=== PATIENT | male | born 1935 | race Caucasian/White ===

== ENCOUNTER 2016-12-06 01:49 | Emergency (ER) | payer MEDICARE, OTHER ==
[~2016-12-06] VITALS: Ht 182.9 cm; Wt 85.0 kg
[~2016-12-06 01:49] MED LIST: ASPI81 PO; LEVE500 PO; NAME10TA PO; NU-I150C PO; OMEP20TA PO; RISP1 PO; TRAZ50TA4 PO; VERA120T3 PO; WARF4 PO
[2016-12-06 01:55] VITALS: BP 129/97; PULSE 88; RESP 18; TEMP 99.2; O2SAT 95
[2016-12-06] MEDS ORDERED: VERA120T3 PO (02:09)
[2016-12-06] MEDS ORDERED: LEVE500 PO (02:09)
[2016-12-06] MEDS ORDERED: CLAR10CA3 PO (02:09)
[2016-12-06] MEDS ORDERED: COUM7.5T PO (02:09)
[2016-12-06] MEDS ORDERED: DIVA125C PO ×2 (02:09)
[2016-12-06] MEDS ORDERED: NAME10TA PO (02:09)
[2016-12-06] MEDS ORDERED: LORA-392 PO ×2 (02:09)
[2016-12-06] MEDS ORDERED: VITA1000 PO (02:09)
[2016-12-06] MEDS ORDERED: MILKSUS PO (02:09)
[2016-12-06] MEDS ORDERED: NU-IRON PO (02:09)
[2016-12-06] MEDS ORDERED: TYLE325T PO (02:09)
[2016-12-06] MEDS ORDERED: NORC5TAB PO (02:09)
[2016-12-06] MEDS ORDERED: OMEP20TA PO (02:09)
[2016-12-06] MEDS ORDERED: LEXA10TA PO (02:09)
[2016-12-06] MEDS ORDERED: TRAZ50TA12 PO (02:09)
--- NOTE | 2016-12-06 02:12 | PD ---
HPI Chief Complaint: Fall Time Seen by Provider: 01:53 Travel History International Travel<30 days: No Contact w/Intl Traveler<30days: No Traveled to known affect area: No History of Present Illness HPI This is an 81-year-old male who has a history of dementia who is on Coumadin and who was found on the ground by his custodial having fallen. Patient is unable to provide much history and doesn't remember the fall. He does report that he has a little bit of pain in his low back. PFSH Past Medical History Hx Anticoagulant Therapy: Yes (COUMADIN) Anemia: Yes Atrial Fibrillation: Yes Cardiovascular Problems: Yes (AFIB) Cerebrovascular Accident: Yes Dementia: Yes GERD: Yes Hypertension: Yes Musculoskeletal: Yes (CHRONIC PAIN) Psychiatric: Yes (PSYCHOSIS NOS) Social History Alcohol Use: No Tobacco Use: No Substance Use: No Allergies-Medications (Allergen,Severity, Reaction): Coded Allergies: No Known Allergies (Unverified , 12/06/16) Reported Meds & Prescriptions Reported Meds & Active Scripts Active Reported Verapamil (Verapamil HCl) 120 Mg Tab 120 Mg PO DAILY Tylenol (Acetaminophen) 325 Mg Tab 650 Mg PO Q4H PRN Trazodone (Trazodone HCl) 50 Mg Tab 50 Mg PO HS PRN Poly-Iron 150 (Polysaccharide Iron Complex) 150 Mg Iron Cap 150 Mg PO Q12HR Omeprazole 20 Mg Tab 20 Mg PO DAILY PRN [place] (Hydrocodone-Acetaminophen) 5-325 mg Tab 1 Tab PO Q6H PRN Namenda (Memantine) 10 Mg Tab 10 Mg PO BID Milk of Magnesia Liq (Magnesium Hydroxide) 400 Mg/5 Ml Susp 30 Ml PO DAILY PRN Claritin (Loratadine) 10 Mg Cap 10 Mg PO DAILY Lexapro (Escitalopram Oxalate) 10 Mg Tab 10 Mg PO HS Keppra (Levetiracetam) 500 Mg Tab 500 Mg PO BID Depakote Sprinkles (Divalproex Sodium) 125 mg Cap 250 Mg PO BID Depakote Sprinkles (Divalproex Sodium) 125 mg Cap 125 Mg PO DAILY Coumadin (Warfarin) 7.5 Mg Tab 7 Mg PO HS Vitamin D-1000 (Cholecalciferol) 1,000 Unit Tab 2,000 Units PO DAILY Ativan (Lorazepam) 0.5 Mg Tab 0.5 Mg PO DAILY Ativan (Lorazepam) 0.5 Mg Tab 0.5 Mg PO Q6H PRN Review of Systems ROS Limitations: Poor Historian Physical Exam Narrative GENERAL:Well appearing, no acute distress SKIN: Focused skin assessment warm and dry. HEAD: Atraumatic. Normocephalic. EYES: Pupils equal and round. No injection or drainage. ENT: Moist mucous membranes NECK: Trachea midline. CARDIOVASCULAR: Regular rate and rhythm. No murmur appreciated. RESPIRATORY: Clear to auscultation. Breath sounds equal bilaterally. GASTROINTESTINAL: Abdomen soft, non-tender, nondistended. MUSCULOSKELETAL: Tender to palpation over the lower lumbar spine. NEUROLOGICAL: Awake and alert. No obvious cranial nerve deficits. Moving all extremities. Data Data Last Documented VS Vital Signs Date Time Temp Pulse Resp B/P (MAP) Pulse Ox O2 Delivery O2 Flow Rate FiO2 12/06/16 01:55 99.2 88 18 129/97 (108) [address] Brain W/O Iv Contrast(Rout) (12/06/16 ) ^ Insert Iv (12/06/16 02:04) Spine, Lumbar - Ltd (Ap & Lat) (12/06/16 ) MDM Medical Decision Making Medical Screen Exam Complete: Yes Emergency Medical Condition: Yes Interpretation(s) CT head: No intracranial hemorrhage X-ray lumbar spine: No acute process Differential Diagnosis Intracranial hemorrhage, lumbar compression fracture, contusion, sprain Narrative Course This is an 81-year-old male who presents to the emergency department having had an unwitnessed fall at his custodial. He is on Coumadin. CT of the head is unremarkable. He is reporting some lower back pain. Lumbar spine x-rays reassuring. I think patient can safely be discharged back to his custodial. Diagnosis Primary Impression: Fall Qualified Codes: W19.XXXA - Unspecified fall, initial encounter Patient Instructions: General Instructions Med/Other Pt SpecificInfo: No Change to Meds Disposition: 01 DISCHARGE HOME Condition: Stable Thuy Santiago MD Dec 06, 2016 02:12
--- NOTE | 2016-12-06 02:32 | RADRPT ---
EXAM DATE/TIME: 12/06/2016 02:18 [facility] COMPARISON: No previous studies available for comparison. INDICATIONS : Pt lost balance and fell. Low back pain. MEDICAL HISTORY : Hypertension. Gastroesophageal reflux disease. A-Fib, Alzheimers SURGICAL HISTORY : Unobtainable ENCOUNTER: Initial ACUITY: 1 day PAIN SCORE: 7/10 LOCATION: Bilateral Lumbar FINDINGS: Two view examination was performed. There are five non-rib bearing vertebral bodies. Multilevel dege nerative disease with bridging anterior and lateral osteophytes predominantly from L1 to through L3-4 . Vertebral body heights are maintained without fracture or listhesis. There is some facet arthrosis at the lumbosacral junction CONCLUSION: 1. Multilevel degenerative disc disease with anterior and lateral bridging osteophytes from L1-2 thro ugh L3-4. 2. No acute fracture or listhesis. Simone Quach MD on December 06, 2016 at 2:29 Board Certified Radiologist. This report was verified electronically.
--- NOTE | 2016-12-06 03:04 | RADRPT ---
EXAM DATE/TIME: 12/06/2016 02:33 [facility] COMPARISON: CT BRAIN W/O CONTRAST, May 22, 2012, 19:37. INDICATIONS : Trauma, fall. RADIATION DOSE: 32.68 CTDIvol (mGy) MEDICAL HISTORY : Dementia. Cardiovascular disease Gastroesophageal reflux disease.Hypertension. CVA. SURGICAL HISTORY : None. ENCOUNTER: Initial ACUITY: 1 day PAIN SCALE: 0/10 LOCATION: cranial TECHNIQUE: Multiple contiguous axial images were obtained of the head. Using automated exposure control and adj ustment of the mA and/or kV according to patient size, radiation dose was kept as low as reasonably a chievable to obtain optimal diagnostic quality images. DICOM format image data is available electro nically for review and comparison. FINDINGS: CEREBRUM: The ventricles are normal for age. No evidence of midline shift, mass lesion, hemorrhage or acute in farction. Severe encephalomalacia changes in the right temporal lobe with moderately severe encephal omalacia changes in the anterior aspect of the left temporal. Periventricular areas of diminished att enuation are characteristic of severe small vessel ischemic demyelination. No extra-axial fluid colle ctions are seen. POSTERIOR FOSSA: The cerebellum and brainstem are intact. The 4th ventricle is midline. The cerebellopontine angle i s unremarkable. EXTRACRANIAL: The visualized portion of the orbits is intact. SKULL: The calvaria is intact. No evidence of skull fracture. CONCLUSION: 1. Chronic changes with extensive encephalomalacia changes in the temporal lobes, right greater than left as well as severe periventricular small vessel ischemic demyelination. 2. No acute intracranial process, trauma or fracture. Simone Quach MD on December 06, 2016 at 3:00 Board Certified Radiologist. This report was verified electronically.
[2016-12-06 06:26] VITALS: BP 126/92; PULSE 79; RESP 18; O2SAT 96
[2016-12-06 08:41] VITALS: BP 187/120; PULSE 83; RESP 18; O2SAT 95
[2016-12-06 08:56] VITALS: BP 151/83; PULSE 50; RESP 16; O2SAT 97
== END 2016-12-06 09:57 | disposition home or self-care (01) ==
LOC: NEPC 01:49
DX: M54.5 Low back pain (principal); I48.91 Unspecified atrial fibrillation; I10 Essential (primary) hypertension; W01.0XXA Fall on same level from slipping, tripping and stumbling without subsequent striking against object, initial encounter; Y93.01 Activity, walking, marching and hiking; Y92.129 Unspecified place in nursing home as the place of occurrence of the external cause; Z79.01 Long term (current) use of anticoagulants
CPT/HCPCS: 70450; 72100; 99284

== ENCOUNTER 2017-03-02 13:28 | Inpatient (IN) | payer MEDICARE, OTHER ==
[~2017-03-02] VITALS: Ht 177.8 cm; Wt 132.4 kg
[~2017-03-02 13:28] MED LIST changes: -ASPI81 PO; +CLAR10CA3 PO; +COUM7.5T PO; +DIVA125C PO; +LACTATED RINGER'S 1000 ML INJ 5,000 ML IV ONE; +LEXA10TA PO; +LIDOCAINE HCL 1% PF 5 ML SYRINGE OTHER ONE; +LORA-392 PO; +MIDAZOLAM HCL 2 MG/2 ML VIAL IV ONE; +MILKSUS PO; +NORC5TAB PO; -NU-I150C PO; +NU-IRON PO; -OMEP20TA PO; +OMEP20TA93 PO; +PHENYLEPH/NS 1000 MCG/10 ML SYR IV ONE; +PHENYLEPHRINE HCL 10 MG/ML VIAL IV ONE; +PROPOFOL 200 MG/20 ML AMP IV ONE; -RISP1 PO; +ROCURONIUM INJ 50 MG/5 ML SYRINGE IV PUSH ONE; +SODIUM CHLORID 0.9% 500 ML INJ 500 ML IV ONE; +SODIUM CHLORIDE 0.9% 20 ML VIAL IV ONE; +SUCCINYLCHOLINE CHLORIDE 100 MG/5 ML SYRINGE IV PUSH ONE; +TRAZ50TA12 PO; -TRAZ50TA4 PO; +TYLE325T PO; +VITA1000 PO; -WARF4 PO; +ceFAZolin INJ 1,000 MG VIAL IV ONE
--- NOTE | 2017-03-02 13:44 | PD ---
HPI Chief Complaint: Altered Mental Status Time Seen by Provider: 13:43 Travel History International Travel<30 days: No Contact w/Intl Traveler<30days: No Traveled to known affect area: No History of Present Illness HPI 81-year-old male came to the emergency room from the [facility] brought by med 1. Patient was brought in for left leg pain and swelling. Patient has history of dementia and altered mental status. I do not know his baseline mental status but he is significantly confused and constantly moaning as if he is in pain and not answering any questions. Patient is not a reliable historian by any means. As per the paperwork that came with the patient from the [facility] he had a fall that led to an ultrasound done for his left leg since it was swollen which showed a large hematoma in his left leg. This was done on 02/24/2017. The radiologist said requested a CT scan but one was not done yet. Patient was sent to the ER since his condition was worsening. He has been mildly tachycardic since the arrival in low 100s. He keeps complaining that his leg hurts and he is cold. Rectal temperature was 96. PFSH Past Medical History Narrative Medical List of his past medical, surgical, social and family history is reviewed from the nursing note. Hx Anticoagulant Therapy: Yes (COUMADIN) Alzheimer's Disease: Yes Anemia: Yes Atrial Fibrillation: Yes Anxiety: Yes Cardiovascular Problems: Yes (AFIB) Cerebrovascular Accident: Yes Dementia: Yes Gastrointestinal Disorders: Yes (KIDNEY DISEASE) GERD: Yes Hypertension: Yes Musculoskeletal: Yes (CHRONIC PAIN, OSTEOPOROSIS) Psychiatric: Yes (PSYCHOSIS NOS) Integumentary: Yes (PRURITIS) Seizures: Yes Past Surgical History Coronary Artery Bypass Graft: Yes Valve Replacement: Yes Social History Alcohol Use: No Tobacco Use: No Substance Use: No Allergies-Medications (Allergen,Severity, Reaction): Coded Allergies: No Known Allergies (Unverified Allergy, Unknown, 03/02/17) Comments No known drug allergies. Reported Meds & Prescriptions Reported Meds & Active Scripts Active Reported Tylenol (Acetaminophen) 325 Mg Tab 650 Mg PO Q4H PRN Eliquis (Apixaban) 5 Mg Tab 5 Mg PO BID Verapamil (Verapamil HCl) 120 Mg Tab 120 Mg PO DAILY Tylenol (Acetaminophen) 325 Mg Tab 650 Mg PO Q4H PRN Poly-Iron 150 (Polysaccharide Iron Complex) 150 Mg Iron Cap 150 Mg PO Q12HR Omeprazole 20 Mg Tab 20 Mg PO DAILY PRN [place] (Hydrocodone-Acetaminophen) 5-325 mg Tab 1 Tab PO Q6H PRN Namenda (Memantine) 10 Mg Tab 10 Mg PO BID Milk of [place] Liq (Magnesium Hydroxide) 400 Mg/5 Ml Susp 30 Ml PO DAILY PRN Claritin (Loratadine) 10 Mg Cap 10 Mg PO DAILY Lexapro (Escitalopram Oxalate) 10 Mg Tab 10 Mg PO HS Keppra (Levetiracetam) 500 Mg Tab 500 Mg PO BID Depakote Sprinkles (Divalproex Sodium) 125 mg Cap 250 Mg PO BID Depakote Sprinkles (Divalproex Sodium) 125 mg Cap 125 Mg PO DAILY Vitamin D-1000 (Cholecalciferol) 1,000 Unit Tab 2,000 Units PO DAILY Narrative Medication List of his home medications reviewed from the nursing note. Review of Systems ROS Limitations: Altered Mental Status Except as stated in HPI: all other systems reviewed are Neg Musculoskeletal: Positive: Pain Physical Exam Narrative GENERAL: Confused, altered mental status, obese, dementia, significant distress , pain out of proportion SKIN: Focused skin assessment warm/dry. Left leg thigh is significantly swollen and tense. The skin color is mottled. HEAD: Atraumatic. Normocephalic. EYES: Pupils equal and round. No scleral icterus. No injection or drainage. ENT: No nasal bleeding or discharge. Mucous membranes pink and moist. NECK: Trachea midline. No JVD. CARDIOVASCULAR: Regular rate and rhythm. No murmur appreciated. RESPIRATORY: No accessory muscle use. Clear to auscultation. Breath sounds equal bilaterally. GASTROINTESTINAL: Abdomen soft, non-tender, nondistended. Hepatic and splenic margins not palpable. MUSCULOSKELETAL: Under skin. The left thigh is significantly swollen and very tense. Patient is in significant pain upon palpation of the leg. No clubbing. No cyanosis. No edema. No distal pulses either palpable or dopplerable. The right mid thigh girth is 50 cm and left mid thigh girth is 57 cm. NEUROLOGICAL: GCS of 12, constantly moaning and moving all 4 extremities PSYCHIATRIC: Anxious but with altered mental status and dementia hard to assess Data Data Last Documented VS Orders Orders Complete Blood Count With Diff (03/02/17 13:53) Comprehensive Metabolic Panel (03/02/17 13:53) Creatine Kinase (Cpk) (03/02/17 13:53) Prothrombin Time / Inr (Pt) (03/02/17 13:53) Troponin I (03/02/17 13:53) Lactic Acid Sepsis Protocol (03/02/17 13:53) Blood Culture (03/02/17 13:53) Blood Glucose (03/02/17 13:53) Ecg Monitoring (03/02/17 13:53) Iv Access Insert/Monitor (03/02/17 13:53) Oximetry (03/02/17 13:53) Sodium Chloride 0.9% Flush (Ns Flush) (03/02/17 14:00) Sodium Chlor 0.9% 1000 Ml Inj (Ns 1000 M (03/02/17 13:53) Ct Femur W/O Iv Contrast (03/02/17 ) Ct Pelvis W/O Iv Contrast (03/02/17 ) Morphine Inj (Morphine Inj) (03/02/17 14:00) Lorazepam Inj (Ativan Inj) (03/02/17 14:00) Piperacil-Tazo 4.5 Gm Premix (Zosyn 4.5 (03/02/17 14:30) Vancomycin Inj (Vancomycin Inj) (03/02/17 14:30) Etomidate Inj (Amidate Inj) (03/02/17 14:30) CKMB (03/02/17 14:09) CKMB% (03/02/17 14:09) Admit To Inpatient (03/02/17 ) Code Status (03/02/17 15:14) Vital Signs (Adult) SILVA.Q1H (03/02/17 15:14) Activity Bed Rest (03/02/17 15:14) Sodium Chlor 0.9% 1000 Ml Inj (Ns 1000 M (03/02/17 15:14) Morphine Inj (Morphine Inj) (03/02/17 15:15) Famotidine Inj (Pepcid Inj) (03/02/17 21:00) Albuterol-Ipratropium Neb (Duoneb Neb) (03/02/17 15:15) Lactic Acid (03/03/17 04:00) Field Care Coordinator / Telemetry SILVA.Q8H (03/02/17 15:14) ^ Initiate Protocol (03/02/17 15:14) Instruction (03/02/17 15:14) [facility] [place] (03/02/17 15:15) Chlorhexidine 2% Cloth (Chlorhexidine 2% (03/03/17 04:00) Chlorhexidine 2% Cloth (Chlorhexidine 2% (03/02/17 15:15) Mrsa Pcr Surveillance (03/02/17 15:14) Docusate Sodium-Senna (Mallory-Colace) (03/02/17 21:00) Magnesium Hydroxide Liq (Milk Of Magnesi (03/02/17 15:15) Sennosides (Senokot) (03/02/17 15:15) Bisacodyl Supp (Dulcolax Supp) (03/02/17 15:15) Lactulose Liq (Lactulose Liq) (03/02/17 15:15) Inpatient Certification (03/02/17 ) Divalproex Sprinkles (Depakote Sprinkles (03/03/17 09:00) Divalproex Sprinkles (Depakote Sprinkles (03/02/17 21:00) Levetiracetam (Keppra) (03/02/17 21:00) Piperacil-Tazo 3.375 Gm Premix (Zosyn 3. (03/02/17 23:00) Admit Order (Ed Use Only) (03/02/17 15:32) Labs Laboratory Tests Test 03/02/17 14:09 White Blood Count 24.6 TH/MM3 Red Blood Count 2.87 MIL/MM3 Hemoglobin 8.5 GM/DL Hematocrit 26.2 % Mean Corpuscular Volume 91.2 FL Mean Corpuscular Hemoglobin 29.6 PG Mean Corpuscular Hemoglobin Concent 32.5 % Red Cell Distribution Width 14.8 % Platelet Count 302 TH/MM3 Mean Platelet Volume 9.9 FL Neutrophils (%) (Auto) 87.3 % Lymphocytes (%) (Auto) 4.3 % Monocytes (%) (Auto) 8.1 % Eosinophils (%) (Auto) 0.1 % Basophils (%) (Auto) 0.2 % Neutrophils # (Auto) 21.5 TH/MM3 Lymphocytes # (Auto) 1.1 TH/MM3 Monocytes # (Auto) 2.0 TH/MM3 Eosinophils # (Auto) 0.0 TH/MM3 Basophils # (Auto) 0.1 TH/MM3 CBC Comment AUTO DIFF Differential Total Cells Counted 100 Neutrophils % (Manual) 84 % Band Neutrophils % 4 % Lymphocytes % 3 % Monocytes % 7 % Neutrophils # (Manual) 22.1 TH/MM3 Promyelocytes 2 % Differential Comment FINAL DIFF MANUAL Platelet Estimate NORMAL Platelet Morphology Comment NORMAL Prothrombin Time 11.5 SEC Prothromb Time International Ratio 1.1 RATIO Blood Urea Nitrogen 52 MG/DL Creatinine 1.81 MG/DL Random Glucose 141 MG/DL Total Protein 6.6 GM/DL Albumin 2.1 GM/DL Calcium Level 8.0 MG/DL Alkaline Phosphatase 99 U/L Aspartate Amino Transf (AST/SGOT) 27 U/L Alanine Aminotransferase (ALT/SGPT) 16 U/L Total Bilirubin 0.7 MG/DL Sodium Level 141 MEQ/L Potassium Level 4.3 MEQ/L Chloride Level 104 MEQ/L Carbon Dioxide Level 25.9 MEQ/L Anion Gap 11 MEQ/L Estimat Glomerular Filtration Rate 36 ML/MIN Lactic Acid Level 2.6 mmol/L Total Creatine Kinase 590 U/L Creatine Kinase MB 1.6 NG/ML Creatine Kinase MB % 0.3 % Troponin I LESS THAN 0.02 NG/ML MDM Medical Decision Making Medical Screen Exam Complete: Yes Emergency Medical Condition: Yes Medical Record Reviewed: Yes Differential Diagnosis Compartment syndrome, infected hematoma, large hematoma Narrative Course 3:19 PM CBC is back which shows significantly elevated white blood cell count with a left shift. Chemistry is pending. I checked his compartment pressures on the left thigh under conscious sedation. Please refer to my procedure note. The conscious sedation was done by Dr. Jerome. Please refer to his procedure note regarding the conscious sedation. I discussed the case with Dr. Gonzalez based on the elevated posterior thigh compartment pressure. He wants the patient to be admitted medically and he will take the patient to the OR as soon as possible. Meanwhile a CAT scan of the leg without IV contrast was done I am waiting for the radiologist's report. Chemistry is pending. My suspicion is high for elevated CPK and renal function is well. Patient has been started on Zosyn and vancomycin for possible sepsis. I discussed the case with Dr. Sepulveda from ICU who has accepted the patient. 3:49 PM based on the CAT scan report I spoke with vascular surgeon Dr. Harris who will come down to see the patient. Critical Care Narrative Aggregate critical care time was 75 minutes. Time to perform other separately billable procedures was not included in the critical care time. My time did not include minutes spent treating any other patients simultaneously or on activities that did not directly contribute to the patient's treatment. The services I provided to this patient were to treat and/or prevent clinically significant deterioration that could result in: Compartment syndrome, sepsis, altered mental status I provided critical care services requiring my management, as noted below: Chart data review, documentation time, medication orders and management, vital sign assessments/reviewing monitor data, ordering and reviewing lab tests, ordering and interpreting/reviewing x-rays and diagnostic studies, care of the patient and discussion of the patient with the admitting physicians. Procedures Procedure Narrative Compartment pressure measurements: The left thigh compartment pressures were measured. This was done under conscious sedation. Patient tolerated the procedure well. Following were the compartment pressure measurements: 1. Anterior compartment 11 mmHg 2. Lateral compartment 19 mmHg 3. Posterior compartment 93 mmHg EKG Prior to Arrival: No Sepsis Criteria SIRS Criteria (2 or more): Heart rate over 90, WBC > 64605, < 4000 or > 10% bands Sepsis Criteria (SIRS+source): Infect source susp/known Severe Sepsis (+one): Lactate >2 Physician Communication Physician Communication Dr. Gonzalez, Dr. Sepulveda, Dr. Harris Diagnosis Primary Impression: Compartment syndrome Qualified Codes: T79.A22A - Traumatic compartment syndrome of left lower extremity, initial encounter Additional Impressions: Hematoma of left thigh Qualified Codes: S70.12XA - Contusion of left thigh, initial encounter Altered mental status Qualified Codes: R41.0 - Disorientation, unspecified Sepsis Qualified Codes: A41.9 - Sepsis, unspecified organism Admitting Information Admitting Physician Requests: Michelle Walton MD Mar 02, 2017 13:44
[2017-03-02 13:45] VITALS: BP 124/71; PULSE 81; RESP 16; O2SAT 96
[2017-03-02] MEDS ORDERED: SODIUM CHLOR 0.9% 1000 ML INJ 1,000 ML IV SCH (13:53)
[2017-03-02] MEDS ORDERED: LORazepam 2 MG/ML VIAL IV PUSH ONE (14:00)
[2017-03-02] MEDS ORDERED: SODIUM CHLORIDE 0.9% FLUSH 10 ML FLUSH IV FLUSH PRN (14:00)
[2017-03-02] MEDS ORDERED: MORPHINE SULFATE 4 MG/ML INJ IV PUSH ONE (14:00)
[2017-03-02] MEDS ORDERED: PIPERACIL-TAZO 4.5 GM PREMIX 100 ML IV ONE (14:30)
[2017-03-02] MEDS ORDERED: ETOMIDATE 20 MG/10 ML VIAL IV PUSH ONE (14:30)
[2017-03-02] MEDS ORDERED: VANCOMYCIN INJ 1,000 MG in SODIUM CHLOR 0.9% 250 ML INJ 250 ML IV ONE (14:30)
[2017-03-02 14:48] LABS: AUTOMATED NEUTROPHIL # 21.5 TH/MM3 (1.8-7.7); BASOPHIL # 0.1 TH/MM3 (0-0.2); BASOPHIL % 0.2 % (0.0-2.0); EOSINOPHIL % 0.1 % (0.0-4.0); HEMATOCRIT 26.2 % (39.0-51.0); LYMPH % 4.3 % (9.0-44.0); LYMPHOCYTE # 1.1 TH/MM3 (1.0-4.8); MEAN CELL VOLUME 91.2 FL (80.0-100.0); MEAN CORPUSCULAR HEMOGLOBIN 29.6 PG (27.0-34.0); MEAN CORPUSCULAR HGB CONC 32.5 % (32.0-36.0); MONO % 8.1 % (0.0-8.0); NEUT % 87.3 % (16.0-70.0); PLATELET COUNT 302 TH/MM3 (150-450); RED BLOOD COUNT 2.87 MIL/MM3 (4.50-5.90); RED CELL DISTRIBUTION WIDTH 14.8 % (11.6-17.2); WHITE BLOOD COUNT 24.6 TH/MM3 (4.0-11.0)
[2017-03-02 14:50] VITALS: O2SAT 96; O2SAT 98; O2SAT 99
[2017-03-02 14:52] LABS: HEMO FLAGS AUTO DIFF
[2017-03-02 14:57] LABS: INTERNATIONAL NORMALIZED RATIO 1.1 RATIO; PROTHROMBIN TIME - PATIENT 11.5 SEC (9.8-11.6)
--- NOTE | 2017-03-02 14:58 | PD ---
Physical Exam Date Seen by Provider: Mar 02, 2017 Time Seen by Provider: 14:57 Narrative I was asked by the attending physician, Dr. Stanton, to perform conscious sedation on the patient so the patient could undergo Baylee needle for suspected compartment syndrome of the left lower extremity. Data Data Orders Orders Electrocardiogram (03/02/17 13:53) Complete Blood Count With Diff (03/02/17 13:53) Comprehensive Metabolic Panel (03/02/17 13:53) Creatine Kinase (Cpk) (03/02/17 13:53) Prothrombin Time / Inr (Pt) (03/02/17 13:53) Troponin I (03/02/17 13:53) Urinalysis - C+S If Indicated (03/02/17 13:53) Lactic Acid Sepsis Protocol (03/02/17 13:53) Blood Culture (03/02/17 13:53) Blood Glucose (03/02/17 13:53) Ecg Monitoring (03/02/17 13:53) Iv Access Insert/Monitor (03/02/17 13:53) Oximetry (03/02/17 13:53) Sodium Chloride 0.9% Flush (Ns Flush) (03/02/17 14:00) Sodium Chlor 0.9% 1000 Ml Inj (Ns 1000 M (03/02/17 13:53) Ct Femur W/O Iv Contrast (03/02/17 ) Ct Pelvis W/O Iv Contrast (03/02/17 ) Morphine Inj (Morphine Inj) (03/02/17 14:00) Lorazepam Inj (Ativan Inj) (03/02/17 14:00) Piperacil-Tazo 4.5 Gm Premix (Zosyn 4.5 (03/02/17 14:30) Vancomycin Inj (Vancomycin Inj) (03/02/17 14:30) Etomidate Inj (Amidate Inj) (03/02/17 14:30) Labs Laboratory Tests Test 03/02/17 14:09 White Blood Count 24.6 TH/MM3 Red Blood Count 2.87 MIL/MM3 Hemoglobin 8.5 GM/DL Hematocrit 26.2 % Mean Corpuscular Volume 91.2 FL Mean Corpuscular Hemoglobin 29.6 PG Mean Corpuscular Hemoglobin Concent 32.5 % Red Cell Distribution Width 14.8 % Platelet Count 302 TH/MM3 Mean Platelet Volume 9.9 FL Neutrophils (%) (Auto) 87.3 % Lymphocytes (%) (Auto) 4.3 % Monocytes (%) (Auto) 8.1 % Eosinophils (%) (Auto) 0.1 % Basophils (%) (Auto) 0.2 % Neutrophils # (Auto) 21.5 TH/MM3 Lymphocytes # (Auto) 1.1 TH/MM3 Monocytes # (Auto) 2.0 TH/MM3 Eosinophils # (Auto) 0.0 TH/MM3 Basophils # (Auto) 0.1 TH/MM3 CBC Comment AUTO DIFF MDM Medical Record Reviewed: Yes Supervised Visit with KRYSTAL: No Differential Diagnosis Differential diagnosis includes compartment syndrome, DVT, hematoma, necrotizing fasciitis, abscess. Narrative Course I was asked by the attending physician, Dr. Stanton, to perform conscious sedation. The patient was placed on O2 via nasal cannula, continuous pulse oximetry monitoring, and continuous cardiac telemetry monitoring. The patient had IV fluids running and was then administered etomidate 10 mg intravenously. Patient tolerated the procedure without difficulty and there is no obvious complications. Procedures Procedure Narrative After the risks and benefits were discussed the following procedure was performed: MODERATE SEDATION: The patient was placed on a cardiac cath tech and pulse oximetry. An ambu bag and suction was immediately available at bedside. The patient was monitored by the nurse. Oxygen saturation, heart rate and blood pressure were monitored. Procedural sedation was acheived using etomidate 10 mg intravenously. The patient was observed until awake and alert. Procedural Sedation time in attendance was 30 minutes. Condition: Stable Jerome Jerome MD Mar 02, 2017 14:58
[2017-03-02 15:09] LABS: ALT (GPT) 16 U/L (12-78); ANION GAP 11 MEQ/L (5-15); AST (GOT) 27 U/L (15-37); BICARBONATE 25.9 MEQ/L (21.0-32.0); BLOOD UREA NITROGEN 52 MG/DL (7-18); CHLORIDE 104 MEQ/L (98-107); GLOMERULAR FILTRATION RATE 36 ML/MIN (>89); POTASSIUM 4.3 MEQ/L (3.5-5.1); SODIUM (NA) 141 MEQ/L (136-145)
[2017-03-02 15:13] LABS: ALKALINE PHOSPHATASE 99 U/L (45-117); CREATINE KINASE 590 U/L (39-308); TOTAL BILIRUBIN ADULT 0.7 MG/DL (0.2-1.0)
[2017-03-02] MEDS ORDERED: RESP: ALBUTEROL 2.5 MG/IPRATROPIUM 0.5 MG NEB (PRN) INH (15:15)
[2017-03-02] MEDS ORDERED: MAGNESIUM HYDROXIDE SUSP 30 ML CUP PO PRN (15:15)
[2017-03-02] MEDS ORDERED: SENNOSIDES 8.6 MG TAB PO PRN (15:15)
[2017-03-02] MEDS ORDERED: LACTULOSE SYRUP 20 GM/30 ML CUP PO PRN (15:15)
[2017-03-02] MEDS ORDERED: CHLORHEXIDINE GLUCONATE 2 % 1 PACK (2 CLOTHS) TOP PRN (15:15)
[2017-03-02] MEDS ORDERED: MORPHINE SULFATE 4 MG/ML INJ IV PUSH PRN (15:15)
[2017-03-02] MEDS ORDERED: BISACODYL 10 MG SUPP RECTAL PRN (15:15)
[2017-03-02] MEDS ORDERED: MISCELLANEOUS NURSING INFORMATION XX SCH (15:15)
[2017-03-02 15:28] LABS: CKMB 1.6 NG/ML (0.5-3.6)
--- NOTE | 2017-03-02 15:38 | RADRPT ---
EXAM DATE/TIME: 03/02/2017 14:17 [facility] COMPARISON: No previous studies available for comparison. INDICATIONS : Left leg swelling. RADIATION DOSE: 20.46 CTDIvol (mGy) MEDICAL HISTORY : Dementia. Seizures. Cardiovascular disease SURGICAL HISTORY : None. ENCOUNTER: Initial ACUITY: 1 day PAIN SCALE: 1/10 LOCATION: Left leg TECHNIQUE: Volumetric scanning of the femur was performed. Using automated exposure control and adjustment of t he mA and/or kV according to patient size, radiation dose was kept as low as reasonably achievable to obtain optimal diagnostic quality images. DICOM format image data is available electronically for review and comparison. FINDINGS: BONES: No evidence of fracture. Alignment is within normal limits. JOINTS: No evidence of joint narrowing or effusion. SOFT TISSUES: Significant soft tissue swelling is identified in the adductor and posterior hamstring compartments o f the thigh. Hyperdense fluid collections are identified in the mid and distal thigh. The collections appear connected. 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 The collections which have the appearance of hematomas or pseudoaneurysms measure 20 cm in length by 9.1 cm in width. Aneurysmal enlargement of the proximal bronchial artery measures 2.9 x 4.5 cm in size. CONCLUSION: 1. Large complex fluid collections from the mid to lower thigh characteristic of either a large hemat omas or pseudoaneurysms. These are associated with a popliteal artery aneurysm. Ruptured aneurysm nee ds be considered. 2. No evidence of acute bony abnormality. Juancarlos Maradiaga MD on March 02, 2017 at 15:16 Board Certified Radiologist. This report was verified electronically.
--- NOTE | 2017-03-02 15:40 | RADRPT ---
EXAM DATE/TIME: 03/02/2017 14:20 [place] COMPARISON: No previous studies available for comparison. INDICATIONS : Fall one week ago, left leg swelling. ORAL CONTRAST: No oral contrast ingested. RADIATION DOSE: 41.83 CTDIvol (mGy) MEDICAL HISTORY : Dementia. Seizures. SURGICAL HISTORY : None. ENCOUNTER: Initial ACUITY: 1 day PAIN SCALE: 5/10 LOCATION: Left leg TECHNIQUE: Volumetric scanning of the pelvis was performed. Using automated exposure control and adjustment of the mA and/or kV according to patient size, radiation dose was kept as low as reasonably achievable t o obtain optimal diagnostic quality images. DICOM format image data is available electronically for review and comparison. FINDINGS: BOWEL/MESENTERY: The visualized small and large bowel demonstrate no acute abnormality. There is no free fluid. BLADDER: There is no wall thickening or mass. RETROPERITONEUM: There is no aneurysm or lymphadenopathy. REPRODUCTIVE: Within normal limits. INGUINAL: There is no lymphadenopathy or hernia. MUSCULOSKELETAL: Significant swelling is identified of the left adductor muscles. CONCLUSION: 1. Left adductor muscle swelling 2. Unremarkable pelvic structures 3. No evidence of acute bony abnormality. Juancarlos Maradiaga MD on March 02, 2017 at 15:37 Board Certified Radiologist. This report was verified electronically.
[2017-03-02] MEDS ORDERED: PROTHROMBIN COMPLEX CONC INJ 5,000 UNITS in SYRINGE/BAG 1 EA IV STA (15:44)
[2017-03-02 15:49] VITALS: BP 104/63
--- NOTE | 2017-03-02 15:51 | HHI.HP ---
[facility] Service Critical Care Medicine Primary Care Physician Pavan Walker MD Admission Diagnosis compartment syndrome, left thigh hematoma, sepsis Diagnosis: (1) Compartment syndrome of left lower extremity Diagnosis: Principal (2) Hematoma of left thigh Diagnosis: Principal (3) Acute encephalopathy Diagnosis: Principal (4) Severe sepsis Diagnosis: Principal (5) Chronic Eliquis use Diagnosis: Secondary (6) Dementia Diagnosis: Secondary Chief Complaint: Large left thigh hematoma with compartment syndrome Severe sepsis Travel History International Travel<30 Days: No Contact w/Intl Traveler <30 Da: No Traveled to Known Affected Are: No Sepsis Criteria SIRS Criteria (2 or more): Temp > 100.9 or < 96.8, WBC > 65671, < 4000 or > 10 % bands Severe Sepsis (+one): Organ Dysfunction, Lactate >2, Acute Oliguria/Renal Failure Criteria Outcome: Meets severe sepsis criteria History of Present Illness Patient is a 80-year-old [place] with history of dementia, chronic atrial fibrillation, coronary artery disease with history of bypass, hypertension who was brought to the emergency department for leg pain and swelling. Patient has dementia and now metabolic encephalopathy which limits history. Apparently a week ago patient [place] a [place] 02[place]24/17 showed large hematoma in his left leg. A CT of the lower extremity was recommended which apparently was not done. In the ED patient had a temperature of 96, HR 100s and borderline hypotension. WBC count was elevated at 24.6 with left shift. Lactic acid was 2.6 BUN was 55 and creatinine 1.8. Patient's left lower extremity was significantly swollen and tense, Dr. Stanton did check compartment pressure which was highly elevated. According to Dr. Stanton compartment pressure in posterior compartment of thigh was [address] Gonzalez was consulted emergently who is planning to take patient to OR for probable fasciotomy. No pulse was felt in LE. CT of the left lower extremity showed large thigh hematoma and associated popliteal aneurysms raising concern for aneurysm rupture. Dr. Harris from vascular surgery also was consulted. Patient received vancomycin and Zosyn for sepsis. I evaluated the patient in the emergency department. Patient appears critically ill, because of underlying dementia history is not obtainable. I have ordered 2 L normal saline bolus. Patient is chronically on Eliquis. I will reverse this with 5,500 units of K Centra. Case discussed extensively with Dr. Stanton and Dr. Harris Review of Systems ROS Limitations: Altered Mental Status Past Family Social History Allergies: Coded Allergies: No Known Allergies (Unverified Allergy, Unknown, 03/02/17) Past Medical History Chronic atrial fibrillation on Eliquis Recent left thigh hematoma, with compartment syndrome Hypertension Dementia Coronary artery disease and history of CABG Past Surgical History History of CABG and ? valve replacement ? PAD with ? Revascularization left leg Reported Medications Verapamil (Verapamil HCl) 120 Mg Tab 120 Mg PO DAILY Tylenol (Acetaminophen) 325 Mg Tab 650 Mg PO Q4H PRN Trazodone (Trazodone HCl) 50 Mg Tab 50 Mg PO HS PRN Poly-Iron 150 (Polysaccharide Iron Complex) 150 Mg Iron Cap 150 Mg PO Q12HR Omeprazole 20 Mg Tab 20 Mg PO DAILY PRN [place] (Hydrocodone-Acetaminophen) 5-325 mg Tab 1 Tab PO Q6H PRN Namenda (Memantine) 10 Mg Tab 10 Mg PO BID Milk of Magnesia Liq (Magnesium Hydroxide) 400 Mg/5 Ml Susp 30 Ml PO DAILY PRN Claritin (Loratadine) 10 Mg Cap 10 Mg PO DAILY Lexapro (Escitalopram Oxalate) 10 Mg Tab 10 Mg PO HS Keppra (Levetiracetam) 500 Mg Tab 500 Mg PO BID Depakote Sprinkles (Divalproex Sodium) 125 mg Cap 250 Mg PO BID Depakote Sprinkles (Divalproex Sodium) 125 mg Cap 125 Mg PO DAILY Coumadin (Warfarin) 7.5 Mg Tab 7 Mg PO HS (Apparently was stopped recently and changed to Vitamin D-1000 (Cholecalciferol) 1,000 Unit Tab 2,000 Units PO DAILY Ativan (Lorazepam) 0.5 Mg Tab 0.5 Mg PO DAILY Ativan (Lorazepam) 0.5 Mg Tab 0.5 Mg PO Q6H PRN Active Ordered Medications Reviewed Family History Unable to obtain due to altered mentation Social History [facility] resident, unable to obtain personal history due to altered mentation Physical Exam Physical Exam GENERAL: Elderly obese male who appears to be critically ill and in severe distress moaning SKIN: Left leg thigh is significantly swollen and tense,color is mottled. HEAD: Atraumatic. Normocephalic. EYES: Pupils equal and round. No injection or drainage. ENT: Oral mucosa is dry NECK: Trachea midline. No JVD. CARDIOVASCULAR: Normal murmurs or rubs. S1 S2 normal RESPIRATORY: No accessory muscle use. Clear to auscultation. Breath sounds equal bilaterally. GASTROINTESTINAL: Abdomen obese soft, distended. Hepatic and splenic margins not palpable. MUSCULOSKELETAL: Entire left thigh is significantly swollen and very tense, and painful on exam. No distal pulses by palpation or Doppler. Posterior compartment pressure per Dr. Stanton is 93 mmg of Hg. NEUROLOGICAL: Patient is obtunded but wakes up to stimulation. Moves extremities. Incomprehensible speech, continues to moan Laboratory Laboratory Tests Test 03/02/17 14:09 White Blood Count 24.6 Red Blood Count 2.87 Hemoglobin 8.5 Hematocrit 26.2 Mean Corpuscular Volume 91.2 Mean Corpuscular Hemoglobin 29.6 Mean Corpuscular Hemoglobin Concent 32.5 Red Cell Distribution Width 14.8 Platelet Count 302 Mean Platelet Volume 9.9 Neutrophils (%) (Auto) 87.3 Lymphocytes (%) (Auto) 4.3 Monocytes (%) (Auto) 8.1 Eosinophils (%) (Auto) 0.1 Basophils (%) (Auto) 0.2 Neutrophils # (Auto) 21.5 Lymphocytes # (Auto) 1.1 Monocytes # (Auto) 2.0 Eosinophils # (Auto) 0.0 Basophils # (Auto) 0.1 CBC Comment AUTO DIFF Prothrombin Time 11.5 Prothromb Time International Ratio 1.1 Blood Urea Nitrogen 52 Creatinine 1.81 Random Glucose 141 Total Protein 6.6 Albumin 2.1 Calcium Level 8.0 Alkaline Phosphatase 99 Aspartate Amino Transf (AST/SGOT) 27 Alanine Aminotransferase (ALT/SGPT) 16 Total Bilirubin 0.7 Sodium Level 141 Potassium Level 4.3 Chloride Level 104 Carbon Dioxide Level 25.9 Anion Gap 11 Estimat Glomerular Filtration Rate 36 Lactic Acid Level 2.6 Total Creatine Kinase 590 Creatine Kinase MB 1.6 Creatine Kinase MB % 0.3 Troponin I LESS THAN 0.02 Date/Time Source Procedure Growth Status 03/02/17 14:10 Blood Peripheral Aerobic Blood Culture Pending Received 03/02/17 14:10 Blood Peripheral Anaerobic Blood Culture Pending Received Result Diagram: 03/02/17 1409 03/02/17 1409 Imaging Large left thigh hematoma, popliteal aneurysm cannot rule out aneurysmal rupture /hemorrhage Septic Shock Reassessment Septic shock perfusion: reassessment completed Caprini VTE Risk Assessment Caprini VTE Risk Assessment: Mod/High Risk (score >= 2) VTE Pharm Contraindication: Hemorrhage Caprini Risk Assessment Model Point Value = 1 Point Value = 2 Point Value = 3 Point Value = 5 Age 41-60 Minor surgery BMI > 25 kg/m2 Swollen legs Varicose veins or History of unexplained or recurrent spontaneous Oral contraceptives or hormone replacement Sepsis (< 1 month) Serious lung disease, including pneumonia (< 1 month) Abnormal pulmonary function Acute myocardial infarction Congestive heart failure (< 1 month) History of inflammatory bowel disease Medical patient at bed rest Age 61-74 Arthroscopic surgery Major open surgery (> 45 min) Laparoscopic surgery (> 45 min) Malignancy Confined to bed (> 72 hours) Immobilizing plaster cast Central venous access Age >= 75 History of VTE Family history of VTE Factor V Leiden Prothrombin [id number] Lupus anticoagulant Anticardiolipin antibodies Elevated serum homocysteine Heparin-induced thrombocytopenia Other congenital or acquired thrombophilia Stroke (< 1 month) Elective arthroplasty Hip, pelvis, or leg fracture Acute spinal cord injury (< 1 month) Prophylaxis Regimen Total Risk Factor Score Risk Level Prophylaxis Regimen 0-1 Low Early ambulation 2 Moderate Order ONE of the following: *Sequential Compression Device (SCD) *Heparin 5000 units SQ BID 3-4 Higher Order ONE of the following medications: *Heparin 5000 units SQ TID *Enoxaparin/Lovenox 40 mg SQ daily (WT < 150 kg, CrCl > 30 mL/min) *Enoxaparin/Lovenox 30 mg SQ daily (WT < 150 kg, CrCl > 10-29 mL/min) *Enoxaparin/Lovenox 30 mg SQ BID (WT < 150 kg, CrCl > 30 mL/min) AND/OR *Sequential Compression Device (SCD) 5 or more Highest Order ONE of the following medications: *Heparin 5000 units SQ TID (Preferred with Epidurals) *Enoxaparin/Lovenox 40 mg SQ daily (WT < 150 kg, CrCl > 30 mL/min) *Enoxaparin/Lovenox 30 mg SQ daily (WT < 150 kg, CrCl > 10-29 mL/min) *Enoxaparin/Lovenox 30 mg SQ BID (WT < 150 kg, CrCl > 30 mL/min) AND *Sequential Compression Device (SCD) Assessment and Plan Assessment and Plan NEURO: Acute metabolic encephalopathy Underlying dementia - Monitor neuro status closely - Use Haldol when necessary for agitation - Morphine when necessary for pain control CV: Left thigh compartment syndrome Left thigh hematoma Left popliteal aneurysm, 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 Gonzalez and vascular surgery Dr. Harris - Going to OR emergently with Abram Gonzalez and Dr. Harris - Empiric ABX - CT showed left thigh hematoma and with popliteal artery aneurysm GI: - Nothing by mouth, IV Pepcid : Acute on chronic kidney disease - Monitor renal function closely. Place Chapman catheter. - Aggressive fluid resuscitation as above ID: Severe sepsis Probably infected hematoma - IV vancomycin and Zosyn given in ED. Blood cultures have been sent - Continue Zosyn renally dosed HEME: - Monitor CBC, CMP, coags - K- Centra 5500 units given ENDO: - Electrolyte replacement per protocol once creatinine improves PROPH: - IV Pepcid. SCDs to right lower extremity. Chemical DVT prophylaxis contraindicated due to large left thigh hematoma with compartment syndrome LINES: - Utilize peripheral IVs, central line if needed CC time 55 min Code Status Full Discussed Condition With Kimberly Rios Problem Qualifiers (1) Compartment syndrome of left lower extremity: Qualified Codes: T79.A22A - Traumatic compartment syndrome of left lower extremity, initial encounter (2) Hematoma of left thigh: Qualified Codes: S70.12XA - Contusion of left thigh, initial encounter (3) Dementia: Kelsy Sepulveda MD Mar 02, 2017 15:51
[2017-03-02 15:58] LABS: BANDS 4 % (0-6); NEUTROPHIL # MANUAL DIFF 22.1 TH/MM3 (1.8-7.7); POLYS (SEG NEUTROPHILS) 84 % (16-70); PROMYELOCYTES 2 % (0-0); WBC DIFF SAMPLE 100
[2017-03-02 16:00] LABS: PLATELET ESTIMATE SMEAR NORMAL (NORMAL); PLATELET MORPHOLOGY NORMAL (NORMAL); SCAN/DIFF FINAL DIFF MANUAL
[2017-03-02] MEDS ORDERED: SODIUM CHLOR 0.9% 1000 ML INJ 1,000 ML IV ONE ×2 (16:00)
[2017-03-02 16:11] VITALS: BP 110/76; PULSE 89; RESP 18; TEMP 96; O2SAT 98
--- NOTE | 2017-03-02 16:18 | PD.CONS ---
cc: Asif Gonzalez MD [facility] Service Orthopedic Surgeons Consult Requested By Reason for Consult Evaluation of left thigh compartment syndrome Primary Care Physician Pavan Walker MD Admission Diagnosis compartment syndrome, left thigh hematoma, sepsis Diagnoses: (1) Compartment syndrome of left lower extremity Diagnosis: Principal (2) Hematoma of left thigh (3) Acute encephalopathy Diagnosis: Principal (4) Severe sepsis Diagnosis: Principal (5) Chronic Eliquis use Diagnosis: Secondary (6) Dementia Diagnosis: Secondary Chief Complaint: Left thigh swelling and pain History of Present Illness HPI 81-year-old male came [facility] the emergency [facility] shelter brought by med [facility]. Patient was brought in for left leg pain and swelling. Patient has history of dementia and altered mental status. I do not know his baseline mental status but he is significantly confused and constantly moaning as if he is in pain and not answering any questions. Patient is not a reliable historian by any means. As per the paperwork that came with the patient from the shelter he had a fall that led to an ultrasound done for his left leg since it was swollen which showed a large hematoma in his left leg. This was done on 02/24/2017. The radiologist said requested a CT scan. Patient was signed to the ER since his condition was worsening. He has been mildly tachycardic since the arrival in low 100s. He keeps complaining that his leg hurts and he is cold. Rectal temperature was 96. Was evaluated by the emergency room staff with elevated compartment pressures in the posterior compartment of the thigh and poor Doppler pulses distally. Orthopedic consultation was therefore requested. Vascular consultation is pending. Review of Systems Unobtainable Past Family Social History Past Medical History List of his past medical, surgical, social and family history is reviewed from the nursing note. Hx Anticoagulant Therapy: Yes (COUMADIN) Alzheimer's Disease: Yes Anemia: Yes Atrial Fibrillation: Yes Anxiety: Yes Cardiovascular Problems: Yes (AFIB) Cerebrovascular Accident: Yes Dementia: Yes Gastrointestinal Disorders: Yes (KIDNEY DISEASE) GERD: Yes Hypertension: Yes Musculoskeletal: Yes (CHRONIC PAIN, OSTEOPOROSIS) Psychiatric: Yes (PSYCHOSIS NOS) Integumentary: Yes (PRURITIS) Seizures: Yes Past Surgical History Coronary Artery Bypass Graft: Yes Valve Replacement: Yes Social History Alcohol Use: No Tobacco Use: No Substance Use: No Allergies: Coded Allergies: No Known Allergies (Unverified Allergy, Unknown, 03/02/17) Active Ordered Medications Current Medications Medications (Trade) Dose Ordered Sig/Santiago Route Start Time Stop Time Status Last Admin (NS Flush) 2 ml UNSCH PRN IV FLUSH 03/02/17 14:00 Sodium Chloride 1,000 ml @ 150 mls/hr Q6H40M IV 03/02/17 15:14 (Morphine Inj) 2 mg Q2H PRN IV PUSH 03/02/17 15:15 (Pepcid Inj) 20 mg DAILY IV PUSH 03/02/17 21:00 (Duoneb Neb) 1 ampule Q4HR NEB PRN INH 03/02/17 15:15 Miscellaneous Information 1 Q361D XX 03/02/17 15:15 (Chlorhexidine 2% Cloth) 3 pack Taper DAILY@04 TOP 03/03/17 04:00 02/27/18 03:59 (Chlorhexidine 2% Cloth) 3 pack UNSCH PRN TOP 03/02/17 15:15 (Mallory-Colace) 1 tab BID PO 03/02/17 21:00 (Milk Of Magnesia Liq) 30 ml Q12H PRN PO 03/02/17 15:15 (Senokot) 17.2 mg Q12H PRN PO 03/02/17 15:15 (Dulcolax Supp) 10 mg DAILY PRN RECTAL 03/02/17 15:15 (Lactulose Liq) 30 ml DAILY PRN PO 03/02/17 15:15 (Depakote Sprinkles) 125 mg DAILY PO 03/03/17 09:00 (Depakote Sprinkles) 250 mg BID PO 03/02/17 21:00 (Keppra) 500 mg BID PO 03/02/17 21:00 Piperacillin Sod/ Tazobactam Sod 50 ml @ 100 mls/hr Q8H IV 03/02/17 23:00 Sodium Chloride 1,000 ml @ 999 mls/hr BOLUS ONCE IV 03/02/17 16:00 03/02/17 17:00 Sodium Chloride 1,000 ml @ 999 mls/hr BOLUS ONCE IV 03/02/17 16:00 03/02/17 17:00 Reported Meds & Active Scripts Active Reported Verapamil (Verapamil HCl) 120 Mg Tab 120 Mg PO DAILY Tylenol (Acetaminophen) 325 Mg Tab 650 Mg PO Q4H PRN Trazodone (Trazodone HCl) 50 Mg Tab 50 Mg PO HS PRN Poly-Iron 150 (Polysaccharide Iron Complex) 150 Mg Iron Cap 150 Mg PO Q12HR Omeprazole 20 Mg Tab 20 Mg PO DAILY PRN [place] (Hydrocodone-Acetaminophen) 5-325 mg Tab 1 Tab PO Q6H PRN Namenda (Memantine) 10 Mg Tab 10 Mg PO BID Milk of Magnkrish Liq (Magnesium Hydroxide) 400 Mg/5 Ml Susp 30 Ml PO DAILY PRN Claritin (Loratadine) 10 Mg Cap 10 Mg PO DAILY Lexapro (Escitalopram Oxalate) 10 Mg Tab 10 Mg PO HS Keppra (Levetiracetam) 500 Mg Tab 500 Mg PO BID Depakote Sprinkles (Divalproex Sodium) 125 mg Cap 250 Mg PO BID Depakote Sprinkles (Divalproex Sodium) 125 mg Cap 125 Mg PO DAILY Coumadin (Warfarin) 7.5 Mg Tab 7 Mg PO HS Vitamin D-1000 (Cholecalciferol) 1,000 Unit Tab 2,000 Units PO DAILY Ativan (Lorazepam) 0.5 Mg Tab 0.5 Mg PO DAILY Ativan (Lorazepam) 0.5 Mg Tab 0.5 Mg PO Q6H PRN Physical Exam Vital Signs Vital Signs Date Time Temp Pulse Resp B/P (MAP) Pulse Ox O2 Delivery O2 Flow Rate FiO2 03/02/17 15:49 104/63 (77) Physical Exam The patient does not respond to commands. He is moaning in pain. Any attempted manual examination of left lower extremity increases same. The left thigh is moderately swollen. There is a well-healed incision over the medial aspect. The extremity is warm to the touch. Pulses are not palpable. He does not follow commands for neurological testing. Laboratory Laboratory Tests Test 03/02/17 14:09 White Blood Count 24.6 Red Blood Count 2.87 Hemoglobin 8.5 Hematocrit 26.2 Mean Corpuscular Volume 91.2 Mean Corpuscular Hemoglobin 29.6 Mean Corpuscular Hemoglobin Concent 32.5 Red Cell Distribution Width 14.8 Platelet Count 302 Mean Platelet Volume 9.9 Neutrophils (%) (Auto) 87.3 Lymphocytes (%) (Auto) 4.3 Monocytes (%) (Auto) 8.1 Eosinophils (%) (Auto) 0.1 Basophils (%) (Auto) 0.2 Neutrophils # (Auto) 21.5 Lymphocytes # (Auto) 1.1 Monocytes # (Auto) 2.0 Eosinophils # (Auto) 0.0 Basophils # (Auto) 0.1 CBC Comment AUTO DIFF Differential Total Cells Counted 100 Neutrophils % (Manual) 84 Band Neutrophils % 4 Lymphocytes % 3 Monocytes % 7 Neutrophils # (Manual) 22.1 Promyelocytes 2 Differential Comment FINAL DIFF MANUAL Platelet Estimate NORMAL Platelet Morphology Comment NORMAL Prothrombin Time 11.5 Prothromb Time International Ratio 1.1 Blood Urea Nitrogen 52 Creatinine 1.81 Random Glucose 141 Total Protein 6.6 Albumin 2.1 Calcium Level 8.0 Alkaline Phosphatase 99 Aspartate Amino Transf (AST/SGOT) 27 Alanine Aminotransferase (ALT/SGPT) 16 Total Bilirubin 0.7 Sodium Level 141 Potassium Level 4.3 Chloride Level 104 Carbon Dioxide Level 25.9 Anion Gap 11 Estimat Glomerular Filtration Rate 36 Lactic Acid Level 2.6 Total Creatine Kinase 590 Creatine Kinase MB 1.6 Creatine Kinase MB % 0.3 Troponin I LESS THAN 0.02 Date/Time Source Procedure Growth Status 03/02/17 14:10 Blood Peripheral Aerobic Blood Culture Pending Received 03/02/17 14:10 Blood Peripheral Anaerobic Blood Culture Pending Received Result Diagram: 03/02/17 1409 03/02/17 1409 Imaging Last [address] 03/02/17 0000 Signed Impressions: Service Date/Time: Thursday, March 02, 2017 14:20 - CONCLUSION: 1. Left adductor muscle swelling 2. Unremarkable pelvic structures 3. No evidence of acute bony abnormality. Juancarlos Maradiaga MD Lower Extremity CT 03/02/17 0000 Signed Impressions: Service Date/Time: Thursday, March 02, 2017 14:17 - CONCLUSION: 1. Large complex fluid collections from the mid to lower thigh characteristic of either a large hematomas or pseudoaneurysms. These are associated with a popliteal artery aneurysm. Ruptured aneurysm needs be considered. 2. No evidence of acute bony abnormality. Juancarlos Maradiaga MD Assessment & Plan Problem List: (1) Compartment syndrome of left lower extremity ICD Codes: T79.A22A - Traumatic compartment syndrome of left lower extremity, initial encounter Qualifiers: Qualified Codes: T79.A22A - Traumatic compartment syndrome of left lower extremity, initial encounter (2) Sepsis ICD Codes: A41.9 - Sepsis, unspecified organism Status: Acute Qualifiers: Qualified Codes: A41.9 - Sepsis, unspecified organism (3) Altered mental status ICD Codes: R41.82 - Altered mental status, unspecified Status: Acute Qualifiers: Qualified Codes: R41.0 - Disorientation, unspecified (4) Dementia ICD Codes: F03.90 - Unspecified dementia without behavioral disturbance Qualifiers: (5) Acute encephalopathy ICD Codes: G93.40 - Encephalopathy, unspecified (6) Chronic Eliquis use (7) Hematoma of left thigh ICD Codes: S70.12XA - Contusion of left thigh, initial encounter Status: Acute Qualifiers: Qualified Codes: S70.12XA - Contusion of left thigh, initial encounter Assessment and Plan The findings were discussed with the ED staff. The patient has measured increased compartment pressures of the posterior compartment of the thigh. Clinically he appears to have a compartment syndrome. Given his mental status and inability to communicate as well as the results of above, recommendations are for fasciotomy emergently. It is unclear as to the chronicity of this problem. The currently has no family here or reachable for consent. Vascular surgical evaluation is pending based on the CT findings of the pseudoaneurysm. Asif Gonzalez MD Mar 02, 2017 16:18
[2017-03-02] MEDS ORDERED: APIX5TAB PO (16:38)
[2017-03-02] MEDS ORDERED: TYLE325T PO (16:38)
[2017-03-02 16:42] LABS: LACTIC ACID GHOST NOT REPORTABLE
[2017-03-02] MEDS ORDERED: NEOMYCIN/POLYMYXIN 1 ML G.U. IRRIGANT ONE (16:43)
--- NOTE | 2017-03-02 16:55 | PD.VS.CON ---
History of Present Illness Chief Complaint: L thigh hematoma Consult Requested by: ED, Dr. Stanton History of Present Illness 81 yo male with L thigh hematoma. Unknown history because of dementia but according to ED, pt is on Eliquis and has sustained some trauma. Presents with tense L thigh and obvious pain despite debilitated state. NC CT shows hematoma and potentially associated popliteal artery aneurysm. Past/Family/Social History Past Medical History unknown except for dementia scars on leg c/w history of CAD and PAD Past Surgical History unknown Social History unknown, lives in [place] Family History unknown Home Medications Reported Medications Acetaminophen (Tylenol) 325 Mg Tab, 650 MG PO Q4H Y for PAIN LESS THAN 5 ON SCALE, TAB 0 Refills 03/02/17 Apixaban (Eliquis) 5 Mg Tab, 5 MG PO BID for Blood Clot Prevention, #60 TAB 0 Refills 03/02/17 Verapamil (Verapamil) 120 Mg Tab, 120 MG PO DAILY, #60 TAB 0 Refills 12/06/16 Acetaminophen (Tylenol) 325 Mg Tab, 650 MG PO Q4H Y for PAIN SCALE 1 TO 10, TAB 0 Refills 12/06/16 Polysaccharide Iron Complex (Poly-Iron 150) 150 Mg Iron Cap, 150 MG PO Q12HR for Nutritional Supplement, #60 CAP 0 Refills 12/06/16 Omeprazole (Omeprazole) 20 Mg Tab, 20 MG PO DAILY Y for REFLUX, #30 TAB 0 Refills 12/06/16 Hydrocodone-Acetaminophen (Damascus) 5-325 mg Tab, 1 TAB PO Q6H Y for PAIN, TAB 0 Refills 12/06/16 Memantine (Namenda) 10 Mg Tab, 10 MG PO BID for Alzheimer Disease, #30 TAB 0 Refills 12/06/16 Magnesium Hydroxide Liq (Milk of Magnesia Liq) 400 Mg/5 Ml Susp, 30 ML PO DAILY Y for INDIGESTION OR UPSET STOMACH, #1 BOTTLE 0 Refills 12/06/16 Loratadine (Claritin) 10 Mg Cap, 10 MG PO DAILY for Allergy Management, CAP 0 Refills 12/06/16 Escitalopram (Lexapro) 10 Mg Tab, 10 MG PO HS, #30 TAB 0 Refills 12/06/16 Levetiracetam (Keppra) 500 Mg Tab, 500 MG PO BID for Control Seizures, #60 TAB 0 Refills 12/06/16 Divalproex Sprinkles (Depakote Sprinkles) 125 mg Cap, 250 MG PO BID for Control Seizures, #60 CAP 0 Refills 12/06/16 Divalproex Sprinkles (Depakote Sprinkles) 125 mg Cap, 125 MG PO DAILY for Control Seizures, #60 CAP 0 Refills 12/06/16 Cholecalciferol (Vitamin D-1000) 1,000 Unit Tab, 2000 UNITS PO DAILY for Nutritional Supplement, #1 BOTTLE 0 Refills 12/06/16 Coded Allergies: No Known Allergies (Unverified Allergy, Unknown, 03/02/17) Review of Systems ROS Limitations: Altered Mental Status Physical Exam Vitals/I&O Date Time Temp Pulse Resp B/P (MAP) Pulse Ox O2 Delivery O2 Flow Rate FiO2 03/02/17 16:30 03/02/17 16:11 96.0 89 18 110/76 (87) 98 Room Air 03/02/17 15:49 104/63 (77) 03/02/17 13:45 81 16 124/71 (88) 96 Room Air Neuro: altered mental status but appears to be in significant pain Neck: trachea midline Lungs: no rest distress Abdomen: modestly obese Vascular: + L PT Doppler signal Extremities: L thigh tense and ecchymotic Laboratory Tests Test 03/02/17 14:09 White Blood Count 24.6 Red Blood Count 2.87 Hemoglobin 8.5 Hematocrit 26.2 Mean Corpuscular Volume 91.2 Mean Corpuscular Hemoglobin 29.6 Mean Corpuscular Hemoglobin Concent 32.5 Red Cell Distribution Width 14.8 Platelet Count 302 Mean Platelet Volume 9.9 Neutrophils (%) (Auto) 87.3 Lymphocytes (%) (Auto) 4.3 Monocytes (%) (Auto) 8.1 Eosinophils (%) (Auto) 0.1 Basophils (%) (Auto) 0.2 Neutrophils # (Auto) 21.5 Lymphocytes # (Auto) 1.1 Monocytes # (Auto) 2.0 Eosinophils # (Auto) 0.0 Basophils # (Auto) 0.1 CBC Comment AUTO DIFF Differential Total Cells Counted 100 Neutrophils % (Manual) 84 Band Neutrophils % 4 Lymphocytes % 3 Monocytes % 7 Neutrophils # (Manual) 22.1 Promyelocytes 2 Differential Comment FINAL DIFF MANUAL Platelet Estimate NORMAL Platelet Morphology Comment NORMAL Prothrombin Time 11.5 Prothromb Time International Ratio 1.1 Blood Urea Nitrogen 52 Creatinine 1.81 Random Glucose 141 Total Protein 6.6 Albumin 2.1 Calcium Level 8.0 Alkaline Phosphatase 99 Aspartate Amino Transf (AST/SGOT) 27 Alanine Aminotransferase (ALT/SGPT) 16 Total Bilirubin 0.7 Sodium Level 141 Potassium Level 4.3 Chloride Level 104 Carbon Dioxide Level 25.9 Anion Gap 11 Estimat Glomerular Filtration Rate 36 Lactic Acid Level 2.6 Total Creatine Kinase 590 Creatine Kinase MB 1.6 Creatine Kinase MB % 0.3 Troponin I LESS THAN 0.02 Date/Time Source Procedure Growth Status 03/02/17 14:10 Blood Peripheral Aerobic Blood Culture Pending Received 03/02/17 14:10 Blood Peripheral Anaerobic Blood Culture Pending Received Last [address] 03/02/17 0000 Signed Impressions: Service Date/Time: Thursday, March 02, 2017 14:20 - CONCLUSION: 1. Left adductor muscle swelling 2. Unremarkable pelvic structures 3. No evidence of acute bony abnormality. Juancarlos Maradiaga MD Lower Extremity CT 03/02/17 0000 Signed Impressions: Service Date/Time: Thursday, March 02, 2017 14:17 - CONCLUSION: 1. Large complex fluid collections from the mid to lower thigh characteristic of either a large hematomas or pseudoaneurysms. These are associated with a popliteal artery aneurysm. Ruptured aneurysm needs be considered. 2. No evidence of acute bony abnormality. Juancarlos Maradiaga MD Assessment and Plan Plan To OR with Ortho. Will be immediately available (myself or Dr. George who is covering this evening) for any vascular issues. Rusty Harris MD FACS RPVI c.o.d. audit clerk [facility] - Heart and Vascular Surgery at [facility] [phone] Rusty Harris MD Mar 02, 2017 16:55
[2017-03-02] MEDS ORDERED: VASOPRESSIN 20 UNITS/ML VIAL (IVTITR) ONE (17:41)
[2017-03-02] MEDS ORDERED: HEPARIN SODIUM - IV 10,000 UNITS/10 ML VIAL ONE (17:44)
[2017-03-02 18:31] LABS: REVIEW FLAG FINAL
[2017-03-02 18:34] LABS: HEMATOCRIT 11.1 % (39.0-51.0)
[2017-03-02] MEDS ORDERED: PHENYLEPHRINE HCL 10 MG/ML VIAL ONE ×2 (18:52→19:43)
--- NOTE | 2017-03-02 19:12 | PD.OP ---
cc: Asif Gonzalez MD Operative Report Date of Surgery: Mar 02, 2017 Preoperative Diagnosis: (1) Hematoma of left thigh (2) Compartment syndrome of left lower extremity Postoperative Diagnosis: (1) Arterial rupture (2) Hematoma of left thigh (3) Compartment syndrome of left lower extremity Procedure: Fasciotomy left thigh Anesthesia: Gen. Surgeon: Asif Gonzalez Circuit Walker(s): OR staff Operation and Findings: Indications: This 81-year-old male who is a [facility] resident with dementia and on anticoagulation has had progressive swelling of his left thigh. There is apparently a history of a fall. He presented with increasing swelling and an obvious pain. Compartment pressure measurements by the emergency room staff revealed increased pressures in the posterior compartment. A CT scan did reveal a pseudoaneurysm of the vasculature with a large hematoma. It was felt the patient had a compartment syndrome and a possible vascular injury and he is taken to surgery for fasciotomy. Procedure and findings patient was taken to the operative suite and after undergoing an adequate level of general anesthesia was kept supine on the room table. Left lower extremity was prepped and draped in usual sterile fashion with Betadine. Toe was first focused on the lateral aspect of the thigh where longitudinal incision was made. This was carried down through skin and subcutaneous tense tissue with a knife. There was soft tissue edema and mild hemorrhage noted. The iliotibial band was identified and split longitudinally. The vastus lateralis fascia was identified and split. The muscle appeared viable and minimal swelling in the lateral compartment. Dissection was carried out relate to the septum. This was incised revealing the posterior compartment which also had healthy-appearing muscle tissue. The wound was then packed open. Attention was then focused on the medial aspect with a previous vascular surgery incision was utilized. This was carried down through skin and subcutaneous tense tissue with a knife. There was soft tissue hemorrhage present. Scar tissue was released. The muscular fascia overlying the musculature was incised and there was noted to be a large hematoma in the medial and posterior aspects. When bluntly evacuating the hematoma significant arterial bleeding was encountered. A sterile tourniquet was then applied and the wound packed. Vascular surgery was then emergently consulted and presented to continue with vascular stabilization of the extremity. At the time of this dictation the plan was to do a graft of the artery. The orthopedic portion of the procedure was therefore completed. Asif Gonzalez MD Mar 02, 2017 19:12
[2017-03-02] MEDS ORDERED: ceFAZolin INJ 1,000 MG VIAL IV ONE (19:43)
[2017-03-02 19:46] LABS: BLOOD GAS BASE EXCESS -3.4 mmol/L (-2-2); BLOOD GAS CARBOXYHEMOGLOBIN 1.4 % (0-4); BLOOD GAS HCO3 22 mmol/L (22-26); BLOOD GAS METHEMOGLOBIN 1.2 % (0-2); BLOOD GAS O2 HGB SATURATION 97 % (90-100); BLOOD GAS OXYGEN CONTENT 11.1 Vol % (12.0-20.0); BLOOD GAS PCO2 44 mmHg (38-42); BLOOD GAS PO2 400 mmHg (61-120); BLOOD GAS TOTAL HGB 7.4 G/DL (12.0-16.0); CRITICAL VALUE NO; TEMP CORR TO 98.6
[2017-03-02 19:47] LABS: STAT YES
[2017-03-02 19:57] LABS: HEMATOCRIT 21.7 % (39.0-51.0); REVIEW FLAG FINAL
[2017-03-02 20:08] LABS: APTT (PATIENT) 39.2 SEC (24.3-30.1); INTERNATIONAL NORMALIZED RATIO 1.3 RATIO; PROTHROMBIN TIME - PATIENT 12.8 SEC (9.8-11.6)
[2017-03-02 20:15] LABS: AUTOMATED NEUTROPHIL # 15.8 TH/MM3 (1.8-7.7); BASOPHIL # 0.1 TH/MM3 (0-0.2); BASOPHIL % 0.4 % (0.0-2.0); EOSINOPHIL # 0.1 TH/MM3 (0-0.4); EOSINOPHIL % 0.3 % (0.0-4.0); HEMATOCRIT 21.5 % (39.0-51.0); LYMPH % 4.2 % (9.0-44.0); LYMPHOCYTE # 0.8 TH/MM3 (1.0-4.8); MEAN CELL VOLUME 87.9 FL (80.0-100.0); MEAN CORPUSCULAR HEMOGLOBIN 29.2 PG (27.0-34.0); MEAN CORPUSCULAR HGB CONC 33.2 % (32.0-36.0); NEUT % 88.1 % (16.0-70.0); PLATELET COUNT 83 TH/MM3 (150-450); RED BLOOD COUNT 2.45 MIL/MM3 (4.50-5.90); RED CELL DISTRIBUTION WIDTH 13.8 % (11.6-17.2); WHITE BLOOD COUNT 17.9 TH/MM3 (4.0-11.0)
[2017-03-02 20:17] LABS: HEMO FLAGS AUTO DIFF
[2017-03-02 20:26] LABS: BLOOD GAS BASE EXCESS -1.6 mmol/L (-2-2); BLOOD GAS CARBOXYHEMOGLOBIN 2.1 % (0-4); BLOOD GAS HCO3 24 mmol/L (22-26); BLOOD GAS METHEMOGLOBIN 1.2 % (0-2); BLOOD GAS O2 HGB SATURATION 96 % (90-100); BLOOD GAS PCO2 48 mmHg (38-42); BLOOD GAS PO2 354 mmHg (61-120); BLOOD GAS TOTAL HGB 8.1 G/DL (12.0-16.0); CRITICAL VALUE NO; FIO2 100 %; OXYGEN DEVICE O.R. ABG; STAT YES; TEMP CORR TO 98.6
[2017-03-02 20:28] LABS: APTT (PATIENT) 37.3 SEC (24.3-30.1); INTERNATIONAL NORMALIZED RATIO 1.3 RATIO
[2017-03-02 20:42] LABS: BICARBONATE 23.9 MEQ/L (21.0-32.0)
[2017-03-02] MEDS ORDERED: levETIRAcetam 500 MG TAB PO SCH (21:00)
[2017-03-02] MEDS ORDERED: CALCIUM CHLORIDE 10% SOLN 1 GRAM/10 ML SYR ONE (21:00)
[2017-03-02 21:01] LABS: CALCIUM-PROTEIN CORRECTED 7.5 MG/DL (8.5-10.1)
[2017-03-02 21:05] LABS: BANDS 8 % (0-6); NEUTROPHIL # MANUAL DIFF 17.2 TH/MM3 (1.8-7.7); POLYS (SEG NEUTROPHILS) 86 % (16-70); PROMYELOCYTES 2 % (0-0); WBC DIFF SAMPLE 100
[2017-03-02 21:06] LABS: PLATELET ESTIMATE SMEAR LOW (NORMAL); PLATELET MORPHOLOGY NORMAL (NORMAL); SPHEROCYTES OCC (NORMAL)
[2017-03-02 21:07] LABS: SCAN/DIFF FINAL DIFF MANUAL
[2017-03-02] MEDS ORDERED: PROPOFOL 1000 MG/100 ML INJ 100 ML IV PRN (21:45)
[2017-03-02] MEDS ORDERED: fentaNYL DRIP 250 ML IV PRN (21:45)
[2017-03-02 22:04] VITALS: O2SAT 100
[2017-03-02 22:15] VITALS: BP 86/50; PULSE 78; RESP 16; TEMP 96.9; O2SAT 100
[2017-03-02] MEDS ORDERED: TERBUTALINE INJ 1 MG/ML AMP SQ PRN (22:15)
[2017-03-02] MEDS: PIPERACIL-TAZO 3.375 GM PREMIX 50 ML IV SCH (22:36)
[2017-03-02] MEDS: SODIUM CHLOR 0.9% 1000 ML INJ 1,000 ML IV SCH (22:39)
--- NOTE | 2017-03-02 22:45 | MP ---
cc: AISHA GRIDER DATE OF SURGERY: 03/02/2017 PREOPERATIVE DIAGNOSIS: POSTOPERATIVE DIAGNOSIS: OPERATION: SURGEON Dr. Doris Gonzalez ANESTHESIA: General. ESTIMATED BLOOD LOSS: 3 liters. INDICATIONS FOR PROCEDURE: This 81-year-old gentleman fell somewhere in the [facility]. To me, unknown circumstances, and developed hematoma of the thigh which turned into compartment syndrome. Orthopedic was consulted to evaluate the patient. The patient was noted to have large hematoma. 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 The patient was then taken to the OR for fasciotomy and evacuation of hematoma. However, in the process the aneurysm ruptured or probably more likely the fact that this was a ruptured aneurysm, became evident and the patient started bleeding. Vascular surgery got involved including Dr. Harris, and then I took over from him, about 30 minutes into the case. DESCRIPTION OF PROCEDURE: The patient was prepped and draped in the usual fashion. Apparently by Dr. Gonzalez, a lateral incision was made on the thigh which decompressed the compartment and then a medial incision, and when blood started coming out, this patient had a ruptured aneurysm. I scrubbed in about half hour into the case at which point Dr. Harris was exposing the popliteal vessel successfully. I then placed the large Weitlaner and some Olivier's, and examined the area. The tourniquet would not hold, so I removed the tourniquet, extended the incision proximally and held a pressure on the opening of the vessel. The vessel is now explored. There is a ruptured aneurysm in the back wall of the vessel is noted. This measured about 3 cm or so in length. Distally the vessel does not look that bad. I passed the Pooja catheter down and it goes into one of the vessels, probably posterior tibial artery. There is no clot in it. The patient was initially given PCC because of the Factor X inhibitor aboard and then apparently heparin later on. The proximal vessel is now examined. This is completely a torn and ratty vessel with barely any wall. Apparently somebody was here before because there is old Mersilene and Ethibond stitches in here, probably 15 to 20 years old, something was done here before. At this point, I followed the vessel proximally until I found about 1 cm in diameter vessel, fairly large, which appears to be reasonable in quality. This is half way up the thigh essentially outside the popliteal fossa. Once this is done the vessel, adductor canal is freed up and visualized. A vessel loop is placed around this very carefully, although there is a large amount of dissection here. Finally a Profunda clamp is placed on it, and at this point I removed the rest of this vessel which is dilated because the aneurysm seems to be reaching higher up, and the patient seems to have somewhat of an arteriomegaly judging by the size of his vessels. Once we have proximal and distal end freed up and bleeding is under control, a Ashdown-Robbin graft is chosen. There is no 10 millimeter Ashdown-Robbin graft. We used 8 millimeter which is fine in this situation. It is sewn first distally with running 5-0 Prolene and the under an angled graft is cut and sewn in proximally with running 5-0 Prolene. Blood flow is reestablished by first allowing graft to flush proximally and washout and then final stitches placed. There is one area of bleeding which is controlled with [id number] with a pledget and this completes this part of the procedure. The patient now has a bounding distal pulse. The area is irrigated with about 3 liters of saline and last liter with antibiotics, and then muscles are approximated with 0 Vicryl. Skin is closed with interrupted 2-0 nylon. The lateral incision that was a fasciotomy, of course, is left open with dressing. A large bore Oscar drain is placed into the popliteal space. The patient tolerated the procedure well and taken to the Recovery Room after surgery. Aisha SALINAS /9:45 PM /10:12 PM
[2017-03-02 23:02] LABS: BLOOD GAS BASE EXCESS 0.1 mmol/L (-2-2); BLOOD GAS CARBOXYHEMOGLOBIN 2.7 % (0-4); BLOOD GAS HCO3 24 mmol/L (22-26); BLOOD GAS O2 HGB SATURATION 96 % (90-100); BLOOD GAS OXYGEN CONTENT 14.2 Vol % (12.0-20.0); BLOOD GAS PCO2 35 mmHg (38-42); BLOOD GAS PO2 168 mmHg (61-120); BLOOD GAS TOTAL HGB 10.3 G/DL (12.0-16.0); CRITICAL VALUE NO; OXYGEN DEVICE VENTILATOR; TEMP CORR TO 98.6
[2017-03-02 23:03] LABS: DRAW SITE ART LINE; FIO2 60 %; STAT NO; VENT SETTINGS AC/RR16/VT600/PEEP5
[2017-03-02] MEDS: PHENYLEPHRINE INJ 40 MG in DEXTROSE 5% IN WATE 500 ML INJ 496 ML IV PRN ×2 (23:40)
[2017-03-03] VITALS (18 sets, daily range): BP systolic 104–134; BP diastolic 56–70; PULSE 66–111; RESP 16–21; TEMP 96.9–99.5; O2SAT 96–100
--- NOTE | 2017-03-03 00:36 | RADRPT ---
EXAM DATE/TIME: 03/02/2017 23:59 [facility] COMPARISON: No previous studies available for comparison. INDICATIONS : Post ET tube and central line placement. MEDICAL HISTORY : Dementia. Seizures SURGICAL HISTORY : None. ENCOUNTER: Initial ACUITY: 1 day PAIN SCORE: Non-responsive. LOCATION: Bilateral chest FINDINGS: ET tube tip 2.8 cm above the priya. Gastric tube tip projects within the stomach, but the side-port is approximately 3.5 cm above the level of the diaphragm. Right internal jugular catheter tip at th e cavoatrial junction. No evidence pneumothorax. Left lower lobe consolidation with air bronchogram s. There is also muscle delineation lateral left hemidiaphragm suggesting associated pleural effusio n. Horizontal linear opacity in the lateral right midlung approximately the location of the minor fi ssure may represent fluid in the fissure. CONCLUSION: 1. ET tube in good position. 2. Gastric tube side-port projects in the distal esophagus and the tube needs to be advanced at least 4 cm. 3. Left lower lobe consolidation and possible bilateral pleural effusions. Osmar Pereira MD on March 03, 2017 at 0:32 Board Certified Radiologist. This report was verified electronically.
[2017-03-03] MEDS: FAMOTIDINE 20 MG/2 ML VIAL IV PUSH SCH ×2 (00:45→09:00)
[2017-03-03] MEDS: DOCUSATE SODIUM 50 MG/SENNA 8.6 MG TAB PO SCH ×3 (00:46→20:49)
[2017-03-03] MEDS: DIVALPROEX SODIUM SPRINKLES 125 MG CAP PO SCH ×3 (00:46→20:50)
[2017-03-03] MEDS ORDERED: levETIRAcetam 500 MG/NS 100 ML IV SCH ×2 (02:00)
[2017-03-03] MEDS: CHLORHEXIDINE GLUCONATE 2 % 1 PACK (2 CLOTHS) TOP SCH (04:00)
[2017-03-03 04:25] LABS: BLOOD GAS BASE EXCESS 2.1 mmol/L (-2-2); BLOOD GAS CARBOXYHEMOGLOBIN 2.5 % (0-4); BLOOD GAS HCO3 26 mmol/L (22-26); BLOOD GAS METHEMOGLOBIN 1.1 % (0-2); BLOOD GAS O2 HGB SATURATION 96 % (90-100); BLOOD GAS OXYGEN CONTENT 13.8 Vol % (12.0-20.0); BLOOD GAS PCO2 36 mmHg (38-42); BLOOD GAS PO2 150 mmHg (61-120); CRITICAL VALUE NO; OXYGEN DEVICE VENTILATOR; TEMP CORR TO 98.6
[2017-03-03 04:26] LABS: DRAW SITE ART LINE; FIO2 45 %; STAT NO; VENT SETTINGS AC/16/600/PEEP5
[2017-03-03 04:37] LABS: AUTOMATED NEUTROPHIL # 22.1 TH/MM3 (1.8-7.7); BASOPHIL % 0.2 % (0.0-2.0); EOSINOPHIL # 0.1 TH/MM3 (0-0.4); EOSINOPHIL % 0.3 % (0.0-4.0); HEMATOCRIT 27.9 % (39.0-51.0); LYMPH % 4.9 % (9.0-44.0); LYMPHOCYTE # 1.2 TH/MM3 (1.0-4.8); MEAN CELL VOLUME 84.7 FL (80.0-100.0); MEAN CORPUSCULAR HEMOGLOBIN 29.8 PG (27.0-34.0); MEAN CORPUSCULAR HGB CONC 35.2 % (32.0-36.0); MONO % 7.5 % (0.0-8.0); NEUT % 87.1 % (16.0-70.0); PLATELET COUNT 123 TH/MM3 (150-450); WHITE BLOOD COUNT 25.3 TH/MM3 (4.0-11.0)
[2017-03-03 04:46] LABS: HEMO FLAGS AUTO DIFF
[2017-03-03] MEDS: PHENYLEPHRINE INJ 40 MG in DEXTROSE 5% IN WATE 500 ML INJ 496 ML IV PRN ×2 (04:50)
[2017-03-03 05:09] LABS: BICARBONATE 25.7 MEQ/L (21.0-32.0); CALCIUM-PROTEIN CORRECTED 8.7 MG/DL (8.5-10.1); MAGNESIUM 2.3 MG/DL (1.5-2.5); POTASSIUM 3.9 MEQ/L (3.5-5.1); TOTAL BILIRUBIN ADULT 1.5 MG/DL (0.2-1.0)
--- NOTE | 2017-03-03 05:38 | RADRPT ---
EXAM DATE/TIME: 03/03/2017 04:56 [facility] COMPARISON: CHEST SINGLE AP, March 02, 2017, 23:59. INDICATIONS : Shortness of breath. MEDICAL HISTORY : Dementia. Seizures. SURGICAL HISTORY : None. ENCOUNTER: Subsequent ACUITY: 2 days PAIN SCORE: Non-responsive. LOCATION: Bilateral chest FINDINGS: Endotracheal tube tip well above the priya. Gastric tube tip projects in the stomach, but the side- port is still above the level of the diaphragm by 4.6 cm. Right internal jugular catheter tip projec ts over the distal superior vena cava. There is persisting consolidation in the left lower lung with loss of delineation of portions of the left hemidiaphragm. Opacities in the central right lung are stable. CONCLUSION: 1. Persistent left lower lobe consolidation 2. The side-port of the gastric tube remains above the level of the hemidiaphragm and needs to be adv anced at least 5 cm. Osmar Pereira MD on March 03, 2017 at 5:35 Board Certified Radiologist. This report was verified electronically.
[2017-03-03] MEDS: PIPERACIL-TAZO 3.375 GM PREMIX 50 ML IV SCH ×3 (07:13→20:49)
[2017-03-03 07:36] LABS: BANDS 7 % (0-6); EOSINOPHILS 1 % (0-4); METAMYELOCYTES 1 % (0-1); MYELOCYTES 3 % (0-0); NEUTROPHIL # MANUAL DIFF 22.8 TH/MM3 (1.8-7.7); PLATELET ESTIMATE SMEAR LOW (NORMAL); PLATELET MORPHOLOGY ENLARGED (NORMAL); POLYS (SEG NEUTROPHILS) 79 % (16-70); SCAN/DIFF FINAL DIFF MANUAL; WBC DIFF SAMPLE 100
[2017-03-03] MEDS ORDERED: DIVALPROEX SODIUM SPRINKLES 125 MG CAP PO SCH (09:00)
[2017-03-03] MEDS: SODIUM CHLOR 0.9% 1000 ML INJ 1,000 ML IV SCH (10:24)
[2017-03-03] MEDS ORDERED: FUROSEMIDE 40 MG/4 ML VIAL IV PUSH STA (11:04)
[2017-03-03] MEDS ORDERED: FUROSEMIDE 40 MG/4 ML VIAL ONE (11:18)
--- NOTE | 2017-03-03 11:35 | HHI.CCPN ---
Subjective Remarks/Hospital Course Patient is a 80-year-old [place] with history of dementia, chronic atrial fibrillation, coronary artery disease with history of bypass, hypertension who was brought to the emergency department for leg pain and swelling. Patient has dementia and now metabolic encephalopathy which limits history. Apparently a week ago patient sustained a fall in jail. US 02/24/17 showed large hematoma in his left leg. A CT of the lower extremity was recommended which apparently was not done. In the ED patient had a temperature of 96, HR 100s and borderline hypotension. WBC count was elevated at 24.6 with left shift. Lactic acid was 2.6 BUN was 55 and creatinine 1.8. Patient's left lower extremity was significantly swollen and tense, Dr. Stanton did check compartment pressure which was highly elevated. According to Dr. Stanton compartment pressure in posterior compartment of thigh was [address] Gonzalez was consulted emergently who is planning to take patient to OR for probable fasciotomy. No pulse was felt in LE. CT of the left lower extremity showed large thigh hematoma and associated popliteal aneurysms raising concern for aneurysm rupture. Dr. Harris from vascular surgery also was consulted. Patient received vancomycin and Zosyn for sepsis. I evaluated the patient in the emergency department. Patient appears critically ill, because of underlying dementia history is not obtainable. I have ordered 2 L normal saline bolus. Patient is chronically on Eliquis. I will reverse this with 5,500 units of K Centra. Case discussed extensively with Dr. Stanton and Dr. Harris 03/03: s/p OR yesterday with vascular surgery and ortho. Lateral and medial incisions where made to L thigh and a large hematoma in the medial/posterior aspects was encountered. Whie evacuating the hematoma significant arterial bleeding was encountered. A sterile tourniquet was placed and vascular surgery was emergently contacted. Dr. Harris and Dr. Spear proceeded with popliteal aneurysm repair with graft placement. Because of acute bleeding hemoglobin dropped 3. Patient received 8U PRBC,3 U FFP in OR. Remains on Alfredo-Synephrine but weaning doses. On sedation hold wakes up follows commands by squeezing hands Objective Vital Signs Date Time Temp Pulse Resp B/P (MAP) Pulse Ox O2 Delivery O2 Flow Rate FiO2 03/03/17 10:34 100 40 03/03/17 10:00 90 03/03/17 08:00 99.5 21 121/60 (80) 03/03/17 07:00 Mechanical Ventilator 03/02/17 14:50 4.00 Intake and Output 03/03/17 03/03/17 03/04/17 08:00 16:00 00:00 Intake Total 605 ml Output Total 1520 ml Balance -915 ml Result Diagram: 03/03/17 0400 03/03/17 0400 Other Results Laboratory Tests Test 03/02/17 19:35 03/02/17 20:20 03/02/17 22:51 03/03/17 04:14 Blood Gas Puncture Site ART LINE ART LINE Blood Gas Patient Temperature 98.6 98.6 98.6 98.6 Blood Gas HCO3 22 mmol/L (22-26) 24 mmol/L (22-26) 24 mmol/L (22-26) 26 mmol/L (22-26) Blood Gas Base Excess -3.4 mmol/L (-2-2) -1.6 mmol/L (-2-2) 0.1 mmol/L (-2-2) 2.1 mmol/L (-2-2) Blood Gas Oxygen Saturation 97 % (90-100) 96 % (90-100) 96 % (90-100) 96 % ( 90-100) Arterial Blood pH 7.31 (7.380-7.420) 7.31 (7.380-7.420) 7.45 (7.380-7.420) 7.47 (7.380-7.420) Arterial Blood Partial Pressure CO2 44 mmHg (38-42) 48 mmHg (38-42) 35 mmHg (38-42) 36 mmHg (38-42) Arterial Blood Partial Pressure O2 400 mmHg (61-120) 354 mmHg (61-120) 168 mmHg (61-120) 150 mmHg (61-120) Arterial Blood Oxygen Content 11.1 Vol % (12.0-20.0) 12.0 Vol % (12.0-20.0) 14.2 Vol % (12.0-20.0) 13.8 Vol % (12.0-20.0) Arterial Blood Carboxyhemoglobin 1.4 % (0-4) 2.1 % (0-4) 2.7 % (0-4) 2.5 % (0-4) Arterial Blood Methemoglobin 1.2 % (0-2) 1.2 % (0-2) 1.0 % (0-2) 1.1 % (0-2) Blood Gas Hemoglobin 7.4 G/DL (12.0-16.0) 8.1 G/DL (12.0-16.0) 10.3 G/DL (12.0-16.0) 10.0 G/DL (12.0-16.0) Oxygen Delivery Device O.R. ABG VENTILATOR VENTILATOR Blood Gas Inspired Oxygen 100 % 60 % 45 % Blood Gas Ventilator Setting AC/RR16/VT600/PEEP5 AC/16/600/PEEP5 Imaging Large left thigh hematoma, popliteal aneurysm cannot rule out aneurysmal rupture /hemorrhage Objective Remarks GENERAL: Elderly obese male who appears to be critically ill intubated sedated SKIN: Left leg thigh exam see musculoskeletal HEAD: Atraumatic. Normocephalic. EYES: Pupils equal and round. No injection or drainage. ENT: Oral mucosa is dry NECK: Trachea midline. No JVD. CARDIOVASCULAR: Normal murmurs or rubs. S1 S2 normal RESPIRATORY: No accessory muscle use. Clear to auscultation. Breath sounds equal bilaterally. GASTROINTESTINAL: Abdomen obese soft, distended. Hepatic and splenic margins not palpable. MUSCULOSKELETAL: Left thigh in AMANDA wrap, L lateral incision remains open with drainage in place -sanguinous drainage. Weak L DP palpable NEUROLOGICAL: Patient is intubated wakes up to stimulation. Moves extremities. 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 Gonzalez, status post repair of ruptured popliteal artery aneurysm by Dr. Spear and Dr. Harris - Empiric ABX - CT on admission showed left thigh hematoma and with popliteal artery aneurysm GI: - Nothing by mouth, IV Pepcid - Swallow eval if extubated : Acute on chronic kidney disease - Monitor renal function closely. Place Chapman catheter. - Aggressive fluid resuscitation as above ID: Severe sepsis Probably infected hematoma - IV vancomycin and Zosyn given in ED. Blood cultures have been sent - Continue Zosyn renally dosed HEME: Anemia requiring transfusion Coagulopathy due to chronic Eliquis use - Monitor CBC, CMP, coags - K- Centra 5500 units given - s/p 8U PRBC,3 U FFP in OR ENDO: - Electrolyte replacement per protocol PROPH: - IV Pepcid. SCDs to right lower extremity. Chemical DVT prophylaxis contraindicated due to large left thigh hematoma s/p evacuation LINES: - Utilize peripheral IVs, central line if needed CC time 55 min Kelsy Sepulveda MD Mar 03, 2017 11:35
[2017-03-03] MEDS ORDERED: POTASSIUM PHOSPHATE MONOBASIC 500 MG TAB PO PRN (12:00)
[2017-03-03] MEDS ORDERED: POTASSIUM CHLOR 20 MEQ PREMIX 100 ML IV PRN ×2 (12:00)
[2017-03-03] MEDS ORDERED: POTASSIUM CHLOR 40 MEQ PREMIX 100 ML IV PRN ×2 (12:00)
[2017-03-03] MEDS ORDERED: POTASSIUM PHOSPHATE MONOBASIC 500 MG TAB PO/TUBE PRN (12:00)
[2017-03-03] MEDS ORDERED: MAGNESIUM OXIDE 400 MG TAB PO PRN (12:00)
[2017-03-03] MEDS ORDERED: POTASSIUM PHOSPHATE INJ 30 MMOL in SODIUM CHLOR 0.9% 250 ML INJ 250 ML IV PRN (12:00)
[2017-03-03] MEDS ORDERED: MAGNESIUM SULFATE INJ 4 GM in SODIUM CHLORIDE 0.9% INJ 92 ML IV PRN (12:00)
[2017-03-03] MEDS ORDERED: MAGNESIUM SULFATE INJ 2 GM in SODIUM CHLORIDE 0.9% INJ 96 ML IV PRN (12:00)
[2017-03-03] MEDS ORDERED: SODIUM PHOSPHATE INJ 30 MMOL in SODIUM CHLOR 0.9% 250 ML INJ 240 ML IV PRN (12:00)
[2017-03-03] MEDS ORDERED: POTASSIUM CHLORIDE 25 MEQ EFFERVESCENT TAB PO PRN (12:00)
--- NOTE | 2017-03-03 17:01 | PD.CAR.PN ---
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 Patient sustaining massive hemorrhage and underwent resection of popliteal artery aneurysm with [place]-Robbin graft placement and thigh fasciotomy This morning foot is warm with dopplerable dorsalis pedis and posterior tibial pulses Patient does not have compartment syndrome in the calf but should watch carefully for the same Large amount of blood and blood products have been administered which will likely cause some degree of ARDS so any decision to extubate the patient has to be weighed against the chance of late ARDS Large Hemovac drain was placed during surgery but patient reported out this morning so with done with that Once patient is extubated he'll need the extensive physical therapy Prior to surgery patient was on factor X a inhibitor for possibly atrial fibrillation but currently patient is in sinus rhythm. Continue care Objective: Vital Signs Date Time Temp Pulse Resp B/P (MAP) Pulse Ox O2 Delivery O2 Flow Rate FiO2 03/03/17 16:00 99 03/03/17 14:00 103 03/03/17 12:00 98.5 103 20 119/56 (77) 96 03/03/17 12:00 111 03/03/17 11:36 98 Nasal Cannula 4 03/03/17 11:36 98 Nasal Cannula 4.00 03/03/17 10:34 100 40 03/03/17 10:00 90 03/03/17 08:48 100 40 03/03/17 08:00 99.5 76 21 121/60 (80) 98 03/03/17 08:00 73 03/03/17 07:00 96 Mechanical Ventilator 40 03/03/17 06:00 79 03/03/17 04:50 78 119/61 03/03/17 04:19 100 40 03/03/17 04:00 97.8 74 16 104/56 (72) 99 03/03/17 04:00 74 03/03/17 03:42 99 45 03/03/17 02:00 71 03/03/17 00:09 98 45 03/03/17 00:00 96.9 66 16 126/70 (88) 100 03/03/17 00:00 66 03/02/17 23:40 68 106/73 03/02/17 22:15 96.9 78 16 86/50 (62) 100 03/02/17 22:04 100 60 Result Diagram: 03/03/17 0400 03/03/17 0400 Christiano George MD Mar 03, 2017 17:01
[2017-03-03] MEDS: HEPARIN SODIUM - SQ 10,000 UNITS/ML VIAL SQ SCH (18:35)
[2017-03-04] VITALS (11 sets, daily range): BP systolic 119–147; BP diastolic 63–83; PULSE 88–106; RESP 17–21; TEMP 96.1–99.1; O2SAT 91–100
[2017-03-04] MEDS: PIPERACIL-TAZO 3.375 GM PREMIX 50 ML IV SCH ×4 (01:55→22:20)
[2017-03-04] MEDS: HEPARIN SODIUM - SQ 10,000 UNITS/ML VIAL SQ SCH ×3 (01:55→18:00)
[2017-03-04] MEDS: CHLORHEXIDINE GLUCONATE 2 % 1 PACK (2 CLOTHS) TOP SCH (03:44)
[2017-03-04 03:47] LABS: AUTOMATED NEUTROPHIL # 14.7 TH/MM3 (1.8-7.7); BASOPHIL # 0.1 TH/MM3 (0-0.2); BASOPHIL % 0.5 % (0.0-2.0); EOSINOPHIL # 0.1 TH/MM3 (0-0.4); EOSINOPHIL % 0.6 % (0.0-4.0); HEMO FLAGS DIFF FINAL; LYMPHOCYTE # 1.1 TH/MM3 (1.0-4.8); MEAN CELL VOLUME 86.3 FL (80.0-100.0); MEAN CORPUSCULAR HEMOGLOBIN 29.7 PG (27.0-34.0); MEAN CORPUSCULAR HGB CONC 34.4 % (32.0-36.0); MONO % 9.8 % (0.0-8.0); NEUT % 83.1 % (16.0-70.0); PLATELET COUNT 161 TH/MM3 (150-450); WHITE BLOOD COUNT 17.7 TH/MM3 (4.0-11.0)
[2017-03-04 04:16] LABS: CALCIUM-PROTEIN CORRECTED 8.7 MG/DL (8.5-10.1); MAGNESIUM 2.1 MG/DL (1.5-2.5); POTASSIUM 3.8 MEQ/L (3.5-5.1); TOTAL BILIRUBIN ADULT 1.4 MG/DL (0.2-1.0)
--- NOTE | 2017-03-04 04:28 | RADRPT ---
EXAM DATE/TIME: 03/04/2017 03:00 [facility] COMPARISON: CHEST SINGLE AP, March 03, 2017, 4:56. INDICATIONS : Respiratory disease. MEDICAL HISTORY : Dementia. Seizures. SURGICAL HISTORY : None. ENCOUNTER: Subsequent ACUITY: 3 days PAIN SCORE: Non-responsive. LOCATION: Bilateral chest FINDINGS: Right internal jugular catheter tip projects in the right atrium. The heart is mildly enlarged, shannan lar to prior. Interval resolution of the opacities in the right midlung; the right lung is clear. M oderate tortuosity descending thoracic aorta. Improved aeration to the left lower lung with portions of the left hemidiaphragm no discernible. CONCLUSION: Slightly improved left lower lung consolidation. Interval resolution of opacities in the central rig ht lung. Osmar Pereira MD on March 04, 2017 at 4:25 Board Certified Radiologist. This report was verified electronically.
[2017-03-04] MEDS: DIVALPROEX SODIUM SPRINKLES 125 MG CAP PO SCH ×3 (08:28→22:41)
[2017-03-04] MEDS: FAMOTIDINE 20 MG/2 ML VIAL IV PUSH SCH (08:29)
[2017-03-04] MEDS: CLOPIDOGREL 75 MG TAB PO SCH (08:29)
[2017-03-04] MEDS: DOCUSATE SODIUM 50 MG/SENNA 8.6 MG TAB PO SCH ×2 (08:29→22:21)
--- NOTE | 2017-03-04 10:24 | PD.CAR.PN ---
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 Patient sustaining massive hemorrhage and underwent resection of popliteal artery aneurysm with [place] graft placement and thigh fasciotomy This morning foot is warm with dopplerable dorsalis pedis and posterior tibial pulses Patient does not have compartment syndrome in the calf but should watch carefully for the same Large amount of blood and blood products have been administered which will likely cause some degree of ARDS so any decision to extubate the patient has to be weighed against the chance of late ARDS Large Hemovac drain was placed during surgery but patient reported out this morning so with done with that Once patient is extubated he'll need the extensive physical therapy Prior to surgery patient was on factor X a inhibitor for possibly atrial fibrillation but currently patient is in sinus rhythm. Continue care 03/04/17 Patient doing really well at this time He was extubated successfully yesterday Left leg is nice and warm and patient has bounding posterior tibial and dorsalis pedis pulse at this point Medial incisions and dry clean with no signs of infection Lateral left thigh fasciotomy is draining much less and dressing changes ordered Plan Advanced to diet Aggressive PT OT Transfer to floor Patient will need long-term placement in face of dementia and resistance Objective: Vital Signs Date Time Temp Pulse Resp B/P (MAP) Pulse Ox O2 Delivery O2 Flow Rate FiO2 03/04/17 10:00 88 03/04/17 08:14 100 4.00 03/04/17 08:14 95 2.50 03/04/17 08:00 95 03/04/17 08:00 99.1 91 17 147/74 (98) 100 03/04/17 07:00 99 Nasal Cannula 4.00 03/04/17 06:00 100 03/04/17 04:00 99.1 96 18 134/64 (87) 99 03/04/17 04:00 96 03/04/17 02:00 102 03/04/17 00:00 98.7 106 17 132/63 (86) 100 03/04/17 00:00 106 03/03/17 22:00 105 03/03/17 20:00 105 03/03/17 20:00 98.2 105 18 130/60 (83) 100 03/03/17 19:00 99 Nasal Cannula 4.00 03/03/17 18:00 100 03/03/17 16:00 98.4 98 19 134/61 (85) 100 03/03/17 16:00 99 03/03/17 14:00 103 03/03/17 12:00 98.5 103 20 119/56 (77) 96 03/03/17 12:00 111 03/03/17 11:36 98 Nasal Cannula 4 03/03/17 11:36 98 Nasal Cannula 4.00 03/03/17 10:34 100 40 Labs: Laboratory Tests Test 03/04/17 03:15 White Blood Count 17.7 TH/MM3 (4.0-11.0) Red Blood Count 2.90 MIL/MM3 (4.50-5.90) Hemoglobin 8.6 GM/DL (13.0-17.0) Hematocrit 25.0 % (39.0-51.0) Mean Corpuscular Volume 86.3 FL (80.0-100.0) Mean Corpuscular Hemoglobin 29.7 PG (27.0-34.0) Mean Corpuscular Hemoglobin Concent 34.4 % (32.0-36.0) Red Cell Distribution Width 15.0 % (11.6-17.2) Platelet Count 161 TH/MM3 (150-450) Mean Platelet Volume 8.8 FL (7.0-11.0) Neutrophils (%) (Auto) 83.1 % (16.0-70.0) Lymphocytes (%) (Auto) 6.0 % (9.0-44.0) Monocytes (%) (Auto) 9.8 % (0.0-8.0) Eosinophils (%) (Auto) 0.6 % (0.0-4.0) Basophils (%) (Auto) 0.5 % (0.0-2.0) Neutrophils # (Auto) 14.7 TH/MM3 (1.8-7.7) Lymphocytes # (Auto) 1.1 TH/MM3 (1.0-4.8) Monocytes # (Auto) 1.7 TH/MM3 (0-0.9) Eosinophils # (Auto) 0.1 TH/MM3 (0-0.4) Basophils # (Auto) 0.1 TH/MM3 (0-0.2) CBC Comment DIFF FINAL Differential Comment Blood Urea Nitrogen 31 MG/DL (7-18) Creatinine 1.30 MG/DL (0.60-1.30) Random Glucose 105 MG/DL (74-106) Total Protein 4.5 GM/DL (6.4-8.2) Albumin 1.6 GM/DL (3.4-5.0) Calcium Level 7.2 MG/DL (8.5-10.1) Magnesium Level 2.1 MG/DL (1.5-2.5) Alkaline Phosphatase 63 U/L (45-117) Aspartate Amino Transf (AST/SGOT) 32 U/L (15-37) Alanine Aminotransferase (ALT/SGPT) 11 U/L (12-78) Total Bilirubin 1.4 MG/DL (0.2-1.0) Sodium Level 145 MEQ/L (136-145) Potassium Level 3.8 MEQ/L (3.5-5.1) Chloride Level 108 MEQ/L (98-107) Carbon Dioxide Level 31.0 MEQ/L (21.0-32.0) Anion Gap 6 MEQ/L (5-15) Estimat Glomerular Filtration Rate 53 ML/MIN (>89) Protein Corrected Calcium 8.7 MG/DL (8.5-10.1) Result Diagram: 03/04/175 03/04/175 Christiano George MD Mar 04, 2017 10:24
--- NOTE | 2017-03-04 13:19 | HHI.CCPN ---
Subjective Remarks/Hospital Course Patient is a 80-year-old male from [facility] with history of dementia, chronic atrial fibrillation, coronary artery disease with history of bypass, hypertension who was brought to the emergency department for leg pain and swelling. Patient has dementia and now metabolic encephalopathy which limits history. Apparently a week ago patient sustained a fall in [facility]. US 02/24/17 showed large hematoma in his left leg. A CT of the lower extremity was recommended which apparently was not done. In the ED patient had a temperature of 96, HR 100s and borderline hypotension. WBC count was elevated at 24.6 with left shift. Lactic acid was 2.6 BUN was 55 and creatinine 1.8. Patient's left lower extremity was significantly swollen and tense, Dr. Stanton did check compartment pressure which was highly elevated. According to Dr. Stanton compartment pressure in posterior compartment of thigh was [address] Gonzalez was consulted emergently who is planning to take patient to OR for probable fasciotomy. No pulse was felt in LE. CT of the left lower extremity showed large thigh hematoma and associated popliteal aneurysms raising concern for aneurysm rupture. Dr. Harris from vascular surgery also was consulted. Patient received vancomycin and Zosyn for sepsis. I evaluated the patient in the emergency department. Patient appears critically ill, because of underlying dementia history is not obtainable. I have ordered 2 L normal saline bolus. Patient is chronically on Eliquis. I will reverse this with 5,500 units of K Centra. Case discussed extensively with Dr. Stanton and Dr. Harris 03/03: s/p OR yesterday with vascular surgery and ortho. Lateral and medial incisions where made to L thigh and a large hematoma in the medial/posterior aspects was encountered. Whie evacuating the hematoma significant arterial bleeding was encountered. A sterile tourniquet was placed and vascular surgery was emergently contacted. Dr. Harris and Dr. Spear proceeded with popliteal aneurysm repair with graft placement. Because of acute bleeding hemoglobin dropped 3. Patient received 8U PRBC,3 U FFP in OR. Remains on Alfredo-Synephrine but weaning doses. On sedation hold wakes up follows commands by squeezing hands 03/04: Extubated yesterday tolerating well. Hemodynamically stable white count decreasing 17.7 today. Mental status oriented to person which is his baseline. He is s/p resection of popliteal artery aneurysm with [place]-Robbin graft placement and thigh fasciotomy. Objective Vital Signs Date Time Temp Pulse Resp B/P (MAP) Pulse Ox O2 Delivery O2 Flow Rate FiO2 03/04/17 12:00 98.1 88 21 128/75 (92) 100 03/04/17 08:14 4.00 03/04/17 07:00 Nasal Cannula 03/03/17 10:34 40 Intake and Output 03/04/17 03/04/17 03/05/17 08:00 16:00 00:00 Output Total 550 ml Balance -550 ml Result Diagram: 03/04/1731403/04/17314 Imaging Large left thigh hematoma, popliteal aneurysm cannot rule out aneurysmal rupture /hemorrhage Objective Remarks GENERAL: Elderly obese male who is lying in bed with no acute distress SKIN: Left leg thigh exam see musculoskeletal HEAD: Atraumatic. Normocephalic. EYES: Pupils equal and round. No injection or drainage. ENT: Oral mucosa is dry NECK: Trachea midline. No JVD. CARDIOVASCULAR: Normal murmurs or rubs. S1 S2 normal RESPIRATORY: No accessory muscle use. Clear to auscultation. Breath sounds equal bilaterally. GASTROINTESTINAL: Abdomen obese soft, distended. Hepatic and splenic margins not palpable. MUSCULOSKELETAL: Left thigh in AMANDA wrap, L lateral incision remains open with sanguinous drainage into the collecting bag. Palpable Left DP pulse NEUROLOGICAL: Patient alert oriented person. Moves extremities. follows commands in UE Assessment to: Remove A/P Assessment and Plan NEURO: Acute metabolic encephalopathy Underlying dementia - Monitor neuro status closely - Use Haldol when necessary for agitation - Percocet when necessary for breakthrough pain CV/MSK: Left thigh compartment syndrome s/p Left thigh hematoma evacuation s/p resection of popliteal artery aneurysm with rupture with [place] graft placement and thigh fasciotomy. Chronic atrial fibrillation on Eliquis Hemorrhagic shock-resolved - Received s/p 8U PRBC,3 U FFP in OR for severe hemorrhagic shock - Off pressors - Status post left thigh fasciotomy and evacuation of hematoma by Dr. Gonzalez, status post repair of ruptured popliteal artery aneurysm by Dr. Spear and Dr. Harris - Empiric ABX - CT on admission showed left thigh hematoma and with popliteal artery aneurysm - Started on Plavix and heparin sq GI: - Nothing by mouth, IV Pepcid - Swallow eval if extubated : Acute on chronic kidney disease - Monitor renal function closely. DC Chapman catheter. - IV to KVO ID: Severe sepsis Probably infected hematoma - IV vancomycin and Zosyn given in ED. Blood cultures have been sent - Continue Zosyn renally dosed HEME: Anemia requiring transfusion Coagulopathy due to chronic Eliquis use - Monitor CBC, CMP, coags - K- Centra 5500 units given - s/p 8U PRBC,3 U FFP in OR ENDO: - Electrolyte replacement per protocol PROPH: - IV Pepcid. SCDs to right lower extremity. Chemical DVT prophylaxis with heparin started todat LINES: - Utilize peripheral IVs, central line if needed Level 2 Transfer to Med Surg. Hospitalist to assume care in am Kelsy Sepulveda MD Mar 04, 2017 13:19
[2017-03-04] MEDS: HALOPERIDOL LACTATE 5 MG/ML AMP IV PRN ×2 (13:37→22:21)
--- NOTE | 2017-03-04 14:52 | RADRPT ---
EXAM DATE/TIME: 03/04/2017 14:08 [place] COMPARISON: No previous studies available for comparison. INDICATIONS : Right leg pain. MEDICAL HISTORY : CVA. Dementia. Alzheimer's disease. a.fib. hypertension. gerd. anticoagulant therapy. osteoporsis. an xiety. anemia. pruritis. SURGICAL HISTORY : CABG. Kidney disease. ENCOUNTER: Initial ACUITY: 1 day PAIN SCORE: Non-responsive LOCATION: Right leg. TECHNIQUE: Venous ultrasound of the leg was performed from the inguinal ligament to the proximal calf. Real-landy e, color Doppler and spectral tracing, compression and augmentation techniques were used. FINDINGS: There is normal compressibility of the deep venous system from the inguinal region to the proximal ca lf. No echogenic clot is seen in the lumen of the common femoral, femoral, popliteal, and posterior tibial veins. There is a normal response of the venous system to proximal and distal augmentation an d respiration. CONCLUSION: 1. No DVT identified. Ramon Wallace MD on March 04, 2017 at 14:50 Board Certified Radiologist. This report was verified electronically.
[2017-03-04] MEDS: oxyCODONE/ACETAMINOPHEN 5 MG/325 MG TAB PO PRN ×2 (15:52→22:54)
[2017-03-04] MEDS: MORPHINE SULFATE 2 MG/ML INJ IV PUSH PRN (16:56)
[2017-03-04] MEDS: FAMOTIDINE 20 MG TAB PO SCH (22:21)
[2017-03-05] VITALS: BP 153/89; PULSE 86; RESP 17; TEMP 96.3; O2SAT 95
[2017-03-05] MEDS: HEPARIN SODIUM - SQ 10,000 UNITS/ML VIAL SQ SCH ×3 (03:45→17:36)
[2017-03-05] MEDS: MORPHINE SULFATE 2 MG/ML INJ IV PUSH PRN ×4 (03:51→23:16)
[2017-03-05] MEDS: PIPERACIL-TAZO 3.375 GM PREMIX 50 ML IV SCH ×4 (03:57→23:41)
[2017-03-05 04:00] VITALS: BP 151/66; PULSE 111; RESP 17; TEMP 96.3; O2SAT 96
[2017-03-05] MEDS: CHLORHEXIDINE GLUCONATE 2 % 1 PACK (2 CLOTHS) TOP SCH (04:00)
[2017-03-05 08:00] VITALS: BP 170/90; PULSE 84; RESP 20; TEMP 98.8; O2SAT 94
[2017-03-05 08:24] LABS: AUTOMATED NEUTROPHIL # 10.6 TH/MM3 (1.8-7.7); BASOPHIL # 0.1 TH/MM3 (0-0.2); BASOPHIL % 0.7 % (0.0-2.0); EOSINOPHIL # 0.2 TH/MM3 (0-0.4); EOSINOPHIL % 1.8 % (0.0-4.0); HEMATOCRIT 24.9 % (39.0-51.0); HEMO FLAGS DIFF FINAL; LYMPH % 7.8 % (9.0-44.0); MEAN CORPUSCULAR HEMOGLOBIN 30.1 PG (27.0-34.0); MEAN CORPUSCULAR HGB CONC 34.2 % (32.0-36.0); MONO % 10.2 % (0.0-8.0); NEUT % 79.5 % (16.0-70.0); PLATELET COUNT 209 TH/MM3 (150-450); RED BLOOD COUNT 2.83 MIL/MM3 (4.50-5.90); RED CELL DISTRIBUTION WIDTH 14.9 % (11.6-17.2); WHITE BLOOD COUNT 13.3 TH/MM3 (4.0-11.0)
[2017-03-05 08:49] LABS: ALT (GPT) 13 U/L (12-78); ANION GAP 6 MEQ/L (5-15); AST (GOT) 35 U/L (15-37); BICARBONATE 29.8 MEQ/L (21.0-32.0); BLOOD UREA NITROGEN 26 MG/DL (7-18); CHLORIDE 108 MEQ/L (98-107); GLOMERULAR FILTRATION RATE 67 ML/MIN (>89); POTASSIUM 3.6 MEQ/L (3.5-5.1); SODIUM (NA) 144 MEQ/L (136-145)
[2017-03-05 08:51] LABS: ALKALINE PHOSPHATASE 80 U/L (45-117); TOTAL BILIRUBIN ADULT 1.5 MG/DL (0.2-1.0)
[2017-03-05] MEDS: CLOPIDOGREL 75 MG TAB PO SCH (09:50)
[2017-03-05] MEDS: FAMOTIDINE 20 MG TAB PO SCH ×2 (09:50→23:42)
[2017-03-05] MEDS: DIVALPROEX SODIUM SPRINKLES 125 MG CAP PO SCH ×3 (09:50→23:42)
[2017-03-05] MEDS: DOCUSATE SODIUM 50 MG/SENNA 8.6 MG TAB PO SCH ×2 (09:51→21:00)
--- NOTE | 2017-03-05 10:08 | HHI.PR ---
Subjective Remarks integrity specialist Notes: Patient is a 80-year-old male from [facility] with history of dementia, chronic atrial fibrillation, coronary artery disease with history of bypass, hypertension who was brought to the emergency department for leg pain and swelling. Patient has dementia and now metabolic encephalopathy which limits history. Apparently a week ago patient sustained a fall in [facility]. US 02/24/17 showed large hematoma in his left leg. A CT of the lower extremity was recommended which apparently was not done. In the ED patient had a temperature of 96, HR 100s and borderline hypotension. WBC count was elevated at 24.6 with left shift. Lactic acid was 2.6 BUN was 55 and creatinine 1.8. Patient's left lower extremity was significantly swollen and tense, Dr. Stanton did check compartment pressure which was highly elevated. According to Dr. Stanton compartment pressure in posterior compartment of thigh was [address] Gonzalez was consulted emergently who is planning to take patient to OR for probable fasciotomy. No pulse was felt in LE. CT of the left lower extremity showed large thigh hematoma and associated popliteal aneurysms raising concern for aneurysm rupture. Dr. Harris from vascular surgery also was consulted. Patient received vancomycin and Zosyn for sepsis. I evaluated the patient in the emergency department. Patient appears critically ill, because of underlying dementia history is not obtainable. I have ordered 2 L normal saline bolus. Patient is chronically on Eliquis. I will reverse this with 5,500 units of K Centra. Case discussed extensively with Dr. Stanton and Dr. Harris 03/03: s/p OR yesterday with vascular surgery and ortho. Lateral and medial incisions where made to L thigh and a large hematoma in the medial/posterior aspects was encountered. Whie evacuating the hematoma significant arterial bleeding was encountered. A sterile tourniquet was placed and vascular surgery was emergently contacted. Dr. Harris and Dr. Spear proceeded with popliteal aneurysm repair with graft placement. Because of acute bleeding hemoglobin dropped 3. Patient received 8U PRBC,3 U FFP in OR. Remains on Alfredo-Synephrine but weaning doses. On sedation hold wakes up follows commands by squeezing hands 03/04: Extubated yesterday tolerating well. Hemodynamically stable white count decreasing 17.7 today. Mental status oriented to person which is his baseline. He is s/p resection of popliteal artery aneurysm with [place]-Rob[place] graft placement and thigh fasciotomy. Hospitalist Notes: 03/05: Seen in his bedroom, no new complaint, continue management by Vascular operations staff specialist security, nurse Miss Charles in his bedroom, no nausea, vomit or diarrhea. Objective Vital Signs Date Time Temp Pulse Resp B/P (MAP) Pulse Ox O2 Delivery O2 Flow Rate FiO2 03/05/17 04:00 96.3 111 17 151/66 (94) 96 03/05/17 00:00 96.3 86 17 153/89 (110) 95 03/04/17 20:00 96.1 90 18 135/76 (95) 91 03/04/17 19:00 95 Room Air 03/04/17 16:00 104 03/04/17 16:00 98.5 103 19 119/83 (95) 94 03/04/17 14:00 98 03/04/17 12:00 98.1 88 21 128/75 (92) 100 03/04/17 12:00 96 I/O 03/04/17 03/04/17 03/04/17 03/05/17 03/05/17 03/05/17 07:00 15:00 23:00 07:00 15:00 23:00 Intake Total 180 ml 290 ml Output Total 550 ml 450 ml Balance -550 ml -270 ml 290 ml Intake Oral 180 ml 240 ml IV Total 50 ml Output Urine Total 550 ml 450 ml # Voids 2 # Bowel Movements 0 0 1 Result Diagram: 03/05/17 0734 03/05/17 0734 Imaging Last Impressions Chest X-Ray 03/04/17 0600 Signed Impressions: Service Date/Time: February 03:00 - CONCLUSION: Slightly improved left lower lung consolidation. Interval resolution of opacities in the central right lung. Osmar Pereira MD Lower Extremity Ultrasound 03/04/17 0000 Signed Impressions: Service Date/Time: February 14:08 - CONCLUSION: 1. No DVT identified. Ramon Wallace MD Pelvis CT 03/02/17 0000 Signed Impressions: Service Date/Time: Thursday, March 02, 2017 14:20 - CONCLUSION: 1. Left adductor muscle swelling 2. Unremarkable pelvic structures 3. No evidence of acute bony abnormality. Juancarlos Maradiaga MD Lower Extremity CT 03/02/17 0000 Signed Impressions: Service Date/Time: Thursday, March 02, 2017 14:17 - CONCLUSION: 1. Large complex fluid collections from the mid to lower thigh characteristic of either a large hematomas or pseudoaneurysms. These are associated with a popliteal artery aneurysm. Ruptured aneurysm needs be considered. 2. No evidence of acute bony abnormality. Juancarlos Maradiaga MD Procedures Large left thigh hematoma, popliteal aneurysm cannot rule out aneurysmal rupture /hemorrhage Other Results Laboratory Tests Test 03/02/17 14:09 03/02/17 20:03 03/02/17 23:00 03/03/17 04:00 Total Creatine Kinase 590 U/L Creatine Kinase MB 1.6 NG/ML Creatine Kinase MB % 0.3 % Troponin I LESS THAN 0.02 NG/ML Promyelocytes 2 % Spherocytes OCC Prothrombin Time 13.0 SEC Prothromb Time International Ratio 1.3 RATIO Activated Partial Thromboplast Time 37.3 SEC Fibrinogen 236 mg/dL Nasal Screen MRSA (PCR) MRSA NOT DETECTED Differential Total Cells Counted 100 Neutrophils % (Manual) 79 % Band Neutrophils % 7 % Lymphocytes % 4 % Monocytes % 5 % Eosinophils % 1 % Neutrophils # (Manual) 22.8 TH/MM3 Metamyelocytes 1 % Myelocytes 3 % Platelet Estimate LOW Platelet Morphology Comment ENLARGED Lactic Acid Level 2.0 mmol/L Test 03/03/17 04:14 03/03/17 17:59 03/04/17 03:15 03/05/17 07:34 Blood Gas Puncture Site ART LINE Blood Gas Patient Temperature 98.6 Blood Gas HCO3 26 mmol/L Blood Gas Base Excess 2.1 mmol/L Blood Gas Oxygen Saturation 96 % Arterial Blood pH 7.47 Arterial Blood Partial Pressure CO2 36 mmHg Arterial Blood Partial Pressure O2 150 mmHg Arterial Blood Oxygen Content 13.8 Vol % Arterial Blood Carboxyhemoglobin 2.5 % Arterial Blood Methemoglobin 1.1 % Blood Gas Hemoglobin 10.0 G/DL Oxygen Delivery Device VENTILATOR Blood Gas Ventilator Setting AC/16/600/PEEP5 Blood Gas Inspired Oxygen 45 % Phosphorus Level 3.4 MG/DL Protein Corrected Calcium 8.7 MG/DL Blood Urea Nitrogen 31 MG/DL 26 MG/DL Creatinine 1.30 MG/DL 1.06 MG/DL Random Glucose 105 MG/DL 84 MG/DL Total Protein 4.5 GM/DL 5.1 GM/DL Albumin 1.6 GM/DL 1.6 GM/DL Calcium Level 7.2 MG/DL 7.5 MG/DL Magnesium Level 2.1 MG/DL Alkaline Phosphatase 63 U/L 80 U/L Aspartate Amino Transf (AST/SGOT) 32 U/L 35 U/L Alanine Aminotransferase (ALT/SGPT) 11 U/L 13 U/L Total Bilirubin 1.4 MG/DL 1.5 MG/DL Sodium Level 145 MEQ/L 144 MEQ/L Potassium Level 3.8 MEQ/L 3.6 MEQ/L Chloride Level 108 MEQ/L 108 MEQ/L Carbon Dioxide Level 31.0 MEQ/L 29.8 MEQ/L White Blood Count 13.3 TH/MM3 Red Blood Count 2.83 MIL/MM3 Hemoglobin 8.5 GM/DL Hematocrit 24.9 % Mean Corpuscular Volume 88.0 FL Mean Corpuscular Hemoglobin 30.1 PG Mean Corpuscular Hemoglobin Concent 34.2 % Red Cell Distribution Width 14.9 % Platelet Count 209 TH/MM3 Mean Platelet Volume 8.2 FL Neutrophils (%) (Auto) 79.5 % Lymphocytes (%) (Auto) 7.8 % Monocytes (%) (Auto) 10.2 % Eosinophils (%) (Auto) 1.8 % Basophils (%) (Auto) 0.7 % Neutrophils # (Auto) 10.6 TH/MM3 Lymphocytes # (Auto) 1.0 TH/MM3 Monocytes # (Auto) 1.4 TH/MM3 Eosinophils # (Auto) 0.2 TH/MM3 Basophils # (Auto) 0.1 TH/MM3 CBC Comment DIFF FINAL Differential Comment Anion Gap 6 MEQ/L Estimat Glomerular Filtration Rate 67 ML/MIN Objective Remarks GENERAL: Elderly obese male who is lying in bed with no acute distress SKIN: Left leg thigh exam see musculoskeletal HEAD: Atraumatic. Normocephalic. EYES: Pupils equal and round. No injection or drainage. ENT: Oral mucosa is dry NECK: Trachea midline. No JVD. CARDIOVASCULAR: Normal murmurs or rubs. S1 S2 normal RESPIRATORY: No accessory muscle use. Clear to auscultation. Breath sounds equal bilaterally. GASTROINTESTINAL: Abdomen obese soft, distended. Hepatic and splenic margins not palpable. MUSCULOSKELETAL: Left thigh in AMANDA wrap, L lateral incision remains open with sanguinous drainage into the collecting bag. Palpable Left DP pulse NEUROLOGICAL: Patient alert oriented person. Moves extremities. follows commands in UE Medications and IVs Current Medications Medications (Trade) Dose Ordered Sig/Santiago Route Start Time Stop Time Status Last Admin (NS Flush) 2 ml UNSCH PRN IV FLUSH 03/02/17 14:00 (Duoneb Neb) 1 ampule Q4HR NEB PRN INH 03/02/17 15:15 Miscellaneous Information 1 Q361D XX 03/02/17 15:15 (Chlorhexidine 2% Cloth) 3 pack Taper DAILY@04 TOP 03/03/17 04:00 02/27/18 03:59 (Chlorhexidine 2% Cloth) 3 pack UNSCH PRN TOP 03/02/17 15:15 (Mallory-Colace) 1 tab BID PO 03/02/17 21:00 03/05/17 09:51 (Milk Of Magnesia Liq) 30 ml Q12H PRN PO 03/02/17 15:15 (Senokot) 17.2 mg Q12H PRN PO 03/02/17 15:15 (Dulcolax Supp) 10 mg DAILY PRN RECTAL 03/02/17 15:15 (Lactulose Liq) 30 ml DAILY PRN PO 03/02/17 15:15 (Depakote Sprinkles) 250 mg BID PO 03/02/17 21:00 03/05/17 09:50 (Brethine Inj) 1 mg UNSCH PRN SQ 03/02/17 22:15 Potassium Chloride 100 ml @ 50 mls/hr Q2H PRN IV 03/03/17 12:00 Potassium Chloride 100 ml @ 50 mls/hr Q2H PRN IV 03/03/17 12:00 (K-Lyte Cl Eff) 50 meq UNSCH PRN PO 03/03/17 12:00 Potassium Chloride 100 ml @ 25 mls/hr UNSCH PRN IV 03/03/17 12:00 Potassium Chloride 100 ml @ 50 mls/hr Q2H PRN IV 03/03/17 12:00 Magnesium Sulfate 4 gm/Sodium Chloride 100 ml @ 50 mls/hr UNSCH PRN IV 03/03/17 12:00 (Mag-Ox) 800 mg UNSCH PRN PO 03/03/17 12:00 Magnesium Sulfate 2 gm/Sodium Chloride 100 ml @ 50 mls/hr UNSCH PRN IV 03/03/17 12:00 (K-Phos) 2,000 mg Q4H PRN PO 03/03/17 12:00 Sodium Phosphate 30 mmol/Sodium Chloride 250 ml @ 42 mls/hr UNSCH PRN IV 03/03/17 12:00 (K-Phos) 2,000 mg UNSCH PRN PO/TUBE 03/03/17 12:00 Potassium Phosphate 30 mmol/ Sodium Chloride 260 ml @ 42 mls/hr UNSCH PRN IV 03/03/17 12:00 Piperacillin Sod/ Tazobactam Sod 50 ml @ 100 mls/hr Q6H IV 03/03/17 14:00 03/05/17 09:50 (Heparin Inj) 5,000 units Q8H SQ 03/03/17 18:00 03/05/17 09:51 (Plavix) 75 mg DAILY PO 03/04/17 09:00 03/05/17 09:50 (Depakote Sprinkles) 125 mg DAILY@1500 PO 03/04/17 15:00 03/04/17 15:51 (Pepcid) 20 mg BID PO 03/04/17 21:00 03/05/17 09:50 (Percocet 5-325 Mg) 1 tab Q4H PRN PO 03/04/17 13:00 03/04/17 22:54 (Haldol Inj) 2 mg Q6H PRN IV 03/04/17 13:30 03/04/17 22:21 (Morphine Inj) 3 mg Q4H PRN IV PUSH 03/04/17 16:00 03/05/17 09:51 A/P Assessment and Plan 1. Acute metabolic Encephalopathy/Dementia has Haldol as needed, continue Percocet for pain 2. left Thigh Compartment Syndrome, Status post resection of popliteal artery aneurysm with rupture with [place]-Robbin Graft placement and thigh fasciotomy chronic Atrial Fibrillation on Eliquis, hemorrhagic Shock resolved received 8 units of PRBCs, 3 units of FFP in OR for severe Hemorrhagic Shock Status post left thigh fasciotomy and evacuation of Hematoma by Doctor Gonzalez , status post repair of ruptured Popliteal artery aneurysm by Doctor George and Dr. Harris CT on admission showed Left thigh hematoma and with popliteal artery aneurysm , on Plavix and Heparin SQ 3. Acute on chronic renal failure sable 4. Severe sepsis probably infected hematoma on Vancomycin and Zosyn blood cultures no growth in two days, no BSI 5. Anemia status post blood loss Coagulopathy due to chronic Eliquis use, status post blood transfusion 8 units of PRBCs and 3 units of FFP. 6. Morbid Obesity weight loss warranted early activity and diet recommended, follow PT recommendations and OT 7. Hypertension just was on Pressors today uncontrolled will re start his home medicine slowly if consistent hypertension. PROPH: - IV Pepcid. SCDs to right lower extremity. Chemical DVT prophylaxis with heparin continued. Discharge Planning Once cleared by Vascular Surgery Magno Cohen MD Mar 05, 2017 10:08
[2017-03-05] MEDS ORDERED: POTASSIUM CHLOR 20 MEQ PREMIX 100 ML IV ONE (10:45)
[2017-03-05 12:00] VITALS: BP 147/85; PULSE 110; RESP 17; TEMP 99.8; O2SAT 95
[2017-03-05] MEDS: MAGNESIUM SULFATE 1 GM PREMIX 100 ML IV SCH ×2 (12:22→14:09)
[2017-03-05] MEDS ORDERED: POTASSIUM CHLORIDE 25 MEQ EFFERVESCENT TAB PO ONE (12:45)
[2017-03-05] MEDS: HALOPERIDOL LACTATE 5 MG/ML AMP IV PRN ×2 (13:28→23:41)
--- NOTE | 2017-03-05 14:17 | PD.CAR.PN ---
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 Patient sustaining massive hemorrhage and underwent resection of popliteal artery aneurysm with [place]-Robbin graft placement and thigh fasciotomy This morning foot is warm with dopplerable dorsalis pedis and posterior tibial pulses Patient does not have compartment syndrome in the calf but should watch carefully for the same Large amount of blood and blood products have been administered which will likely cause some degree of ARDS so any decision to extubate the patient has to be weighed against the chance of late ARDS Large Hemovac drain was placed during surgery but patient reported out this morning so with done with that Once patient is extubated he'll need the extensive physical therapy Prior to surgery patient was on factor X a inhibitor for possibly atrial fibrillation but currently patient is in sinus rhythm. Continue care 03/04/17 Patient doing really well at this time He was extubated successfully yesterday Left leg is nice and warm and patient has bounding posterior tibial and dorsalis pedis pulse at this point Medial incisions and dry clean with no signs of infection Lateral left thigh fasciotomy is draining much less and dressing changes ordered Plan Advanced to diet Aggressive PT OT Transfer to floor Patient will need long-term placement in face of dementia and resistance 03/05/17 Patient doing very well at this time Incision is clean and dry with minimal drainage Patient has bounding distal pulses and foot is warm. Calf is expectedly swollen as a result the reperfusion injury but patient does not have compartment syndrome. Fasciotomy site is clean Consult plastic surgery for lateral thigh fasciotomy site closure and follow-up for patient will need a skin graft on this at some point within next 2-3 weeks Objective: Vital Signs Date Time Temp Pulse Resp B/P (MAP) Pulse Ox O2 Delivery O2 Flow Rate FiO2 03/05/17 12:00 99.8 110 17 147/85 (105) 95 03/05/17 08:00 98.8 84 20 170/90 (116) 94 03/05/17 04:00 96.3 111 17 151/66 (94) 96 03/05/17 00:00 96.3 86 17 153/89 (110) 95 03/04/17 20:00 96.1 90 18 135/76 (95) 91 03/04/17 19:00 95 Room Air 03/04/17 16:00 104 03/04/17 16:00 98.5 103 19 119/83 (95) 94 Labs: Laboratory Tests Test 03/05/17 07:34 White Blood Count 13.3 TH/MM3 (4.0-11.0) Red Blood Count 2.83 MIL/MM3 (4.50-5.90) Hemoglobin 8.5 GM/DL (13.0-17.0) Hematocrit 24.9 % (39.0-51.0) Mean Corpuscular Volume 88.0 FL (80.0-100.0) Mean Corpuscular Hemoglobin 30.1 PG (27.0-34.0) Mean Corpuscular Hemoglobin Concent 34.2 % (32.0-36.0) Red Cell Distribution Width 14.9 % (11.6-17.2) Platelet Count 209 TH/MM3 (150-450) Mean Platelet Volume 8.2 FL (7.0-11.0) Neutrophils (%) (Auto) 79.5 % (16.0-70.0) Lymphocytes (%) (Auto) 7.8 % (9.0-44.0) Monocytes (%) (Auto) 10.2 % (0.0-8.0) Eosinophils (%) (Auto) 1.8 % (0.0-4.0) Basophils (%) (Auto) 0.7 % (0.0-2.0) Neutrophils # (Auto) 10.6 TH/MM3 (1.8-7.7) Lymphocytes # (Auto) 1.0 TH/MM3 (1.0-4.8) Monocytes # (Auto) 1.4 TH/MM3 (0-0.9) Eosinophils # (Auto) 0.2 TH/MM3 (0-0.4) Basophils # (Auto) 0.1 TH/MM3 (0-0.2) CBC Comment DIFF FINAL Differential Comment Blood Urea Nitrogen 26 MG/DL (7-18) Creatinine 1.06 MG/DL (0.60-1.30) Random Glucose 84 MG/DL (74-106) Total Protein 5.1 GM/DL (6.4-8.2) Albumin 1.6 GM/DL (3.4-5.0) Calcium Level 7.5 MG/DL (8.5-10.1) Alkaline Phosphatase 80 U/L (45-117) Aspartate Amino Transf (AST/SGOT) 35 U/L (15-37) Alanine Aminotransferase (ALT/SGPT) 13 U/L (12-78) Total Bilirubin 1.5 MG/DL (0.2-1.0) Sodium Level 144 MEQ/L (136-145) Potassium Level 3.6 MEQ/L (3.5-5.1) Chloride Level 108 MEQ/L (98-107) Carbon Dioxide Level 29.8 MEQ/L (21.0-32.0) Anion Gap 6 MEQ/L (5-15) Estimat Glomerular Filtration Rate 67 ML/MIN (>89) Result Diagram: 03/05/17 0734 03/05/17 0734 Christiano George MD Mar 05, 2017 14:17
[2017-03-05 16:00] VITALS: BP 143/80; PULSE 103; RESP 20; TEMP 98.3; O2SAT 95
[2017-03-05 20:00] VITALS: BP 162/80; PULSE 95; RESP 20; TEMP 100; O2SAT 96
[2017-03-06] VITALS (8 sets, daily range): BP systolic 150–183; BP diastolic 79–99; PULSE 80–98; RESP 18–22; TEMP 96.8–98.7; O2SAT 93–99
[2017-03-06] MEDS: HEPARIN SODIUM - SQ 10,000 UNITS/ML VIAL SQ SCH ×3 (03:23→17:14)
[2017-03-06] MEDS: PIPERACIL-TAZO 3.375 GM PREMIX 50 ML IV SCH ×4 (03:24→21:25)
[2017-03-06] MEDS: MORPHINE SULFATE 2 MG/ML INJ IV PUSH PRN ×4 (03:32→21:05)
[2017-03-06] MEDS: CHLORHEXIDINE GLUCONATE 2 % 1 PACK (2 CLOTHS) TOP SCH (04:00)
[2017-03-06 08:34] LABS: BICARBONATE 27.6 MEQ/L (21.0-32.0); MAGNESIUM 2.2 MG/DL (1.5-2.5); POTASSIUM 3.7 MEQ/L (3.5-5.1)
[2017-03-06] MEDS: DIVALPROEX SODIUM SPRINKLES 125 MG CAP PO SCH ×3 (09:58→21:01)
[2017-03-06] MEDS: CLOPIDOGREL 75 MG TAB PO SCH (09:58)
[2017-03-06] MEDS: FAMOTIDINE 20 MG TAB PO SCH ×2 (09:58→21:01)
[2017-03-06] MEDS: DOCUSATE SODIUM 50 MG/SENNA 8.6 MG TAB PO SCH ×2 (09:58→21:01)
--- NOTE | 2017-03-06 12:17 | HHI.PR ---
Subjective Remarks career placement specialist Notes: Patient is a 80-year-old male [place] with history of dementia, chronic atrial fibrillation, coronary artery disease with history of bypass, hypertension who was brought to the emergency department for leg pain and swelling. Patient has dementia and now metabolic encephalopathy which limits history. Apparently a week ago patient sustained a fall in [place]. [place] 02/24/17 showed large hematoma in his left leg. A CT of the lower extremity was recommended which apparently was not done. In the ED patient had a temperature of 96, HR 100s and borderline hypotension. WBC count was elevated at 24.6 with left shift. Lactic acid was 2.6 BUN was 55 and creatinine 1.8. Patient's left lower extremity was significantly swollen and tense, Dr. Stanton did check compartment pressure which was highly elevated. According to Dr. Stanton compartment pressure in posterior compartment of thigh was [address] Gonzalez was consulted emergently who is planning to take patient to OR for probable fasciotomy. No pulse was felt in LE. CT of the left lower extremity showed large thigh hematoma and associated popliteal aneurysms raising concern for aneurysm rupture. Dr. Harris from vascular surgery also was consulted. Patient received vancomycin and Zosyn for sepsis. I evaluated the patient in the emergency department. Patient appears critically ill, because of underlying dementia history is not obtainable. I have ordered 2 L normal saline bolus. Patient is chronically on Eliquis. I will reverse this with 5,500 units of K [facility]. Case discussed extensively with Dr. Stanton and Dr. Harris 03/03: s/p OR yesterday with vascular surgery and ortho. Lateral and medial incisions where made to L thigh and a large hematoma in the medial/posterior aspects was encountered. Whie evacuating the hematoma significant arterial bleeding was encountered. A sterile tourniquet was placed and vascular surgery was emergently contacted. Dr. Harris and Dr. Spear proceeded with popliteal aneurysm repair with graft placement. Because of acute bleeding hemoglobin dropped 3. Patient received 8U PRBC,3 U FFP in OR. Remains on Alfredo-Synephrine but weaning doses. On sedation hold wakes up follows commands by squeezing hands 03/04: Extubated yesterday tolerating well. Hemodynamically stable white count decreasing 17.7 today. Mental status oriented to person which is his baseline. He is s/p resection of popliteal artery aneurysm with [place]Robbin graft placement and thigh fasciotomy. Hospitalist Notes: 03/05: Seen in his bedroom, no new complaint, continue management by Vascular client resource specialist, nurse Miss Charles in his bedroom. 03/06: Stable in his bedroom, confused, discussed with nurse, followed by Vascular surgery, Calf es expectedly swollen, fasciotomy site clean consult plastic Surgery for lateral thigh fasciotomy site closure and follow-up for patient will need a skin graft on this at some point within next 2-3 weeks at this time no nausea, vomit or diarrhea. Objective Vital Signs Date Time Temp Pulse Resp B/P (MAP) Pulse Ox O2 Delivery O2 Flow Rate FiO2 03/06/17 08:00 97.5 84 19 150/93 (112) 96 03/06/17 04:00 97.5 90 22 152/90 (110) 93 03/06/17 02:55 91 03/06/17 00:00 98.0 98 21 157/90 (112) 99 03/05/17 20:00 100.0 95 20 162/80 (107) 96 03/05/17 16:00 98.3 103 20 143/80 (101) 95 I/O 03/05/17 03/05/17 03/05/17 03/06/17 03/06/17 03/06/17 07:00 15:00 23:00 07:00 15:00 23:00 Intake Total 290 ml 200 ml 1495 ml 480 ml Balance 290 ml 200 ml 1495 ml 480 ml Intake Oral 240 ml 1495 ml 480 ml IV Total 50 ml 200 ml # Voids 2 8 4 # Bowel Movements 1 5 1 Result Diagram: 03/05/17 0734 03/06/17 0737 Imaging Last Impressions Chest X-Ray 03/04/17 0600 Signed Impressions: Service Date/Time: February 03:00 - CONCLUSION: Slightly improved left lower lung consolidation. Interval resolution of opacities in the central right lung. Osmar Pereira MD Lower Extremity Ultrasound 03/04/17 0000 Signed Impressions: Service Date/Time: February 14:08 - CONCLUSION: 1. No DVT identified. Ramon Wallace MD Pelvis CT 03/02/17 0000 Signed Impressions: Service Date/Time: Thursday, March 02, 2017 14:20 - CONCLUSION: 1. Left adductor muscle swelling 2. Unremarkable pelvic structures 3. No evidence of acute bony abnormality. Juancarlos Maradiaga MD Lower Extremity CT 03/02/17 0000 Signed Impressions: Service Date/Time: Thursday, March 02, 2017 14:17 - CONCLUSION: 1. Large complex fluid collections from the mid to lower thigh characteristic of either a large hematomas or pseudoaneurysms. These are associated with a popliteal artery aneurysm. Ruptured aneurysm needs be considered. 2. No evidence of acute bony abnormality. Juancarlos Maradiaga MD Procedures Large left thigh hematoma, popliteal aneurysm cannot rule out aneurysmal rupture /hemorrhage Other Results Laboratory Tests Test 03/02/17 14:09 03/02/17 20:03 03/02/17 23:00 03/03/17 04:00 Total Creatine Kinase 590 U/L Creatine Kinase MB 1.6 NG/ML Creatine Kinase MB % 0.3 % Troponin I LESS THAN 0.02 NG/ML Promyelocytes 2 % Spherocytes OCC Prothrombin Time 13.0 SEC Prothromb Time International Ratio 1.3 RATIO Activated Partial Thromboplast Time 37.3 SEC Fibrinogen 236 mg/dL Nasal Screen MRSA (PCR) MRSA NOT DETECTED Differential Total Cells Counted 100 Neutrophils % (Manual) 79 % Band Neutrophils % 7 % Lymphocytes % 4 % Monocytes % 5 % Eosinophils % 1 % Neutrophils # (Manual) 22.8 TH/MM3 Metamyelocytes 1 % Myelocytes 3 % Platelet Estimate LOW Platelet Morphology Comment ENLARGED Lactic Acid Level 2.0 mmol/L Test 03/03/17 04:14 03/04/17 03:15 03/05/17 07:34 03/06/17 07:37 Blood Gas Puncture Site ART LINE Blood Gas Patient Temperature 98.6 Blood Gas HCO3 26 mmol/L Blood Gas Base Excess 2.1 mmol/L Blood Gas Oxygen Saturation 96 % Arterial Blood pH 7.47 Arterial Blood Partial Pressure CO2 36 mmHg Arterial Blood Partial Pressure O2 150 mmHg Arterial Blood Oxygen Content 13.8 Vol % Arterial Blood Carboxyhemoglobin 2.5 % Arterial Blood Methemoglobin 1.1 % Blood Gas Hemoglobin 10.0 G/DL Oxygen Delivery Device VENTILATOR Blood Gas Ventilator Setting AC/16/600/PEEP5 Blood Gas Inspired Oxygen 45 % Protein Corrected Calcium 8.7 MG/DL White Blood Count 13.3 TH/MM3 Red Blood Count 2.83 MIL/MM3 Hemoglobin 8.5 GM/DL Hematocrit 24.9 % Mean Corpuscular Volume 88.0 FL Mean Corpuscular Hemoglobin 30.1 PG Mean Corpuscular Hemoglobin Concent 34.2 % Red Cell Distribution Width 14.9 % Platelet Count 209 TH/MM3 Mean Platelet Volume 8.2 FL Neutrophils (%) (Auto) 79.5 % Lymphocytes (%) (Auto) 7.8 % Monocytes (%) (Auto) 10.2 % Eosinophils (%) (Auto) 1.8 % Basophils (%) (Auto) 0.7 % Neutrophils # (Auto) 10.6 TH/MM3 Lymphocytes # (Auto) 1.0 TH/MM3 Monocytes # (Auto) 1.4 TH/MM3 Eosinophils # (Auto) 0.2 TH/MM3 Basophils # (Auto) 0.1 TH/MM3 CBC Comment DIFF FINAL Differential Comment Blood Urea Nitrogen 26 MG/DL 23 MG/DL Creatinine 1.06 MG/DL 0.99 MG/DL Random Glucose 84 MG/DL 91 MG/DL Total Protein 5.1 GM/DL Albumin 1.6 GM/DL Calcium Level 7.5 MG/DL 7.5 MG/DL Alkaline Phosphatase 80 U/L Aspartate Amino Transf (AST/SGOT) 35 U/L Alanine Aminotransferase (ALT/SGPT) 13 U/L Total Bilirubin 1.5 MG/DL Sodium Level 144 MEQ/L 142 MEQ/L Potassium Level 3.6 MEQ/L 3.7 MEQ/L Chloride Level 108 MEQ/L 107 MEQ/L Carbon Dioxide Level 29.8 MEQ/L 27.6 MEQ/L Phosphorus Level 2.2 MG/DL Magnesium Level 2.2 MG/DL Anion Gap 7 MEQ/L Estimat Glomerular Filtration Rate 72 ML/MIN Objective Remarks GENERAL: Obese patient in no acute distress. SKIN: Left leg thigh exam see musculoskeletal HEAD: Atraumatic. Normocephalic. EYES: Pupils equal and round. No injection or drainage. ENT: Oral mucosa is dry NECK: Trachea midline. No JVD. CARDIOVASCULAR: Normal murmurs or rubs. S1 S2 normal RESPIRATORY: No accessory muscle use. Clear to auscultation. Breath sounds equal bilaterally. GASTROINTESTINAL: Abdomen obese soft, distended. Hepatic and splenic margins not palpable. MUSCULOSKELETAL: Left thigh with clean surgical wound. NEUROLOGICAL: Patient alert oriented person. Moves extremities. follows commands in UE Medications and IVs Current Medications Medications (Trade) Dose Ordered Sig/Santiago Route Start Time Stop Time Status Last Admin (NS Flush) 2 ml UNSCH PRN IV FLUSH 03/02/17 14:00 (Duoneb Neb) 1 ampule Q4HR NEB PRN INH 03/02/17 15:15 Miscellaneous Information 1 Q361D XX 03/02/17 15:15 (Chlorhexidine 2% Cloth) 3 pack Taper DAILY@04 TOP 03/03/17 04:00 02/27/18 03:59 (Chlorhexidine 2% Cloth) 3 pack UNSCH PRN TOP 03/02/17 15:15 (Mallory-Colace) 1 tab BID PO 03/02/17 21:00 03/06/17 09:58 (Milk Of Magnesia Liq) 30 ml Q12H PRN PO 03/02/17 15:15 (Senokot) 17.2 mg Q12H PRN PO 03/02/17 15:15 (Dulcolax Supp) 10 mg DAILY PRN RECTAL 03/02/17 15:15 (Lactulose Liq) 30 ml DAILY PRN PO 03/02/17 15:15 (Depakote Sprinkles) 250 mg BID PO 03/02/17 21:00 03/06/17 09:58 (Brethine Inj) 1 mg UNSCH PRN SQ 03/02/17 22:15 Piperacillin Sod/ Tazobactam Sod 50 ml @ 100 mls/hr Q6H IV 03/03/17 14:00 03/06/17 09:57 (Heparin Inj) 5,000 units Q8H SQ 03/03/17 18:00 03/06/17 11:01 (Plavix) 75 mg DAILY PO 03/04/17 09:00 03/06/17 09:58 (Depakote Sprinkles) 125 mg DAILY@1500 PO 03/04/17 15:00 03/05/17 14:08 (Pepcid) 20 mg BID PO 03/04/17 21:00 03/06/17 09:58 (Percocet 5-325 Mg) 1 tab Q4H PRN PO 03/04/17 13:00 03/04/17 22:54 (Haldol Inj) 2 mg Q6H PRN IV 03/04/17 13:30 03/05/17 23:41 (Morphine Inj) 3 mg Q4H PRN IV PUSH 03/04/17 16:00 03/06/17 03:32 A/P Assessment and Plan 1. Acute metabolic Encephalopathy/Dementia continue confused. has Haldol as needed, continue Percocet for pain 2. left Thigh Compartment Syndrome, Status post resection of popliteal artery aneurysm with rupture with [place] Graft placement and thigh fasciotomy chronic Atrial Fibrillation on Eliquis, hemorrhagic Shock resolved received 8 units of PRBCs, 3 units of FFP in OR for severe Hemorrhagic Shock Status post left thigh fasciotomy and evacuation of Hematoma by Doctor Gonzalez , status post repair of ruptured Popliteal artery aneurysm by Doctor George and Dr. Harris CT on admission showed Left thigh hematoma and with popliteal artery aneurysm , on Plavix and Heparin SQ, , followed by Vascular surgery, consult plastic Surgery for lateral thigh fasciotomy site closure and follow-up for patient will need a skin graft on this at some point within next 2-3 weeks 3. Acute on chronic renal failure Improved. 4. Severe sepsis probably infected hematoma on Zosyn blood cultures no growth in two days, no BSI, had low grade fever yesterday night following. continue antibiotics. 5. Anemia status post blood loss Coagulopathy due to chronic Eliquis use, status post blood transfusion 8 units of PRBCs and 3 units of FFP. hemoglobin 8.5 follow tomorrow. 6. Morbid Obesity weight loss warranted early activity and diet recommended, follow PT recommendations and OT 7. Hypertension just was on Pressors continue mild uncontrol start Amlodipine low dose and follow. PROPH: - IV Pepcid. SCDs to right lower extremity. Chemical DVT prophylaxis with heparin continued. Discharge Planning Once cleared by Vascular Surgery Magno Cohen MD Mar 06, 2017 12:17
[2017-03-06] MEDS: amLODIPine BESYLATE 5 MG TAB PO SCH (13:00)
[2017-03-06] MEDS: HALOPERIDOL LACTATE 5 MG/ML AMP IV PRN (13:25)
[2017-03-07] VITALS (11 sets, daily range): BP systolic 130–170; BP diastolic 76–98; PULSE 79–94; RESP 19–22; TEMP 95.3–99; O2SAT 93–99
[2017-03-07] MEDS: MORPHINE SULFATE 2 MG/ML INJ IV PUSH PRN ×2 (02:53→11:02)
[2017-03-07] MEDS: PIPERACIL-TAZO 3.375 GM PREMIX 50 ML IV SCH ×4 (02:53→21:16)
[2017-03-07] MEDS: HEPARIN SODIUM - SQ 10,000 UNITS/ML VIAL SQ SCH ×3 (02:53→17:12)
[2017-03-07] MEDS: CHLORHEXIDINE GLUCONATE 2 % 1 PACK (2 CLOTHS) TOP SCH (04:00)
[2017-03-07] MEDS: DOCUSATE SODIUM 50 MG/SENNA 8.6 MG TAB PO SCH ×2 (09:00→21:16)
[2017-03-07] MEDS: FAMOTIDINE 20 MG TAB PO SCH ×2 (10:43→21:16)
[2017-03-07] MEDS: CLOPIDOGREL 75 MG TAB PO SCH (10:43)
[2017-03-07] MEDS: amLODIPine BESYLATE 5 MG TAB PO SCH (10:44)
[2017-03-07] MEDS: DIVALPROEX SODIUM SPRINKLES 125 MG CAP PO SCH ×3 (10:44→21:16)
[2017-03-07] MEDS ORDERED: POTASSIUM PHOSPHATE INJ 15 MMOL in SODIUM CHLORIDE 0.9% INJ 150 ML IV ONE (11:45)
--- NOTE | 2017-03-07 11:47 | HHI.PR ---
Subjective Remarks hematology specialist Notes: Patient is a 80-year-old male from senior living with history of dementia, chronic atrial fibrillation, coronary artery disease with history of bypass, hypertension who was brought to the emergency department for leg pain and swelling. Patient has dementia and now metabolic encephalopathy which limits history. Apparently a week ago patient sustained a fall in senior living. US 02/24/17 showed large hematoma in his left leg. A CT of the lower extremity was recommended which apparently was not done. In the ED patient had a temperature of 96, HR 100s and borderline hypotension. WBC count was elevated at 24.6 with left shift. Lactic acid was 2.6 BUN was 55 and creatinine 1.8. Patient's left lower extremity was significantly swollen and tense, Dr. Stanton did check compartment pressure which was highly elevated. According to Dr. Stanton compartment pressure in posterior compartment of thigh was [address] Gonzalez was consulted emergently who is planning to take patient to OR for probable fasciotomy. No pulse was felt in LE. CT of the left lower extremity showed large thigh hematoma and associated popliteal aneurysms raising concern for aneurysm rupture. Dr. Harris from vascular surgery also was consulted. Patient received vancomycin and Zosyn for sepsis. I evaluated the patient in the emergency department. Patient appears critically ill, because of underlying dementia history is not obtainable. I have ordered 2 L normal saline bolus. Patient is chronically on Eliquis. I will reverse this with 5,500 units of K [facility]. Case discussed extensively with Dr. Stanton and Dr. Harris 03/03: s/p OR yesterday with vascular surgery and ortho. Lateral and medial incisions where made to L thigh and a large hematoma in the medial/posterior aspects was encountered. Whie evacuating the hematoma significant arterial bleeding was encountered. A sterile tourniquet was placed and vascular surgery was emergently contacted. Dr. Harris and Dr. Spear proceeded with popliteal aneurysm repair with graft placement. Because of acute bleeding hemoglobin dropped 3. Patient received 8U PRBC,3 U FFP in OR. Remains on Alfredo-Synephrine but weaning doses. On sedation hold wakes up follows commands by squeezing hands 03/04: Extubated yesterday tolerating well. Hemodynamically stable white count decreasing 17.7 today. Mental status oriented to person which is his baseline. He is s/p resection of popliteal artery aneurysm with Clemson-Robbin graft placement and thigh fasciotomy. Hospitalist Notes: 03/05: Seen in his bedroom, no new complaint, continue management by Vascular data review specialist, nurse Miss Charles in his bedroom. 03/06: Stable in his bedroom, confused, discussed with nurse, followed by Vascular surgery, Calf es expectedly swollen, fasciotomy site clean consult plastic Surgery for lateral thigh fasciotomy site closure and follow-up for patient will need a skin graft on this at some point within next 2-3 weeks. 03/07: Discussed with neurology specialist doctor Olivia Recinos, he will follow he patient, No nausea, vomit or diarrhea. no changes to anterior assessment. Objective Vital Signs Date Time Temp Pulse Resp B/P (MAP) Pulse Ox O2 Delivery O2 Flow Rate FiO2 03/07/17 08:51 99 Nasal Cannula 2.00 03/07/17 08:00 97.6 81 19 170/90 (116) 96 03/07/17 04:01 79 03/07/17 04:00 98.2 84 20 153/85 (107) 98 03/07/17 00:03 83 03/07/17 00:00 98.1 94 20 130/83 (99) 97 03/06/17 21:00 Nasal Cannula 2.00 03/06/17 20:00 96.8 91 20 167/79 (108) 97 03/06/17 19:37 88 03/06/17 18:45 3.00 03/06/17 16:00 98.2 91 18 151/89 (109) 94 03/06/17 12:00 98.7 98 18 178/86 (116) 97 I/O 03/06/17 03/06/17 03/06/17 03/07/17 03/07/17 03/07/17 07:00 15:00 23:00 07:00 15:00 23:00 Intake Total 480 ml 250 ml 290 ml Balance 480 ml 250 ml 290 ml Intake Oral 480 ml 200 ml 240 ml IV Total 50 ml 50 ml # Voids 4 6 3 # Bowel Movements 1 2 2 Result Diagram: 03/05/17 0734 03/06/17 0737 Imaging Last Impressions Chest X-Ray 03/04/17 0600 Signed Impressions: Service Date/Time: February 03:00 - CONCLUSION: Slightly improved left lower lung consolidation. Interval resolution of opacities in the central right lung. Osmar Pereira MD Lower Extremity Ultrasound 03/04/17 0000 Signed Impressions: Service Date/Time: February 14:08 - CONCLUSION: 1. No DVT identified. Ramon Wallace MD Pelvis CT 03/02/17 0000 Signed Impressions: Service Date/Time: Thursday, March 02, 2017 14:20 - CONCLUSION: 1. Left adductor muscle swelling 2. Unremarkable pelvic structures 3. No evidence of acute bony abnormality. Juancarlos Maradiaga MD Lower Extremity CT 03/02/17 0000 Signed Impressions: Service Date/Time: Thursday, March 02, 2017 14:17 - CONCLUSION: 1. Large complex fluid collections from the mid to lower thigh characteristic of either a large hematomas or pseudoaneurysms. These are associated with a popliteal artery aneurysm. Ruptured aneurysm needs be considered. 2. No evidence of acute bony abnormality. Juancarlos Maradiaga MD Procedures Large left thigh hematoma, popliteal aneurysm cannot rule out aneurysmal rupture /hemorrhage Other Results Laboratory Tests Test 03/02/17 14:09 03/02/17 20:03 03/02/17 23:00 03/03/17 04:00 Total Creatine Kinase 590 U/L Creatine Kinase MB 1.6 NG/ML Creatine Kinase MB % 0.3 % Troponin I LESS THAN 0.02 NG/ML Promyelocytes 2 % Spherocytes OCC Prothrombin Time 13.0 SEC Prothromb Time International Ratio 1.3 RATIO Activated Partial Thromboplast Time 37.3 SEC Fibrinogen 236 mg/dL Nasal Screen MRSA (PCR) MRSA NOT DETECTED Differential Total Cells Counted 100 Neutrophils % (Manual) 79 % Band Neutrophils % 7 % Lymphocytes % 4 % Monocytes % 5 % Eosinophils % 1 % Neutrophils # (Manual) 22.8 TH/MM3 Metamyelocytes 1 % Myelocytes 3 % Platelet Estimate LOW Platelet Morphology Comment ENLARGED Lactic Acid Level 2.0 mmol/L Test 03/03/17 04:14 03/04/17 03:15 03/05/17 07:34 03/06/17 07:37 Blood Gas Puncture Site ART LINE Blood Gas Patient Temperature 98.6 Blood Gas HCO3 26 mmol/L Blood Gas Base Excess 2.1 mmol/L Blood Gas Oxygen Saturation 96 % Arterial Blood pH 7.47 Arterial Blood Partial Pressure CO2 36 mmHg Arterial Blood Partial Pressure O2 150 mmHg Arterial Blood Oxygen Content 13.8 Vol % Arterial Blood Carboxyhemoglobin 2.5 % Arterial Blood Methemoglobin 1.1 % Blood Gas Hemoglobin 10.0 G/DL Oxygen Delivery Device VENTILATOR Blood Gas Ventilator Setting AC/16/600/PEEP5 Blood Gas Inspired Oxygen 45 % Protein Corrected Calcium 8.7 MG/DL White Blood Count 13.3 TH/MM3 Red Blood Count 2.83 MIL/MM3 Hemoglobin 8.5 GM/DL Hematocrit 24.9 % Mean Corpuscular Volume 88.0 FL Mean Corpuscular Hemoglobin 30.1 PG Mean Corpuscular Hemoglobin Concent 34.2 % Red Cell Distribution Width 14.9 % Platelet Count 209 TH/MM3 Mean Platelet Volume 8.2 FL Neutrophils (%) (Auto) 79.5 % Lymphocytes (%) (Auto) 7.8 % Monocytes (%) (Auto) 10.2 % Eosinophils (%) (Auto) 1.8 % Basophils (%) (Auto) 0.7 % Neutrophils # (Auto) 10.6 TH/MM3 Lymphocytes # (Auto) 1.0 TH/MM3 Monocytes # (Auto) 1.4 TH/MM3 Eosinophils # (Auto) 0.2 TH/MM3 Basophils # (Auto) 0.1 TH/MM3 CBC Comment DIFF FINAL Differential Comment Blood Urea Nitrogen 26 MG/DL 23 MG/DL Creatinine 1.06 MG/DL 0.99 MG/DL Random Glucose 84 MG/DL 91 MG/DL Total Protein 5.1 GM/DL Albumin 1.6 GM/DL Calcium Level 7.5 MG/DL 7.5 MG/DL Alkaline Phosphatase 80 U/L Aspartate Amino Transf (AST/SGOT) 35 U/L Alanine Aminotransferase (ALT/SGPT) 13 U/L Total Bilirubin 1.5 MG/DL Sodium Level 144 MEQ/L 142 MEQ/L Potassium Level 3.6 MEQ/L 3.7 MEQ/L Chloride Level 108 MEQ/L 107 MEQ/L Carbon Dioxide Level 29.8 MEQ/L 27.6 MEQ/L Phosphorus Level 2.2 MG/DL Magnesium Level 2.2 MG/DL Anion Gap 7 MEQ/L Estimat Glomerular Filtration Rate 72 ML/MIN Objective Remarks GENERAL: Obese patient in no acute distress. SKIN: Left leg thigh exam see musculoskeletal HEAD: Atraumatic. Normocephalic. EYES: Pupils equal and round. No injection or drainage. ENT: Oral mucosa is dry NECK: Trachea midline. No JVD. CARDIOVASCULAR: Normal murmurs or rubs. S1 S2 normal RESPIRATORY: No accessory muscle use. Clear to auscultation. Breath sounds equal bilaterally. GASTROINTESTINAL: Abdomen obese soft, distended. Hepatic and splenic margins not palpable. MUSCULOSKELETAL: Left thigh with clean surgical wound. NEUROLOGICAL: Patient alert oriented person. Moves extremities. follows commands in UE Medications and IVs Current Medications Medications (Trade) Dose Ordered Sig/Santiago Route Start Time Stop Time Status Last Admin (NS Flush) 2 ml UNSCH PRN IV FLUSH 03/02/17 14:00 (Duoneb Neb) 1 ampule Q4HR NEB PRN INH 03/02/17 15:15 Miscellaneous Information 1 Q361D XX 03/02/17 15:15 (Chlorhexidine 2% Cloth) 3 pack Taper DAILY@04 TOP 03/03/17 04:00 02/27/18 03:59 (Chlorhexidine 2% Cloth) 3 pack UNSCH PRN TOP 03/02/17 15:15 (Mallory-Colace) 1 tab BID PO 03/02/17 21:00 03/06/17 21:01 (Milk Of Magnesia Liq) 30 ml Q12H PRN PO 03/02/17 15:15 (Senokot) 17.2 mg Q12H PRN PO 03/02/17 15:15 (Dulcolax Supp) 10 mg DAILY PRN RECTAL 03/02/17 15:15 (Lactulose Liq) 30 ml DAILY PRN PO 03/02/17 15:15 (Depakote Sprinkles) 250 mg BID PO 03/02/17 21:00 03/07/17 10:44 (Brethine Inj) 1 mg UNSCH PRN SQ 03/02/17 22:15 Piperacillin Sod/ Tazobactam Sod 50 ml @ 100 mls/hr Q6H IV 03/03/17 14:00 03/07/17 08:00 (Heparin Inj) 5,000 units Q8H SQ 03/03/17 18:00 03/07/17 10:57 (Plavix) 75 mg DAILY PO 03/04/17 09:00 03/07/17 10:43 (Depakote Sprinkles) 125 mg DAILY@1500 PO 03/04/17 15:00 03/06/17 15:00 (Pepcid) 20 mg BID PO 03/04/17 21:00 03/07/17 10:43 (Percocet 5-325 Mg) 1 tab Q4H PRN PO 03/04/17 13:00 03/04/17 22:54 (Haldol Inj) 2 mg Q6H PRN IV 03/04/17 13:30 03/06/17 13:25 (Morphine Inj) 3 mg Q4H PRN IV PUSH 03/04/17 16:00 03/07/17 11:02 (Norvasc) 5 mg DAILY PO 03/06/17 13:00 03/07/17 10:44 A/P Assessment and Plan 1. Acute metabolic Encephalopathy/Dementia continue confused. has Haldol as needed, continue Percocet for pain 2. left Thigh Compartment Syndrome, Status post resection of popliteal artery aneurysm with rupture with Clemson-Robbin Graft placement and thigh fasciotomy chronic Atrial Fibrillation on Eliquis, hemorrhagic Shock resolved received 8 units of PRBCs, 3 units of FFP in OR for severe Hemorrhagic Shock Status post left thigh fasciotomy and evacuation of Hematoma by Doctor Gonzalez , status post repair of ruptured Popliteal artery aneurysm by Doctor George and Dr. Harris CT on admission showed Left thigh hematoma and with popliteal artery aneurysm , on Plavix and Heparin SQ, , followed by Vascular surgery, consult plastic Surgery for lateral thigh fasciotomy site closure and follow-up for patient will need a skin graft on this at some point within next 2-3 weeks 3. Acute on chronic renal failure Improved. 4. Severe sepsis probably infected hematoma on Zosyn blood cultures no growth in two days, no BSI, had low grade fever yesterday night following. continue antibiotics. 5. Anemia status post blood loss Coagulopathy due to chronic Eliquis use, status post blood transfusion 8 units of PRBCs and 3 units of FFP. hemoglobin 8.5 following not yet laboratory in EMR. 6. Morbid Obesity weight loss warranted early activity and diet recommended, follow PT recommendations and OT 7. Hypertension just was on Pressors continue mild uncontrolled continue Amlodipine 10 mg daily and follow. 8. Hypophosphatemia replaced I had the Pleasure to Talk about the case receive input and recommendations by [facility] Director Doctor Noel Baker Appreciated. PROPH: - IV Pepcid. SCDs to right lower extremity. Chemical DVT prophylaxis with heparin continued. Discharge Planning Once cleared by Specialists. Magno Cohen MD Mar 07, 2017 11:47
--- NOTE | 2017-03-07 11:51 | PD.CONS ---
History of Present Illness Service Plastics Consult Requested By Primary Reason for Consult R Thigh fasciotomy wound Primary Care Physician Pavan Walker MD Diagnoses: History of Present Illness From chart as pt very poor historian....80M admitted from long-term with history of dementia, chronic atrial fibrillation, coronary artery disease with history of bypass, hypertension who was brought to the emergency department for leg pain and swelling. Apparently a week ago patient sustained a fall in long-term. US 02/24/17 showed large hematoma in his left leg. According to Dr. Stanton compartment pressure in posterior compartment of thigh was [address] Gonzalez was consulted emergently who is planning to take patient to OR for probable fasciotomy. No pulse was felt in LE. CT of the left lower extremity showed large thigh hematoma and associated popliteal aneurysms raising concern for aneurysm rupture. Dr. Harris from vascular surgery also was consulted. Patient received vancomycin and Zosyn for sepsis. Pt now s/p aneurysm rupture repair and fasciotomy on 03/02/17 for Preoperative Diagnosis: (1) Hematoma of left thigh (2) Compartment syndrome of left lower extremity Postoperative Diagnosis: (1) Arterial rupture (2) Hematoma of left thigh (3) Compartment syndrome of left lower extremity Plastics consulted for skin graft coverage of fasciotomy wound Review of Systems see HPI, otherwise non contributory to presenting complaint Past Family Social History Allergies: Coded Allergies: No Known Allergies (Unverified Allergy, Unknown, 03/02/17) Past Medical History Coronary artery disease and history of CABG Past Surgical History History of CABG and ? valve replacement ? PAD with ? Revascularization left leg Past Surgical History Unable to obtain from patient Reported Medications Med list reviewed Family History non contributory to presenting complaint Social History Dementia Physical Exam Vital Signs Vital Signs Date Time Temp Pulse Resp B/P (MAP) Pulse Ox O2 Delivery O2 Flow Rate FiO2 03/07/17 08:51 99 Nasal Cannula 2.00 03/07/17 08:00 97.6 81 19 170/90 (116) 96 03/07/17 04:01 79 03/07/17 04:00 98.2 84 20 153/85 (107) 98 03/07/17 00:03 83 03/07/17 00:00 98.1 94 20 130/83 (99) 97 03/06/17 21:00 Nasal Cannula 2.00 03/06/17 20:00 96.8 91 20 167/79 (108) 97 03/06/17 19:37 88 03/06/17 18:45 3.00 03/06/17 16:00 98.2 91 18 151/89 (109) 94 03/06/17 12:00 98.7 98 18 178/86 (116) 97 Physical Exam GENERAL: No apparent distress. SKIN: r thigh wound appears without infection HEAD: Atraumatic. Normocephalic. No temporal or scalp tenderness. EYES: Pupils equal round and reactive. Extraocular motions intact. No scleral icterus. No injection or drainage. ENT: Airway patent. RESPIRATORY: breathing non labored GASTROINTESTINAL: No guarding. MUSCULOSKELETAL: R lateral thigh w/ fasciotomy wound extending from hip to just above knee, no erythema, wound base clean, granulating, muscle viable NEUROLOGICAL: Normal speech., alert, not oriented Laboratory Date/Time Source Procedure Growth Status 03/02/17 14:10 Blood Peripheral Aerobic Blood Culture - Final NO GROWTH IN 5 DAYS Complete 03/02/17 14:10 Blood Peripheral Anaerobic Blood Culture - Final NO GROWTH IN 5 DAYS Complete Result Diagram: 03/05/17 0734 03/06/17 0737 Assessment and Plan Problem List: (1) H/O fasciotomy ICD Codes: Z98.890 - Other specified postprocedural states (2) Hematoma of left thigh ICD Codes: S70.12XA - Contusion of left thigh, initial encounter Status: Acute (3) Compartment syndrome of left lower extremity ICD Codes: T79.A22A - Traumatic compartment syndrome of left lower extremity, initial encounter Assessment and Plan Agree that fasciotomy wound amenable to skin graft closure. Given pts mentation and his picking at the dressing, would recommend a VAC over the skin graft to assist take as well as to protect it. Will check schedule this week. Pt w/ open wound and low albumin. Please check prealbumin, add Boost/ensure in between meals per primary for now, and consult Nutrition Problem Qualifiers (1) Hematoma of left thigh: Qualified Codes: S70.12XA - Contusion of left thigh, initial encounter (2) Compartment syndrome of left lower extremity: Qualified Codes: T79.A22A - Traumatic compartment syndrome of left lower extremity, initial encounter Noel Baker MD Mar 07, 2017 11:51
[2017-03-07] MEDS ORDERED: amLODIPine BESYLATE 5 MG TAB PO ONE (12:00)
[2017-03-07 12:37] LABS: BICARBONATE 21.5 MEQ/L (21.0-32.0); POTASSIUM 4.9 MEQ/L (3.5-5.1)
[2017-03-07 20:05] LABS: AUTOMATED NEUTROPHIL # 8.8 TH/MM3 (1.8-7.7); BASOPHIL # 0.1 TH/MM3 (0-0.2); BASOPHIL % 0.9 % (0.0-2.0); EOSINOPHIL # 0.2 TH/MM3 (0-0.4); EOSINOPHIL % 1.8 % (0.0-4.0); HEMATOCRIT 29.3 % (39.0-51.0); LYMPH % 5.3 % (9.0-44.0); LYMPHOCYTE # 0.6 TH/MM3 (1.0-4.8); MEAN CORPUSCULAR HEMOGLOBIN 28.9 PG (27.0-34.0); MEAN CORPUSCULAR HGB CONC 32.1 % (32.0-36.0); MONO % 8.3 % (0.0-8.0); NEUT % 83.7 % (16.0-70.0); PLATELET COUNT 320 TH/MM3 (150-450); RED BLOOD COUNT 3.26 MIL/MM3 (4.50-5.90); RED CELL DISTRIBUTION WIDTH 15.4 % (11.6-17.2); WHITE BLOOD COUNT 10.6 TH/MM3 (4.0-11.0)
[2017-03-07 20:07] LABS: HEMO FLAGS AUTO DIFF
[2017-03-07 20:25] LABS: CALCIUM-PROTEIN CORRECTED 8.2 MG/DL (8.5-10.1)
[2017-03-07 20:51] LABS: PLATELET ESTIMATE SMEAR NORMAL (NORMAL); PLATELET MORPHOLOGY NORMAL (NORMAL); SCAN/DIFF AUTO DIFF CONFIRMED
[2017-03-08] VITALS (7 sets, daily range): BP systolic 129–171; BP diastolic 74–97; PULSE 82–91; RESP 17–24; TEMP 95.6–98.7; O2SAT 96–98
[2017-03-08] MEDS: HEPARIN SODIUM - SQ 10,000 UNITS/ML VIAL SQ SCH ×3 (00:58→16:08)
[2017-03-08] MEDS: MORPHINE SULFATE 2 MG/ML INJ IV PUSH PRN ×3 (00:59→20:21)
[2017-03-08] MEDS: HALOPERIDOL LACTATE 5 MG/ML AMP IV PRN ×3 (03:20→20:20)
[2017-03-08] MEDS: CHLORHEXIDINE GLUCONATE 2 % 1 PACK (2 CLOTHS) TOP SCH (03:38)
[2017-03-08] MEDS: PIPERACILLIN/TAZ 3.375 GM VIAL 3.375 GM in SODIUM CHLORIDE 0.9% INJ 100 ML IV SCH ×3 (09:27→20:19)
[2017-03-08] MEDS: FAMOTIDINE 20 MG TAB PO SCH ×2 (09:29→20:19)
[2017-03-08] MEDS: DOCUSATE SODIUM 50 MG/SENNA 8.6 MG TAB PO SCH ×2 (09:29→20:20)
[2017-03-08] MEDS: CLOPIDOGREL 75 MG TAB PO SCH (09:29)
[2017-03-08] MEDS: DIVALPROEX SODIUM SPRINKLES 125 MG CAP PO SCH ×3 (09:29→20:19)
--- NOTE | 2017-03-08 11:38 | HHI.PR ---
Subjective Remarks public information specialist Notes: Patient is a 80-year-old male from care home with history of dementia, chronic atrial fibrillation, coronary artery disease with history of bypass, hypertension who was brought to the emergency department for leg pain and swelling. Patient has dementia and now metabolic encephalopathy which limits history. Apparently a week ago patient sustained a fall in care home. US 02/24/17 showed large hematoma in his left leg. A CT of the lower extremity was recommended which apparently was not done. In the ED patient had a temperature of 96, HR 100s and borderline hypotension. WBC count was elevated at 24.6 with left shift. Lactic acid was 2.6 BUN was 55 and creatinine 1.8. Patient's left lower extremity was significantly swollen and tense, Dr. Stanton did check compartment pressure which was highly elevated. According to Dr. Stanton compartment pressure in posterior compartment of thigh was [address] Gonzalez was consulted emergently who is planning to take patient to OR for probable fasciotomy. No pulse was felt in LE. CT of the left lower extremity showed large thigh hematoma and associated popliteal aneurysms raising concern for aneurysm rupture. Dr. Harris from vascular surgery also was consulted. Patient received vancomycin and Zosyn for sepsis. I evaluated the patient in the emergency department. Patient appears critically ill, because of underlying dementia history is not obtainable. I have ordered 2 L normal saline bolus. Patient is chronically on Eliquis. I will reverse this with 5,500 units of K [facility]. Case discussed extensively with Dr. Stanton and Dr. Harris 03/03: s/p OR yesterday with vascular surgery and ortho. Lateral and medial incisions where made to L thigh and a large hematoma in the medial/posterior aspects was encountered. Whie evacuating the hematoma significant arterial bleeding was encountered. A sterile tourniquet was placed and vascular surgery was emergently contacted. Dr. Harris and Dr. Spear proceeded with popliteal aneurysm repair with graft placement. Because of acute bleeding hemoglobin dropped 3. Patient received 8U PRBC,3 U FFP in OR. Remains on Alfredo-Synephrine but weaning doses. On sedation hold wakes up follows commands by squeezing hands 03/04: Extubated yesterday tolerating well. Hemodynamically stable white count decreasing 17.7 today. Mental status oriented to person which is his baseline. He is s/p resection of popliteal artery aneurysm with [place] graft placement and thigh fasciotomy. Hospitalist Notes: 03/05: Seen in his bedroom, no new complaint, continue management by Vascular neuro psych sales specialist, nurse Miss Charles in his bedroom. 03/06: Stable in his bedroom, confused, discussed with nurse, followed by Vascular surgery, Calf es expectedly swollen, fasciotomy site clean consult plastic Surgery for lateral thigh fasciotomy site closure and follow-up for patient will need a skin graft on this at some point within next 2-3 weeks. 03/07: Discussed with provider relations specialist doctor Olivia Recinos, he will follow he patient, No nausea, vomit or diarrhea. no changes to anterior assessment. 03-08 TO HAVE PROCEDURE WITH PLASTICS LATER THIS WEEK NO NEW COMPLAINTS DW RN AND PT Remains confused Objective Vitals Vital Signs Date Time Temp Pulse Resp B/P (MAP) Pulse Ox O2 Delivery O2 Flow Rate FiO2 03/08/17 08:00 97.5 82 17 171/97 (121) 97 03/08/17 04:30 87 138/75 (96) 03/08/17 00:00 98.7 86 24 129/86 (100) 96 03/07/17 21:45 99.0 84 22 138/76 (96) 97 03/07/17 21:15 Nasal Cannula 2.00 03/07/17 20:04 83 03/07/17 18:41 Nasal Cannula 3.00 03/07/17 18:40 87 03/07/17 16:00 95.3 87 19 139/98 (112) 93 03/07/17 12:00 97.5 79 19 160/92 (114) 93 I/O 03/07/17 03/07/17 03/07/17 03/08/17 03/08/17 03/08/17 07:00 15:00 23:00 07:00 15:00 23:00 Intake Total 290 ml 650 ml 100 ml Output Total 600 ml Balance 290 ml 650 ml -600 ml 100 ml Intake Oral 240 ml 600 ml IV Total 50 ml 50 ml 100 ml Output Urine Total 600 ml # Voids 3 5 # Bowel Movements 2 3 1 Result Diagram: 03/07/17192103/07/171921 Other Results Laboratory Tests Test 03/06/17 07:37 03/07/17 19:22 Blood Urea Nitrogen 23 MG/DL 19 MG/DL Creatinine 0.99 MG/DL 0.95 MG/DL Random Glucose 91 MG/DL 84 MG/DL Calcium Level 7.5 MG/DL 7.4 MG/DL Phosphorus Level 2.2 MG/DL Magnesium Level 2.2 MG/DL Sodium Level 142 MEQ/L 142 MEQ/L Potassium Level 3.7 MEQ/L 4.9 MEQ/L Chloride Level 107 MEQ/L 111 MEQ/L Carbon Dioxide Level 27.6 MEQ/L 21.5 MEQ/L Anion Gap 7 MEQ/L 10 MEQ/L Estimat Glomerular Filtration Rate 72 ML/MIN 76 ML/MIN White Blood Count 10.6 TH/MM3 Red Blood Count 3.26 MIL/MM3 Hemoglobin 9.4 GM/DL Hematocrit 29.3 % Mean Corpuscular Volume 90.0 FL Mean Corpuscular Hemoglobin 28.9 PG Mean Corpuscular Hemoglobin Concent 32.1 % Red Cell Distribution Width 15.4 % Platelet Count 320 TH/MM3 Mean Platelet Volume 7.9 FL Neutrophils (%) (Auto) 83.7 % Lymphocytes (%) (Auto) 5.3 % Monocytes (%) (Auto) 8.3 % Eosinophils (%) (Auto) 1.8 % Basophils (%) (Auto) 0.9 % Neutrophils # (Auto) 8.8 TH/MM3 Lymphocytes # (Auto) 0.6 TH/MM3 Monocytes # (Auto) 0.9 TH/MM3 Eosinophils # (Auto) 0.2 TH/MM3 Basophils # (Auto) 0.1 TH/MM3 CBC Comment AUTO DIFF Differential Comment AUTO DIFF CONFIRMED Platelet Estimate NORMAL Platelet Morphology Comment NORMAL Total Protein 5.6 GM/DL Protein Corrected Calcium 8.2 MG/DL Imaging Last Impressions Chest X-Ray 03/04/17 0600 Signed Impressions: Service Date/Time: February 03:00 - CONCLUSION: Slightly improved left lower lung consolidation. Interval resolution of opacities in the central right lung. Osmar Pereira MD Lower Extremity Ultrasound 03/04/17 0000 Signed Impressions: Service Date/Time: February 14:08 - CONCLUSION: 1. No DVT identified. Ramon Wallace MD Pelvis CT 03/02/17 0000 Signed Impressions: Service Date/Time: Thursday, March 02, 2017 14:20 - CONCLUSION: 1. Left adductor muscle swelling 2. Unremarkable pelvic structures 3. No evidence of acute bony abnormality. Juancarlos Maradiaga MD Lower Extremity CT 03/02/17 0000 Signed Impressions: Service Date/Time: Thursday, March 02, 2017 14:17 - CONCLUSION: 1. Large complex fluid collections from the mid to lower thigh characteristic of either a large hematomas or pseudoaneurysms. These are associated with a popliteal artery aneurysm. Ruptured aneurysm needs be considered. 2. No evidence of acute bony abnormality. Juancalros Maradiaga MD Objective Remarks GENERAL: Patient is an obese patient seen in the room in no acute distress SKIN: Warm and dry. Left leg thigh is dressed HEAD: Atraumatic. Normocephalic. EYES: Pupils equal and round. No scleral icterus. No injection or drainage. ENT: No nasal bleeding or discharge. Mucous membranes pink and moist. Oral mucosa is moist tongue is midline NECK: Trachea midline. No JVD. Supple CARDIOVASCULAR: Regular rate and rhythm. S1 and S2 no S3 or S4 RESPIRATORY: No accessory muscle use. Clear to auscultation. Breath sounds equal bilaterally. GASTROINTESTINAL: Abdomen soft, non-tender, nondistended. Hepatic and splenic margins not palpable. Obese nondistended MUSCULOSKELETAL: Extremities without clubbing, cyanosis, or edema. No obvious deformities. Left thigh with clean surgical wound dressed NEUROLOGICAL: Awake and alert. No obvious cranial nerve deficits. Motor grossly within normal limits. 4 out of 5 muscle strength in the arms and legs. Normal speech. PSYCHIATRIC: INAppropriate mood and affect; insight and judgment ABnormal. Remains confused Procedures Large left thigh hematoma, popliteal aneurysm cannot rule out aneurysmal rupture /hemorrhage Medications and IVs Current Medications Sodium Chloride (NS Flush) 2 ml UNSCH PRN IV FLUSH FLUSH AFTER USING IV ACCESS ; Start 03/02/17 at 14:00 Sodium Chloride 1,000 ml @ 1,000 mls/hr Q1H IV Last administered on 15:02; Start 03/02/17 at 13:53; Stop 03/02/17 at 14:52; Status DC Morphine Sulfate (Morphine Inj) 4 mg ONCE ONCE IV PUSH Last administered on 15:48; Start 03/02/17 at 14:00; Stop 03/02/17 at 14:01; Status DC Lorazepam (Ativan Inj) 1 mg ONCE ONCE IV PUSH ; Start 03/02/17 at 14:00; Stop 03/02/17 at 14:01; Status DC Piperacillin Sod/ Tazobactam Sod 100 ml @ 200 mls/hr ONCE ONCE IV Last administered on 03/02/17 15:02; Start 03/02/17 at 14:30; Stop 03/02/17 at 14 :59; Status DC Vancomycin HCl 1000 mg/Sodium Chloride 250 ml @ 250 mls/hr ONCE ONCE IV Last administered on 03/02/17 15:19; Start 03/02/17 at 14:30; Stop 03/02/17 at 15 :30; Status DC Etomidate (Amidate Inj) 10 mg ONCE ONCE IV PUSH Last administered on 14:51; Start 03/02/17 at 14:30; Stop 03/02/17 at 14:31; Status DC Sodium Chloride 1,000 ml @ 80 mls/hr [id number] IV Last administered on 10:24; Start 03/02/17 at 15:14; Stop 03/03/17 at 11:49; Status DC Morphine Sulfate (Morphine Inj) 2 mg Q2H PRN IV PUSH PAIN SCALE 6 TO 10; Start 03/02/17 at 15:15; Stop 03/02/17 at 21:44; Status DC Famotidine (Pepcid Inj) 20 mg DAILY IV PUSH Last administered on 03/04/17 08: 29; Start 03/02/17 at 21:00; Stop 03/04/17 at 10:23; Status DC Albuterol/ Ipratropium (Duoneb Neb) 1 ampule Q4HR NEB PRN INH WHEEZING; Start 03/02/17 at 15:15 Miscellaneous Information 1 [id number] XX ; Start 03/02/17 at 15:15 Chlorhexidine Gluconate (Chlorhexidine 2% Cloth) Taper DAILY@04 TOP ; Start at 04:00; Stop 02/27/18 at 03:59 Chlorhexidine Gluconate (Chlorhexidine 2% Cloth) 3 pack UNSCH PRN TOP HYGIENIC CARE; Start 03/02/17 at 15:15 Senna/Docusate Sodium (Mallory-Colace) 1 tab BID PO Last administered on 09:29; Start 03/02/17 at 21:00 Magnesium Hydroxide (Milk Of Magnesia Liq) 30 ml Q12H PRN PO Mild constipation ; Start 03/02/17 at 15:15 Sennosides (Senokot) 17.2 mg Q12H PRN PO Moderate constipation; Start at 15:15 Bisacodyl (Dulcolax Supp) 10 mg DAILY PRN RECTAL SEVERE CONSITIPATION; Start 03/02/17 at 15:15 Lactulose (Lactulose Liq) 30 ml DAILY PRN PO SEVERE CONSITIPATION; Start 03/02 at 15:15 Divalproex Sodium (Depakote Sprinkles) 125 mg DAILY PO ; Start 03/03/17 at 09: 00; Stop 03/03/17 at 18:00; Status DC Divalproex Sodium (Depakote Sprinkles) 250 mg BID PO Last administered on 03/08 09:29; Start 03/02/17 at 21:00 Levetriacetam (Keppra) 500 mg BID PO ; Start 03/02/17 at 21:00; Stop 03/03/17 at 00:28; Status DC Piperacillin Sod/ Tazobactam Sod 50 ml @ 100 mls/hr Q8H IV Last administered on 03/03/17 07:13; Start 03/02/17 at 23:00; Stop 03/03/17 at 14:06; Status DC Prothrombin Complex Concent (Human) 5000 units/Syringe / Bag 0 ml @ 500 mls/hr ONCE STAT IV Last administered on 03/02/17 16:29; Start 03/02/17 at 15:44; Stop 03/02/17 at 15:49; Status DC Sodium Chloride 1,000 ml @ 999 mls/hr BOLUS ONCE IV ; Start 03/02/17 at 16:00 ; Stop 03/02/17 at 17:00; Status DC Sodium Chloride 1,000 ml @ 999 mls/hr BOLUS ONCE IV ; Start 03/02/17 at 16:00 ; Stop 03/02/17 at 17:00; Status DC Neomycin/Polymyxin (Neosporin G.u. Irr) 2 ml STK-MED ONCE .ROUTE ; Start at 16:43; Stop 03/02/17 at 16:44; Status DC Vasopressin (Pitressin Inj) 20 units STK-MED ONCE .ROUTE ; Start 03/02/17 at 17 :41; Stop 03/02/17 at 17:42; Status DC Heparin Sodium (Porcine) (Heparin Inj) 20,000 units STK-MED ONCE .ROUTE Last administered on 03/02/17 19:00; Start 03/02/17 at 17:44; Stop 03/02/17 at 17 :45; Status DC Phenylephrine HCl (Neosynephrine Inj) 20 mg STK-MED ONCE .ROUTE ; Start at 18:52; Stop 03/02/17 at 18:53; Status DC Phenylephrine HCl (Neosynephrine Inj) 40 mg STK-MED ONCE .ROUTE ; Start at 19:43; Stop 03/02/17 at 19:44; Status DC Cefazolin Sodium (Ancef Inj) 2,000 mg ONCE ONCE IV Last administered on 19:43; Start 03/02/17 at 19:43; Stop 03/02/17 at 19:59; Status DC Calcium Chloride (Calcium Chloride Inj) 2 gm STK-MED ONCE .ROUTE ; Start at 21:00; Stop 03/02/17 at 21:01; Status DC Propofol 100 ml @ 3.3 mls/hr TITRATE PRN IV SEDATION Last administered on 22:27; Start 03/02/17 at 21:45; Stop 03/03/17 at 11:49; Status DC Fentanyl Citrate 250 ml @ 5 mls/hr TITRATE PRN IV SEDATION Last administered on 03/02/17 22:30; Start 03/02/17 at 21:45; Stop 03/04/17 at 10:23; Status DC Phenylephrine HCl 40 mg/Dextrose 500 ml @ 30 mls/hr TITRATE PRN IV Blood pressure management Last administered on 03/03/17 04:50; Start 03/02/17 at 22 :15; Stop 03/03/17 at 11:49; Status DC Terbutaline Sulfate (Brethine Inj) 1 mg UNSCH PRN SQ For Extravasation; Start 03/02/17 at 22:15 Levetriacetam 500 mg/Sodium Chloride 105 ml @ 420 mls/hr Q12H IV Last administered on 03/03/17t 00:45; Start 03/03/17 at 02:00; Stop 03/03/17 at 11 :49; Status DC Furosemide (Lasix Inj) 40 mg ONCE STAT IV PUSH Last administered on t 11:21; Start 03/03/17 at 11:04; Stop 03/03/17 at 11:13; Status DC Furosemide (Lasix Inj) 40 mg STK-MED ONCE .ROUTE ; Start 03/03/17 at 11:18; Stop 03/03/17 at 11:43; Status DC Potassium Chloride 100 ml @ 50 mls/hr Q2H PRN IV For Potassium 2.8 - 3.2 mEq/L ; Start 03/03/17 at 12:00; Stop 03/05/17 at 10:07; Status DC Potassium Chloride 100 ml @ 50 mls/hr Q2H PRN IV For Potassium 2.8 - 3.2 mEq/L ; Start 03/03/17 at 12:00; Stop 03/05/17 at 10:07; Status DC Potassium Bicarb/ Potassium Chloride (K-Lyte Cl Eff) 50 meq UNSCH PRN PO For Potassium 3.3 - 3.5 mEq/L; Start 03/03/17 at 12:00; Stop 03/05/17 at 10:07; Status DC Potassium Chloride 100 ml @ 25 mls/hr UNSCH PRN IV For Potassium 3.3 - 3.5 mEq /L; Start 03/03/17 at 12:00; Stop 03/05/17 at 10:07; Status DC Potassium Chloride 100 ml @ 50 mls/hr Q2H PRN IV For Potassium 3.3 - 3.5 mEq/L ; Start 03/03/17 at 12:00; Stop 03/05/17 at 10:07; Status DC Magnesium Sulfate 4 gm/Sodium Chloride 100 ml @ 50 mls/hr UNSCH PRN IV For Magnesium 0.9 - 1.1 mg/dL; Start 03/03/17 at 12:00; Stop 03/05/17 at 10:07; Status DC Magnesium Oxide (Mag-Ox) 800 mg UNSCH PRN PO For Magnesium 1.2 - 1.6 mg/dL; Start 03/03/17 at 12:00; Stop 03/05/17 at 10:07; Status DC Magnesium Sulfate 2 gm/Sodium Chloride 100 ml @ 50 mls/hr UNSCH PRN IV For Magnesium 1.2 - 1.6 mg/dL; Start 03/03/17 at 12:00; Stop 03/05/17 at 10:07; Status DC Potassium Phosphate (K-Phos) 2,000 mg Q4H PRN PO For Phosphorus < 2.5 mg/dL; Start 03/03/17 at 12:00; Stop 03/05/17 at 10:07; Status DC Sodium Phosphate 30 mmol/Sodium Chloride 250 ml @ 42 mls/hr UNSCH PRN IV For Phosphorus < 2.5 mg/dL; Start 03/03/17 at 12:00; Stop 03/05/17 at 10:07; Status DC Potassium Phosphate (K-Phos) 2,000 mg UNSCH PRN PO/TUBE SEE LABEL COMMENTS; Start 03/03/17 at 12:00; Stop 03/05/17 at 10:07; Status DC Potassium Phosphate 30 mmol/ Sodium Chloride 260 ml @ 42 mls/hr UNSCH PRN IV SEE LABEL COMMENTS; Start 03/03/17 at 12:00; Stop 03/05/17 at 10:07; Status DC Piperacillin Sod/ Tazobactam Sod 50 ml @ 100 mls/hr Q6H IV Last administered on 03/07/17 21:16; Start 03/03/17 at 14:00; Stop 03/07/17 at 23:00; Status DC Heparin Sodium (Porcine) (Heparin Inj) 5,000 units Q8H SQ Last administered on 03/08/17 09:30; Start 03/03/17 at 18:00 Clopidogrel Bisulfate (Plavix) 75 mg DAILY PO Last administered on 03/08/17 09:29; Start 03/04/17 at 09:00 Divalproex Sodium (Depakote Sprinkles) 125 mg DAILY@1500 PO Last administered on 03/07/17 15:00; Start 03/04/17 at 15:00 Famotidine (Pepcid) 20 mg BID PO Last administered on 03/08/17 09:29; Start 03/04/17 at 21:00 Oxycodone/ Acetaminophen (Percocet 5-325 Mg) 1 tab Q4H PRN PO pain 4-10 Last administered on 03/04/17 22:54; Start 03/04/17 at 13:00 Haloperidol Lactate (Haldol Inj) 2 mg Q6H PRN IV agitation Last administered on 03/08/17 03:20; Start 03/04/17 at 13:30 Morphine Sulfate (Morphine Inj) 3 mg Q4H PRN IV PUSH pain 6-10 Last administered on 03/08/17 00:59; Start 03/04/17 at 16:00 Potassium Chloride 100 ml @ 50 mls/hr ONCE ONCE IV ; Start 03/05/17 at 10:45 ; Stop 03/05/17 at 12:32; Status DC Magnesium Sulfate/ Dextrose 100 ml @ 100 mls/hr Q1H IV Last administered on 14:09; Start 03/05/17 at 10:45; Stop 03/05/17 at 12:44; Status DC Potassium Bicarb/ Potassium Chloride (K-Lyte Cl Eff) 50 meq ONCE ONCE PO Last administered on 03/05/17 13:25; Start 03/05/17 at 12:45; Stop 03/05/17 at 12:46; Status DC Amlodipine Besylate (Norvasc) 5 mg DAILY PO Last administered on 03/07/17 10: 44; Start 03/06/17 at 13:00; Stop 03/07/17 at 11:44; Status DC Potassium Phosphate 15 mmol/ Sodium Chloride 155 ml @ 38.75 mls/ hr ONCE ONCE IV Last administered on 03/07/17 11:45; Start 03/07/17 at 11:45; Stop 03/07 at 15:44; Status DC Amlodipine Besylate (Norvasc) 10 mg DAILY PO Last administered on 03/08/17 09 :36; Start 03/08/17 at 09:00 Amlodipine Besylate (Norvasc) 5 mg ONCE ONCE PO Last administered on 12:00; Start 03/07/17 at 12:00; Stop 03/07/17 at 12:01; Status DC Piperacillin Sod/ Tazobactam Sod 3.375 gm/Sodium Chloride 100 ml @ 200 mls/hr Q6H IV Last administered on 03/08/17 09:27; Start 03/08/17 at 08:00 A/P Problem List: (1) Compartment syndrome of left lower extremity ICD Code: T79.A22A - Traumatic compartment syndrome of left lower extremity, initial encounter (2) Hematoma of left thigh ICD Code: S70.12XA - Contusion of left thigh, initial encounter Status: Acute (3) Acute encephalopathy ICD Code: G93.40 - Encephalopathy, unspecified (4) Severe sepsis ICD Code: A41.9 - Sepsis, unspecified organism; R65.20 - Severe sepsis without septic shock (5) Chronic Eliquis use (6) Dementia ICD Code: F03.90 - Unspecified dementia without behavioral disturbance Assessment and Plan 1. Acute metabolic Encephalopathy/Dementia continue confused. has Haldol as needed, continue Percocet for pain 2. left Thigh Compartment Syndrome, Status post resection of popliteal artery aneurysm with rupture with [place] Graft placement and thigh fasciotomy chronic Atrial Fibrillation on Eliquis, hemorrhagic Shock resolved received 8 units of PRBCs, 3 units of FFP in OR for severe Hemorrhagic Shock Status post left thigh fasciotomy and evacuation of Hematoma by Doctor VOGEL, status post repair of ruptured Popliteal artery aneurysm by Doctor George and Dr. Harris CT on admission showed Left thigh hematoma and with popliteal artery aneurysm , on Plavix and Heparin SQ, , followed by Vascular surgery, consult plastic Surgery for lateral thigh fasciotomy site closure and follow-up for patient will need a skin graft on this at some point within next 2-3 weeks 3. Acute on chronic renal failure Improved. 4. Severe sepsis probably infected hematoma on Zosyn blood cultures no growth in two days, no BSI, had low grade fever yesterday night following. continue antibiotics. 5. Anemia status post blood loss Coagulopathy due to chronic Eliquis use, status post blood transfusion 8 units of PRBCs and 3 units of FFP. hemoglobin 8.5 following not yet laboratory in EMR. 6. Morbid Obesity weight loss warranted early activity and diet recommended, follow PT recommendations and OT 7. Hypertension just was on Pressors continue mild uncontrolled continue Amlodipine 10 mg daily and follow. 8. Hypophosphatemia replaced 9. GI PROPHYLAXIS- ON H2 SHANNAN Discharge Planning Pending clearance by plastic surgery Will need SNF AT discharge Problem Qualifiers (1) Compartment syndrome of left lower extremity: Qualified Codes: T79.A22A - Traumatic compartment syndrome of left lower extremity, initial encounter (2) Hematoma of left thigh: Qualified Codes: S70.12XA - Contusion of left thigh, initial encounter (3) Dementia: Eleazar Mora DO Mar 08, 2017 11:38
[2017-03-08] MEDS: oxyCODONE/ACETAMINOPHEN 5 MG/325 MG TAB PO PRN (12:14)
[2017-03-09] VITALS (8 sets, daily range): BP systolic 128–177; BP diastolic 83–102; PULSE 83–100; RESP 17–21; TEMP 96.1–98.1; O2SAT 96–98
[2017-03-09] MEDS: HEPARIN SODIUM - SQ 10,000 UNITS/ML VIAL SQ SCH ×3 (00:54→18:48)
[2017-03-09] MEDS: MORPHINE SULFATE 2 MG/ML INJ IV PUSH PRN ×4 (00:55→23:08)
[2017-03-09] MEDS: PIPERACILLIN/TAZ 3.375 GM VIAL 3.375 GM in SODIUM CHLORIDE 0.9% INJ 100 ML IV SCH ×4 (02:36→23:08)
[2017-03-09] MEDS: HALOPERIDOL LACTATE 5 MG/ML AMP IV PRN ×2 (02:37→23:09)
[2017-03-09] MEDS: CHLORHEXIDINE GLUCONATE 2 % 1 PACK (2 CLOTHS) TOP SCH (03:50)
[2017-03-09] MEDS: CLOPIDOGREL 75 MG TAB PO SCH (08:44)
[2017-03-09] MEDS: FAMOTIDINE 20 MG TAB PO SCH ×2 (08:45→23:07)
[2017-03-09] MEDS: DOCUSATE SODIUM 50 MG/SENNA 8.6 MG TAB PO SCH ×2 (08:45→21:00)
[2017-03-09] MEDS: DIVALPROEX SODIUM SPRINKLES 125 MG CAP PO SCH ×3 (08:45→23:07)
--- NOTE | 2017-03-09 14:04 | HHI.PR ---
Subjective Remarks eligibility specialist Notes: Patient is a 80-year-old male from retirement with history of dementia, chronic atrial fibrillation, coronary artery disease with history of bypass, hypertension who was brought to the emergency department for leg pain and swelling. Patient has dementia and now metabolic encephalopathy which limits history. Apparently a week ago patient sustained a fall in retirement. US 02/24/17 showed large hematoma in his left leg. A CT of the lower extremity was recommended which apparently was not done. In the ED patient had a temperature of 96, HR 100s and borderline hypotension. WBC count was elevated at 24.6 with left shift. Lactic acid was 2.6 BUN was 55 and creatinine 1.8. Patient's left lower extremity was significantly swollen and tense, Dr. Stanton did check compartment pressure which was highly elevated. According to Dr. Stanton compartment pressure in posterior compartment of thigh was [address] Gonzalez was consulted emergently who is planning to take patient to OR for probable fasciotomy. No pulse was felt in LE. CT of the left lower extremity showed large thigh hematoma and associated popliteal aneurysms raising concern for aneurysm rupture. Dr. Harris from vascular surgery also was consulted. Patient received vancomycin and Zosyn for sepsis. I evaluated the patient in the emergency department. Patient appears critically ill, because of underlying dementia history is not obtainable. I have ordered 2 L normal saline bolus. Patient is chronically on Eliquis. I will reverse this with 5,500 units of K [facility]. Case discussed extensively with Dr. Stanton and Dr. Harris 03/03: s/p OR yesterday with vascular surgery and ortho. Lateral and medial incisions where made to L thigh and a large hematoma in the medial/posterior aspects was encountered. Whie evacuating the hematoma significant arterial bleeding was encountered. A sterile tourniquet was placed and vascular surgery was emergently contacted. Dr. Harris and Dr. Spear proceeded with popliteal aneurysm repair with graft placement. Because of acute bleeding hemoglobin dropped 3. Patient received 8U PRBC,3 U FFP in OR. Remains on Alfredo-Synephrine but weaning doses. On sedation hold wakes up follows commands by squeezing hands 03/04: Extubated yesterday tolerating well. Hemodynamically stable white count decreasing 17.7 today. Mental status oriented to person which is his baseline. He is s/p resection of popliteal artery aneurysm with [place] graft placement and thigh fasciotomy. Hospitalist Notes: 03/05: Seen in his bedroom, no new complaint, continue management by Vascular family resource management specialist, nurse Miss Charles in his bedroom. 03/06: Stable in his bedroom, confused, discussed with nurse, followed by Vascular surgery, Calf es expectedly swollen, fasciotomy site clean consult plastic Surgery for lateral thigh fasciotomy site closure and follow-up for patient will need a skin graft on this at some point within next 2-3 weeks. 03/07: Discussed with posting specialist doctor Olivia Recinos, he will follow he patient, No nausea, vomit or diarrhea. no changes to anterior assessment. 03-08 TO HAVE PROCEDURE WITH PLASTICS LATER THIS WEEK NO NEW COMPLAINTS DW RN AND PT Remains confused 03-09 plastics wants wound care to place a VAC. We'll ask case management to help find a SNF Continue on soft MITTENS as needed no new complaints Discussed with RN and patient and plastics Objective Vitals Vital Signs Date Time Temp Pulse Resp B/P (MAP) Pulse Ox O2 Delivery O2 Flow Rate FiO2 03/09/17 13:09 Nasal Cannula 2.00 03/09/17 12:00 97.3 90 17 139/97 (111) 98 03/09/17 08:00 97.0 86 17 177/102 (127) 98 03/09/17 06:00 100 03/09/17 04:00 96.1 92 21 138/91 (107) 98 03/09/17 00:00 96.2 83 21 162/92 (115) 97 03/08/17 20:00 95.8 91 21 139/74 (95) 96 03/08/17 17:56 98 Nasal Cannula 2.00 03/08/17 16:00 95.6 83 17 132/74 (93) 98 I/O 03/08/17 03/08/17 03/08/17 03/09/17 03/09/17 03/09/17 07:00 15:00 23:00 07:00 15:00 23:00 Intake Total 200 ml 1558 ml 240 ml Output Total 600 ml 1825 ml 600 ml Balance -600 ml 200 ml -267 ml -360 ml Intake Oral 1558 ml 240 ml IV Total 200 ml Output Urine Total 600 ml 1825 ml 600 ml # Voids 1 # Bowel Movements 1 4 Result Diagram: 03/07/17192103/07/171921 Other Results Laboratory Tests Test 03/07/17 19:22 03/09/17 07:47 White Blood Count 10.6 TH/MM3 Red Blood Count 3.26 MIL/MM3 Hemoglobin 9.4 GM/DL Hematocrit 29.3 % Mean Corpuscular Volume 90.0 FL Mean Corpuscular Hemoglobin 28.9 PG Mean Corpuscular Hemoglobin Concent 32.1 % Red Cell Distribution Width 15.4 % Platelet Count 320 TH/MM3 Mean Platelet Volume 7.9 FL Neutrophils (%) (Auto) 83.7 % Lymphocytes (%) (Auto) 5.3 % Monocytes (%) (Auto) 8.3 % Eosinophils (%) (Auto) 1.8 % Basophils (%) (Auto) 0.9 % Neutrophils # (Auto) 8.8 TH/MM3 Lymphocytes # (Auto) 0.6 TH/MM3 Monocytes # (Auto) 0.9 TH/MM3 Eosinophils # (Auto) 0.2 TH/MM3 Basophils # (Auto) 0.1 TH/MM3 CBC Comment AUTO DIFF Differential Comment AUTO DIFF CONFIRMED Platelet Estimate NORMAL Platelet Morphology Comment NORMAL Blood Urea Nitrogen 19 MG/DL Creatinine 0.95 MG/DL Random Glucose 84 MG/DL Total Protein 5.6 GM/DL Calcium Level 7.4 MG/DL Sodium Level 142 MEQ/L Potassium Level 4.9 MEQ/L Chloride Level 111 MEQ/L Carbon Dioxide Level 21.5 MEQ/L Anion Gap 10 MEQ/L Estimat Glomerular Filtration Rate 76 ML/MIN Protein Corrected Calcium 8.2 MG/DL Prealbumin 10 MG/DL Imaging Last Impressions Chest X-Ray 03/04/17 0600 Signed Impressions: Service Date/Time: February 03:00 - CONCLUSION: Slightly improved left lower lung consolidation. Interval resolution of opacities in the central right lung. Osmar Pereira MD Lower Extremity Ultrasound 03/04/17 0000 Signed Impressions: Service Date/Time: February 14:08 - CONCLUSION: 1. No DVT identified. Ramon Wallace MD Pelvis CT 03/02/17 0000 Signed Impressions: Service Date/Time: Thursday, March 02, 2017 14:20 - CONCLUSION: 1. Left adductor muscle swelling 2. Unremarkable pelvic structures 3. No evidence of acute bony abnormality. Juancarlos Maradiaga MD Lower Extremity CT 03/02/17 0000 Signed Impressions: Service Date/Time: Thursday, March 02, 2017 14:17 - CONCLUSION: 1. Large complex fluid collections from the mid to lower thigh characteristic of either a large hematomas or pseudoaneurysms. These are associated with a popliteal artery aneurysm. Ruptured aneurysm needs be considered. 2. No evidence of acute bony abnormality. Juancarlos Maradiaga MD Objective Remarks GENERAL: Patient is an obese patient seen in the room in no acute distress SKIN: Warm and dry. Left leg thigh is dressed HEAD: Atraumatic. Normocephalic. EYES: Pupils equal and round. No scleral icterus. No injection or drainage. ENT: No nasal bleeding or discharge. Mucous membranes pink and moist. Oral mucosa is moist tongue is midline NECK: Trachea midline. No JVD. Supple CARDIOVASCULAR: Regular rate and rhythm. S1 and S2 no S3 or S4 RESPIRATORY: No accessory muscle use. Clear to auscultation. Breath sounds equal bilaterally. GASTROINTESTINAL: Abdomen soft, non-tender, nondistended. Hepatic and splenic margins not palpable. Obese nondistended MUSCULOSKELETAL: Extremities without clubbing, cyanosis, or edema. No obvious deformities. Left thigh with clean surgical wound dressed NEUROLOGICAL: Awake and alert. No obvious cranial nerve deficits. Motor grossly within normal limits. 4 out of 5 muscle strength in the arms and legs. Normal speech. PSYCHIATRIC: INAppropriate mood and affect; insight and judgment ABnormal. Remains confused Procedures Large left thigh hematoma, popliteal aneurysm cannot rule out aneurysmal rupture /hemorrhage Medications and IVs Current Medications Sodium Chloride (NS Flush) 2 ml UNSCH PRN IV FLUSH FLUSH AFTER USING IV ACCESS Last administered on 03/09/17 08:50; Start 03/02/17 at 14:00 Sodium Chloride 1,000 ml @ 1,000 mls/hr Q1H IV Last administered on 15:02; Start 03/02/17 at 13:53; Stop 03/02/17 at 14:52; Status DC Morphine Sulfate (Morphine Inj) 4 mg ONCE ONCE IV PUSH Last administered on 15:48; Start 03/02/17 at 14:00; Stop 03/02/17 at 14:01; Status DC Lorazepam (Ativan Inj) 1 mg ONCE ONCE IV PUSH ; Start 03/02/17 at 14:00; Stop 03/02/17 at 14:01; Status DC Piperacillin Sod/ Tazobactam Sod 100 ml @ 200 mls/hr ONCE ONCE IV Last administered on 03/02/17 15:02; Start 03/02/17 at 14:30; Stop 03/02/17 at 14 :59; Status DC Vancomycin HCl 1000 mg/Sodium Chloride 250 ml @ 250 mls/hr ONCE ONCE IV Last administered on 03/02/17 15:19; Start 03/02/17 at 14:30; Stop 03/02/17 at 15 :30; Status DC Etomidate (Amidate Inj) 10 mg ONCE ONCE IV PUSH Last administered on 14:51; Start 03/02/17 at 14:30; Stop 03/02/17 at 14:31; Status DC Sodium Chloride 1,000 ml @ 80 mls/hr [id number] IV Last administered on 10:24; Start 03/02/17 at 15:14; Stop 03/03/17 at 11:49; Status DC Morphine Sulfate (Morphine Inj) 2 mg Q2H PRN IV PUSH PAIN SCALE 6 TO 10; Start 03/02/17 at 15:15; Stop 03/02/17 at 21:44; Status DC Famotidine (Pepcid Inj) 20 mg DAILY IV PUSH Last administered on 03/04/17 08: 29; Start 03/02/17 at 21:00; Stop 03/04/17 at 10:23; Status DC Albuterol/ Ipratropium (Duoneb Neb) 1 ampule Q4HR NEB PRN INH WHEEZING; Start 03/02/17 at 15:15 Miscellaneous Information 1 Q361D XX ; Start 03/02/17 at 15:15 Chlorhexidine Gluconate (Chlorhexidine 2% Cloth) Taper DAILY@04 TOP ; Start at 04:00; Stop 02/27/18 at 03:59 Chlorhexidine Gluconate (Chlorhexidine 2% Cloth) 3 pack UNSCH PRN TOP HYGIENIC CARE; Start 03/02/17 at 15:15 Senna/Docusate Sodium (Mallory-Colace) 1 tab BID PO Last administered on 08:45; Start 03/02/17 at 21:00 Magnesium Hydroxide (Milk Of Magnesia Liq) 30 ml Q12H PRN PO Mild constipation ; Start 03/02/17 at 15:15 Sennosides (Senokot) 17.2 mg Q12H PRN PO Moderate constipation; Start at 15:15 Bisacodyl (Dulcolax Supp) 10 mg DAILY PRN RECTAL SEVERE CONSITIPATION; Start 03/02/17 at 15:15 Lactulose (Lactulose Liq) 30 ml DAILY PRN PO SEVERE CONSITIPATION; Start 03/02 at 15:15 Divalproex Sodium (Depakote Sprinkles) 125 mg DAILY PO ; Start 03/03/17 at 09: 00; Stop 03/03/17 at 18:00; Status DC Divalproex Sodium (Depakote Sprinkles) 250 mg BID PO Last administered on 03/09 08:45; Start 03/02/17 at 21:00 Levetriacetam (Keppra) 500 mg BID PO ; Start 03/02/17 at 21:00; Stop 03/03/17 at 00:28; Status DC Piperacillin Sod/ Tazobactam Sod 50 ml @ 100 mls/hr Q8H IV Last administered on 03/03/17 07:13; Start 03/02/17 at 23:00; Stop 03/03/17 at 14:06; Status DC Prothrombin Complex Concent (Human) 5000 units/Syringe / Bag 0 ml @ 500 mls/hr ONCE STAT IV Last administered on 03/02/17 16:29; Start 03/02/17 at 15:44; Stop 03/02/17 at 15:49; Status DC Sodium Chloride 1,000 ml @ 999 mls/hr BOLUS ONCE IV ; Start 03/02/17 at 16:00 ; Stop 03/02/17 at 17:00; Status DC Sodium Chloride 1,000 ml @ 999 mls/hr BOLUS ONCE IV ; Start 03/02/17 at 16:00 ; Stop 03/02/17 at 17:00; Status DC Neomycin/Polymyxin (Neosporin G.u. Irr) 2 ml STK-MED ONCE .ROUTE ; Start at 16:43; Stop 03/02/17 at 16:44; Status DC Vasopressin (Pitressin Inj) 20 units STK-MED ONCE .ROUTE ; Start 03/02/17 at 17 :41; Stop 03/02/17 at 17:42; Status DC Heparin Sodium (Porcine) (Heparin Inj) 20,000 units STK-MED ONCE .ROUTE Last administered on 03/02/17 19:00; Start 03/02/17 at 17:44; Stop 03/02/17 at 17 :45; Status DC Phenylephrine HCl (Neosynephrine Inj) 20 mg STK-MED ONCE .ROUTE ; Start at 18:52; Stop 03/02/17 at 18:53; Status DC Phenylephrine HCl (Neosynephrine Inj) 40 mg STK-MED ONCE .ROUTE ; Start at 19:43; Stop 03/02/17 at 19:44; Status DC Cefazolin Sodium (Ancef Inj) 2,000 mg ONCE ONCE IV Last administered on 19:43; Start 03/02/17 at 19:43; Stop 03/02/17 at 19:59; Status DC Calcium Chloride (Calcium Chloride Inj) 2 gm STK-MED ONCE .ROUTE ; Start at 21:00; Stop 03/02/17 at 21:01; Status DC Propofol 100 ml @ 3.3 mls/hr TITRATE PRN IV SEDATION Last administered on 22:27; Start 03/02/17 at 21:45; Stop 03/03/17 at 11:49; Status DC Fentanyl Citrate 250 ml @ 5 mls/hr TITRATE PRN IV SEDATION Last administered on 03/02/17 22:30; Start 03/02/17 at 21:45; Stop 03/04/17 at 10:23; Status DC Phenylephrine HCl 40 mg/Dextrose 500 ml @ 30 mls/hr TITRATE PRN IV Blood pressure management Last administered on 03/03/17 04:50; Start 03/02/17 at 22 :15; Stop 03/03/17 at 11:49; Status DC Terbutaline Sulfate (Brethine Inj) 1 mg UNSCH PRN SQ For Extravasation; Start 03/02/17 at 22:15 Levetriacetam 500 mg/Sodium Chloride 105 ml @ 420 mls/hr Q12H IV Last administered on 03/03/17t 00:45; Start 03/03/17 at 02:00; Stop 03/03/17 at 11 :49; Status DC Furosemide (Lasix Inj) 40 mg ONCE STAT IV PUSH Last administered on t 11:21; Start 03/03/17 at 11:04; Stop 03/03/17 at 11:13; Status DC Furosemide (Lasix Inj) 40 mg STK-MED ONCE .ROUTE ; Start 03/03/17 at 11:18; Stop 03/03/17 at 11:43; Status DC Potassium Chloride 100 ml @ 50 mls/hr Q2H PRN IV For Potassium 2.8 - 3.2 mEq/L ; Start 03/03/17 at 12:00; Stop 03/05/17 at 10:07; Status DC Potassium Chloride 100 ml @ 50 mls/hr Q2H PRN IV For Potassium 2.8 - 3.2 mEq/L ; Start 03/03/17 at 12:00; Stop 03/05/17 at 10:07; Status DC Potassium Bicarb/ Potassium Chloride (K-Lyte Cl Eff) 50 meq UNSCH PRN PO For Potassium 3.3 - 3.5 mEq/L; Start 03/03/17 at 12:00; Stop 03/05/17 at 10:07; Status DC Potassium Chloride 100 ml @ 25 mls/hr UNSCH PRN IV For Potassium 3.3 - 3.5 mEq /L; Start 03/03/17 at 12:00; Stop 03/05/17 at 10:07; Status DC Potassium Chloride 100 ml @ 50 mls/hr Q2H PRN IV For Potassium 3.3 - 3.5 mEq/L ; Start 03/03/17 at 12:00; Stop 03/05/17 at 10:07; Status DC Magnesium Sulfate 4 gm/Sodium Chloride 100 ml @ 50 mls/hr UNSCH PRN IV For Magnesium 0.9 - 1.1 mg/dL; Start 03/03/17 at 12:00; Stop 03/05/17 at 10:07; Status DC Magnesium Oxide (Mag-Ox) 800 mg UNSCH PRN PO For Magnesium 1.2 - 1.6 mg/dL; Start 03/03/17 at 12:00; Stop 03/05/17 at 10:07; Status DC Magnesium Sulfate 2 gm/Sodium Chloride 100 ml @ 50 mls/hr UNSCH PRN IV For Magnesium 1.2 - 1.6 mg/dL; Start 03/03/17 at 12:00; Stop 03/05/17 at 10:07; Status DC Potassium Phosphate (K-Phos) 2,000 mg Q4H PRN PO For Phosphorus < 2.5 mg/dL; Start 03/03/17 at 12:00; Stop 03/05/17 at 10:07; Status DC Sodium Phosphate 30 mmol/Sodium Chloride 250 ml @ 42 mls/hr UNSCH PRN IV For Phosphorus < 2.5 mg/dL; Start 03/03/17 at 12:00; Stop 03/05/17 at 10:07; Status DC Potassium Phosphate (K-Phos) 2,000 mg UNSCH PRN PO/TUBE SEE LABEL COMMENTS; Start 03/03/17 at 12:00; Stop 03/05/17 at 10:07; Status DC Potassium Phosphate 30 mmol/ Sodium Chloride 260 ml @ 42 mls/hr UNSCH PRN IV SEE LABEL COMMENTS; Start 03/03/17 at 12:00; Stop 03/05/17 at 10:07; Status DC Piperacillin Sod/ Tazobactam Sod 50 ml @ 100 mls/hr Q6H IV Last administered on 03/07/17 21:16; Start 03/03/17 at 14:00; Stop 03/07/17 at 23:00; Status DC Heparin Sodium (Porcine) (Heparin Inj) 5,000 units Q8H SQ Last administered on 03/09/17 08:46; Start 03/03/17 at 18:00 Clopidogrel Bisulfate (Plavix) 75 mg DAILY PO Last administered on 03/09/17 08:44; Start 03/04/17 at 09:00 Divalproex Sodium (Depakote Sprinkles) 125 mg DAILY@1500 PO Last administered on 03/08/17 13:29; Start 03/04/17 at 15:00 Famotidine (Pepcid) 20 mg BID PO Last administered on 03/09/17 08:45; Start 03/04/17 at 21:00 Oxycodone/ Acetaminophen (Percocet 5-325 Mg) 1 tab Q4H PRN PO pain 4-10 Last administered on 03/08/17 12:14; Start 03/04/17 at 13:00 Haloperidol Lactate (Haldol Inj) 2 mg Q6H PRN IV agitation Last administered on 03/09/17 02:37; Start 03/04/17 at 13:30 Morphine Sulfate (Morphine Inj) 3 mg Q4H PRN IV PUSH pain 6-10 Last administered on 03/09/17 04:19; Start 03/04/17 at 16:00 Potassium Chloride 100 ml @ 50 mls/hr ONCE ONCE IV ; Start 03/05/17 at 10:45 ; Stop 03/05/17 at 12:32; Status DC Magnesium Sulfate/ Dextrose 100 ml @ 100 mls/hr Q1H IV Last administered on 14:09; Start 03/05/17 at 10:45; Stop 03/05/17 at 12:44; Status DC Potassium Bicarb/ Potassium Chloride (K-Lyte Cl Eff) 50 meq ONCE ONCE PO Last administered on 03/05/17 13:25; Start 03/05/17 at 12:45; Stop 03/05/17 at 12:46; Status DC Amlodipine Besylate (Norvasc) 5 mg DAILY PO Last administered on 03/07/17 10: 44; Start 03/06/17 at 13:00; Stop 03/07/17 at 11:44; Status DC Potassium Phosphate 15 mmol/ Sodium Chloride 155 ml @ 38.75 mls/ hr ONCE ONCE IV Last administered on 03/07/17 11:45; Start 03/07/17 at 11:45; Stop 03/07 at 15:44; Status DC Amlodipine Besylate (Norvasc) 10 mg DAILY PO Last administered on 03/09/17 08 :44; Start 03/08/17 at 09:00 Amlodipine Besylate (Norvasc) 5 mg ONCE ONCE PO Last administered on 12:00; Start 03/07/17 at 12:00; Stop 03/07/17 at 12:01; Status DC Piperacillin Sod/ Tazobactam Sod 3.375 gm/Sodium Chloride 100 ml @ 200 mls/hr Q6H IV Last administered on 03/09/17 08:44; Start 03/08/17 at 08:00 A/P Problem List: (1) Compartment syndrome of left lower extremity ICD Code: T79.A22A - Traumatic compartment syndrome of left lower extremity, initial encounter (2) Hematoma of left thigh ICD Code: S70.12XA - Contusion of left thigh, initial encounter Status: Acute (3) Acute encephalopathy ICD Code: G93.40 - Encephalopathy, unspecified (4) Severe sepsis ICD Code: A41.9 - Sepsis, unspecified organism; R65.20 - Severe sepsis without septic shock (5) Chronic Eliquis use (6) Dementia ICD Code: F03.90 - Unspecified dementia without behavioral disturbance Assessment and Plan 1. Acute metabolic Encephalopathy/Dementia continue confused. has Haldol as needed, continue Percocet for pain 2. left Thigh Compartment Syndrome, Status post resection of popliteal artery aneurysm with rupture with [place] Graft placement and thigh fasciotomy chronic Atrial Fibrillation on Eliquis, hemorrhagic Shock resolved received 8 units of PRBCs, 3 units of FFP in OR for severe Hemorrhagic Shock Status post left thigh fasciotomy and evacuation of Hematoma by Doctor VOGEL, status post repair of ruptured Popliteal artery aneurysm by Doctor George and Dr. Harris CT on admission showed Left thigh hematoma and with popliteal artery aneurysm , on Plavix and Heparin SQ, , followed by Vascular surgery, consult plastic Surgery for lateral thigh fasciotomy site closure and follow-up for patient will need a skin graft on this at some point within next 2-3 weeks 3. Acute on chronic renal failure Improved. 4. Severe sepsis probably infected hematoma on Zosyn blood cultures no growth in two days, no BSI, had low grade fever yesterday night following. continue antibiotics. 5. Anemia status post blood loss Coagulopathy due to chronic Eliquis use, status post blood transfusion 8 units of PRBCs and 3 units of FFP. hemoglobin 8.5 following not yet laboratory in EMR. 6. Morbid Obesity weight loss warranted early activity and diet recommended, follow PT recommendations and OT 7. Hypertension just was on Pressors continue mild uncontrolled continue Amlodipine 10 mg daily and follow. 8. Hypophosphatemia replaced 9. GI PROPHYLAXIS- ON H2 SHANNAN Discussed with plastics. We'll consult wound care nurse for left thigh VAC placement Discharge Planning Pending clearance by plastic surgery Will need SNF AT discharge Problem Qualifiers (1) Compartment syndrome of left lower extremity: Qualified Codes: T79.A22A - Traumatic compartment syndrome of left lower extremity, initial encounter (2) Hematoma of left thigh: Qualified Codes: S70.12XA - Contusion of left thigh, initial encounter (3) Dementia: Eleazar Mora DO Mar 09, 2017 14:04
--- NOTE | 2017-03-09 16:40 | HHI.PR ---
Subjective Remarks Delayed entry from yesterday. No acute changes overnight. Pt reports minimal pain from lateral thigh wound, which is being dressed with wet-to-dry gauze twice a day Objective Vital Signs Date Time Temp Pulse Resp B/P (MAP) Pulse Ox O2 Delivery O2 Flow Rate FiO2 03/09/17 16:00 98.1 88 17 133/86 (102) 96 03/09/17 13:09 Nasal Cannula 2.00 03/09/17 12:00 97.3 90 17 139/97 (111) 98 03/09/17 08:00 97.0 86 17 177/102 (127) 98 03/09/17 06:00 100 03/09/17 04:00 96.1 92 21 138/91 (107) 98 03/09/17 00:00 96.2 83 21 162/92 (115) 97 03/08/17 20:00 95.8 91 21 139/74 (95) 96 03/08/17 17:56 98 Nasal Cannula 2.00 I/O 03/08/17 03/08/17 03/08/17 03/09/17 03/09/17 03/09/17 07:00 15:00 23:00 07:00 15:00 23:00 Intake Total 200 ml 1558 ml 240 ml Output Total 600 ml 1825 ml 600 ml Balance -600 ml 200 ml -267 ml -360 ml Intake Oral 1558 ml 240 ml IV Total 200 ml Output Urine Total 600 ml 1825 ml 600 ml # Voids 1 # Bowel Movements 1 4 Result Diagram: 03/07/17192103/07/171921 Procedures Large left thigh hematoma, popliteal aneurysm cannot rule out aneurysmal rupture /hemorrhage Objective Remarks R thigh wound granulating without signs infection Assessment and Plan Problem List: (1) H/O fasciotomy ICD Codes: Z98.890 - Other specified postprocedural states (2) Hematoma of left thigh ICD Codes: S70.12XA - Contusion of left thigh, initial encounter Status: Acute (3) Compartment syndrome of left lower extremity ICD Codes: T79.A22A - Traumatic compartment syndrome of left lower extremity, initial encounter Assessment and Plan Agree that fasciotomy wound amenable to skin graft closure, though given depth of wound and patients prealbumin of 10, consult placed for VAC to R thigh. Nutrition consult pending. Pt may dc w/ VAC per primary and be seen as outpt in clinic for scheduling of skin graft once nutrition and wound improved. Problem Qualifiers (1) Hematoma of left thigh: Qualified Codes: S70.12XA - Contusion of left thigh, initial encounter (2) Compartment syndrome of left lower extremity: Qualified Codes: T79.A22A - Traumatic compartment syndrome of left lower extremity, initial encounter Noel Baker MD Mar 09, 2017 16:40
--- NOTE | 2017-03-09 16:52 | PD.WCN.NOT ---
Wound Consult Description: Left Thigh Communicated with: Consult ordered by Recommendation: Continue current orders of Xeroform to wound base cover with ABD secure with boarder gauze or paper tape. Additional Information: Patient was seen today by loan underwriter for evaluation of left thigh surgical incision wound vac placement. Dressing removed wound cleansed with normal saline.Wound measures ~23cm x ~4.5 x ~.5cm around wound edges.Wound presents with beefy red wound margins protruding muscle tissue,fascia and artery ~ 3.5cm from wound edges.Patient is not appropriate at this time for wound Vac placement do to hematoma and exposed artery.Call placed to confirmed orders to not place wound Vac. Ostomy Date of Surgery: Mar 02, 2017 Elizabeth Holcomb [facility] Mar 09, 2017 16:52
[2017-03-10] VITALS: BP 132/81; PULSE 79; RESP 20; TEMP 97.7; O2SAT 97
[2017-03-10] MEDS: PIPERACILLIN/TAZ 3.375 GM VIAL 3.375 GM in SODIUM CHLORIDE 0.9% INJ 100 ML IV SCH ×4 (03:26→22:07)
[2017-03-10] MEDS: HEPARIN SODIUM - SQ 10,000 UNITS/ML VIAL SQ SCH ×3 (03:26→18:05)
[2017-03-10] MEDS: MORPHINE SULFATE 2 MG/ML INJ IV PUSH PRN ×5 (03:26→22:07)
[2017-03-10 04:00] VITALS: BP 143/72; PULSE 81; RESP 20; TEMP 98.8; O2SAT 96
[2017-03-10] MEDS: CHLORHEXIDINE GLUCONATE 2 % 1 PACK (2 CLOTHS) TOP SCH (04:00)
[2017-03-10 07:51] VITALS: BP 145/78; PULSE 88; RESP 20; TEMP 97.5; O2SAT 96
[2017-03-10] MEDS: DIVALPROEX SODIUM SPRINKLES 125 MG CAP PO SCH ×3 (08:38→22:08)
[2017-03-10] MEDS: DOCUSATE SODIUM 50 MG/SENNA 8.6 MG TAB PO SCH ×2 (08:39→22:07)
[2017-03-10] MEDS: FAMOTIDINE 20 MG TAB PO SCH ×2 (08:39→22:07)
[2017-03-10] MEDS: CLOPIDOGREL 75 MG TAB PO SCH (08:39)
[2017-03-10] MEDS: HALOPERIDOL LACTATE 5 MG/ML AMP IV PRN ×3 (08:41→22:07)
--- NOTE | 2017-03-10 09:45 | HHI.PR ---
Subjective Remarks university extension specialist Notes: Patient is a 80-year-old male from custodial with history of dementia, chronic atrial fibrillation, coronary artery disease with history of bypass, hypertension who was brought to the emergency department for leg pain and swelling. Patient has dementia and now metabolic encephalopathy which limits history. Apparently a week ago patient sustained a fall in custodial. US 02/24/17 showed large hematoma in his left leg. A CT of the lower extremity was recommended which apparently was not done. In the ED patient had a temperature of 96, HR 100s and borderline hypotension. WBC count was elevated at 24.6 with left shift. Lactic acid was 2.6 BUN was 55 and creatinine 1.8. Patient's left lower extremity was significantly swollen and tense, Dr. Stanton did check compartment pressure which was highly elevated. According to Dr. Stanton compartment pressure in posterior compartment of thigh was [address] Gonzalez was consulted emergently who is planning to take patient to OR for probable fasciotomy. No pulse was felt in LE. CT of the left lower extremity showed large thigh hematoma and associated popliteal aneurysms raising concern for aneurysm rupture. Dr. Harris from vascular surgery also was consulted. Patient received vancomycin and Zosyn for sepsis. I evaluated the patient in the emergency department. Patient appears critically ill, because of underlying dementia history is not obtainable. I have ordered 2 L normal saline bolus. Patient is chronically on Eliquis. I will reverse this with 5,500 units of K Centra. Case discussed extensively with Dr. Stanton and Dr. Harris 03/03: s/p OR yesterday with vascular surgery and ortho. Lateral and medial incisions where made to L thigh and a large hematoma in the medial/posterior aspects was encountered. Whie evacuating the hematoma significant arterial bleeding was encountered. A sterile tourniquet was placed and vascular surgery was emergently contacted. Dr. Harris and Dr. Spear proceeded with popliteal aneurysm repair with graft placement. Because of acute bleeding hemoglobin dropped 3. Patient received 8U PRBC,3 U FFP in OR. Remains on Alfredo-Synephrine but weaning doses. On sedation hold wakes up follows commands by squeezing hands 03/04: Extubated yesterday tolerating well. Hemodynamically stable white count decreasing 17.7 today. Mental status oriented to person which is his baseline. He is s/p resection of popliteal artery aneurysm with Sylmar-Robbin graft placement and thigh fasciotomy. Hospitalist Notes: 03/05: Seen in his bedroom, no new complaint, continue management by Vascular cost control specialist, nurse Miss Charles in his bedroom. 03/06: Stable in his bedroom, confused, discussed with nurse, followed by Vascular surgery, Calf es expectedly swollen, fasciotomy site clean consult plastic Surgery for lateral thigh fasciotomy site closure and follow-up for patient will need a skin graft on this at some point within next 2-3 weeks. 03/07: Discussed with civil design specialist doctor Olivia Recinos, he will follow he patient, No nausea, vomit or diarrhea. no changes to anterior assessment. 03-08 TO HAVE PROCEDURE WITH PLASTICS LATER THIS WEEK NO NEW COMPLAINTS DW RN AND PT Remains confused 03-09 plastics wants wound care to place a VAC. We'll ask case management to help find a SNF Continue on soft MITTENS as needed no new complaints 03-10 was seen by [employer] founder I believe she only appreciated the medial incision and at the lateral incision lateral incision does not have any visible vessels and could benefit from VAC placement Continue current wound care No new complaints this time may need SNF in the next day or so Discussed with RN and patient and plastics Objective Vitals Vital Signs Date Time Temp Pulse Resp B/P (MAP) Pulse Ox O2 Delivery O2 Flow Rate FiO2 03/10/17 07:51 97.5 88 20 145/78 (100) 96 03/10/17 04:00 98.8 81 20 143/72 (95) 96 03/10/17 00:00 97.7 79 20 132/81 (98) 97 03/09/17 20:00 97.9 92 20 128/83 (98) 96 03/09/17 20:00 Nasal Cannula 2.00 03/09/17 16:00 98.1 88 17 133/86 (102) 96 03/09/17 15:54 17 03/09/17 13:09 Nasal Cannula 2.00 03/09/17 12:00 97.3 90 17 139/97 (111) 98 I/O 03/09/17 03/09/17 03/09/17 03/10/17 03/10/17 03/10/17 07:00 15:00 23:00 07:00 15:00 23:00 Intake Total 240 ml 1200 ml 50 ml 120 ml Output Total 600 ml 300 ml 300 ml Balance -360 ml 900 ml -250 ml 120 ml Intake Oral 240 ml 1200 ml 50 ml 120 ml Output Urine Total 600 ml 300 ml 300 ml # Voids 2 2 # Bowel Movements 0 0 Result Diagram: 03/07/17192103/07/171921 Other Results Laboratory Tests Test 03/07/17 19:22 03/09/17 07:47 White Blood Count 10.6 TH/MM3 Red Blood Count 3.26 MIL/MM3 Hemoglobin 9.4 GM/DL Hematocrit 29.3 % Mean Corpuscular Volume 90.0 FL Mean Corpuscular Hemoglobin 28.9 PG Mean Corpuscular Hemoglobin Concent 32.1 % Red Cell Distribution Width 15.4 % Platelet Count 320 TH/MM3 Mean Platelet Volume 7.9 FL Neutrophils (%) (Auto) 83.7 % Lymphocytes (%) (Auto) 5.3 % Monocytes (%) (Auto) 8.3 % Eosinophils (%) (Auto) 1.8 % Basophils (%) (Auto) 0.9 % Neutrophils # (Auto) 8.8 TH/MM3 Lymphocytes # (Auto) 0.6 TH/MM3 Monocytes # (Auto) 0.9 TH/MM3 Eosinophils # (Auto) 0.2 TH/MM3 Basophils # (Auto) 0.1 TH/MM3 CBC Comment AUTO DIFF Differential Comment AUTO DIFF CONFIRMED Platelet Estimate NORMAL Platelet Morphology Comment NORMAL Blood Urea Nitrogen 19 MG/DL Creatinine 0.95 MG/DL Random Glucose 84 MG/DL Total Protein 5.6 GM/DL Calcium Level 7.4 MG/DL Sodium Level 142 MEQ/L Potassium Level 4.9 MEQ/L Chloride Level 111 MEQ/L Carbon Dioxide Level 21.5 MEQ/L Anion Gap 10 MEQ/L Estimat Glomerular Filtration Rate 76 ML/MIN Protein Corrected Calcium 8.2 MG/DL Prealbumin 10 MG/DL Imaging Last Impressions Chest X-Ray 03/04/17 0600 Signed Impressions: Service Date/Time: February 03:00 - CONCLUSION: Slightly improved left lower lung consolidation. Interval resolution of opacities in the central right lung. Osmar Pereira MD Lower Extremity Ultrasound 03/04/17 0000 Signed Impressions: Service Date/Time: February 14:08 - CONCLUSION: 1. No DVT identified. Ramon Wallace MD Pelvis CT 03/02/17 0000 Signed Impressions: Service Date/Time: Thursday, March 02, 2017 14:20 - CONCLUSION: 1. Left adductor muscle swelling 2. Unremarkable pelvic structures 3. No evidence of acute bony abnormality. Juancarlos Maradiaga MD Lower Extremity CT 03/02/17 0000 Signed Impressions: Service Date/Time: Thursday, March 02, 2017 14:17 - CONCLUSION: 1. Large complex fluid collections from the mid to lower thigh characteristic of either a large hematomas or pseudoaneurysms. These are associated with a popliteal artery aneurysm. Ruptured aneurysm needs be considered. 2. No evidence of acute bony abnormality. Juancarlos Maradiaga MD Objective Remarks GENERAL: Patient is an obese patient seen in the room in no acute distress SKIN: Warm and dry. Left lateral thigh large fasciotomy wound noted-- medial thigh wound is dressed HEAD: Atraumatic. Normocephalic. EYES: Pupils equal and round. No scleral icterus. No injection or drainage. ENT: No nasal bleeding or discharge. Mucous membranes pink and moist. Oral mucosa is moist tongue is midline NECK: Trachea midline. No JVD. Supple CARDIOVASCULAR: Regular rate and rhythm. S1 and S2 no S3 or S4 RESPIRATORY: No accessory muscle use. Clear to auscultation. Breath sounds equal bilaterally. GASTROINTESTINAL: Abdomen soft, non-tender, nondistended. Hepatic and splenic margins not palpable. Obese nondistended MUSCULOSKELETAL: Extremities without clubbing, cyanosis, or edema. No obvious deformities. Left thigh with clean surgical wound dressed NEUROLOGICAL: Awake and alert. No obvious cranial nerve deficits. Motor grossly within normal limits. 4 out of 5 muscle strength in the arms and legs. Normal speech. Left lateral thigh large fasciotomy wound noted--medial thigh wound is dressed PSYCHIATRIC: INAppropriate mood and affect; insight and judgment ABnormal. Remains confused Procedures Large left thigh hematoma, popliteal aneurysm cannot rule out aneurysmal rupture /hemorrhage OPERATIVE REPORT Pt Name: YAEL SALGADO MR#: [id number] Loc: N03B Attended By: Kelsy Sepulveda MD Patient: YAEL SALGADO Report #: [id number] Electronically Signed: Aisha George MD Patient: YAEL SALGADO Report #: [id number] Electronically Signed: AISHA La MD DATE OF SURGERY: 03/02/2017 PREOPERATIVE DIAGNOSIS: POSTOPERATIVE DIAGNOSIS: OPERATION: SURGEON Dr. Doris Gonzalez ANESTHESIA: General. ESTIMATED BLOOD LOSS: 3 liters. INDICATIONS FOR PROCEDURE: This 81-year-old gentleman fell somewhere in the custodial. To me, unknown circumstances, and developed hematoma of the thigh which turned into compartment syndrome. Orthopedic was consulted to evaluate the patient. The patient was noted to have large hematoma. 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 The patient was then taken to the OR for fasciotomy and evacuation of hematoma. However, in the process the aneurysm ruptured or probably more likely the fact that this was a ruptured aneurysm, became evident and the patient started bleeding. Vascular surgery got involved including Dr. Harris, and then I took over from him, about 30 minutes into the case. DESCRIPTION OF PROCEDURE: The patient was prepped and draped in the usual fashion. Apparently by Dr. Gonzalez, a lateral incision was made on the thigh which decompressed the compartment and then a medial incision, and when blood started coming out, this patient had a ruptured aneurysm. I scrubbed in about half hour into the case at which point Dr. Harris was exposing the popliteal vessel successfully. I then placed the large Weitlaner and some Olivier's, and examined the area. The tourniquet would not hold, so I removed the tourniquet, extended the incision proximally and held a pressure on the opening of the vessel. The vessel is now explored. There is a ruptured aneurysm in the back wall of the vessel is noted. This measured about 3 cm or so in length. Distally the vessel does not look that bad. I passed the Pooja catheter down and it goes into one of the vessels, probably posterior tibial artery. There is no clot in it. The patient was initially given PCC because of the Factor X inhibitor aboard and then apparently heparin later on. The proximal vessel is now examined. This is completely a torn and ratty vessel with barely any wall. Apparently somebody was here before because there is old Mersilene and Ethibond stitches in here, probably 15 to 20 years old, something was done here before. At this point, I followed the vessel proximally until I found about 1 cm in diameter vessel, fairly large, which appears to be reasonable in quality. This is half way up the thigh essentially outside the popliteal fossa. Once this is done the vessel, adductor canal is freed up and visualized. A vessel loop is placed around this very carefully, although there is a large amount of dissection here. Finally a Profunda clamp is placed on it, and at this point I removed the rest of this vessel which is dilated because the aneurysm seems to be reaching higher up, and the patient seems to have somewhat of an arteriomegaly judging by the size of his vessels. Once we have proximal and distal end freed up and bleeding is under control, a Sylmar-Robbin graft is chosen. There is no 10 millimeter Sylmar-Robbin graft. We used 8 millimeter which is fine in this situation. It is sewn first distally with running 5-0 Prolene and the under an angled graft is cut and sewn in proximally with running 5-0 Prolene. Blood flow is reestablished by first allowing graft to flush proximally and washout and then final stitches placed. There is one area of bleeding which is controlled with [id number] with a pledget and this completes this part of the procedure. The patient now has a bounding distal pulse. The area is irrigated with about 3 liters of saline and last liter with antibiotics, and then muscles are approximated with 0 Vicryl. Skin is closed with interrupted 2-0 nylon. The lateral incision that was a fasciotomy, of course, is left open with dressing. A large bore Oscar drain is placed into the popliteal space. The patient tolerated the procedure well and taken to the Recovery Room after surgery. Date of Surgery: Mar 02, 2017 Preoperative Diagnosis: (1) Hematoma of left thigh (2) Compartment syndrome of left lower extremity Postoperative Diagnosis: (1) Arterial rupture (2) Hematoma of left thigh (3) Compartment syndrome of left lower extremity Procedure: Fasciotomy left thigh Anesthesia: Gen. Surgeon: Asif Gonzalez Franchise Manager(s): OR staff Operation and Findings: Indications: This 81-year-old male who is a custodial resident with dementia and on anticoagulation has had progressive swelling of his left thigh. There is apparently a history of a fall. He presented with increasing swelling and an obvious pain. Compartment pressure measurements by the emergency room staff revealed increased pressures in the posterior compartment. A CT scan did reveal a pseudoaneurysm of the vasculature with a large hematoma. It was felt the patient had a compartment syndrome and a possible vascular injury and he is taken to surgery for fasciotomy. Procedure and findings patient was taken to the operative suite and after undergoing an adequate level of general anesthesia was kept supine on the room table. Left lower extremity was prepped and draped in usual sterile fashion with Betadine. Toe was first focused on the lateral aspect of the thigh where longitudinal incision was made. This was carried down through skin and subcutaneous tense tissue with a knife. There was soft tissue edema and mild hemorrhage noted. The iliotibial band was identified and split longitudinally. The vastus lateralis fascia was identified and split. The muscle appeared viable and minimal swelling in the lateral compartment. Dissection was carried out relate to the septum. This was incised revealing the posterior compartment which also had healthy-appearing muscle tissue. The wound was then packed open. Attention was then focused on the medial aspect with a previous vascular surgery incision was utilized. This was carried down through skin and subcutaneous tense tissue with a knife. There was soft tissue hemorrhage present. Scar tissue was released. The muscular fascia overlying the musculature was incised and there was noted to be a large hematoma in the medial and posterior aspects. When bluntly evacuating the hematoma significant arterial bleeding was encountered. A sterile tourniquet was then applied and the wound packed. Vascular surgery was then emergently consulted and presented to continue with vascular stabilization of the extremity. At the time of this dictation the plan was to do a graft of the artery. The orthopedic portion of the procedure was therefore completed. Asif Gonzalez MD Medications and IVs Current Medications Sodium Chloride (NS Flush) 2 ml UNSCH PRN IV FLUSH FLUSH AFTER USING IV ACCESS Last administered on 03/09/17 08:50; Start 03/02/17 at 14:00 Sodium Chloride 1,000 ml @ 1,000 mls/hr Q1H IV Last administered on 15:02; Start 03/02/17 at 13:53; Stop 03/02/17 at 14:52; Status DC Morphine Sulfate (Morphine Inj) 4 mg ONCE ONCE IV PUSH Last administered on 15:48; Start 03/02/17 at 14:00; Stop 03/02/17 at 14:01; Status DC Lorazepam (Ativan Inj) 1 mg ONCE ONCE IV PUSH ; Start 03/02/17 at 14:00; Stop 03/02/17 at 14:01; Status DC Piperacillin Sod/ Tazobactam Sod 100 ml @ 200 mls/hr ONCE ONCE IV Last administered on 03/02/17 15:02; Start 03/02/17 at 14:30; Stop 03/02/17 at 14 :59; Status DC Vancomycin HCl 1000 mg/Sodium Chloride 250 ml @ 250 mls/hr ONCE ONCE IV Last administered on 03/02/17 15:19; Start 03/02/17 at 14:30; Stop 03/02/17 at 15 :30; Status DC Etomidate (Amidate Inj) 10 mg ONCE ONCE IV PUSH Last administered on 14:51; Start 03/02/17 at 14:30; Stop 03/02/17 at 14:31; Status DC Sodium Chloride 1,000 ml @ 80 mls/hr [id number] IV Last administered on 10:24; Start 03/02/17 at 15:14; Stop 03/03/17 at 11:49; Status DC Morphine Sulfate (Morphine Inj) 2 mg Q2H PRN IV PUSH PAIN SCALE 6 TO 10; Start 03/02/17 at 15:15; Stop 03/02/17 at 21:44; Status DC Famotidine (Pepcid Inj) 20 mg DAILY IV PUSH Last administered on 03/04/17 08: 29; Start 03/02/17 at 21:00; Stop 03/04/17 at 10:23; Status DC Albuterol/ Ipratropium (Duoneb Neb) 1 ampule Q4HR NEB PRN INH WHEEZING; Start 03/02/17 at 15:15 Miscellaneous Information 1 [id number] XX ; Start 03/02/17 at 15:15 Chlorhexidine Gluconate (Chlorhexidine 2% Cloth) Taper DAILY@04 TOP ; Start at 04:00; Stop 02/27/18 at 03:59 Chlorhexidine Gluconate (Chlorhexidine 2% Cloth) 3 pack UNSCH PRN TOP HYGIENIC CARE; Start 03/02/17 at 15:15 Senna/Docusate Sodium (Mallory-Colace) 1 tab BID PO Last administered on 08:39; Start 03/02/17 at 21:00 Magnesium Hydroxide (Milk Of Magnesia Liq) 30 ml Q12H PRN PO Mild constipation ; Start 03/02/17 at 15:15 Sennosides (Senokot) 17.2 mg Q12H PRN PO Moderate constipation; Start at 15:15 Bisacodyl (Dulcolax Supp) 10 mg DAILY PRN RECTAL SEVERE CONSITIPATION; Start 03/02/17 at 15:15 Lactulose (Lactulose Liq) 30 ml DAILY PRN PO SEVERE CONSITIPATION; Start 03/02 at 15:15 Divalproex Sodium (Depakote Sprinkles) 125 mg DAILY PO ; Start 03/03/17 at 09: 00; Stop 03/03/17 at 18:00; Status DC Divalproex Sodium (Depakote Sprinkles) 250 mg BID PO Last administered on 03/10 08:38; Start 03/02/17 at 21:00 Levetriacetam (Keppra) 500 mg BID PO ; Start 03/02/17 at 21:00; Stop 03/03/17 at 00:28; Status DC Piperacillin Sod/ Tazobactam Sod 50 ml @ 100 mls/hr Q8H IV Last administered on 03/03/17 07:13; Start 03/02/17 at 23:00; Stop 03/03/17 at 14:06; Status DC Prothrombin Complex Concent (Human) 5000 units/Syringe / Bag 0 ml @ 500 mls/hr ONCE STAT IV Last administered on 03/02/17 16:29; Start 03/02/17 at 15:44; Stop 03/02/17 at 15:49; Status DC Sodium Chloride 1,000 ml @ 999 mls/hr BOLUS ONCE IV ; Start 03/02/17 at 16:00 ; Stop 03/02/17 at 17:00; Status DC Sodium Chloride 1,000 ml @ 999 mls/hr BOLUS ONCE IV ; Start 03/02/17 at 16:00 ; Stop 03/02/17 at 17:00; Status DC Neomycin/Polymyxin (Neosporin G.u. Irr) 2 ml STK-MED ONCE .ROUTE ; Start at 16:43; Stop 03/02/17 at 16:44; Status DC Vasopressin (Pitressin Inj) 20 units STK-MED ONCE .ROUTE ; Start 03/02/17 at 17 :41; Stop 03/02/17 at 17:42; Status DC Heparin Sodium (Porcine) (Heparin Inj) 20,000 units STK-MED ONCE .ROUTE Last administered on 03/02/17 19:00; Start 03/02/17 at 17:44; Stop 03/02/17 at 17 :45; Status DC Phenylephrine HCl (Neosynephrine Inj) 20 mg STK-MED ONCE .ROUTE ; Start at 18:52; Stop 03/02/17 at 18:53; Status DC Phenylephrine HCl (Neosynephrine Inj) 40 mg STK-MED ONCE .ROUTE ; Start at 19:43; Stop 03/02/17 at 19:44; Status DC Cefazolin Sodium (Ancef Inj) 2,000 mg ONCE ONCE IV Last administered on 19:43; Start 03/02/17 at 19:43; Stop 03/02/17 at 19:59; Status DC Calcium Chloride (Calcium Chloride Inj) 2 gm STK-MED ONCE .ROUTE ; Start at 21:00; Stop 03/02/17 at 21:01; Status DC Propofol 100 ml @ 3.3 mls/hr TITRATE PRN IV SEDATION Last administered on 22:27; Start 03/02/17 at 21:45; Stop 03/03/17 at 11:49; Status DC Fentanyl Citrate 250 ml @ 5 mls/hr TITRATE PRN IV SEDATION Last administered on 03/02/17 22:30; Start 03/02/17 at 21:45; Stop 03/04/17 at 10:23; Status DC Phenylephrine HCl 40 mg/Dextrose 500 ml @ 30 mls/hr TITRATE PRN IV Blood pressure management Last administered on 03/03/17 04:50; Start 03/02/17 at 22 :15; Stop 03/03/17 at 11:49; Status DC Terbutaline Sulfate (Brethine Inj) 1 mg UNSCH PRN SQ For Extravasation; Start 03/02/17 at 22:15 Levetriacetam 500 mg/Sodium Chloride 105 ml @ 420 mls/hr Q12H IV Last administered on 03/03/17 00:45; Start 03/03/17 at 02:00; Stop 03/03/17 at 11 :49; Status DC Furosemide (Lasix Inj) 40 mg ONCE STAT IV PUSH Last administered on 11:21; Start 03/03/17 at 11:04; Stop 03/03/17 at 11:13; Status DC Furosemide (Lasix Inj) 40 mg STK-MED ONCE .ROUTE ; Start 03/03/17 at 11:18; Stop 03/03/17 at 11:43; Status DC Potassium Chloride 100 ml @ 50 mls/hr Q2H PRN IV For Potassium 2.8 - 3.2 mEq/L ; Start 03/03/17 at 12:00; Stop 03/05/17 at 10:07; Status DC Potassium Chloride 100 ml @ 50 mls/hr Q2H PRN IV For Potassium 2.8 - 3.2 mEq/L ; Start 03/03/17 at 12:00; Stop 03/05/17 at 10:07; Status DC Potassium Bicarb/ Potassium Chloride (K-Lyte Cl Eff) 50 meq UNSCH PRN PO For Potassium 3.3 - 3.5 mEq/L; Start 03/03/17 at 12:00; Stop 03/05/17 at 10:07; Status DC Potassium Chloride 100 ml @ 25 mls/hr UNSCH PRN IV For Potassium 3.3 - 3.5 mEq /L; Start 03/03/17 at 12:00; Stop 03/05/17 at 10:07; Status DC Potassium Chloride 100 ml @ 50 mls/hr Q2H PRN IV For Potassium 3.3 - 3.5 mEq/L ; Start 03/03/17 at 12:00; Stop 03/05/17 at 10:07; Status DC Magnesium Sulfate 4 gm/Sodium Chloride 100 ml @ 50 mls/hr UNSCH PRN IV For Magnesium 0.9 - 1.1 mg/dL; Start 03/03/17 at 12:00; Stop 03/05/17 at 10:07; Status DC Magnesium Oxide (Mag-Ox) 800 mg UNSCH PRN PO For Magnesium 1.2 - 1.6 mg/dL; Start 03/03/17 at 12:00; Stop 03/05/17 at 10:07; Status DC Magnesium Sulfate 2 gm/Sodium Chloride 100 ml @ 50 mls/hr UNSCH PRN IV For Magnesium 1.2 - 1.6 mg/dL; Start 03/03/17 at 12:00; Stop 03/05/17 at 10:07; Status DC Potassium Phosphate (K-Phos) 2,000 mg Q4H PRN PO For Phosphorus < 2.5 mg/dL; Start 03/03/17 at 12:00; Stop 03/05/17 at 10:07; Status DC Sodium Phosphate 30 mmol/Sodium Chloride 250 ml @ 42 mls/hr UNSCH PRN IV For Phosphorus < 2.5 mg/dL; Start 03/03/17 at 12:00; Stop 03/05/17 at 10:07; Status DC Potassium Phosphate (K-Phos) 2,000 mg UNSCH PRN PO/TUBE SEE LABEL COMMENTS; Start 03/03/17 at 12:00; Stop 03/05/17 at 10:07; Status DC Potassium Phosphate 30 mmol/ Sodium Chloride 260 ml @ 42 mls/hr UNSCH PRN IV SEE LABEL COMMENTS; Start 03/03/17 at 12:00; Stop 03/05/17 at 10:07; Status DC Piperacillin Sod/ Tazobactam Sod 50 ml @ 100 mls/hr Q6H IV Last administered on 03/07/17 21:16; Start 03/03/17 at 14:00; Stop 03/07/17 at 23:00; Status DC Heparin Sodium (Porcine) (Heparin Inj) 5,000 units Q8H SQ Last administered on 03/10/17 08:40; Start 03/03/17 at 18:00 Clopidogrel Bisulfate (Plavix) 75 mg DAILY PO Last administered on 03/10/17 08:39; Start 03/04/17 at 09:00 Divalproex Sodium (Depakote Sprinkles) 125 mg DAILY@1500 PO Last administered on 03/09/17 15:52; Start 03/04/17 at 15:00 Famotidine (Pepcid) 20 mg BID PO Last administered on 03/10/17 08:39; Start 03/04/17 at 21:00 Oxycodone/ Acetaminophen (Percocet 5-325 Mg) 1 tab Q4H PRN PO pain 4-10 Last administered on 03/08/17 12:14; Start 03/04/17 at 13:00 Haloperidol Lactate (Haldol Inj) 2 mg Q6H PRN IV agitation Last administered on 03/10/17 08:41; Start 03/04/17 at 13:30 Morphine Sulfate (Morphine Inj) 3 mg Q4H PRN IV PUSH pain 6-10 Last administered on 03/10/17 03:26; Start 03/04/17 at 16:00 Potassium Chloride 100 ml @ 50 mls/hr ONCE ONCE IV ; Start 03/05/17 at 10:45 ; Stop 03/05/17 at 12:32; Status DC Magnesium Sulfate/ Dextrose 100 ml @ 100 mls/hr Q1H IV Last administered on 14:09; Start 03/05/17 at 10:45; Stop 03/05/17 at 12:44; Status DC Potassium Bicarb/ Potassium Chloride (K-Lyte Cl Eff) 50 meq ONCE ONCE PO Last administered on 03/05/17 13:25; Start 03/05/17 at 12:45; Stop 03/05/17 at 12:46; Status DC Amlodipine Besylate (Norvasc) 5 mg DAILY PO Last administered on 03/07/17 10: 44; Start 03/06/17 at 13:00; Stop 03/07/17 at 11:44; Status DC Potassium Phosphate 15 mmol/ Sodium Chloride 155 ml @ 38.75 mls/ hr ONCE ONCE IV Last administered on 03/07/17 11:45; Start 03/07/17 at 11:45; Stop 03/07 at 15:44; Status DC Amlodipine Besylate (Norvasc) 10 mg DAILY PO Last administered on 03/10/17 08 :38; Start 03/08/17 at 09:00 Amlodipine Besylate (Norvasc) 5 mg ONCE ONCE PO Last administered on 12/17/ 17at 12:00; Start 03/07/17 at 12:00; Stop 03/07/17 at 12:01; Status DC Piperacillin Sod/ Tazobactam Sod 3.375 gm/Sodium Chloride 100 ml @ 200 mls/hr Q6H IV Last administered on 03/10/17t 08:25; Start 03/08/17 at 08:00 A/P Problem List: (1) Compartment syndrome of left lower extremity ICD Code: T79.A22A - Traumatic compartment syndrome of left lower extremity, initial encounter (2) Hematoma of left thigh ICD Code: S70.12XA - Contusion of left thigh, initial encounter Status: Acute (3) Acute encephalopathy ICD Code: G93.40 - Encephalopathy, unspecified (4) Severe sepsis ICD Code: A41.9 - Sepsis, unspecified organism; R65.20 - Severe sepsis without septic shock (5) Chronic Eliquis use (6) Dementia ICD Code: F03.90 - Unspecified dementia without behavioral disturbance Assessment and Plan 1. Acute metabolic Encephalopathy/Dementia continue confused. has Haldol as needed, continue Percocet for pain 2. 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 Harris CT on admission showed Left thigh hematoma and with popliteal artery aneurysm , on Plavix and Heparin SQ, , followed by Vascular surgery, consult plastic Surgery for lateral thigh fasciotomy site closure and follow-up for patient will need a skin graft on this at some point within next 2-3 weeks 3. Acute on chronic renal failure Improved. 4. Severe sepsis probably infected hematoma on Zosyn blood cultures no growth in two days, no BSI, had low grade fever yesterday night following. continue antibiotics. 5. Anemia status post blood loss Coagulopathy due to chronic Eliquis use, status post blood transfusion 8 units of PRBCs and 3 units of FFP. hemoglobin 8.5 following not yet laboratory in EMR. 6. Morbid Obesity weight loss warranted early activity and diet recommended, follow PT recommendations and OT 7. Hypertension just was on Pressors continue mild uncontrolled continue Amlodipine 10 mg daily and follow. 8. Hypophosphatemia replaced 9. GI PROPHYLAXIS- ON H2 SHANNAN Anemia postop will follow A.m. labs Discussed with plastics. We'll consult wound care nurse for left thigh VAC placement Discharge Planning Pending clearance by plastic surgery Will need SNF AT discharge Problem Qualifiers (1) Compartment syndrome of left lower extremity: Qualified Codes: T79.A22A - Traumatic compartment syndrome of left lower extremity, initial encounter (2) Hematoma of left thigh: Qualified Codes: S70.12XA - Contusion of left thigh, initial encounter (3) Dementia: Eleazar Mora DO Mar 10, 2017 09:45
--- NOTE | 2017-03-10 09:49 | HHI.PR ---
Subjective Remarks No acute changes overnight. Pt reports minimal pain from lateral thigh wound, which is being dressed with wet-to-dry gauze twice a day Objective Vital Signs Date Time Temp Pulse Resp B/P (MAP) Pulse Ox O2 Delivery O2 Flow Rate FiO2 03/10/17 07:51 97.5 88 20 145/78 (100) 96 03/10/17 04:00 98.8 81 20 143/72 (95) 96 03/10/17 00:00 97.7 79 20 132/81 (98) 97 03/09/17 20:00 97.9 92 20 128/83 (98) 96 03/09/17 20:00 Nasal Cannula 2.00 03/09/17 16:00 98.1 88 17 133/86 (102) 96 03/09/17 15:54 17 03/09/17 13:09 Nasal Cannula 2.00 03/09/17 12:00 97.3 90 17 139/97 (111) 98 I/O 03/09/17 03/09/17 03/09/17 03/10/17 03/10/17 03/10/17 07:00 15:00 23:00 07:00 15:00 23:00 Intake Total 240 ml 1200 ml 50 ml 120 ml Output Total 600 ml 300 ml 300 ml Balance -360 ml 900 ml -250 ml 120 ml Intake Oral 240 ml 1200 ml 50 ml 120 ml Output Urine Total 600 ml 300 ml 300 ml # Voids 2 2 # Bowel Movements 0 0 Result Diagram: 03/07/17192103/07/171921 Procedures Large left thigh hematoma, popliteal aneurysm cannot rule out aneurysmal rupture /hemorrhage Objective Remarks R LATERAL thigh wound granulating without signs infection. No vessel in wound bed is appreciated. R MEDIAL incision closed, dressed without strikethrough Assessment and Plan Problem List: (1) H/O fasciotomy ICD Codes: Z98.890 - Other specified postprocedural states (2) Hematoma of left thigh ICD Codes: S70.12XA - Contusion of left thigh, initial encounter Status: Acute (3) Compartment syndrome of left lower extremity ICD Codes: T79.A22A - Traumatic compartment syndrome of left lower extremity, initial encounter Assessment and Plan Agree that fasciotomy wound amenable to skin graft closure, though given depth of wound and patients prealbumin of 10, VAC consult pending. Wound re-examined again today. Do not appreciate vessel in wound bed. The bleeding vessel and hematoma were in MEDIAL thigh incision, which was closed intraop. Please VAC. Problem Qualifiers (1) Hematoma of left thigh: Qualified Codes: S70.12XA - Contusion of left thigh, initial encounter (2) Compartment syndrome of left lower extremity: Qualified Codes: T79.A22A - Traumatic compartment syndrome of left lower extremity, initial encounter Noel Baker MD Mar 10, 2017 09:49
[2017-03-10 11:34] LABS: AUTOMATED NEUTROPHIL # 8.9 TH/MM3 (1.8-7.7); BASOPHIL # 0.1 TH/MM3 (0-0.2); BASOPHIL % 0.5 % (0.0-2.0); EOSINOPHIL # 0.2 TH/MM3 (0-0.4); EOSINOPHIL % 1.9 % (0.0-4.0); HEMATOCRIT 29.6 % (39.0-51.0); HEMO FLAGS DIFF FINAL; LYMPH % 7.5 % (9.0-44.0); LYMPHOCYTE # 0.8 TH/MM3 (1.0-4.8); MEAN CORPUSCULAR HEMOGLOBIN 29.4 PG (27.0-34.0); MEAN CORPUSCULAR HGB CONC 32.7 % (32.0-36.0); MONO % 10.1 % (0.0-8.0); PLATELET COUNT 451 TH/MM3 (150-450); RED BLOOD COUNT 3.29 MIL/MM3 (4.50-5.90); RED CELL DISTRIBUTION WIDTH 15.8 % (11.6-17.2); WHITE BLOOD COUNT 11.2 TH/MM3 (4.0-11.0)
[2017-03-10 11:55] LABS: ANION GAP 7 MEQ/L (5-15); AST (GOT) 112 U/L (15-37); BICARBONATE 27.2 MEQ/L (21.0-32.0); BLOOD UREA NITROGEN 15 MG/DL (7-18); CHLORIDE 106 MEQ/L (98-107); GLOMERULAR FILTRATION RATE 75 ML/MIN (>89); POTASSIUM 3.6 MEQ/L (3.5-5.1); SODIUM (NA) 140 MEQ/L (136-145)
[2017-03-10 11:57] LABS: ALT (GPT) 91 U/L (12-78)
[2017-03-10 11:58] LABS: ALKALINE PHOSPHATASE 95 U/L (45-117)
[2017-03-10 12:00] VITALS: BP 131/70; PULSE 83; RESP 20; TEMP 98.4; O2SAT 98
--- NOTE | 2017-03-10 14:44 | PD.WCN.NOT ---
Wound Consult Description: Left Thigh Communicated with: Dr.Grieper VINAEY Gatica Recommendation: 1) Cleanse Lateral thigh with normal saline pat dry. 2) Skin prep to periwound then drape healthy skin to protect wound edge. 3) Apply adaptic gauze to areas of Facia, Tendon and questionable vessel. 4) Lightly packed wound with black sponge bridging to anterior thigh cover with track pad and seal. 5) Set wound VAC to125 MMHG continuos lite suction 6) Change Wound VAC every Wednesday, , Wednesday . Additional Information: Patient was seen today by RNWCC. Medial surgical incision presents 23 suture intact with minimal serosang drainage.Wound cleansed with normal saline dry dressing applied.Lateral incision cleansed with normal saline skin prep to periwound drape applied to periwound to protect healthy skin. Adaptic applied to wound base were facia and tendon seen.Black sponge lightly packed in wound then bridge to anterior thigh. Wound Vac applied at 125 MMHG lite continuous suction with no leaks noted.Patient was noted to tolerated wound care with facial grimacing and moments of outburst. Maureen LANDRY notified to medicate patient prior to dressing changes.Please change dressing every Wednesday, Wednesday, Wednesday. Neg Pressure Wound Therapy Wound Location Wound Location: Left Thigh Ostomy Date of Surgery: Mar 02, 2017 Elizabeth Holcomb [facility] Mar 10, 2017 14:44
[2017-03-10 16:00] VITALS: BP 129/78; PULSE 77; RESP 20; TEMP 97.4; O2SAT 98
[2017-03-10 20:00] VITALS: BP 132/92; PULSE 84; RESP 20; TEMP 96.3; O2SAT 98
[2017-03-11] VITALS (9 sets, daily range): BP systolic 122–169; BP diastolic 64–98; PULSE 78–90; RESP 17–20; TEMP 96.4–97.5; O2SAT 93–99
[2017-03-11] MEDS: MORPHINE SULFATE 2 MG/ML INJ IV PUSH PRN ×3 (03:13→20:23)
[2017-03-11] MEDS: CHLORHEXIDINE GLUCONATE 2 % 1 PACK (2 CLOTHS) TOP SCH (03:13)
[2017-03-11] MEDS: PIPERACILLIN/TAZ 3.375 GM VIAL 3.375 GM in SODIUM CHLORIDE 0.9% INJ 100 ML IV SCH ×5 (03:13→20:15)
[2017-03-11] MEDS: HEPARIN SODIUM - SQ 10,000 UNITS/ML VIAL SQ SCH ×3 (03:13→17:36)
[2017-03-11 08:34] LABS: AUTOMATED NEUTROPHIL # 8.6 TH/MM3 (1.8-7.7); BASOPHIL # 0.1 TH/MM3 (0-0.2); BASOPHIL % 0.5 % (0.0-2.0); EOSINOPHIL # 0.2 TH/MM3 (0-0.4); EOSINOPHIL % 2.2 % (0.0-4.0); HEMATOCRIT 29.5 % (39.0-51.0); HEMO FLAGS DIFF FINAL; LYMPHOCYTE # 1.1 TH/MM3 (1.0-4.8); MEAN CELL VOLUME 90.2 FL (80.0-100.0); MEAN CORPUSCULAR HGB CONC 33.3 % (32.0-36.0); MONO % 8.3 % (0.0-8.0); PLATELET COUNT 486 TH/MM3 (150-450); RED BLOOD COUNT 3.26 MIL/MM3 (4.50-5.90); RED CELL DISTRIBUTION WIDTH 16.2 % (11.6-17.2); WHITE BLOOD COUNT 10.9 TH/MM3 (4.0-11.0)
[2017-03-11 08:56] LABS: ALT (GPT) 91 U/L (12-78); ANION GAP 7 MEQ/L (5-15); AST (GOT) 93 U/L (15-37); BICARBONATE 28.6 MEQ/L (21.0-32.0); BLOOD UREA NITROGEN 18 MG/DL (7-18); CHLORIDE 105 MEQ/L (98-107); GLOMERULAR FILTRATION RATE 65 ML/MIN (>89); MAGNESIUM 2.1 MG/DL (1.5-2.5); POTASSIUM 3.7 MEQ/L (3.5-5.1); SODIUM (NA) 141 MEQ/L (136-145)
[2017-03-11 08:59] LABS: ALKALINE PHOSPHATASE 98 U/L (45-117); TOTAL BILIRUBIN ADULT 0.9 MG/DL (0.2-1.0)
[2017-03-11] MEDS: DOCUSATE SODIUM 50 MG/SENNA 8.6 MG TAB PO SCH ×2 (08:59→20:27)
[2017-03-11] MEDS: FAMOTIDINE 20 MG TAB PO SCH ×2 (08:59→20:28)
[2017-03-11] MEDS: CLOPIDOGREL 75 MG TAB PO SCH (09:00)
[2017-03-11] MEDS: DIVALPROEX SODIUM SPRINKLES 125 MG CAP PO SCH ×3 (09:00→20:25)
[2017-03-11] MEDS: oxyCODONE/ACETAMINOPHEN 5 MG/325 MG TAB PO PRN (10:22)
[2017-03-11] MEDS ORDERED: MAGNESIUM HYDROXIDE SUSP 30 ML CUP PO PRN (11:30)
--- NOTE | 2017-03-11 11:46 | HHI.PR ---
Subjective Remarks Remarks store receiving specialist Notes: Patient is a 80-year-old male from [place] with history of dementia, chronic atrial fibrillation, coronary artery disease with history of bypass, hypertension who was brought to the emergency department for leg pain and swelling. Patient has dementia and now metabolic encephalopathy which limits history. Apparently a week ago patient sustained a fall in correction. US 02/24/17 showed large hematoma in his left leg. A CT of the lower extremity was recommended which apparently was not done. In the ED patient had a temperature of 96, HR 100s and borderline hypotension. WBC count was elevated at 24.6 with left shift. Lactic acid was 2.6 BUN was 55 and creatinine 1.8. Patient's left lower extremity was significantly swollen and tense, Dr. Stanton did check compartment pressure which was highly elevated. According to Dr. Stanton compartment pressure in posterior compartment of thigh was [address] Gonzalez was consulted emergently who is planning to take patient to OR for probable fasciotomy. No pulse was felt in LE. CT of the left lower extremity showed large thigh hematoma and associated popliteal aneurysms raising concern for aneurysm rupture. Dr. Harris from vascular surgery also was consulted. Patient received vancomycin and Zosyn for sepsis. I evaluated the patient in the emergency department. Patient appears critically ill, because of underlying dementia history is not obtainable. I have ordered 2 L normal saline bolus. Patient is chronically on Eliquis. I will reverse this with 5,500 units of K Centra. Case discussed extensively with Dr. Stanton and Dr. Harris 03/03: s/p OR yesterday with vascular surgery and ortho. Lateral and medial incisions where made to L thigh and a large hematoma in the medial/posterior aspects was encountered. Whie evacuating the hematoma significant arterial bleeding was encountered. A sterile tourniquet was placed and vascular surgery was emergently contacted. Dr. Harris and Dr. Spear proceeded with popliteal aneurysm repair with graft placement. Because of acute bleeding hemoglobin dropped 3. Patient received 8U PRBC,3 U FFP in OR. Remains on Alfredo-Synephrine but weaning doses. On sedation hold wakes up follows commands by squeezing hands 03/04: Extubated yesterday tolerating well. Hemodynamically stable white count decreasing 17.7 today. Mental status oriented to person which is his baseline. He is s/p resection of popliteal artery aneurysm with Washburn-Robbin graft placement and thigh fasciotomy. Hospitalist Notes: 03/05: Seen in his bedroom, no new complaint, continue management by Vascular technician inventory specialist, nurse Miss Charles in his bedroom. 03/06: Stable in his bedroom, confused, discussed with nurse, followed by Vascular surgery, Calf es expectedly swollen, fasciotomy site clean consult plastic Surgery for lateral thigh fasciotomy site closure and follow-up for patient will need a skin graft on this at some point within next 2-3 weeks. 03/07: Discussed with charge master specialist doctor Olivia Recinos, he will follow he patient, No nausea, vomit or diarrhea. no changes to anterior assessment. 03-08 TO HAVE PROCEDURE WITH PLASTICS LATER THIS WEEK NO NEW COMPLAINTS DW RN AND PT Remains confused 03-09 plastics wants wound care to place a VAC. We'll ask case management to help find a SNF Continue on soft MITTENS as needed no new complaints 03-10 was seen by cracking unit operator I believe she only appreciated the medial incision and at the lateral incision lateral incision does not have any visible vessels and could benefit from VAC placement Continue current wound care No new complaints this time may need SNF in the next day or so Discussed with RN and patient and plastics 03-[address] ON LEFT LATERAL WOUND, LEFT MEDIAL WOUND IS PACKED AND DRESSED WILL NEED SNF AT [facility] STILL HAS VAC IN PLACE PATIENT REMAINS CONFUSED WILL NEED MEDICATIONS TO HELP WITH CONFUSION DW RN AND PATIENT RESTART HOME MEDS SEROQUEL 25MG PO BID Objective Vitals Vital Signs Date Time Temp Pulse Resp B/P (MAP) Pulse Ox O2 Delivery O2 Flow Rate FiO2 03/11/17 08:00 Nasal Cannula 2.00 03/11/17 08:00 96.9 82 20 169/85 (113) 95 03/11/17 04:23 86 03/11/17 04:00 96.7 86 20 122/64 (83) 93 03/11/17 00:00 96.4 88 17 146/98 (114) 96 03/10/17 20:00 96.3 84 20 132/92 (105) 98 03/10/17 16:00 97.4 77 20 129/78 (95) 98 03/10/17 12:00 98.4 83 20 131/70 (90) 98 I/O 03/10/17 03/10/17 03/10/17 03/11/17 03/11/17 03/11/17 07:00 15:00 23:00 07:00 15:00 23:00 Intake Total 50 ml 120 ml 850 ml 240 ml 480 ml Output Total 300 ml 400 ml 375 ml Balance -250 ml 120 ml 450 ml -135 ml 480 ml Intake Oral 50 ml 120 ml 750 ml 240 ml 480 ml IV Total 100 ml Output Urine Total 300 ml 350 ml 300 ml Drainage Total 50 ml 75 ml # Voids 2 # Bowel Movements 0 0 Result Diagram: 03/11/17 0705 03/11/17 0705 Other Results Laboratory Tests Test 03/09/17 07:47 03/10/17 10:30 03/11/17 07:05 Prealbumin 10 MG/DL White Blood Count 11.2 TH/MM3 10.9 TH/MM3 Red Blood Count 3.29 MIL/MM3 3.26 MIL/MM3 Hemoglobin 9.7 GM/DL 9.8 GM/DL Hematocrit 29.6 % 29.5 % Mean Corpuscular Volume 90.0 FL 90.2 FL Mean Corpuscular Hemoglobin 29.4 PG 30.0 PG Mean Corpuscular Hemoglobin Concent 32.7 % 33.3 % Red Cell Distribution Width 15.8 % 16.2 % Platelet Count 451 TH/MM3 486 TH/MM3 Mean Platelet Volume 8.3 FL 8.3 FL Neutrophils (%) (Auto) 80.0 % 79.0 % Lymphocytes (%) (Auto) 7.5 % 10.0 % Monocytes (%) (Auto) 10.1 % 8.3 % Eosinophils (%) (Auto) 1.9 % 2.2 % Basophils (%) (Auto) 0.5 % 0.5 % Neutrophils # (Auto) 8.9 TH/MM3 8.6 TH/MM3 Lymphocytes # (Auto) 0.8 TH/MM3 1.1 TH/MM3 Monocytes # (Auto) 1.1 TH/MM3 0.9 TH/MM3 Eosinophils # (Auto) 0.2 TH/MM3 0.2 TH/MM3 Basophils # (Auto) 0.1 TH/MM3 0.1 TH/MM3 CBC Comment DIFF FINAL DIFF FINAL Differential Comment Blood Urea Nitrogen 15 MG/DL 18 MG/DL Creatinine 0.96 MG/DL 1.08 MG/DL Random Glucose 110 MG/DL 101 MG/DL Total Protein 5.9 GM/DL 6.0 GM/DL Albumin 2.0 GM/DL 2.0 GM/DL Calcium Level 7.7 MG/DL 7.8 MG/DL Phosphorus Level 2.1 MG/DL 2.0 MG/DL Magnesium Level 2.0 MG/DL 2.1 MG/DL Alkaline Phosphatase 95 U/L 98 U/L Aspartate Amino Transf (AST/SGOT) 112 U/L 93 U/L Alanine Aminotransferase (ALT/SGPT) 91 U/L 91 U/L Total Bilirubin 1.0 MG/DL 0.9 MG/DL Sodium Level 140 MEQ/L 141 MEQ/L Potassium Level 3.6 MEQ/L 3.7 MEQ/L Chloride Level 106 MEQ/L 105 MEQ/L Carbon Dioxide Level 27.2 MEQ/L 28.6 MEQ/L Anion Gap 7 MEQ/L 7 MEQ/L Estimat Glomerular Filtration Rate 75 ML/MIN 65 ML/MIN Imaging Last Impressions Chest X-Ray 03/04/17 0600 Signed Impressions: Service Date/Time: February 03:00 - CONCLUSION: Slightly improved left lower lung consolidation. Interval resolution of opacities in the central right lung. Osmar Pereira MD Lower Extremity Ultrasound 03/04/17 0000 Signed Impressions: Service Date/Time: February 14:08 - CONCLUSION: 1. No DVT identified. Ramon Wallace MD Pelvis CT 03/02/17 0000 Signed Impressions: Service Date/Time: Thursday, March 02, 2017 14:20 - CONCLUSION: 1. Left adductor muscle swelling 2. Unremarkable pelvic structures 3. No evidence of acute bony abnormality. Juancarlos Maradiaga MD Lower Extremity CT 03/02/17 0000 Signed Impressions: Service Date/Time: Thursday, March 02, 2017 14:17 - CONCLUSION: 1. Large complex fluid collections from the mid to lower thigh characteristic of either a large hematomas or pseudoaneurysms. These are associated with a popliteal artery aneurysm. Ruptured aneurysm needs be considered. 2. No evidence of acute bony abnormality. Juancarlos Maradiaga MD Objective Remarks GENERAL: Patient is an obese patient seen in the room in no acute distress CONFUSED SKIN: Warm and dry. Left lateral thigh large fasciotomy wound noted-- medial thigh wound is dressed- LEFT LATERAL WOUND IS DRESSED WITH VAC IN PLACE HEAD: Atraumatic. Normocephalic. EYES: Pupils equal and round. No scleral icterus. No injection or drainage. ENT: No nasal bleeding or discharge. Mucous membranes pink and moist. Oral mucosa is moist tongue is midline NECK: Trachea midline. No JVD. Supple CARDIOVASCULAR: Regular rate and rhythm. S1 and S2 no S3 or S4 RESPIRATORY: No accessory muscle use. Clear to auscultation. Breath sounds equal bilaterally. GASTROINTESTINAL: Abdomen soft, non-tender, nondistended. Hepatic and splenic margins not palpable. Obese nondistended MUSCULOSKELETAL: Extremities without clubbing, cyanosis, or edema. No obvious deformities. Left thigh with clean surgical wound dressed NEUROLOGICAL: Awake and alert. No obvious cranial nerve deficits. Motor grossly within normal limits. 4 out of 5 muscle strength in the arms and legs. Normal speech. Left lateral thigh large fasciotomy wound noted--medial thigh wound is dressed LEFT LATERAL WOUND HAS VAC IN PLACE PSYCHIATRIC: INAppropriate mood and affect; insight and judgment ABnormal. Remains confused Procedures Large left thigh hematoma, popliteal aneurysm cannot rule out aneurysmal rupture /hemorrhage OPERATIVE REPORT Pt Name: YAEL SALGADO MR#: [id number] Loc: N03B Attended By: Kelsy Sepulveda MD Patient: YAEL SALGADO Report #: [id number] Electronically Signed: Aisha George MD Patient: YAEL CHAIDEZKRISTI Report #: [id number] Electronically Signed: AISHA aL MD DATE OF SURGERY: 03/02/2017 PREOPERATIVE DIAGNOSIS: POSTOPERATIVE DIAGNOSIS: OPERATION: SURGEON Dr. Doris Gonzalez ANESTHESIA: General. ESTIMATED BLOOD LOSS: 3 liters. INDICATIONS FOR PROCEDURE: This 81-year-old gentleman fell somewhere in the correction. To me, unknown circumstances, and developed hematoma of the thigh which turned into compartment syndrome. Orthopedic was consulted to evaluate the patient. The patient was noted to have large hematoma. 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 The patient was then taken to the OR for fasciotomy and evacuation of hematoma. However, in the process the aneurysm ruptured or probably more likely the fact that this was a ruptured aneurysm, became evident and the patient started bleeding. Vascular surgery got involved including Dr. Harris, and then I took over from him, about 30 minutes into the case. DESCRIPTION OF PROCEDURE: The patient was prepped and draped in the usual fashion. Apparently by Dr. Gonzalez, a lateral incision was made on the thigh which decompressed the compartment and then a medial incision, and when blood started coming out, this patient had a ruptured aneurysm. I scrubbed in about half hour into the case at which point Dr. Harris was exposing the popliteal vessel successfully. I then placed the large Weitlaner and some Olivier's, and examined the area. The tourniquet would not hold, so I removed the tourniquet, extended the incision proximally and held a pressure on the opening of the vessel. The vessel is now explored. There is a ruptured aneurysm in the back wall of the vessel is noted. This measured about 3 cm or so in length. Distally the vessel does not look that bad. I passed the Pooja catheter down and it goes into one of the vessels, probably posterior tibial artery. There is no clot in it. The patient was initially given PCC because of the Factor X inhibitor aboard and then apparently heparin later on. The proximal vessel is now examined. This is completely a torn and ratty vessel with barely any wall. Apparently somebody was here before because there is old Mersilene and Ethibond stitches in here, probably 15 to 20 years old, something was done here before. At this point, I followed the vessel proximally until I found about 1 cm in diameter vessel, fairly large, which appears to be reasonable in quality. This is half way up the thigh essentially outside the popliteal fossa. Once this is done the vessel, adductor canal is freed up and visualized. A vessel loop is placed around this very carefully, although there is a large amount of dissection here. Finally a Profunda clamp is placed on it, and at this point I removed the rest of this vessel which is dilated because the aneurysm seems to be reaching higher up, and the patient seems to have somewhat of an arteriomegaly judging by the size of his vessels. Once we have proximal and distal end freed up and bleeding is under control, a Washburn-Robbin graft is chosen. There is no 10 millimeter Washburn-Robbin graft. We used 8 millimeter which is fine in this situation. It is sewn first distally with running 5-0 Prolene and the under an angled graft is cut and sewn in proximally with running 5-0 Prolene. Blood flow is reestablished by first allowing graft to flush proximally and washout and then final stitches placed. There is one area of bleeding which is controlled with [id number] with a pledget and this completes this part of the procedure. The patient now has a bounding distal pulse. The area is irrigated with about 3 liters of saline and last liter with antibiotics, and then muscles are approximated with 0 Vicryl. Skin is closed with interrupted 2-0 nylon. The lateral incision that was a fasciotomy, of course, is left open with dressing. A large bore Oscar drain is placed into the popliteal space. The patient tolerated the procedure well and taken to the Recovery Room after surgery. Date of Surgery: Mar 02, 2017 Preoperative Diagnosis: (1) Hematoma of left thigh (2) Compartment syndrome of left lower extremity Postoperative Diagnosis: (1) Arterial rupture (2) Hematoma of left thigh (3) Compartment syndrome of left lower extremity Procedure: Fasciotomy left thigh Anesthesia: Gen. Surgeon: Asif Gonzalez Behavior Clinician(s): OR staff Operation and Findings: Indications: This 81-year-old male who is a [place] resident with dementia and on anticoagulation has had progressive swelling of his left thigh. There is apparently a history of a fall. He presented with increasing swelling and an obvious pain. Compartment pressure measurements by the emergency room staff revealed increased pressures in the posterior compartment. A CT scan did reveal a pseudoaneurysm of the vasculature with a large hematoma. It was felt the patient had a compartment syndrome and a possible vascular injury and he is taken to surgery for fasciotomy. Procedure and findings patient was taken to the operative suite and after undergoing an adequate level of general anesthesia was kept supine on the room table. Left lower extremity was prepped and draped in usual sterile fashion with Betadine. Toe was first focused on the lateral aspect of the thigh where longitudinal incision was made. This was carried down through skin and subcutaneous tense tissue with a knife. There was soft tissue edema and mild hemorrhage noted. The iliotibial band was identified and split longitudinally. The vastus lateralis fascia was identified and split. The muscle appeared viable and minimal swelling in the lateral compartment. Dissection was carried out relate to the septum. This was incised revealing the posterior compartment which also had healthy-appearing muscle tissue. The wound was then packed open. Attention was then focused on the medial aspect with a previous vascular surgery incision was utilized. This was carried down through skin and subcutaneous tense tissue with a knife. There was soft tissue hemorrhage present. Scar tissue was released. The muscular fascia overlying the musculature was incised and there was noted to be a large hematoma in the medial and posterior aspects. When bluntly evacuating the hematoma significant arterial bleeding was encountered. A sterile tourniquet was then applied and the wound packed. Vascular surgery was then emergently consulted and presented to continue with vascular stabilization of the extremity. At the time of this dictation the plan was to do a graft of the artery. The orthopedic portion of the procedure was therefore completed. Asif Gonzalez MD Medications and IVs Current Medications Sodium Chloride (NS Flush) 2 ml UNSCH PRN IV FLUSH FLUSH AFTER USING IV ACCESS Last administered on 03/09/17 08:50; Start 03/02/17 at 14:00 Sodium Chloride 1,000 ml @ 1,000 mls/hr Q1H IV Last administered on 15:02; Start 03/02/17 at 13:53; Stop 03/02/17 at 14:52; Status DC Morphine Sulfate (Morphine Inj) 4 mg ONCE ONCE IV PUSH Last administered on 15:48; Start 03/02/17 at 14:00; Stop 03/02/17 at 14:01; Status DC Lorazepam (Ativan Inj) 1 mg ONCE ONCE IV PUSH ; Start 03/02/17 at 14:00; Stop 03/02/17 at 14:01; Status DC Piperacillin Sod/ Tazobactam Sod 100 ml @ 200 mls/hr ONCE ONCE IV Last administered on 03/02/17 15:02; Start 03/02/17 at 14:30; Stop 03/02/17 at 14 :59; Status DC Vancomycin HCl 1000 mg/Sodium Chloride 250 ml @ 250 mls/hr ONCE ONCE IV Last administered on 03/02/17 15:19; Start 03/02/17 at 14:30; Stop 03/02/17 at 15 :30; Status DC Etomidate (Amidate Inj) 10 mg ONCE ONCE IV PUSH Last administered on 14:51; Start 03/02/17 at 14:30; Stop 03/02/17 at 14:31; Status DC Sodium Chloride 1,000 ml @ 80 mls/hr [id number] IV Last administered on 10:24; Start 03/02/17 at 15:14; Stop 03/03/17 at 11:49; Status DC Morphine Sulfate (Morphine Inj) 2 mg Q2H PRN IV PUSH PAIN SCALE 6 TO 10; Start 03/02/17 at 15:15; Stop 03/02/17 at 21:44; Status DC Famotidine (Pepcid Inj) 20 mg DAILY IV PUSH Last administered on 03/04/17 08: 29; Start 03/02/17 at 21:00; Stop 03/04/17 at 10:23; Status DC Albuterol/ Ipratropium (Duoneb Neb) 1 ampule Q4HR NEB PRN INH WHEEZING; Start 03/02/17 at 15:15 Miscellaneous Information 1 [id number] XX ; Start 03/02/17 at 15:15 Chlorhexidine Gluconate (Chlorhexidine 2% Cloth) Taper DAILY@04 TOP ; Start at 04:00; Stop 02/27/18 at 03:59 Chlorhexidine Gluconate (Chlorhexidine 2% Cloth) 3 pack UNSCH PRN TOP HYGIENIC CARE; Start 03/02/17 at 15:15 Senna/Docusate Sodium (Mallory-Colace) 1 tab BID PO Last administered on 08:59; Start 03/02/17 at 21:00 Magnesium Hydroxide (Milk Of Magnesia Liq) 30 ml Q12H PRN PO Mild constipation ; Start 03/02/17 at 15:15 Sennosides (Senokot) 17.2 mg Q12H PRN PO Moderate constipation; Start at 15:15 Bisacodyl (Dulcolax Supp) 10 mg DAILY PRN RECTAL SEVERE CONSITIPATION; Start 03/02/17 at 15:15 Lactulose (Lactulose Liq) 30 ml DAILY PRN PO SEVERE CONSITIPATION; Start 03/02 at 15:15 Divalproex Sodium (Depakote Sprinkles) 125 mg DAILY PO ; Start 03/03/17 at 09: 00; Stop 03/03/17 at 18:00; Status DC Divalproex Sodium (Depakote Sprinkles) 250 mg BID PO Last administered on 03/11 09:00; Start 03/02/17 at 21:00 Levetriacetam (Keppra) 500 mg BID PO ; Start 03/02/17 at 21:00; Stop 03/03/17 at 00:28; Status DC Piperacillin Sod/ Tazobactam Sod 50 ml @ 100 mls/hr Q8H IV Last administered on 03/03/17 07:13; Start 03/02/17 at 23:00; Stop 03/03/17 at 14:06; Status DC Prothrombin Complex Concent (Human) 5000 units/Syringe / Bag 0 ml @ 500 mls/hr ONCE STAT IV Last administered on 03/02/17 16:29; Start 03/02/17 at 15:44; Stop 03/02/17 at 15:49; Status DC Sodium Chloride 1,000 ml @ 999 mls/hr BOLUS ONCE IV ; Start 03/02/17 at 16:00 ; Stop 03/02/17 at 17:00; Status DC Sodium Chloride 1,000 ml @ 999 mls/hr BOLUS ONCE IV ; Start 03/02/17 at 16:00 ; Stop 03/02/17 at 17:00; Status DC Neomycin/Polymyxin (Neosporin G.u. Irr) 2 ml STK-MED ONCE .ROUTE ; Start at 16:43; Stop 03/02/17 at 16:44; Status DC Vasopressin (Pitressin Inj) 20 units STK-MED ONCE .ROUTE ; Start 03/02/17 at 17 :41; Stop 03/02/17 at 17:42; Status DC Heparin Sodium (Porcine) (Heparin Inj) 20,000 units STK-MED ONCE .ROUTE Last administered on 03/02/17 19:00; Start 03/02/17 at 17:44; Stop 03/02/17 at 17 :45; Status DC Phenylephrine HCl (Neosynephrine Inj) 20 mg STK-MED ONCE .ROUTE ; Start at 18:52; Stop 03/02/17 at 18:53; Status DC Phenylephrine HCl (Neosynephrine Inj) 40 mg STK-MED ONCE .ROUTE ; Start at 19:43; Stop 03/02/17 at 19:44; Status DC Cefazolin Sodium (Ancef Inj) 2,000 mg ONCE ONCE IV Last administered on 19:43; Start 03/02/17 at 19:43; Stop 03/02/17 at 19:59; Status DC Calcium Chloride (Calcium Chloride Inj) 2 gm STK-MED ONCE .ROUTE ; Start at 21:00; Stop 03/02/17 at 21:01; Status DC Propofol 100 ml @ 3.3 mls/hr TITRATE PRN IV SEDATION Last administered on 22:27; Start 03/02/17 at 21:45; Stop 03/03/17 at 11:49; Status DC Fentanyl Citrate 250 ml @ 5 mls/hr TITRATE PRN IV SEDATION Last administered on 03/02/17 22:30; Start 03/02/17 at 21:45; Stop 03/04/17 at 10:23; Status DC Phenylephrine HCl 40 mg/Dextrose 500 ml @ 30 mls/hr TITRATE PRN IV Blood pressure management Last administered on 03/03/17 04:50; Start 03/02/17 at 22 :15; Stop 03/03/17 at 11:49; Status DC Terbutaline Sulfate (Brethine Inj) 1 mg UNSCH PRN SQ For Extravasation; Start 03/02/17 at 22:15 Levetriacetam 500 mg/Sodium Chloride 105 ml @ 420 mls/hr Q12H IV Last administered on 03/03/17 00:45; Start 03/03/17 at 02:00; Stop 03/03/17 at 11 :49; Status DC Furosemide (Lasix Inj) 40 mg ONCE STAT IV PUSH Last administered on 11:21; Start 03/03/17 at 11:04; Stop 03/03/17 at 11:13; Status DC Furosemide (Lasix Inj) 40 mg STK-MED ONCE .ROUTE ; Start 03/03/17 at 11:18; Stop 03/03/17 at 11:43; Status DC Potassium Chloride 100 ml @ 50 mls/hr Q2H PRN IV For Potassium 2.8 - 3.2 mEq/L ; Start 03/03/17 at 12:00; Stop 03/05/17 at 10:07; Status DC Potassium Chloride 100 ml @ 50 mls/hr Q2H PRN IV For Potassium 2.8 - 3.2 mEq/L ; Start 03/03/17 at 12:00; Stop 03/05/17 at 10:07; Status DC Potassium Bicarb/ Potassium Chloride (K-Lyte Cl Eff) 50 meq UNSCH PRN PO For Potassium 3.3 - 3.5 mEq/L; Start 03/03/17 at 12:00; Stop 03/05/17 at 10:07; Status DC Potassium Chloride 100 ml @ 25 mls/hr UNSCH PRN IV For Potassium 3.3 - 3.5 mEq /L; Start 03/03/17 at 12:00; Stop 03/05/17 at 10:07; Status DC Potassium Chloride 100 ml @ 50 mls/hr Q2H PRN IV For Potassium 3.3 - 3.5 mEq/L ; Start 03/03/17 at 12:00; Stop 03/05/17 at 10:07; Status DC Magnesium Sulfate 4 gm/Sodium Chloride 100 ml @ 50 mls/hr UNSCH PRN IV For Magnesium 0.9 - 1.1 mg/dL; Start 03/03/17 at 12:00; Stop 03/05/17 at 10:07; Status DC Magnesium Oxide (Mag-Ox) 800 mg UNSCH PRN PO For Magnesium 1.2 - 1.6 mg/dL; Start 03/03/17 at 12:00; Stop 03/05/17 at 10:07; Status DC Magnesium Sulfate 2 gm/Sodium Chloride 100 ml @ 50 mls/hr UNSCH PRN IV For Magnesium 1.2 - 1.6 mg/dL; Start 03/03/17 at 12:00; Stop 03/05/17 at 10:07; Status DC Potassium Phosphate (K-Phos) 2,000 mg Q4H PRN PO For Phosphorus < 2.5 mg/dL; Start 03/03/17 at 12:00; Stop 03/05/17 at 10:07; Status DC Sodium Phosphate 30 mmol/Sodium Chloride 250 ml @ 42 mls/hr UNSCH PRN IV For Phosphorus < 2.5 mg/dL; Start 03/03/17 at 12:00; Stop 03/05/17 at 10:07; Status DC Potassium Phosphate (K-Phos) 2,000 mg UNSCH PRN PO/TUBE SEE LABEL COMMENTS; Start 03/03/17 at 12:00; Stop 03/05/17 at 10:07; Status DC Potassium Phosphate 30 mmol/ Sodium Chloride 260 ml @ 42 mls/hr UNSCH PRN IV SEE LABEL COMMENTS; Start 03/03/17 at 12:00; Stop 03/05/17 at 10:07; Status DC Piperacillin Sod/ Tazobactam Sod 50 ml @ 100 mls/hr Q6H IV Last administered on 03/07/17 21:16; Start 03/03/17 at 14:00; Stop 03/07/17 at 23:00; Status DC Heparin Sodium (Porcine) (Heparin Inj) 5,000 units Q8H SQ Last administered on 03/11/17 09:01; Start 03/03/17 at 18:00 Clopidogrel Bisulfate (Plavix) 75 mg DAILY PO Last administered on 03/11/17 09:00; Start 03/04/17 at 09:00 Divalproex Sodium (Depakote Sprinkles) 125 mg DAILY@1500 PO Last administered on 03/10/17 14:27; Start 03/04/17 at 15:00 Famotidine (Pepcid) 20 mg BID PO Last administered on 03/11/17 08:59; Start 03/04/17 at 21:00 Oxycodone/ Acetaminophen (Percocet 5-325 Mg) 1 tab Q4H PRN PO pain 4-10 Last administered on 03/11/17 10:22; Start 03/04/17 at 13:00 Haloperidol Lactate (Haldol Inj) 2 mg Q6H PRN IV agitation Last administered on 03/10/17 22:07; Start 03/04/17 at 13:30 Morphine Sulfate (Morphine Inj) 3 mg Q4H PRN IV PUSH pain 6-10 Last administered on 03/11/17 03:13; Start 03/04/17 at 16:00 Potassium Chloride 100 ml @ 50 mls/hr ONCE ONCE IV ; Start 03/05/17 at 10:45 ; Stop 03/05/17 at 12:32; Status DC Magnesium Sulfate/ Dextrose 100 ml @ 100 mls/hr Q1H IV Last administered on 14:09; Start 03/05/17 at 10:45; Stop 03/05/17 at 12:44; Status DC Potassium Bicarb/ Potassium Chloride (K-Lyte Cl Eff) 50 meq ONCE ONCE PO Last administered on 03/05/17 13:25; Start 03/05/17 at 12:45; Stop 03/05/17 at 12:46; Status DC Amlodipine Besylate (Norvasc) 5 mg DAILY PO Last administered on 03/07/17 10: 44; Start 03/06/17 at 13:00; Stop 03/07/17 at 11:44; Status DC Potassium Phosphate 15 mmol/ Sodium Chloride 155 ml @ 38.75 mls/ hr ONCE ONCE IV Last administered on 03/07/17 11:45; Start 03/07/17 at 11:45; Stop 03/07 at 15:44; Status DC Amlodipine Besylate (Norvasc) 10 mg DAILY PO Last administered on 03/11/17 08 :59; Start 03/08/17 at 09:00 Amlodipine Besylate (Norvasc) 5 mg ONCE ONCE PO Last administered on 12:00; Start 03/07/17 at 12:00; Stop 03/07/17 at 12:01; Status DC Piperacillin Sod/ Tazobactam Sod 3.375 gm/Sodium Chloride 100 ml @ 200 mls/hr Q6H IV Last administered on 03/11/17 09:02; Start 03/08/17 at 08:00 A/P Problem List: (1) Compartment syndrome of left lower extremity ICD Code: T79.A22A - Traumatic compartment syndrome of left lower extremity, initial encounter (2) Hematoma of left thigh ICD Code: S70.12XA - Contusion of left thigh, initial encounter Status: Acute (3) Acute encephalopathy ICD Code: G93.40 - Encephalopathy, unspecified (4) Severe sepsis ICD Code: A41.9 - Sepsis, unspecified organism; R65.20 - Severe sepsis without septic shock (5) Chronic Eliquis use (6) Dementia ICD Code: F03.90 - Unspecified dementia without behavioral disturbance Assessment and Plan 1. Acute metabolic Encephalopathy/Dementia continue confused. - RESTART HOME MEDS- ADD SEROQUEL 25MG BID has Haldol as needed, continue Percocet for pain 2. 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 Harris CT on admission showed Left thigh hematoma and with popliteal artery aneurysm , on Plavix and Heparin SQ, , followed by Vascular surgery, consult plastic Surgery for lateral thigh fasciotomy site closure and follow-up for patient will need a skin graft on this at some point within next 2-3 weeks 3. Acute on chronic renal failure Improved. 4. Severe sepsis probably infected hematoma on Zosyn blood cultures no growth in two days, no BSI, had low grade fever yesterday night following. continue antibiotics. 5. Anemia status post blood loss Coagulopathy due to chronic Eliquis use, status post blood transfusion 8 units of PRBCs and 3 units of FFP. hemoglobin 8.5 following not yet laboratory in EMR. 6. Morbid Obesity weight loss warranted early activity and diet recommended, follow PT recommendations and OT 7. Hypertension just was on Pressors continue mild uncontrolled continue Amlodipine 10 mg daily and follow. 8. Hypophosphatemia replaced 9. GI PROPHYLAXIS- ON H2 SHANNAN Anemia postop will follow A.m. labs Discussed with plastics. We'll consult wound care nurse for left thigh VAC placement Discharge Planning Pending clearance by plastic surgery Will need SNF AT discharge Problem Qualifiers (1) Compartment syndrome of left lower extremity: Qualified Codes: T79.A22A - Traumatic compartment syndrome of left lower extremity, initial encounter (2) Hematoma of left thigh: Qualified Codes: S70.12XA - Contusion of left thigh, initial encounter (3) Dementia: Eleazar Mora DO Mar 11, 2017 11:46
[2017-03-11] MEDS: QUEtiapine FUMARATE 25 MG TAB PO SCH ×2 (12:12→20:27)
[2017-03-11] MEDS: HALOPERIDOL LACTATE 5 MG/ML AMP IV PRN (14:24)
[2017-03-11] MEDS: ESCITALOPRAM OXALATE 10 MG TAB PO SCH (20:27)
[2017-03-11] MEDS: MEMANTINE HCL 10 MG TAB PO SCH (20:28)
[2017-03-11] MEDS: POLYSACCHARIDE IRON COMPLEX 150 MG CAP PO SCH (20:40)
[2017-03-12] VITALS: BP 166/87; PULSE 89; RESP 18; TEMP 97.9; O2SAT 97
[2017-03-12] MEDS: HEPARIN SODIUM - SQ 10,000 UNITS/ML VIAL SQ SCH ×3 (01:53→16:54)
[2017-03-12] MEDS: HALOPERIDOL LACTATE 5 MG/ML AMP IV PRN (01:53)
[2017-03-12] MEDS: PIPERACILLIN/TAZ 3.375 GM VIAL 3.375 GM in SODIUM CHLORIDE 0.9% INJ 100 ML IV SCH ×4 (01:54→21:37)
[2017-03-12] MEDS: CHLORHEXIDINE GLUCONATE 2 % 1 PACK (2 CLOTHS) TOP SCH ×2 (01:54→21:38)
[2017-03-12] MEDS: MORPHINE SULFATE 2 MG/ML INJ IV PUSH PRN ×2 (04:38→11:36)
[2017-03-12 04:57] VITALS: BP 162/93; PULSE 92; RESP 18; TEMP 97; O2SAT 96
[2017-03-12 08:00] VITALS: BP 156/78; PULSE 91; RESP 20; TEMP 99.2; O2SAT 96
[2017-03-12] MEDS ORDERED: PANTOPRAZOLE SOD 20 MG DELAYED RELEASE TAB PO PRN (09:00)
[2017-03-12] MEDS ORDERED: VERAPAMIL HCL 120 MG TAB PO SCH (09:00)
[2017-03-12] MEDS: DIVALPROEX SODIUM SPRINKLES 125 MG CAP PO SCH ×3 (09:00→21:38)
[2017-03-12] MEDS: LORATADINE 10 MG TAB PO SCH (09:21)
[2017-03-12] MEDS: CHOLECALCIFEROL (VIT D3) 1000 UNIT TAB PO SCH (09:21)
[2017-03-12] MEDS: CLOPIDOGREL 75 MG TAB PO SCH (09:21)
[2017-03-12] MEDS: DOCUSATE SODIUM 50 MG/SENNA 8.6 MG TAB PO SCH ×2 (09:21→21:37)
[2017-03-12] MEDS: QUEtiapine FUMARATE 25 MG TAB PO SCH ×2 (09:21→21:37)
[2017-03-12] MEDS: MEMANTINE HCL 10 MG TAB PO SCH ×2 (09:21→21:37)
[2017-03-12] MEDS: POLYSACCHARIDE IRON COMPLEX 150 MG CAP PO SCH ×2 (09:22→21:37)
[2017-03-12] MEDS: FAMOTIDINE 20 MG TAB PO SCH ×2 (09:22→21:37)
[2017-03-12 12:00] VITALS: BP 117/78; PULSE 110; RESP 20; TEMP 97.2; O2SAT 97
--- NOTE | 2017-03-12 14:22 | HHI.PR ---
Subjective Remarks Patient is very somnolent, he to voice about going right back to sleep, when I asked him about pain he stated "little pain" Nurse was at the bedside stated this is his normal condition as per his ! Blood pressure and heart rate on the higher side Patient resumed on Seroquel Objective Vitals Vital Signs Date Time Temp Pulse Resp B/P (MAP) Pulse Ox O2 Delivery O2 Flow Rate FiO2 03/12/17 12:00 97.2 110 20 117/78 (91) 97 03/12/17 08:00 99.2 91 20 156/78 (104) 96 03/12/17 08:00 Nasal Cannula 2.00 03/12/17 04:57 97.0 92 18 162/93 (116) 96 03/12/17 00:00 97.9 89 18 166/87 (113) 97 03/11/17 23:27 90 03/11/17 20:26 84 03/11/17 20:00 96.5 88 18 142/84 (103) 97 03/11/17 20:00 Nasal Cannula 2.00 03/11/17 16:00 96.9 81 20 151/85 (107) 98 I/O 03/11/17 03/11/17 03/11/17 03/12/17 03/12/17 03/12/17 07:00 15:00 23:00 07:00 15:00 23:00 Intake Total 240 ml 1230 ml 1300 ml 120 ml Output Total 375 ml 200 ml 75 ml Balance -135 ml 1030 ml 1225 ml 120 ml Intake Oral 240 ml 1230 ml 1200 ml 120 ml IV Total 100 ml Output Urine Total 300 ml 200 ml Drainage Total 75 ml 75 ml # Voids 4 Result Diagram: 03/11/1770403/11/17704 Objective Remarks - GENERAL: This is a frail elderly gentleman who is very somnolent- CARDIOVASCULAR: Regular rate and rhythm without murmurs, gallops, or rubs. RESPIRATORY: Fair air entry bilaterally. No wheezes, rales, or rhonchi. GASTROINTESTINAL: Abdomen soft, non-tender, nondistended. Normal active bowel sounds MUSCULOSKELETAL: Extremities without clubbing, cyanosis, or edema. NEURO: Somnolent Procedures Large left thigh hematoma, popliteal aneurysm cannot rule out aneurysmal rupture /hemorrhage OPERATIVE REPORT Pt Name: YAEL SALGADO MR#: [id number] Loc: N03B Attended By: Kelsy Sepulveda MD Patient: YAEL SALGADO Report #: [id number] Electronically Signed: Aisha George MD Patient: YAEL SALGADO Report #: [id number] Electronically Signed: AISHA La MD DATE OF SURGERY: 03/02/2017 PREOPERATIVE DIAGNOSIS: POSTOPERATIVE DIAGNOSIS: OPERATION: SURGEON Dr. Doris Gonzalez ANESTHESIA: General. ESTIMATED BLOOD LOSS: 3 liters. INDICATIONS FOR PROCEDURE: This 81-year-old gentleman fell somewhere in the half-way. To me, unknown circumstances, and developed hematoma of the thigh which turned into compartment syndrome. Orthopedic was consulted to evaluate the patient. The patient was noted to have large hematoma. 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 The patient was then taken to the OR for fasciotomy and evacuation of hematoma. However, in the process the aneurysm ruptured or probably more likely the fact that this was a ruptured aneurysm, became evident and the patient started bleeding. Vascular surgery got involved including Dr. Harris, and then I took over from him, about 30 minutes into the case. DESCRIPTION OF PROCEDURE: The patient was prepped and draped in the usual fashion. Apparently by Dr. Gonzalez, a lateral incision was made on the thigh which decompressed the compartment and then a medial incision, and when blood started coming out, this patient had a ruptured aneurysm. I scrubbed in about half hour into the case at which point Dr. Harris was exposing the popliteal vessel successfully. I then placed the large Weitlaner and some Olivier's, and examined the area. The tourniquet would not hold, so I removed the tourniquet, extended the incision proximally and held a pressure on the opening of the vessel. The vessel is now explored. There is a ruptured aneurysm in the back wall of the vessel is noted. This measured about 3 cm or so in length. Distally the vessel does not look that bad. I passed the Pooja catheter down and it goes into one of the vessels, probably posterior tibial artery. There is no clot in it. The patient was initially given PCC because of the Factor X inhibitor aboard and then apparently heparin later on. The proximal vessel is now examined. This is completely a torn and ratty vessel with barely any wall. Apparently somebody was here before because there is old Mersilene and Ethibond stitches in here, probably 15 to 20 years old, something was done here before. At this point, I followed the vessel proximally until I found about 1 cm in diameter vessel, fairly large, which appears to be reasonable in quality. This is half way up the thigh essentially outside the popliteal fossa. Once this is done the vessel, adductor canal is freed up and visualized. A vessel loop is placed around this very carefully, although there is a large amount of dissection here. Finally a Profunda clamp is placed on it, and at this point I removed the rest of this vessel which is dilated because the aneurysm seems to be reaching higher up, and the patient seems to have somewhat of an arteriomegaly judging by the size of his vessels. Once we have proximal and distal end freed up and bleeding is under control, a Franklin-Robbin graft is chosen. There is no 10 millimeter Franklin-Robbin graft. We used 8 millimeter which is fine in this situation. It is sewn first distally with running 5-0 Prolene and the under an angled graft is cut and sewn in proximally with running 5-0 Prolene. Blood flow is reestablished by first allowing graft to flush proximally and washout and then final stitches placed. There is one area of bleeding which is controlled with [id number] with a pledget and this completes this part of the procedure. The patient now has a bounding distal pulse. The area is irrigated with about 3 liters of saline and last liter with antibiotics, and then muscles are approximated with 0 Vicryl. Skin is closed with interrupted 2-0 nylon. The lateral incision that was a fasciotomy, of course, is left open with dressing. A large bore Oscar drain is placed into the popliteal space. The patient tolerated the procedure well and taken to the Recovery Room after surgery. Date of Surgery: Mar 02, 2017 Preoperative Diagnosis: (1) Hematoma of left thigh (2) Compartment syndrome of left lower extremity Postoperative Diagnosis: (1) Arterial rupture (2) Hematoma of left thigh (3) Compartment syndrome of left lower extremity Procedure: Fasciotomy left thigh Anesthesia: Gen. Surgeon: Asif Gonzalez Area Operations Manager(s): OR staff Operation and Findings: Indications: This 81-year-old male who is a half-way resident with dementia and on anticoagulation has had progressive swelling of his left thigh. There is apparently a history of a fall. He presented with increasing swelling and an obvious pain. Compartment pressure measurements by the emergency room staff revealed increased pressures in the posterior compartment. A CT scan did reveal a pseudoaneurysm of the vasculature with a large hematoma. It was felt the patient had a compartment syndrome and a possible vascular injury and he is taken to surgery for fasciotomy. Procedure and findings patient was taken to the operative suite and after undergoing an adequate level of general anesthesia was kept supine on the room table. Left lower extremity was prepped and draped in usual sterile fashion with Betadine. Toe was first focused on the lateral aspect of the thigh where longitudinal incision was made. This was carried down through skin and subcutaneous tense tissue with a knife. There was soft tissue edema and mild hemorrhage noted. The iliotibial band was identified and split longitudinally. The vastus lateralis fascia was identified and split. The muscle appeared viable and minimal swelling in the lateral compartment. Dissection was carried out relate to the septum. This was incised revealing the posterior compartment which also had healthy-appearing muscle tissue. The wound was then packed open. Attention was then focused on the medial aspect with a previous vascular surgery incision was utilized. This was carried down through skin and subcutaneous tense tissue with a knife. There was soft tissue hemorrhage present. Scar tissue was released. The muscular fascia overlying the musculature was incised and there was noted to be a large hematoma in the medial and posterior aspects. When bluntly evacuating the hematoma significant arterial bleeding was encountered. A sterile tourniquet was then applied and the wound packed. Vascular surgery was then emergently consulted and presented to continue with vascular stabilization of the extremity. At the time of this dictation the plan was to do a graft of the artery. The orthopedic portion of the procedure was therefore completed. Asif Gonzalez MD A/P Problem List: (1) Compartment syndrome of left lower extremity ICD Code: T79.A22A - Traumatic compartment syndrome of left lower extremity, initial encounter (2) Hematoma of left thigh ICD Code: S70.12XA - Contusion of left thigh, initial encounter Status: Acute (3) Acute encephalopathy ICD Code: G93.40 - Encephalopathy, unspecified (4) Severe sepsis ICD Code: A41.9 - Sepsis, unspecified organism; R65.20 - Severe sepsis without septic shock (5) Chronic Eliquis use (6) Dementia ICD Code: F03.90 - Unspecified dementia without behavioral disturbance Assessment and Plan 03/12: Patient is very somnolent he was restarted on Seroquel, will continue monitoring I will check ammonia level, CBC BMP, his hemoglobin around 9 A/P: 1. Acute metabolic Encephalopathy/Dementia continue confused. - RESTART HOME MEDS- ADD SEROQUEL 25MG BID has Haldol as needed, continue Percocet for pain 2. 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 Harris CT on admission showed Left thigh hematoma and with popliteal artery aneurysm , on Plavix and Heparin SQ, , followed by Vascular surgery, consult plastic Surgery for lateral thigh fasciotomy site closure and follow-up for patient will need a skin graft on this at some point within next 2-3 weeks 3. Acute on chronic renal failure Improved. 4. Severe sepsis probably infected hematoma on Zosyn blood cultures no growth continue antibiotics. 5. Anemia status post blood loss Coagulopathy due to chronic Eliquis use, status post blood transfusion 8 units of PRBCs and 3 units of FFP. 6. Morbid Obesity weight loss warranted early activity and diet recommended, follow PT recommendations and OT 7. Hypertension just was on Pressors continue mild uncontrolled continue Amlodipine 10 mg daily and follow. 8. Hypophosphatemia replaced 9. GI PROPHYLAXIS- ON H2 SHANNAN Problem Qualifiers (1) Compartment syndrome of left lower extremity: Qualified Codes: T79.A22A - Traumatic compartment syndrome of left lower extremity, initial encounter (2) Hematoma of left thigh: Qualified Codes: S70.12XA - Contusion of left thigh, initial encounter (3) Dementia: Saritha Solano MD Mar 12, 2017 14:22
[2017-03-12 16:00] VITALS: BP 101/71; PULSE 102; PULSE 96; RESP 19; TEMP 98.7; O2SAT 96
--- NOTE | 2017-03-12 16:23 | PD.WCN.NOT ---
Neg Pressure Wound Therapy Wound Location Wound Location: Left Thigh Wound Description Length: ~20cm Width: ~6cm Depth: ~1cm Wound bed appearance: ~40% granulated tissue, ~20% facia , and ~40% muscls tissue.Wound is clean without odor . Drainage is minimal and sero-sanguinous Periwound appearance: Unremarkable Settings Suction: 125 mmHg, Continuous Intensity: Low Other Information: Bridged, Mushroomed Foam type: Black Number of pieces: 1 Additonal Information Patient seen on for Wound VAC dressing change. Drainage container had ~ 350ml of sero-sanguinous drainage.Removed canister and replaced with new drainage canister. Removed wound VAC in place to L lateral thigh to reveal wound. Wound measurements and description noted above. Cleansed wound with normal saline and applied skin prep to periwound. before applying one large piece of black granufoam to wound bed and securing with VAC drape.Applied VAC drape and bridged to Anterior L thigh. Bridged one piece of granufoam from wound bed to L anterior thigh. Applied mushroom cap of black granufoam to L anterior thigh bridged granufoam with attached Sensi trac pad. Wound VAC suctioning at 125 mm/hg continuous low suction with low leak rate. Wound VAC dressing change completed with Elizabeth GILLIS. Elizabeth GILLIS changed dressing to L medial thigh. Cleansing area with normal saline and patting dry. Applied maxorb II over moderately draining areas on incision, covered with ABD pads and secured with paper tape. minimal amount of paper tape was used to secure dressing due to adhesive irritation. Skin prep was applied before securing dressing with paper tape. Edna Alfonso YEISONN Mar 12, 2017 16:23
--- NOTE | 2017-03-12 19:33 | PD.CAR.PN ---
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 Patient sustaining massive hemorrhage and underwent resection of popliteal artery aneurysm with [place]-Robbin graft placement and thigh fasciotomy This morning foot is warm with dopplerable dorsalis pedis and posterior tibial pulses Patient does not have compartment syndrome in the calf but should watch carefully for the same Large amount of blood and blood products have been administered which will likely cause some degree of ARDS so any decision to extubate the patient has to be weighed against the chance of late ARDS Large Hemovac drain was placed during surgery but patient reported out this morning so with done with that Once patient is extubated he'll need the extensive physical therapy Prior to surgery patient was on factor X a inhibitor for possibly atrial fibrillation but currently patient is in sinus rhythm. Continue care 03/04/17 Patient doing really well at this time He was extubated successfully yesterday Left leg is nice and warm and patient has bounding posterior tibial and dorsalis pedis pulse at this point Medial incisions and dry clean with no signs of infection Lateral left thigh fasciotomy is draining much less and dressing changes ordered Plan Advanced to diet Aggressive PT OT Transfer to floor Patient will need long-term placement in face of dementia and resistance 03/05/17 Patient doing very well at this time Incision is clean and dry with minimal drainage Patient has bounding distal pulses and foot is warm. Calf is expectedly swollen as a result the reperfusion injury but patient does not have compartment syndrome. Fasciotomy site is clean Consult plastic surgery for lateral thigh fasciotomy site closure and follow-up for patient will need a skin graft on this at some point within next 2-3 weeks 03/12/17 Incision is clean and dry patient has good distal flow Swelling of the leg is slowly decreasing Fasciotomy site is clean and when plastic surgery is ready it can be grafted Nothing to add from surgical point Stitches will have to remain in for another 10 days Objective: Vital Signs Date Time Temp Pulse Resp B/P (MAP) Pulse Ox O2 Delivery O2 Flow Rate FiO2 03/12/17 16:00 98.7 102 19 101/71 (81) 96 03/12/17 16:00 96 03/12/17 12:00 97.2 110 20 117/78 (91) 97 03/12/17 08:00 99.2 91 20 156/78 (104) 96 03/12/17 08:00 Nasal Cannula 2.00 03/12/17 04:57 97.0 92 18 162/93 (116) 96 03/12/17 00:00 97.9 89 18 166/87 (113) 97 03/11/17 23:27 90 03/11/17 20:26 84 03/11/17 20:00 96.5 88 18 142/84 (103) 97 03/11/17 20:00 Nasal Cannula 2.00 Result Diagram: 03/11/17 0705 03/11/17 0705 Christiano George MD Mar 12, 2017 19:33
[2017-03-12 20:00] VITALS: BP 153/89; PULSE 82; PULSE 84; RESP 16; TEMP 96.1; O2SAT 93
[2017-03-12] MEDS: ESCITALOPRAM OXALATE 10 MG TAB PO SCH (21:37)
[2017-03-13] VITALS: BP 154/81; PULSE 89; PULSE 90; RESP 16; TEMP 97.8; O2SAT 97
[2017-03-13] MEDS: HEPARIN SODIUM - SQ 10,000 UNITS/ML VIAL SQ SCH ×3 (02:15→16:22)
[2017-03-13] MEDS: PIPERACILLIN/TAZ 3.375 GM VIAL 3.375 GM in SODIUM CHLORIDE 0.9% INJ 100 ML IV SCH (02:15)
[2017-03-13 04:00] VITALS: BP 141/96; PULSE 80; PULSE 94; RESP 16; TEMP 97.5; O2SAT 98
[2017-03-13 08:00] VITALS: BP 142/92; PULSE 97; PULSE 98; RESP 16; TEMP 97.6; O2SAT 97
[2017-03-13 08:16] LABS: AUTOMATED NEUTROPHIL # 9.2 TH/MM3 (1.8-7.7); BASOPHIL # 0.1 TH/MM3 (0-0.2); BASOPHIL % 0.8 % (0.0-2.0); EOSINOPHIL # 0.3 TH/MM3 (0-0.4); EOSINOPHIL % 2.3 % (0.0-4.0); HEMATOCRIT 30.9 % (39.0-51.0); HEMO FLAGS DIFF FINAL; LYMPH % 7.6 % (9.0-44.0); LYMPHOCYTE # 0.9 TH/MM3 (1.0-4.8); MEAN CELL VOLUME 89.8 FL (80.0-100.0); MEAN CORPUSCULAR HEMOGLOBIN 29.6 PG (27.0-34.0); MEAN CORPUSCULAR HGB CONC 32.9 % (32.0-36.0); MONO % 9.3 % (0.0-8.0); PLATELET COUNT 484 TH/MM3 (150-450); RED BLOOD COUNT 3.43 MIL/MM3 (4.50-5.90); RED CELL DISTRIBUTION WIDTH 15.7 % (11.6-17.2); WHITE BLOOD COUNT 11.5 TH/MM3 (4.0-11.0)
[2017-03-13] MEDS: PIPERACIL-TAZO 3.375 GM PREMIX 50 ML IV SCH ×3 (08:27→19:45)
[2017-03-13] MEDS: DOCUSATE SODIUM 50 MG/SENNA 8.6 MG TAB PO SCH ×2 (08:27→19:44)
[2017-03-13] MEDS: CHOLECALCIFEROL (VIT D3) 1000 UNIT TAB PO SCH (08:27)
[2017-03-13] MEDS: POLYSACCHARIDE IRON COMPLEX 150 MG CAP PO SCH ×2 (08:28→19:45)
[2017-03-13] MEDS: MEMANTINE HCL 10 MG TAB PO SCH ×2 (08:28→19:44)
[2017-03-13] MEDS: LORATADINE 10 MG TAB PO SCH (08:28)
[2017-03-13] MEDS: QUEtiapine FUMARATE 25 MG TAB PO SCH ×2 (08:28→19:44)
[2017-03-13] MEDS: CLOPIDOGREL 75 MG TAB PO SCH (08:28)
[2017-03-13] MEDS: DIVALPROEX SODIUM SPRINKLES 125 MG CAP PO SCH ×3 (08:28→19:45)
[2017-03-13] MEDS: FAMOTIDINE 20 MG TAB PO SCH ×2 (08:29→19:44)
[2017-03-13 08:45] LABS: BICARBONATE 26.2 MEQ/L (21.0-32.0); POTASSIUM 3.7 MEQ/L (3.5-5.1)
[2017-03-13 12:00] VITALS: BP 148/90; PULSE 85; RESP 16; TEMP 98.5; O2SAT 96
--- NOTE | 2017-03-13 15:08 | HHI.PR ---
Subjective Remarks Patient resting in bed he is demented, or historian, he does say "I do have pain "but he doesn't specify Objective Vitals Vital Signs Date Time Temp Pulse Resp B/P (MAP) Pulse Ox O2 Delivery O2 Flow Rate FiO2 03/13/17 12:00 98.5 85 16 148/90 (109) 96 03/13/17 08:00 2 Nasal Cannula 03/13/17 08:00 97 03/13/17 08:00 97.6 98 16 142/92 (109) 97 03/13/17 04:00 80 03/13/17 04:00 97.5 94 16 141/96 (111) 98 03/13/17 00:00 97.8 89 16 154/81 (105) 97 03/13/17 00:00 90 03/12/17 20:00 Nasal Cannula 2.00 03/12/17 20:00 84 03/12/17 20:00 96.1 82 16 153/89 (110) 93 03/12/17 16:00 98.7 102 19 101/71 (81) 96 03/12/17 16:00 96 I/O 03/12/17 03/12/17 03/12/17 03/13/17 03/13/17 03/13/17 07:00 15:00 23:00 07:00 15:00 23:00 Intake Total 120 ml 960 ml 50 ml Balance 120 ml 960 ml 50 ml Intake Oral 120 ml 960 ml IV Total 50 ml # Voids 4 2 # Bowel Movements 2 Result Diagram: 03/13/1745 03/13/17 0645 Objective Remarks - GENERAL: This is a frail elderly gentleman who is very somnolent- CARDIOVASCULAR: Regular rate and rhythm without murmurs, gallops, or rubs. RESPIRATORY: Fair air entry bilaterally. No wheezes, rales, or rhonchi. GASTROINTESTINAL: Abdomen soft, non-tender, nondistended. Normal active bowel sounds MUSCULOSKELETAL: Extremities without clubbing, cyanosis, or edema. NEURO: Somnolent Procedures Large left thigh hematoma, popliteal aneurysm cannot rule out aneurysmal rupture /hemorrhage OPERATIVE REPORT Pt Name: YAEL SALGADO MR#: [id number] Loc: N03B Attended By: Kelsy Sepulveda MD Patient: YAEL SALGADO Report #: [id number] Electronically Signed: Aisha George MD Patient: YAEL SALGADO Report #: [id number] Electronically Signed: AISHA La MD DATE OF SURGERY: 03/02/2017 PREOPERATIVE DIAGNOSIS: POSTOPERATIVE DIAGNOSIS: OPERATION: SURGEON Dr. Doris Gonzalez ANESTHESIA: General. ESTIMATED BLOOD LOSS: 3 liters. INDICATIONS FOR PROCEDURE: This 81-year-old gentleman fell [facility] in the [facility]. To me, unknown circumstances, and developed hematoma of the thigh which turned into compartment syndrome. Orthopedic was consulted to evaluate the patient. The patient was noted to have large hematoma. 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 The patient was then taken to the OR for fasciotomy and evacuation of hematoma. However, in the process the aneurysm ruptured or probably more likely the fact that this was a ruptured aneurysm, became evident and the patient started bleeding. Vascular surgery got involved including Dr. Harris, and then I took over from him, about 30 minutes into the case. DESCRIPTION OF PROCEDURE: The patient was prepped and draped in the usual fashion. Apparently by Dr. Gonzalez, a lateral incision was made on the thigh which decompressed the compartment and then a medial incision, and when blood started coming out, this patient had a ruptured aneurysm. I scrubbed in about half hour into the case at which point Dr. Harris was exposing the popliteal vessel successfully. I then placed the large Weitlaner and some Olivier's, and examined the area. The tourniquet would not hold, so I removed the tourniquet, extended the incision proximally and held a pressure on the opening of the vessel. The vessel is now explored. There is a ruptured aneurysm in the back wall of the vessel is noted. This measured about 3 cm or so in length. Distally the vessel does not look that bad. I passed the Pooja catheter down and it goes into one of the vessels, probably posterior tibial artery. There is no clot in it. The patient was initially given PCC because of the Factor X inhibitor aboard and then apparently heparin later on. The proximal vessel is now examined. This is completely a torn and ratty vessel with barely any wall. Apparently somebody was here before because there is old Mersilene and Ethibond stitches in here, probably 15 to 20 years old, something was done here before. At this point, I followed the vessel proximally until I found about 1 cm in diameter vessel, fairly large, which appears to be reasonable in quality. This is half way up the thigh essentially outside the popliteal fossa. Once this is done the vessel, adductor canal is freed up and visualized. A vessel loop is placed around this very carefully, although there is a large amount of dissection here. Finally a Profunda clamp is placed on it, and at this point I removed the rest of this vessel which is dilated because the aneurysm seems to be reaching higher up, and the patient seems to have somewhat of an arteriomegaly judging by the size of his vessels. Once we have proximal and distal end freed up and bleeding is under control, a [place]Rob[place] graft is chosen. There is no 10 millimeter [place]Rob[place] graft. We used 8 millimeter which is fine in this situation. It is sewn first distally with running 5-0 Prolene and the under an angled graft is cut and sewn in proximally with running 5-0 Prolene. Blood flow is reestablished by first allowing graft to flush proximally and washout and then final stitches placed. There is one area of bleeding which is controlled with [id number] with a pledget and this completes this part of the procedure. The patient now has a bounding distal pulse. The area is irrigated with about 3 liters of saline and last liter with antibiotics, and then muscles are approximated with 0 Vicryl. Skin is closed with interrupted 2-0 nylon. The lateral incision that was a fasciotomy, of course, is left open with dressing. A large bore Oscar drain is placed into the popliteal space. The patient tolerated the procedure well and taken to the Recovery Room after surgery. Date of Surgery: Mar 02, 2017 Preoperative Diagnosis: (1) Hematoma of left thigh (2) Compartment syndrome of left lower extremity Postoperative Diagnosis: (1) Arterial rupture (2) Hematoma of left thigh (3) Compartment syndrome of left lower extremity Procedure: Fasciotomy left thigh Anesthesia: Gen. Surgeon: Asif Gonzalez Boat Cleaner(s): OR staff Operation and Findings: Indications: This 81-year-old male who is a [facility] resident with dementia and on anticoagulation has had progressive swelling of his left thigh. There is apparently a history of a fall. He presented with increasing swelling and an obvious pain. Compartment pressure measurements by the emergency room staff revealed increased pressures in the posterior compartment. A CT scan did reveal a pseudoaneurysm of the vasculature with a large hematoma. It was felt the patient had a compartment syndrome and a possible vascular injury and he is taken to surgery for fasciotomy. Procedure and findings patient was taken to the operative suite and after undergoing an adequate level of general anesthesia was kept supine on the room table. Left lower extremity was prepped and draped in usual sterile fashion with Betadine. Toe was first focused on the lateral aspect of the thigh where longitudinal incision was made. This was carried down through skin and subcutaneous tense tissue with a knife. There was soft tissue edema and mild hemorrhage noted. The iliotibial band was identified and split longitudinally. The vastus lateralis fascia was identified and split. The muscle appeared viable and minimal swelling in the lateral compartment. Dissection was carried out relate to the septum. This was incised revealing the posterior compartment which also had healthy-appearing muscle tissue. The wound was then packed open. Attention was then focused on the medial aspect with a previous vascular surgery incision was utilized. This was carried down through skin and subcutaneous tense tissue with a knife. There was soft tissue hemorrhage present. Scar tissue was released. The muscular fascia overlying the musculature was incised and there was noted to be a large hematoma in the medial and posterior aspects. When bluntly evacuating the hematoma significant arterial bleeding was encountered. A sterile tourniquet was then applied and the wound packed. Vascular surgery was then emergently consulted and presented to continue with vascular stabilization of the extremity. At the time of this dictation the plan was to do a graft of the artery. The orthopedic portion of the procedure was therefore completed. Asif Gonzalez MD A/P Problem List: (1) Compartment syndrome of left lower extremity ICD Code: T79.A22A - Traumatic compartment syndrome of left lower extremity, initial encounter (2) Hematoma of left thigh ICD Code: S70.12XA - Contusion of left thigh, initial encounter Status: Acute (3) Acute encephalopathy ICD Code: G93.40 - Encephalopathy, unspecified (4) Severe sepsis ICD Code: A41.9 - Sepsis, unspecified organism; R65.20 - Severe sepsis without septic shock (5) Chronic Eliquis use (6) Dementia ICD Code: F03.90 - Unspecified dementia without behavioral disturbance Assessment and Plan 03/12: Patient is very somnolent he was restarted on Seroquel, will continue monitoring I will check ammonia level, CBC BMP, his hemoglobin around 9 03/13: Continue current care, monitor mental status, monitor clinically check ammonia level CMP in a.m., appreciate Dr. Forman recommendation keep stitches for another 10 days A/P: 1. Acute metabolic Encephalopathy/Dementia continue confused. - RESTART HOME MEDS- ADD SEROQUEL 25MG BID has Haldol as needed, continue Percocet for pain 2. 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 Harris CT on admission showed Left thigh hematoma and with popliteal artery aneurysm , on Plavix and Heparin SQ, , followed by Vascular surgery, consult plastic Surgery for lateral thigh fasciotomy site closure and follow-up for patient will need a skin graft on this at some point within next 2-3 weeks 3. Acute on chronic renal failure Improved. 4. Severe sepsis probably infected hematoma on Zosyn blood cultures no growth continue antibiotics. 5. Anemia status post blood loss Coagulopathy due to chronic Eliquis use, status post blood transfusion 8 units of PRBCs and 3 units of FFP. 6. Morbid Obesity weight loss warranted early activity and diet recommended, follow PT recommendations and OT 7. Hypertension just was on Pressors continue mild uncontrolled continue Amlodipine 10 mg daily and follow. 8. Hypophosphatemia replaced 9. GI PROPHYLAXIS- ON H2 SHANNAN Problem Qualifiers (1) Compartment syndrome of left lower extremity: Qualified Codes: T79.A22A - Traumatic compartment syndrome of left lower extremity, initial encounter (2) Hematoma of left thigh: Qualified Codes: S70.12XA - Contusion of left thigh, initial encounter (3) Dementia: Saritha Solano MD Mar 13, 2017 15:08
[2017-03-13 16:00] VITALS: BP 174/83; PULSE 86; RESP 15; TEMP 97.9; O2SAT 97
[2017-03-13] MEDS: oxyCODONE/ACETAMINOPHEN 5 MG/325 MG TAB PO PRN ×2 (16:22→22:29)
[2017-03-13] MEDS: MORPHINE SULFATE 2 MG/ML INJ IV PUSH PRN (18:22)
[2017-03-13] MEDS: ESCITALOPRAM OXALATE 10 MG TAB PO SCH (19:44)
[2017-03-13 20:00] VITALS: BP 130/85; PULSE 98; RESP 18; TEMP 96.9; O2SAT 98
[2017-03-14] VITALS: BP 123/76; PULSE 84; RESP 17; TEMP 96.9; O2SAT 96
[2017-03-14] MEDS: PIPERACIL-TAZO 3.375 GM PREMIX 50 ML IV SCH ×4 (02:39→22:28)
[2017-03-14] MEDS: HEPARIN SODIUM - SQ 10,000 UNITS/ML VIAL SQ SCH ×3 (02:40→16:26)
[2017-03-14] MEDS: CHLORHEXIDINE GLUCONATE 2 % 1 PACK (2 CLOTHS) TOP SCH (02:44)
[2017-03-14 04:00] VITALS: BP 134/71; PULSE 83; RESP 17; TEMP 96.8; O2SAT 98
[2017-03-14] MEDS: DOCUSATE SODIUM 50 MG/SENNA 8.6 MG TAB PO SCH ×2 (07:40→21:00)
[2017-03-14] MEDS: DIVALPROEX SODIUM SPRINKLES 125 MG CAP PO SCH ×3 (07:40→22:29)
[2017-03-14] MEDS: QUEtiapine FUMARATE 25 MG TAB PO SCH ×2 (07:40→22:29)
[2017-03-14] MEDS: MEMANTINE HCL 10 MG TAB PO SCH ×2 (07:41→22:29)
[2017-03-14] MEDS: LORATADINE 10 MG TAB PO SCH (07:41)
[2017-03-14] MEDS: CHOLECALCIFEROL (VIT D3) 1000 UNIT TAB PO SCH (07:41)
[2017-03-14] MEDS: CLOPIDOGREL 75 MG TAB PO SCH (07:41)
[2017-03-14] MEDS: FAMOTIDINE 20 MG TAB PO SCH ×2 (07:41→22:29)
[2017-03-14] MEDS: POLYSACCHARIDE IRON COMPLEX 150 MG CAP PO SCH ×2 (07:41→22:30)
[2017-03-14 08:00] VITALS: BP 167/88; PULSE 80; PULSE 83; RESP 17; TEMP 97.5; O2SAT 96
[2017-03-14 12:00] VITALS: BP 137/77; PULSE 86; RESP 16; TEMP 98.8; O2SAT 97
[2017-03-14 12:33] LABS: ALT (GPT) 44 U/L (12-78); ANION GAP 6 MEQ/L (5-15); AST (GOT) 35 U/L (15-37); BICARBONATE 29.2 MEQ/L (21.0-32.0); BLOOD UREA NITROGEN 20 MG/DL (7-18); CHLORIDE 108 MEQ/L (98-107); GLOMERULAR FILTRATION RATE 79 ML/MIN (>89); POTASSIUM 3.8 MEQ/L (3.5-5.1); SODIUM (NA) 143 MEQ/L (136-145)
[2017-03-14 12:34] LABS: ALKALINE PHOSPHATASE 93 U/L (45-117); TOTAL BILIRUBIN ADULT 0.6 MG/DL (0.2-1.0)
[2017-03-14 16:00] VITALS: BP 154/79; PULSE 86; RESP 18; TEMP 98.4; O2SAT 95
--- NOTE | 2017-03-14 16:56 | HHI.PR ---
Subjective Remarks And seems to be more awake and alert today he was able to know the state, the year, the month, but not the place Ammonia level was 45 today, CMP normalized Objective Vitals Vital Signs Date Time Temp Pulse Resp B/P (MAP) Pulse Ox O2 Delivery O2 Flow Rate FiO2 03/14/17 12:00 98.8 86 16 137/77 (97) 97 03/14/17 08:00 97.5 83 17 167/88 (114) 96 03/14/17 08:00 80 03/14/17 04:00 96.8 83 17 134/71 (92) 98 03/14/17 00:00 96.9 84 17 123/76 (92) 96 03/13/17 23:29 18 03/13/17 20:00 96.9 98 18 130/85 (100) 98 03/13/17 20:00 Nasal Cannula 2.00 03/13/17 20:00 98 I/O 03/13/17 03/13/17 03/13/17 03/14/17 03/14/17 03/14/17 07:00 15:00 23:00 07:00 15:00 23:00 Intake Total 50 ml 1160 ml 480 ml 50 ml Output Total 500 ml Balance 50 ml 660 ml 480 ml 50 ml Intake Oral 1160 ml 480 ml IV Total 50 ml 50 ml Output Urine Total 500 ml # Voids 2 2 3 # Bowel Movements 2 1 Result Diagram: 03/13/17 0645 03/14/17 1150 Objective Remarks - GENERAL: This is a frail elderly gentleman who is very somnolent- CARDIOVASCULAR: Regular rate and rhythm without murmurs, gallops, or rubs. RESPIRATORY: Fair air entry bilaterally. No wheezes, rales, or rhonchi. GASTROINTESTINAL: Abdomen soft, non-tender, nondistended. Normal active bowel sounds MUSCULOSKELETAL: Extremities without clubbing, cyanosis, or edema. NEURO: Somnolent Procedures Large left thigh hematoma, popliteal aneurysm cannot rule out aneurysmal rupture /hemorrhage OPERATIVE REPORT Pt Name: YAEL SALGADO MR#: [id number] Loc: N03B Attended By: Kelsy Sepulveda MD Patient: YAEL SALGADO Report #: [id number] Electronically Signed: Aisha George MD Patient: YAEL SALGADO Report #: [id number] Electronically Signed: AISHA La MD DATE OF SURGERY: 03/02/2017 PREOPERATIVE DIAGNOSIS: POSTOPERATIVE DIAGNOSIS: OPERATION: SURGEON Dr. Doris Gonzalez ANESTHESIA: General. ESTIMATED BLOOD LOSS: 3 liters. INDICATIONS FOR PROCEDURE: This 81-year-old gentleman fell somewhere in the [facility]. To me, unknown circumstances, and developed hematoma of the thigh which turned into compartment syndrome. Orthopedic was consulted to evaluate the patient. The patient was noted to have large hematoma. 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 The patient was then taken to the OR for fasciotomy and evacuation of hematoma. However, in the process the aneurysm ruptured or probably more likely the fact that this was a ruptured aneurysm, became evident and the patient started bleeding. Vascular surgery got involved including Dr. Harris, and then I took over from him, about 30 minutes into the case. DESCRIPTION OF PROCEDURE: The patient was prepped and draped in the usual fashion. Apparently by Dr. Gonzalez, a lateral incision was made on the thigh which decompressed the compartment and then a medial incision, and when blood started coming out, this patient had a ruptured aneurysm. I scrubbed in about half hour into the case at which point Dr. Harris was exposing the popliteal vessel successfully. I then placed the large Weitlaner and some Olivier's, and examined the area. The tourniquet would not hold, so I removed the tourniquet, extended the incision proximally and held a pressure on the opening of the vessel. The vessel is now explored. There is a ruptured aneurysm in the back wall of the vessel is noted. This measured about 3 cm or so in length. Distally the vessel does not look that bad. I passed the Pooja catheter down and it goes into one of the vessels, probably posterior tibial artery. There is no clot in it. The patient was initially given PCC because of the Factor X inhibitor aboard and then apparently heparin later on. The proximal vessel is now examined. This is completely a torn and ratty vessel with barely any wall. Apparently somebody was here before because there is old Mersilene and Ethibond stitches in here, probably 15 to 20 years old, something was done here before. At this point, I followed the vessel proximally until I found about 1 cm in diameter vessel, fairly large, which appears to be reasonable in quality. This is half way up the thigh essentially outside the popliteal fossa. Once this is done the vessel, adductor canal is freed up and visualized. A vessel loop is placed around this very carefully, although there is a large amount of dissection here. Finally a Profunda clamp is placed on it, and at this point I removed the rest of this vessel which is dilated because the aneurysm seems to be reaching higher up, and the patient seems to have somewhat of an arteriomegaly judging by the size of his vessels. Once we have proximal and distal end freed up and bleeding is under control, a [place]Rob[place] graft is chosen. There is no [address] graft. We used 8 millimeter which is fine in this situation. It is sewn first distally with running 5-0 Prolene and the under an angled graft is cut and sewn in proximally with running 5-0 Prolene. Blood flow is reestablished by first allowing graft to flush proximally and washout and then final stitches placed. There is one area of bleeding which is controlled with [id number] with a pledget and this completes this part of the procedure. The patient now has a bounding distal pulse. The area is irrigated with about 3 liters of saline and last liter with antibiotics, and then muscles are approximated with 0 Vicryl. Skin is closed with interrupted 2-0 nylon. The lateral incision that was a fasciotomy, of course, is left open with dressing. A large bore Oscar drain is placed into the popliteal space. The patient tolerated the procedure well and taken to the Recovery Room after surgery. Date of Surgery: Mar 02, 2017 Preoperative Diagnosis: (1) Hematoma of left thigh (2) Compartment syndrome of left lower extremity Postoperative Diagnosis: (1) Arterial rupture (2) Hematoma of left thigh (3) Compartment syndrome of left lower extremity Procedure: Fasciotomy left thigh Anesthesia: Gen. Surgeon: Asif Gonzalez Party Plan Salesperson(s): OR staff Operation and Findings: Indications: This 81-year-old male who is a [facility] resident with dementia and on anticoagulation has had progressive swelling of his left thigh. There is apparently a history of a fall. He presented with increasing swelling and an obvious pain. Compartment pressure measurements by the emergency room staff revealed increased pressures in the posterior compartment. A CT scan did reveal a pseudoaneurysm of the vasculature with a large hematoma. It was felt the patient had a compartment syndrome and a possible vascular injury and he is taken to surgery for fasciotomy. Procedure and findings patient was taken to the operative suite and after undergoing an adequate level of general anesthesia was kept supine on the room table. Left lower extremity was prepped and draped in usual sterile fashion with Betadine. Toe was first focused on the lateral aspect of the thigh where longitudinal incision was made. This was carried down through skin and subcutaneous tense tissue with a knife. There was soft tissue edema and mild hemorrhage noted. The iliotibial band was identified and split longitudinally. The vastus lateralis fascia was identified and split. The muscle appeared viable and minimal swelling in the lateral compartment. Dissection was carried out relate to the septum. This was incised revealing the posterior compartment which also had healthy-appearing muscle tissue. The wound was then packed open. Attention was then focused on the medial aspect with a previous vascular surgery incision was utilized. This was carried down through skin and subcutaneous tense tissue with a knife. There was soft tissue hemorrhage present. Scar tissue was released. The muscular fascia overlying the musculature was incised and there was noted to be a large hematoma in the medial and posterior aspects. When bluntly evacuating the hematoma significant arterial bleeding was encountered. A sterile tourniquet was then applied and the wound packed. Vascular surgery was then emergently consulted and presented to continue with vascular stabilization of the extremity. At the time of this dictation the plan was to do a graft of the artery. The orthopedic portion of the procedure was therefore completed. Asif Gonzalez MD A/P Problem List: (1) Compartment syndrome of left lower extremity ICD Code: T79.A22A - Traumatic compartment syndrome of left lower extremity, initial encounter (2) Hematoma of left thigh ICD Code: S70.12XA - Contusion of left thigh, initial encounter Status: Acute (3) Acute encephalopathy ICD Code: G93.40 - Encephalopathy, unspecified (4) Severe sepsis ICD Code: A41.9 - Sepsis, unspecified organism; R65.20 - Severe sepsis without septic shock (5) Chronic Eliquis use (6) Dementia ICD Code: F03.90 - Unspecified dementia without behavioral disturbance Assessment and Plan 03/12: Patient is very somnolent he was restarted on Seroquel, will continue monitoring I will check ammonia level, CBC BMP, his hemoglobin around 9 03/13: Continue current care, monitor mental status, monitor clinically check ammonia level CMP in a.m., appreciate Dr. Forman recommendation keep stitches for another 10 days 03/14: Mental status slightly better, ammonia level 45, will add lactulose, monitor BMP, follow with surgical team for further recommendation A/P: 1. Acute metabolic Encephalopathy/Dementia continue confused. - RESTART HOME MEDS- ADD SEROQUEL 25MG BID has Haldol as needed, continue Percocet for pain 2. 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 Harris CT on admission showed Left thigh hematoma and with popliteal artery aneurysm , on Plavix and Heparin SQ, , followed by Vascular surgery, consult plastic Surgery for lateral thigh fasciotomy site closure and follow-up for patient will need a skin graft on this at some point within next 2-3 weeks 3. Acute on chronic renal failure Improved. 4. Severe sepsis probably infected hematoma on Zosyn blood cultures no growth continue antibiotics. 5. Anemia status post blood loss Coagulopathy due to chronic Eliquis use, status post blood transfusion 8 units of PRBCs and 3 units of FFP. 6. Morbid Obesity weight loss warranted early activity and diet recommended, follow PT recommendations and OT 7. Hypertension just was on Pressors continue mild uncontrolled continue Amlodipine 10 mg daily and follow. 8. Hypophosphatemia replaced 9. GI PROPHYLAXIS- ON H2 SHANNAN Problem Qualifiers (1) Compartment syndrome of left lower extremity: Qualified Codes: T79.A22A - Traumatic compartment syndrome of left lower extremity, initial encounter (2) Hematoma of left thigh: Qualified Codes: S70.12XA - Contusion of left thigh, initial encounter (3) Dementia: Saritha Solano MD Mar 14, 2017 16:56
[2017-03-14 20:00] VITALS: BP 155/74; PULSE 85; RESP 17; TEMP 98.6; O2SAT 95
[2017-03-14] MEDS: oxyCODONE/ACETAMINOPHEN 5 MG/325 MG TAB PO PRN (22:28)
[2017-03-14] MEDS: ESCITALOPRAM OXALATE 10 MG TAB PO SCH (22:29)
[2017-03-15] VITALS (8 sets, daily range): BP systolic 116–161; BP diastolic 62–90; PULSE 74–87; RESP 17–20; TEMP 96.4–98.7; O2SAT 96–98
[2017-03-15] MEDS: HEPARIN SODIUM - SQ 10,000 UNITS/ML VIAL SQ SCH ×3 (02:00→17:58)
[2017-03-15] MEDS: PIPERACIL-TAZO 3.375 GM PREMIX 50 ML IV SCH ×4 (02:00→20:00)
[2017-03-15] MEDS: CHLORHEXIDINE GLUCONATE 2 % 1 PACK (2 CLOTHS) TOP SCH (04:00)
[2017-03-15] MEDS: CLOPIDOGREL 75 MG TAB PO SCH (08:29)
[2017-03-15] MEDS: DIVALPROEX SODIUM SPRINKLES 125 MG CAP PO SCH ×3 (08:30→20:01)
[2017-03-15] MEDS: QUEtiapine FUMARATE 25 MG TAB PO SCH ×2 (08:30→20:00)
[2017-03-15] MEDS: FAMOTIDINE 20 MG TAB PO SCH ×2 (08:30→20:00)
[2017-03-15] MEDS: MEMANTINE HCL 10 MG TAB PO SCH ×2 (08:30→20:00)
[2017-03-15] MEDS: LORATADINE 10 MG TAB PO SCH (08:30)
[2017-03-15] MEDS: POLYSACCHARIDE IRON COMPLEX 150 MG CAP PO SCH ×2 (08:31→20:00)
[2017-03-15] MEDS: DOCUSATE SODIUM 50 MG/SENNA 8.6 MG TAB PO SCH ×2 (08:31→20:01)
[2017-03-15] MEDS: CHOLECALCIFEROL (VIT D3) 1000 UNIT TAB PO SCH (08:31)
[2017-03-15] MEDS: LACTULOSE SYRUP 20 GM/30 ML CUP PO SCH (12:50)
--- NOTE | 2017-03-15 13:23 | HHI.PR ---
Subjective Remarks laying in bed , reported feeling ok awaiting dressing changes by [facility] Objective Vitals Vital Signs Date Time Temp Pulse Resp B/P (MAP) Pulse Ox O2 Delivery O2 Flow Rate FiO2 03/15/17 12:00 98.4 86 20 116/62 (80) 97 03/15/17 08:30 Nasal Cannula 2.00 03/15/17 08:00 96.4 75 19 155/76 (102) 97 03/15/17 04:38 86 03/15/17 04:00 98.7 76 17 140/78 (98) 98 03/15/17 00:00 98.6 74 17 145/75 (98) 96 03/14/17 20:00 98.6 85 17 155/74 (101) 95 03/14/17 16:00 98.4 86 18 154/79 (104) 95 I/O 03/14/17 03/14/17 03/14/17 03/15/17 03/15/17 03/15/17 07:00 15:00 23:00 07:00 15:00 23:00 Intake Total 480 ml 100 ml 1450 ml 480 ml Output Total 650 ml 840 ml Balance 480 ml 100 ml 800 ml -360 ml Intake Oral 480 ml 1400 ml 480 ml IV Total 100 ml 50 ml Output Urine Total 650 ml 840 ml # Voids 3 1 5 # Bowel Movements 1 Result Diagram: 03/13/17 0645 03/14/17 1150 Objective Remarks - GENERAL: This is a frail elderly gentleman who is very somnolent- CARDIOVASCULAR: Regular rate and rhythm without murmurs, gallops, or rubs. RESPIRATORY: Fair air entry bilaterally. No wheezes, rales, or rhonchi. GASTROINTESTINAL: Abdomen soft, non-tender, nondistended. Normal active bowel sounds MUSCULOSKELETAL: Extremities without clubbing, cyanosis, or edema. 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 Doris Gonzalez ANESTHESIA: General. ESTIMATED BLOOD LOSS: 3 liters. INDICATIONS FOR PROCEDURE: This 81-year-old gentleman fell somewhere in the intermediate. To me, unknown circumstances, and developed hematoma of the thigh which turned into compartment syndrome. Orthopedic was consulted to evaluate the patient. The patient was noted to have large hematoma. 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 The patient was then taken to the OR for fasciotomy and evacuation of hematoma. However, in the process the aneurysm ruptured or probably more likely the fact that this was a ruptured aneurysm, became evident and the patient started bleeding. Vascular surgery got involved including Dr. Harris, and then I took over from him, about 30 minutes into the case. DESCRIPTION OF PROCEDURE: The patient was prepped and draped in the usual fashion. Apparently by Dr. Gonzalez, a lateral incision was made on the thigh which decompressed the compartment and then a medial incision, and when blood started coming out, this patient had a ruptured aneurysm. I scrubbed in about half hour into the case at which point Dr. Harris was exposing the popliteal vessel successfully. I then placed the large Weitlaner and some Olivier's, and examined the area. The tourniquet would not hold, so I removed the tourniquet, extended the incision proximally and held a pressure on the opening of the vessel. The vessel is now explored. There is a ruptured aneurysm in the back wall of the vessel is noted. This measured about 3 cm or so in length. Distally the vessel does not look that bad. I passed the Pooja catheter down and it goes into one of the vessels, probably posterior tibial artery. There is no clot in it. The patient was initially given PCC because of the Factor X inhibitor aboard and then apparently heparin later on. The proximal vessel is now examined. This is completely a torn and ratty vessel with barely any wall. Apparently somebody was here before because there is old Mersilene and Ethibond stitches in here, probably 15 to 20 years old, something was done here before. At this point, I followed the vessel proximally until I found about 1 cm in diameter vessel, fairly large, which appears to be reasonable in quality. This is half way up the thigh essentially outside the popliteal fossa. Once this is done the vessel, adductor canal is freed up and visualized. A vessel loop is placed around this very carefully, although there is a large amount of dissection here. Finally a Profunda clamp is placed on it, and at this point I removed the rest of this vessel which is dilated because the aneurysm seems to be reaching higher up, and the patient seems to have somewhat of an arteriomegaly judging by the size of his vessels. Once we have proximal and distal end freed up and bleeding is under control, a Crumpton-Robbin graft is chosen. There is no 10 millimeter Crumpton-Robbin graft. We used 8 millimeter which is fine in this situation. It is sewn first distally with running 5-0 Prolene and the under an angled graft is cut and sewn in proximally with running 5-0 Prolene. Blood flow is reestablished by first allowing graft to flush proximally and washout and then final stitches placed. There is one area of bleeding which is controlled with [id number] with a pledget and this completes this part of the procedure. The patient now has a bounding distal pulse. The area is irrigated with about 3 liters of saline and last liter with antibiotics, and then muscles are approximated with 0 Vicryl. Skin is closed with interrupted 2-0 nylon. The lateral incision that was a fasciotomy, of course, is left open with dressing. A large bore Oscar drain is placed into the popliteal space. The patient tolerated the procedure well and taken to the Recovery Room after surgery. Date of Surgery: Mar 02, 2017 Preoperative Diagnosis: (1) Hematoma of left thigh (2) Compartment syndrome of left lower extremity Postoperative Diagnosis: (1) Arterial rupture (2) Hematoma of left thigh (3) Compartment syndrome of left lower extremity Procedure: Fasciotomy left thigh Anesthesia: Gen. Surgeon: Asif Gonzalez Header Set Up Operator(s): OR staff Operation and Findings: Indications: This 81-year-old male who is a intermediate resident with dementia and on anticoagulation has had progressive swelling of his left thigh. There is apparently a history of a fall. He presented with increasing swelling and an obvious pain. Compartment pressure measurements by the emergency room staff revealed increased pressures in the posterior compartment. A CT scan did reveal a pseudoaneurysm of the vasculature with a large hematoma. It was felt the patient had a compartment syndrome and a possible vascular injury and he is taken to surgery for fasciotomy. Procedure and findings patient was taken to the operative suite and after undergoing an adequate level of general anesthesia was kept supine on the room table. Left lower extremity was prepped and draped in usual sterile fashion with Betadine. Toe was first focused on the lateral aspect of the thigh where longitudinal incision was made. This was carried down through skin and subcutaneous tense tissue with a knife. There was soft tissue edema and mild hemorrhage noted. The iliotibial band was identified and split longitudinally. The vastus lateralis fascia was identified and split. The muscle appeared viable and minimal swelling in the lateral compartment. Dissection was carried out relate to the septum. This was incised revealing the posterior compartment which also had healthy-appearing muscle tissue. The wound was then packed open. Attention was then focused on the medial aspect with a previous vascular surgery incision was utilized. This was carried down through skin and subcutaneous tense tissue with a knife. There was soft tissue hemorrhage present. Scar tissue was released. The muscular fascia overlying the musculature was incised and there was noted to be a large hematoma in the medial and posterior aspects. When bluntly evacuating the hematoma significant arterial bleeding was encountered. A sterile tourniquet was then applied and the wound packed. Vascular surgery was then emergently consulted and presented to continue with vascular stabilization of the extremity. At the time of this dictation the plan was to do a graft of the artery. The orthopedic portion of the procedure was therefore completed. Asif Gonzalez MD A/P Problem List: (1) Compartment syndrome of left lower extremity ICD Code: T79.A22A - Traumatic compartment syndrome of left lower extremity, initial encounter (2) Hematoma of left thigh ICD Code: S70.12XA - Contusion of left thigh, initial encounter Status: Acute (3) Acute encephalopathy ICD Code: G93.40 - Encephalopathy, unspecified (4) Severe sepsis ICD Code: A41.9 - Sepsis, unspecified organism; R65.20 - Severe sepsis without septic shock (5) Chronic Eliquis use (6) Dementia ICD Code: F03.90 - Unspecified dementia without behavioral disturbance Assessment and Plan 03/15: continue current care , Dr. Ibarra recommendation keep stitches for another 10 days ff ammonia level 45, started on lactulose, monitor BMP, follow with surgical team for further recommendation A/P: 1. Acute metabolic Encephalopathy/Dementia continue confused. - RESTART HOME MEDS- ADD SEROQUEL 25MG BID has Haldol as needed, continue Percocet for pain 2. 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 Harris CT on admission showed Left thigh hematoma and with popliteal artery aneurysm , on Plavix and Heparin SQ, , followed by Vascular surgery, consult plastic Surgery for lateral thigh fasciotomy site closure and follow-up for patient will need a skin graft on this at some point within next 2-3 weeks 3. Acute on chronic renal failure Improved. 4. Severe sepsis probably infected hematoma on Zosyn blood cultures no growth continue antibiotics. 5. Anemia status post blood loss Coagulopathy due to chronic Eliquis use, status post blood transfusion 8 units of PRBCs and 3 units of FFP. 6. Morbid Obesity weight loss warranted early activity and diet recommended, follow PT recommendations and OT 7. Hypertension just was on Pressors continue mild uncontrolled continue Amlodipine 10 mg daily and follow. 8. Hypophosphatemia replaced 9. GI PROPHYLAXIS- ON H2 SHANNAN Problem Qualifiers (1) Compartment syndrome of left lower extremity: Qualified Codes: T79.A22A - Traumatic compartment syndrome of left lower extremity, initial encounter (2) Hematoma of left thigh: Qualified Codes: S70.12XA - Contusion of left thigh, initial encounter (3) Dementia: Saritha Solano MD Mar 15, 2017 13:23
[2017-03-15] MEDS: ESCITALOPRAM OXALATE 10 MG TAB PO SCH (20:00)
[2017-03-16] VITALS (8 sets, daily range): BP systolic 121–168; BP diastolic 82–96; PULSE 68–105; RESP 18–20; TEMP 96.4–99; O2SAT 92–98
[2017-03-16] MEDS: HEPARIN SODIUM - SQ 10,000 UNITS/ML VIAL SQ SCH ×3 (02:14→17:50)
[2017-03-16] MEDS: PIPERACIL-TAZO 3.375 GM PREMIX 50 ML IV SCH ×4 (02:14→20:00)
[2017-03-16] MEDS: CHLORHEXIDINE GLUCONATE 2 % 1 PACK (2 CLOTHS) TOP SCH (04:00)
[2017-03-16] MEDS: MEMANTINE HCL 10 MG TAB PO SCH ×2 (09:42→20:39)
[2017-03-16] MEDS: FAMOTIDINE 20 MG TAB PO SCH ×2 (09:42→20:39)
[2017-03-16] MEDS: CHOLECALCIFEROL (VIT D3) 1000 UNIT TAB PO SCH (09:42)
[2017-03-16] MEDS: QUEtiapine FUMARATE 25 MG TAB PO SCH ×2 (09:42→20:39)
[2017-03-16] MEDS: LACTULOSE SYRUP 20 GM/30 ML CUP PO SCH (09:42)
[2017-03-16] MEDS: DOCUSATE SODIUM 50 MG/SENNA 8.6 MG TAB PO SCH ×2 (09:43→20:39)
[2017-03-16] MEDS: POLYSACCHARIDE IRON COMPLEX 150 MG CAP PO SCH ×2 (09:43→20:39)
[2017-03-16] MEDS: LORATADINE 10 MG TAB PO SCH (09:43)
[2017-03-16] MEDS: CLOPIDOGREL 75 MG TAB PO SCH (09:43)
[2017-03-16] MEDS: DIVALPROEX SODIUM SPRINKLES 125 MG CAP PO SCH ×3 (09:43→20:39)
--- NOTE | 2017-03-16 13:12 | HHI.PR ---
Subjective Remarks No acute changes overnight. Pt reports minimal pain from left lateral thigh wound, which currently has a VAC dressing. Changed by nursing, next one tomorrow. Objective Vital Signs Date Time Temp Pulse Resp B/P (MAP) Pulse Ox O2 Delivery O2 Flow Rate FiO2 03/16/17 11:38 99.0 95 18 136/84 (101) 98 03/16/17 07:32 98.0 90 18 168/96 (120) 95 03/16/17 04:00 68 03/16/17 04:00 98.6 105 20 121/91 (101) 97 03/16/17 00:10 89 03/16/17 00:00 97.5 101 20 155/96 (115) 92 03/15/17 20:12 Nasal Cannula 2.00 03/15/17 20:01 87 03/15/17 20:00 98.6 84 20 161/90 (113) 97 03/15/17 16:00 97.4 86 20 136/80 (98) 98 I/O 03/15/17 03/15/17 03/15/17 03/16/17 03/16/17 03/16/17 07:00 15:00 23:00 07:00 15:00 23:00 Intake Total 480 ml 100 ml 700 ml 240 ml Output Total 840 ml 1400 ml 700 ml 0 ml Balance -360 ml 100 ml -700 ml -460 ml 0 ml Intake Oral 480 ml 600 ml 240 ml IV Total 100 ml 100 ml Output Urine Total 840 ml 1350 ml 700 ml Drainage Total 50 ml 0 ml # Voids 5 # Bowel Movements 0 Result Diagram: 03/13/17 0645 03/14/17 1150 Objective Remarks L MEDIAL incision closed, dressed without strikethrough L LATERAL thigh wound VAC w/ good seal. No signs infection/cellulitis Somnolent, but arousable Not oriented Non labored breathing Assessment and Plan Problem List: (1) H/O fasciotomy ICD Codes: Z98.890 - Other specified postprocedural states (2) Hematoma of left thigh ICD Codes: S70.12XA - Contusion of left thigh, initial encounter Status: Acute (3) Compartment syndrome of left lower extremity ICD Codes: T79.A22A - Traumatic compartment syndrome of left lower extremity, initial encounter Assessment and Plan Discussed w/ nursing to contact me tomorrow during VAC change to see wound Appreciate nutrition recs, pt getting recommended nutritional supplementation. Have tried multiple times over last week to contact the pts son for consent for stsg to L lateral thigh wound, leaving multiple voicemails. Can not proceed without son's consent. Discussed inability to contact pts son/obtain consent with Primary team, Dr. Carnes. If unable to reach pts son, primary team could also consider discharge to pts rehab facility w/ VAC to follow up as an outpt. Problem Qualifiers (1) Hematoma of left thigh: Qualified Codes: S70.12XA - Contusion of left thigh, initial encounter (2) Compartment syndrome of left lower extremity: Qualified Codes: T79.A22A - Traumatic compartment syndrome of left lower extremity, initial encounter Noel Baker MD Mar 16, 2017 13:12
[2017-03-16] MEDS: ESCITALOPRAM OXALATE 10 MG TAB PO SCH (20:39)
--- NOTE | 2017-03-16 22:24 | HHI.PR ---
Subjective Remarks Patient seen this morning around 11 AM. Continues confused. No acute changes per nursing. Objective Vital Signs Date Time Temp Pulse Resp B/P (MAP) Pulse Ox O2 Delivery O2 Flow Rate FiO2 03/16/17 20:00 98.1 88 20 146/91 (109) 95 03/16/17 16:00 96.4 100 19 122/82 (95) 97 03/16/17 11:38 99.0 95 18 136/84 (101) 98 03/16/17 10:00 Nasal Cannula 2.00 03/16/17 07:32 98.0 90 18 168/96 (120) 95 03/16/17 04:00 68 03/16/17 04:00 98.6 105 20 121/91 (101) 97 03/16/17 00:10 89 03/16/17 00:00 97.5 101 20 155/96 (115) 92 I/O 03/15/17 03/15/17 03/15/17 03/16/17 03/16/17 03/16/17 07:00 15:00 23:00 07:00 15:00 23:00 Intake Total 480 ml 100 ml 700 ml 240 ml 410 ml 50 ml Output Total 840 ml 1400 ml 700 ml 0 ml Balance -360 ml 100 ml -700 ml -460 ml 410 ml 50 ml Intake Oral 480 ml 600 ml 240 ml 360 ml IV Total 100 ml 100 ml 50 ml 50 ml Output Urine Total 840 ml 1350 ml 700 ml Drainage Total 50 ml 0 ml # Voids 5 2 # Bowel Movements 0 0 Result Diagram: 03/13/17 0645 03/14/17 1150 Objective Remarks GENERAL: sitting up in bed. Somnolent. SKIN: Warm and dry. HEAD: Normocephalic. EYES: No scleral icterus. No injection or drainage. NECK: Supple, trachea midline. No JVD. CARDIOVASCULAR: Regular rate and rhythm without murmurs, gallops, or rubs. RESPIRATORY: Breath sounds equal bilaterally. No accessory muscle use. GASTROINTESTINAL: Abdomen soft, non-tender, nondistended. MUSCULOSKELETAL: No cyanosis, or edema. BACK: Nontender without obvious deformity. No CVA tenderness. A/P Assessment and Plan 03/16. Continuing current care. Discussed with plastics. Per discussion with family, plastics recommends continuing with wound VAC for left thigh wound.. Can discharge tomorrow. SNF with wound VAC as per plastic surgery recommendations. 03/15: continue current care , Dr. Ibarra recommendation keep stitches for another 10 days ff ammonia level 45, started on lactulose, monitor BMP, follow with surgical team for further recommendation A/P: 1. Acute metabolic Encephalopathy/Dementia continue confused. - RESTART HOME MEDS- ADD SEROQUEL 25MG BID has Haldol as needed, continue Percocet for pain 2. 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 Harris CT on admission showed Left thigh hematoma and with popliteal artery aneurysm , on Plavix and Heparin SQ, , followed by Vascular surgery, consult plastic Surgery for lateral thigh fasciotomy site closure and follow-up for patient will need a skin graft on this at some point within next 2-3 weeks 3. Acute on chronic renal failure Improved. 4. Severe sepsis probably infected hematoma on Zosyn blood cultures no growth continue antibiotics. 5. Anemia status post blood loss Coagulopathy due to chronic Eliquis use, status post blood transfusion 8 units of PRBCs and 3 units of FFP. 6. Morbid Obesity weight loss warranted early activity and diet recommended, follow PT recommendations and OT 7. Hypertension just was on Pressors continue mild uncontrolled continue Amlodipine 10 mg daily and follow. 8. Hypophosphatemia replaced 9. GI PROPHYLAXIS- ON H2 SHANNAN Discharge Planning discharge to SNF tomorrow with wound VAC as per plastic surgery recommendations. Patient will need stitches removed in 9 days. Osman Carnes MD Mar 16, 2017 22:24
[2017-03-16] MEDS: oxyCODONE/ACETAMINOPHEN 5 MG/325 MG TAB PO PRN (22:34)
[2017-03-17] VITALS: BP 124/86; PULSE 115; PULSE 86; RESP 20; TEMP 99.1; O2SAT 92
[2017-03-17] MEDS: HEPARIN SODIUM - SQ 10,000 UNITS/ML VIAL SQ SCH ×2 (02:42→09:52)
[2017-03-17] MEDS: CHLORHEXIDINE GLUCONATE 2 % 1 PACK (2 CLOTHS) TOP SCH (02:42)
[2017-03-17] MEDS: PIPERACIL-TAZO 3.375 GM PREMIX 50 ML IV SCH ×2 (02:42→08:00)
[2017-03-17 04:51] VITALS: BP 143/67; PULSE 85; RESP 20; TEMP 99.3; O2SAT 99
[2017-03-17 08:00] VITALS: BP 118/87; PULSE 86; RESP 18; TEMP 98; O2SAT 94
[2017-03-17 09:11] LABS: AUTOMATED NEUTROPHIL # 6.6 TH/MM3 (1.8-7.7); BASOPHIL # 0.1 TH/MM3 (0-0.2); BASOPHIL % 0.7 % (0.0-2.0); EOSINOPHIL # 0.2 TH/MM3 (0-0.4); EOSINOPHIL % 2.2 % (0.0-4.0); HEMO FLAGS DIFF FINAL; LYMPH % 12.2 % (9.0-44.0); LYMPHOCYTE # 1.1 TH/MM3 (1.0-4.8); MEAN CELL VOLUME 89.7 FL (80.0-100.0); MEAN CORPUSCULAR HEMOGLOBIN 29.8 PG (27.0-34.0); MEAN CORPUSCULAR HGB CONC 33.2 % (32.0-36.0); MONO % 10.7 % (0.0-8.0); NEUT % 74.2 % (16.0-70.0); PLATELET COUNT 431 TH/MM3 (150-450); RED BLOOD COUNT 3.68 MIL/MM3 (4.50-5.90); RED CELL DISTRIBUTION WIDTH 15.4 % (11.6-17.2); WHITE BLOOD COUNT 8.9 TH/MM3 (4.0-11.0)
[2017-03-17 09:29] LABS: BICARBONATE 26.4 MEQ/L (21.0-32.0); MAGNESIUM 2.2 MG/DL (1.5-2.5); POTASSIUM 3.9 MEQ/L (3.5-5.1)
[2017-03-17] MEDS: QUEtiapine FUMARATE 25 MG TAB PO SCH (09:51)
[2017-03-17] MEDS: CHOLECALCIFEROL (VIT D3) 1000 UNIT TAB PO SCH (09:51)
[2017-03-17] MEDS: LACTULOSE SYRUP 20 GM/30 ML CUP PO SCH (09:51)
[2017-03-17] MEDS: FAMOTIDINE 20 MG TAB PO SCH (09:51)
[2017-03-17] MEDS: CLOPIDOGREL 75 MG TAB PO SCH (09:51)
[2017-03-17] MEDS: MORPHINE SULFATE 2 MG/ML INJ IV PUSH PRN (09:51)
[2017-03-17] MEDS: DOCUSATE SODIUM 50 MG/SENNA 8.6 MG TAB PO SCH (09:52)
[2017-03-17] MEDS: DIVALPROEX SODIUM SPRINKLES 125 MG CAP PO SCH (09:52)
[2017-03-17] MEDS: LORATADINE 10 MG TAB PO SCH (09:52)
[2017-03-17] MEDS: POLYSACCHARIDE IRON COMPLEX 150 MG CAP PO SCH (09:52)
[2017-03-17] MEDS: MEMANTINE HCL 10 MG TAB PO SCH (09:52)
[2017-03-17 09:59] VITALS: O2SAT 94
[2017-03-17] MEDS ORDERED: AMLO10 PO (11:54)
[2017-03-17] MEDS ORDERED: PLAV75TA29 PO (11:54)
[2017-03-17 12:00] VITALS: BP 134/77; PULSE 84; RESP 17; TEMP 98.4; O2SAT 90
--- NOTE | 2017-03-17 16:53 | HHI.DS ---
Discharge Summary Admission Date Mar 02, 2017 at 15:33 Discharge Date: Mar 17, 2017 Admitting Diagnosis compartment syndrome, left thigh hematoma, sepsis (1) Compartment syndrome of left lower extremity ICD Code: T79.A22A - Traumatic compartment syndrome of left lower extremity, initial encounter Diagnosis: Principal (2) Hematoma of left thigh ICD Code: S70.12XA - Contusion of left thigh, initial encounter Diagnosis: Principal Status: Acute (3) Acute encephalopathy ICD Code: G93.40 - Encephalopathy, unspecified Diagnosis: Principal (4) Severe sepsis ICD Code: A41.9 - Sepsis, unspecified organism; R65.20 - Severe sepsis without septic shock Diagnosis: Principal (5) Chronic Eliquis use Diagnosis: Secondary (6) Dementia ICD Code: F03.90 - Unspecified dementia without behavioral disturbance Diagnosis: Secondary Procedures Large left thigh hematoma, popliteal aneurysm cannot rule out aneurysmal rupture /hemorrhage OPERATIVE REPORT Pt Name: YAEL SALGADO MR#: [id number] Loc: N03B Attended By: Kelsy Sepulveda MD Patient: YAEL SALGADO Report #: [id number] Electronically Signed: Aisha George MD Patient: YAEL SALGADO Report #: [id number] Electronically Signed: AISHA La MD DATE OF SURGERY: 03/02/2017 PREOPERATIVE DIAGNOSIS: POSTOPERATIVE DIAGNOSIS: OPERATION: SURGEON Dr. Doris Gonzalez ANESTHESIA: General. ESTIMATED BLOOD LOSS: 3 liters. INDICATIONS FOR PROCEDURE: This 81-year-old gentleman fell somewhere in the skilled nursing. To me, unknown circumstances, and developed hematoma of the thigh which turned into compartment syndrome. Orthopedic was consulted to evaluate the patient. The patient was noted to have large hematoma. 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 The patient was then taken to the OR for fasciotomy and evacuation of hematoma. However, in the process the aneurysm ruptured or probably more likely the fact that this was a ruptured aneurysm, became evident and the patient started bleeding. Vascular surgery got involved including Dr. Harris, and then I took over from him, about 30 minutes into the case. DESCRIPTION OF PROCEDURE: The patient was prepped and draped in the usual fashion. Apparently by Dr. Gonzalez, a lateral incision was made on the thigh which decompressed the compartment and then a medial incision, and when blood started coming out, this patient had a ruptured aneurysm. I scrubbed in about half hour into the case at which point Dr. Harris was exposing the popliteal vessel successfully. I then placed the large Weitlaner and some Olivier's, and examined the area. The tourniquet would not hold, so I removed the tourniquet, extended the incision proximally and held a pressure on the opening of the vessel. The vessel is now explored. There is a ruptured aneurysm in the back wall of the vessel is noted. This measured about 3 cm or so in length. Distally the vessel does not look that bad. I passed the Pooja catheter down and it goes into one of the vessels, probably posterior tibial artery. There is no clot in it. The patient was initially given PCC because of the Factor X inhibitor aboard and then apparently heparin later on. The proximal vessel is now examined. This is completely a torn and ratty vessel with barely any wall. Apparently somebody was here before because there is old Mersilene and Ethibond stitches in here, probably 15 to 20 years old, something was done here before. At this point, I followed the vessel proximally until I found about 1 cm in diameter vessel, fairly large, which appears to be reasonable in quality. This is half way up the thigh essentially outside the popliteal fossa. Once this is done the vessel, adductor canal is freed up and visualized. A vessel loop is placed around this very carefully, although there is a large amount of dissection here. Finally a Profunda clamp is placed on it, and at this point I removed the rest of this vessel which is dilated because the aneurysm seems to be reaching higher up, and the patient seems to have somewhat of an arteriomegaly judging by the size of his vessels. Once we have proximal and distal end freed up and bleeding is under control, a [place] graft is chosen. There is no 10 millimeter [place] graft. We used 8 millimeter which is fine in this situation. It is sewn first distally with running 5-0 Prolene and the under an angled graft is cut and sewn in proximally with running 5-0 Prolene. Blood flow is reestablished by first allowing graft to flush proximally and washout and then final stitches placed. There is one area of bleeding which is controlled with [id number] with a pledget and this completes this part of the procedure. The patient now has a bounding distal pulse. The area is irrigated with about 3 liters of saline and last liter with antibiotics, and then muscles are approximated with 0 Vicryl. Skin is closed with interrupted 2-0 nylon. The lateral incision that was a fasciotomy, of course, is left open with dressing. A large bore Oscar drain is placed into the popliteal space. The patient tolerated the procedure well and taken to the Recovery Room after surgery. Date of Surgery: Mar 02, 2017 Preoperative Diagnosis: (1) Hematoma of left thigh (2) Compartment syndrome of left lower extremity Postoperative Diagnosis: (1) Arterial rupture (2) Hematoma of left thigh (3) Compartment syndrome of left lower extremity Procedure: Fasciotomy left thigh Anesthesia: Gen. Surgeon: Asif Gonzalez Tobacco Prevention Health Educator(s): OR staff Operation and Findings: Indications: This 81-year-old male who is a skilled nursing resident with dementia and on anticoagulation has had progressive swelling of his left thigh. There is apparently a history of a fall. He presented with increasing swelling and an obvious pain. Compartment pressure measurements by the emergency room staff revealed increased pressures in the posterior compartment. A CT scan did reveal a pseudoaneurysm of the vasculature with a large hematoma. It was felt the patient had a compartment syndrome and a possible vascular injury and he is taken to surgery for fasciotomy. Procedure and findings patient was taken to the operative suite and after undergoing an adequate level of general anesthesia was kept supine on the room table. Left lower extremity was prepped and draped in usual sterile fashion with Betadine. Toe was first focused on the lateral aspect of the thigh where longitudinal incision was made. This was carried down through skin and subcutaneous tense tissue with a knife. There was soft tissue edema and mild hemorrhage noted. The iliotibial band was identified and split longitudinally. The vastus lateralis fascia was identified and split. The muscle appeared viable and minimal swelling in the lateral compartment. Dissection was carried out relate to the septum. This was incised revealing the posterior compartment which also had healthy-appearing muscle tissue. The wound was then packed open. Attention was then focused on the medial aspect with a previous vascular surgery incision was utilized. This was carried down through skin and subcutaneous tense tissue with a knife. There was soft tissue hemorrhage present. Scar tissue was released. The muscular fascia overlying the musculature was incised and there was noted to be a large hematoma in the medial and posterior aspects. When bluntly evacuating the hematoma significant arterial bleeding was encountered. A sterile tourniquet was then applied and the wound packed. Vascular surgery was then emergently consulted and presented to continue with vascular stabilization of the extremity. At the time of this dictation the plan was to do a graft of the artery. The orthopedic portion of the procedure was therefore completed. Asif Gonzalez MD Brief History - From Admission Patient is a 80-year-old male from skilled nursing with history of dementia, chronic atrial fibrillation, coronary artery disease with history of bypass, hypertension who was brought to the emergency department for leg pain and swelling. Patient has dementia and now metabolic encephalopathy which limits history. Apparently a week ago patient sustained a fall in skilled nursing. US 02/24/17 showed large hematoma in his left leg. A CT of the lower extremity was recommended which apparently was not done. In the ED patient had a temperature of 96, HR 100s and borderline hypotension. WBC count was elevated at 24.6 with left shift. Lactic acid was 2.6 BUN was 55 and creatinine 1.8. Patient's left lower extremity was significantly swollen and tense, Dr. Stanton did check compartment pressure which was highly elevated. According to Dr. Stanton compartment pressure in posterior compartment of thigh was [address] Gonzalez was consulted emergently who is planning to take patient to OR for probable fasciotomy. No pulse was felt in LE. CT of the left lower extremity showed large thigh hematoma and associated popliteal aneurysms raising concern for aneurysm rupture. Dr. Harris from vascular surgery also was consulted. Patient received vancomycin and Zosyn for sepsis. I evaluated the patient in the emergency department. Patient appears critically ill, because of underlying dementia history is not obtainable. I have ordered 2 L normal saline bolus. Patient is chronically on Eliquis. I will reverse this with 5,500 units of K Centra. Case discussed extensively with Dr. Stanton and Dr. Harris CBC/BMP: 03/17/17 0836 03/17/17 0836 Significant Findings Laboratory Tests Test 03/17/17 08:36 Red Blood Count 3.68 MIL/MM3 (4.50-5.90) Hemoglobin 10.9 GM/DL (13.0-17.0) Hematocrit 33.0 % (39.0-51.0) Neutrophils (%) (Auto) 74.2 % (16.0-70.0) Monocytes (%) (Auto) 10.7 % (0.0-8.0) Blood Urea Nitrogen 21 MG/DL (7-18) Albumin 2.3 GM/DL (3.4-5.0) Calcium Level 8.4 MG/DL (8.5-10.1) Chloride Level 109 MEQ/L (98-107) Estimat Glomerular Filtration Rate 77 ML/MIN (>89) PE at Discharge - GENERAL: This is a frail elderly gentleman who is very somnolent- CARDIOVASCULAR: Regular rate and rhythm without murmurs, gallops, or rubs. RESPIRATORY: Fair air entry bilaterally. No wheezes, rales, or rhonchi. GASTROINTESTINAL: Abdomen soft, non-tender, nondistended. Normal active bowel sounds MUSCULOSKELETAL: Extremities without clubbing, cyanosis, or edema. NEURO: Somnolent Hospital Course Patient admitted with Acute metabolic Encephalopathy/Dementia continue confused. - RESTART HOME MEDS- ADD SEROQUEL 25MG BID has Haldol as needed, continue Percocet for pain left Thigh Compartment Syndrome, Status post resection of popliteal artery aneurysm with rupture with [place] Graft placement and thigh fasciotomy chronic Atrial Fibrillation on Eliquis, hemorrhagic Shock resolved received 8 units of PRBCs, 3 units of FFP in OR for severe Hemorrhagic Shock Status post left thigh fasciotomy and evacuation of Hematoma by Doctor VOGEL, status post repair of ruptured Popliteal artery aneurysm by Doctor George and Dr. Harris CT on admission showed Left thigh hematoma and with popliteal artery aneurysm , on Plavix and Heparin SQ, , followed by Vascular surgery, consult plastic Surgery for lateral thigh fasciotomy site closure and follow-up for patient will need a skin graft on this at some point within next 2-3 weeks Acute on chronic renal failure Improved. Severe sepsis probably infected hematoma on Zosyn blood cultures no growth continue antibiotics. Anemia status post blood loss Coagulopathy due to chronic Eliquis use, status post blood transfusion 8 units of PRBCs and 3 units of FFP. Morbid Obesity weight loss warranted early activity and diet recommended, follow PT recommendations and OT Hypertension just was on Pressors continue mild uncontrolled continue Amlodipine 10 mg daily and follow. Pt Condition on Discharge: Fair Discharge Disposition: Discharge to SNF Discharge Time: > 30 minutes Discharge Instructions DIET: Follow Instructions for: Heart Healthy Diet Activities you can perform: See Additionl Instruction Other Activity Instructions: Per surgery and PT recommendation Follow up Referrals: Appointment for Follow Up - 1 Week with Asif Gonzalez MD New Medications: Amlodipine (Norvasc) 10 Mg Tab 10 MG PO DAILY for htn, #30 TAB Clopidogrel (Plavix) 75 Mg Tab 75 MG PO DAILY for anticoag, #30 TAB Continued Medications: Acetaminophen (Tylenol) 325 Mg Tab 650 MG PO Q4H PRN for PAIN SCALE 1 TO 10, TAB 0 Refills Apixaban (Eliquis) 5 Mg Tab 5 MG PO BID for Blood Clot Prevention, #60 TAB 0 Refills Cholecalciferol (Vitamin D-1000) 1,000 Unit Tab 2000 UNITS PO DAILY for Nutritional Supplement, #1 BOTTLE 0 Refills Divalproex Sprinkles (Depakote Sprinkles) 125 mg Cap 125 MG PO DAILY for Control Seizures, #60 CAP 0 Refills Divalproex Sprinkles (Depakote Sprinkles) 125 mg Cap 250 MG PO BID for Control Seizures, #60 CAP 0 Refills Escitalopram (Lexapro) 10 Mg Tab 10 MG PO HS, #30 TAB 0 Refills Levetiracetam (Keppra) 500 Mg Tab 500 MG PO BID for Control Seizures, #60 TAB 0 Refills Loratadine (Claritin) 10 Mg Cap 10 MG PO DAILY for Allergy Management, CAP 0 Refills Magnesium Hydroxide Liq (Milk of Magnesia Liq) 400 Mg/5 Ml Susp 30 ML PO DAILY PRN for INDIGESTION OR UPSET STOMACH, #1 BOTTLE 0 Refills Memantine (Namenda) 10 Mg Tab 10 MG PO BID for Alzheimer Disease, #30 TAB 0 Refills Omeprazole (Omeprazole) 20 Mg Tab 20 MG PO DAILY PRN for REFLUX, #30 TAB 0 Refills Polysaccharide Iron Complex (Poly-Iron 150) 150 Mg Iron Cap 150 MG PO Q12HR for Nutritional Supplement, #60 CAP 0 Refills Saritha Solano MD Mar 17, 2017 16:53
== END 2017-03-17 13:34 | DRG 907 ==
LOC: NEPC 13:28 → NEDA 15:33 → N03B 21:07 → N07A 03-04 18:30
PROVIDERS: ADMIT Hospitalist; ATTEND Hospitalist
PROC: 0KNT0ZZ Release Left Lower Leg Muscle, Open Approach (ICD-10-PCS; 2017-03-02)
PROC: 0KNT0ZZ Release Left Lower Leg Muscle, Open Approach (ICD-10-PCS; 2017-03-02)
PROC: 30233P1 Transfusion of Nonautologous Frozen Red Cells into Peripheral Vein, Percutaneous Approach (ICD-10-PCS; 2017-03-02)
PROC: 30233N1 Transfusion of Nonautologous Red Blood Cells into Peripheral Vein, Percutaneous Approach (ICD-10-PCS; 2017-03-02)
PROC: 5A1935Z Respiratory Ventilation, Less than 24 Consecutive Hours (ICD-10-PCS; 2017-03-02)
PROC: 041 Lower Arteries, Bypass (ICD-10-PCS; principal; 2017-03-02 16:48)
PROC: 04BN0ZZ Excision of Left Popliteal Artery, Open Approach (ICD-10-PCS; 2017-03-02 16:48)
DX: S85.092A Other specified injury of popliteal artery, left leg, initial encounter (principal); A41.9 Sepsis, unspecified organism; R65.20 Severe sepsis without septic shock; R57.8 Other shock; G93.41 Metabolic encephalopathy; T79.A22A Traumatic compartment syndrome of left lower extremity, initial encounter; N17.9 Acute kidney failure, unspecified; D62 Acute posthemorrhagic anemia; Z95.2 Presence of prosthetic heart valve; G30.9 Alzheimer's disease, unspecified; F02.80 Dementia in other diseases classified elsewhere, unspecified severity, without behavioral disturbance, psychotic disturbance, mood disturbance, and anxiety; W19.XXXA Unspecified fall, initial encounter; I48.2 Chronic atrial fibrillation; I25.10 Atherosclerotic heart disease of native coronary artery without angina pectoris; Z95.1 Presence of aortocoronary bypass graft; N18.9 Chronic kidney disease, unspecified; I12.9 Hypertensive chronic kidney disease with stage 1 through stage 4 chronic kidney disease, or unspecified chronic kidney disease; Z79.01 Long term (current) use of anticoagulants; R00.0 Tachycardia, unspecified; Z86.73 Personal history of transient ischemic attack (TIA), and cerebral infarction without residual deficits; K21.9 Gastro-esophageal reflux disease without esophagitis; M81.0 Age-related osteoporosis without current pathological fracture; I72.4 Aneurysm of artery of lower extremity; Y93.9 Activity, unspecified; Y92.129 Unspecified place in nursing home as the place of occurrence of the external cause; E83.39 Other disorders of phosphorus metabolism
CPT/HCPCS: 36430; 71010; 72192; 73700; 80048; 80053; 80069; 82140; 82550; 82552; 82805; 83605; 83735; 84100; 84134; 84155; 84484; 85007; 85014; 85018; 85025; 85027; 85384; 85610; 85730; 86850; 86900; 86901; 86920; 86927; 87040; 87641; 93971; 94002; 94003; 94150; 94770; 96365; 96375; 99156; 99157; 99292; C1757; C1768; C9132; J0330; J0690; J1630; J1644; J1940; J1953; J2250; J2270; J2370; J2543; J3010; J3370; J3475; J7030; J7040; J7050; J7060; J7120; P9016; P9017

== ENCOUNTER 2017-06-10 00:07 | Inpatient (IN) | payer MEDICARE, OTHER ==
[~2017-06-10] VITALS: Ht 182.9 cm; Wt 124.0 kg
[2017-06-10] VITALS (15 sets, daily range): BP systolic 91–138; BP diastolic 59–88; PULSE 90–101; RESP 12–40; TEMP 96.7–98.1; O2SAT 90–100
[~2017-06-10 00:07] MED LIST changes: +AMLO10 PO; +APIX5TAB PO; -COUM7.5T PO; -LACTATED RINGER'S 1000 ML INJ 5,000 ML IV ONE; -LIDOCAINE HCL 1% PF 5 ML SYRINGE OTHER ONE; -LORA-392 PO; -MIDAZOLAM HCL 2 MG/2 ML VIAL IV ONE; -PHENYLEPH/NS 1000 MCG/10 ML SYR IV ONE; -PHENYLEPHRINE HCL 10 MG/ML VIAL IV ONE; +PLAV75TA29 PO; -PROPOFOL 200 MG/20 ML AMP IV ONE; -ROCURONIUM INJ 50 MG/5 ML SYRINGE IV PUSH ONE; -SODIUM CHLORID 0.9% 500 ML INJ 500 ML IV ONE; -SODIUM CHLORIDE 0.9% 20 ML VIAL IV ONE; -SUCCINYLCHOLINE CHLORIDE 100 MG/5 ML SYRINGE IV PUSH ONE; -TRAZ50TA12 PO; -ceFAZolin INJ 1,000 MG VIAL IV ONE
--- NOTE | 2017-06-10 00:25 | PD ---
HPI Chief Complaint: GI Complaint Time Seen by Provider: 00:16 Travel History International Travel<30 days: No Contact w/Intl Traveler<30days: No Traveled to known affect area: No History of Present Illness HPI Patient is a 81-year-old male sent from a [place] [facility] [place] the paramedics found coffee-ground emesis all over the patient the patient was altered gargling short of breath and in distress. Transported very quickly from a nearby [place] health care facility arriv He vomits coffee-ground emesis on arrival into the exam room. He is gargling rattling cough and his belly is severely distended. On palpating the abdomen he has a severe in pain. We called immediately to the family to make sure that I can intubate to protect his airway from excessive vomitus and aspiration risk at as he has a DNR. When I tell them the intubation is to temporize and protect his airway from vomitus into lungs permission granted by family and I immediately intubate with 8 0 ET tube in posterior pharynx there is copious amounts of coffee-ground emesis coming from the airway as well as the esophagus . I use yankour suction and 1 liter coffee ground vomitus suctioned into canister. ET TUBE passed with first attempt to pass the ET tube without problem ...Through excessive coffee-ground emesis is suctioned as I pass the tube and direct cord visualization successful intubation with RSI. NG tube was placed immediately and there is over 2 canisters full of coffee-ground emesis removed. He will be admitted Protonix drip Protonix push fluid recess Chapman gets out urine that is significantly infected and Zosyn and Vanco empirically as ordered as well. Family have been notified of his state and that in the right emergent intubation was necessary to temporize his airway for coffee-ground emesis aspiration risk PFSH Past Medical History Hx Anticoagulant Therapy: Yes (COUMADIN) Alzheimer's Disease: Yes Anemia: Yes Atrial Fibrillation: Yes Anxiety: Yes Cardiovascular Problems: Yes (AFIB) Cerebrovascular Accident: Yes Dementia: Yes Gastrointestinal Disorders: Yes (KIDNEY DISEASE) GERD: Yes Hypertension: Yes Musculoskeletal: Yes (CHRONIC PAIN, OSTEOPOROSIS) Psychiatric: Yes (PSYCHOSIS NOS) Integumentary: Yes (PRURITIS) Seizures: Yes Past Surgical History Coronary Artery Bypass Graft: Yes Valve Replacement: Yes Social History Alcohol Use: No Tobacco Use: No Substance Use: No Allergies-Medications (Allergen,Severity, Reaction): Coded Allergies: No Known Allergies (Unverified Allergy, Unknown, 03/02/17) Reported Meds & Prescriptions Reported Meds & Active Scripts Active Norvasc (Amlodipine Besylate) 10 Mg Tab 10 Mg PO DAILY Plavix (Clopidogrel Bisulfate) 75 Mg Tab 75 Mg PO DAILY Reported Tylenol (Acetaminophen) 325 Mg Tab 650 Mg PO Q4H PRN Eliquis (Apixaban) 5 Mg Tab 5 Mg PO BID Verapamil (Verapamil HCl) 120 Mg Tab 120 Mg PO DAILY Tylenol (Acetaminophen) 325 Mg Tab 650 Mg PO Q4H PRN Poly-Iron 150 (Polysaccharide Iron Complex) 150 Mg Iron Cap 150 Mg PO Q12HR Omeprazole 20 Mg Tab 20 Mg PO DAILY PRN [place] (Hydrocodone-Acetaminophen) 5-325 mg Tab 1 Tab PO Q6H PRN Namenda (Memantine) 10 Mg Tab 10 Mg PO BID Milk of Magnesia Liq (Magnesium Hydroxide) 400 Mg/5 Ml Susp 30 Ml PO DAILY PRN Claritin (Loratadine) 10 Mg Cap 10 Mg PO DAILY Lexapro (Escitalopram Oxalate) 10 Mg Tab 10 Mg PO HS Keppra (Levetiracetam) 500 Mg Tab 500 Mg PO BID Depakote Sprinkles (Divalproex Sodium) 125 mg Cap 250 Mg PO BID Depakote Sprinkles (Divalproex Sodium) 125 mg Cap 125 Mg PO DAILY Vitamin D-1000 (Cholecalciferol) 1,000 Unit Tab 2,000 Units PO DAILY Review of Systems Except as stated in HPI: all other systems reviewed are Neg Physical Exam Narrative GENERAL: obese and in distress gargles and rattling breathing , pt vomits coffee groung emesis is ER ( EMS reports lot of coffeee ground vomit at MN) SKIN: Warm and dry. HEAD: Atraumatic. Normocephalic. EYES: Pupils equal and round. No scleral icterus. No injection or drainage. ENT: No nasal bleeding or discharge. Mucous membranes pink and moist. As I go to intubate he vomits excess coffee ground from esophogus and there was vomitus coming out of larynx as well NECK: Trachea midline. No JVD. CARDIOVASCULAR: Regular rate and rhythm. RESPIRATORY: rattling breath sounds on arrival and resp distress GASTROINTESTINAL: morbid obese abdo Abdomen very tense and distended and tender to palpation diffusely tender . Hepatic and splenic margins not palpable. MUSCULOSKELETAL: Extremities without clubbing, cyanosis, or edema. No obvious deformities. NEUROLOGICAL: Awake and alert. No obvious cranial nerve deficits. Motor grossly within normal limits. Five out of 5 muscle strength in the arms and legs GI and resp distress inhibited talking . PSYCHIATRIC: GI and Resp distress led to agitation Data Data Last Documented VS Orders Orders Pantoprazole Inj (Protonix Inj) (06/10/17 00:30) Pantoprazole Inj (Protonix Inj) (06/10/17 00:30) Pantoprazole Inj (Protonix Inj) (06/10/17 00:30) Sodium Chlor 0.9% 1000 Ml Inj (Ns 1000 M (06/10/17 00:30) Type And Screen (06/10/17:18) Complete Blood Count With Diff (06/10/17:18) Comprehensive Metabolic Panel (06/10/17:18) Lipase (06/10/17:18) Chest, Single Ap (06/10/17 ) Piperacil-Tazo 3.375 Gm Premix (Zosyn 3. (06/10/17 00:30) Vancomycin Inj (Vancomycin Inj) (06/10/17 00:30) Fentanyl Drip (Fentanyl Drip) (06/10/17 00:45) Midazolam 100 Mg/100 Ml Inj (Versed Inj) (06/10/17 00:45) Fentanyl Drip (Fentanyl Drip) (06/10/17 00:45) Midazolam 100 Mg/100 Ml Inj (Versed Inj) (06/10/17 00:45) Admit Order (Ed Use Only) (06/10/17 00:47) Labs Laboratory Tests Test 06/10/17 00:20 White Blood Count 20.2 TH/MM3 Red Blood Count 4.55 MIL/MM3 Hemoglobin 13.7 GM/DL Hematocrit 41.6 % Mean Corpuscular Volume 91.4 FL Mean Corpuscular Hemoglobin 30.1 PG Mean Corpuscular Hemoglobin Concent 33.0 % Red Cell Distribution Width 16.7 % Platelet Count 353 TH/MM3 Mean Platelet Volume 9.0 FL Neutrophils (%) (Auto) 90.2 % Lymphocytes (%) (Auto) 4.5 % Monocytes (%) (Auto) 5.2 % Eosinophils (%) (Auto) 0.0 % Basophils (%) (Auto) 0.1 % Neutrophils # (Auto) 18.2 TH/MM3 Lymphocytes # (Auto) 0.9 TH/MM3 Monocytes # (Auto) 1.1 TH/MM3 Eosinophils # (Auto) 0.0 TH/MM3 Basophils # (Auto) 0.0 TH/MM3 CBC Comment DIFF FINAL Differential Comment Blood Urea Nitrogen 45 MG/DL Creatinine 2.16 MG/DL Random Glucose 202 MG/DL Total Protein 8.8 GM/DL Albumin 3.5 GM/DL Calcium Level 9.0 MG/DL Alkaline Phosphatase 141 U/L Aspartate Amino Transf (AST/SGOT) 13 U/L Alanine Aminotransferase (ALT/SGPT) 13 U/L Total Bilirubin 0.3 MG/DL Sodium Level 140 MEQ/L Potassium Level 4.5 MEQ/L Chloride Level 104 MEQ/L Carbon Dioxide Level 21.4 MEQ/L Anion Gap 15 MEQ/L Estimat Glomerular Filtration Rate 29 ML/MIN Lipase 107 U/L MDM Medical Decision Making Medical Screen Exam Complete: Yes Emergency Medical Condition: Yes Differential Diagnosis coffee ground vomitus from stomach bleeding ulcer or variceal bleed vs aspiration of stomach contents to lungs at MN and Resp failure impeding on arrival ... Narrative Course I after intial assessment I have charge nurse call to ask if immediate Intubation to protect airway will be permitted by the family . They agree I then intubate with 8 0 to bypass through copious amounts of coffee-ground emesis coming from the airway as well as the esophagus... first attempt to pass the ET tube without problem, however there was excessive coffee-ground emesis in post pharynx that I suctioned as I passed the tube and direct cord visualization . successful intubation with RSI. NG tube was placed immediately and there is over 2 canisters full of coffee-ground emesis removed. He will be admitted Protonix drip 8mg /hr Protonix push fluid recess Chapman gets out urine that is significantly infected and Zosyn and Vanco empirically as ordered as well. Family have been notified of his state and that in the right emergent intubation was necessary to temporize his airway for coffee-ground emesis aspiration risk Critical Care Narrative Critical care 45 minutes and admitted to ICU after Fluid resustiation protonix push and drip and intubation to secure airway before further aspiration occurred. Procedures Procedure Narrative RSI intubation through excessive coffee ground emesis 8.0tube direct visualization , suctioned 1 liter of coffee ground from post pharynx as I intubated Diagnosis Primary Impression: Coffee ground emesis Additional Impressions: Aspiration pneumonia Respiratory distress Admitting Information Admitting Physician Requests: Admit Babak Lu MD Jun 10, 2017 00:25
[2017-06-10] MEDS ORDERED: PANTOPRAZOLE INJ 80 MG in SODIUM CHLORIDE 0.9% INJ 100 ML IV SCH ×2 (00:30→11:00)
[2017-06-10] MEDS ORDERED: SODIUM CHLOR 0.9% 1000 ML INJ 1,000 ML IV ONE ×2 (00:30→01:00)
[2017-06-10] MEDS ORDERED: PIPERACIL-TAZO 3.375 GM PREMIX 50 ML IV ONE (00:30)
[2017-06-10] MEDS ORDERED: PANTOPRAZOLE SODIUM 40 MG VIAL IV PUSH ONE ×2 (00:30)
[2017-06-10] MEDS ORDERED: VANCOMYCIN INJ 1,000 MG in SODIUM CHLOR 0.9% 250 ML INJ 250 ML IV ONE (00:30)
[2017-06-10 00:37] LABS: AUTOMATED NEUTROPHIL # 18.2 TH/MM3 (1.8-7.7); BASOPHIL % 0.1 % (0.0-2.0); HEMATOCRIT 41.6 % (39.0-51.0); HEMOGLOBIN 13.7 GM/DL (13.0-17.0); LYMPH % 4.5 % (9.0-44.0); LYMPHOCYTE # 0.9 TH/MM3 (1.0-4.8); MEAN CELL VOLUME 91.4 FL (80.0-100.0); MEAN CORPUSCULAR HEMOGLOBIN 30.1 PG (27.0-34.0); MONO % 5.2 % (0.0-8.0); MONOCYTE # 1.1 TH/MM3 (0-0.9); NEUT % 90.2 % (16.0-70.0); PLATELET COUNT 353 TH/MM3 (150-450); RED BLOOD COUNT 4.55 MIL/MM3 (4.50-5.90); RED CELL DISTRIBUTION WIDTH 16.7 % (11.6-17.2); WHITE BLOOD COUNT 20.2 TH/MM3 (4.0-11.0)
--- NOTE | 2017-06-10 00:41 | RADRPT ---
EXAM DATE/TIME: 06/10/2017 00:24 [facility] COMPARISON: CHEST SINGLE AP, March 04, 2017, 3:00. INDICATIONS : E-T and orogastric tube placement. MEDICAL HISTORY : Dementia Seizures SURGICAL HISTORY : None. ENCOUNTER: Initial ACUITY: 1 day PAIN SCORE: Non-responsive. LOCATION: Bilateral chest FINDINGS: Endotracheal tube tip 2.8 cm above the priya. Gastric tube is in place. The tip appears to be just above the level of the hemidiaphragm. The lungs assess vascularity. Some patchy left lower lung in filtrates. Both hemidiaphragms well delineated. CONCLUSION: 1. ET tube in good position. 2. Gastric tube tip just above the GE junction. 3. Patchy left lower lung infiltrates. Osmar Pereira MD on June 10, 2017 at 0:37 Board Certified Radiologist. This report was verified electronically.
[2017-06-10] MEDS: fentaNYL 2,500 MCG/NS 250 ML IV PRN ×2 (00:44→01:44)
[2017-06-10] MEDS ORDERED: MIDAZOLAM 100 MG/NS 100 ML DRIP Premix IV PRN (00:45)
[2017-06-10] MEDS ORDERED: fentaNYL DRIP 250 ML IV PRN ×2 (00:45→11:15)
[2017-06-10] MEDS ORDERED: MIDAZOLAM 100 MG/100 ML INJ 100 ML IV PRN ×2 (00:45→11:15)
[2017-06-10] MEDS ORDERED: MAGNESIUM SULFATE INJ 4 GM in SODIUM CHLORIDE 0.9% INJ 92 ML IV PRN (01:00)
[2017-06-10] MEDS ORDERED: PROPOFOL 1000 MG/100 ML INJ 100 ML IV PRN (01:00)
[2017-06-10] MEDS ORDERED: POTASSIUM CHLOR 20 MEQ PREMIX 100 ML IV PRN ×2 (01:00)
[2017-06-10] MEDS ORDERED: POTASSIUM CHLORIDE 25 MEQ EFFERVESCENT TAB PO PRN (01:00)
[2017-06-10] MEDS ORDERED: RESP: ALBUTEROL 2.5 MG/IPRATROPIUM 0.5 MG NEB (PRN) INH (01:00)
[2017-06-10] MEDS ORDERED: CHLORHEXIDINE GLUCONATE 2 % 1 PACK (2 CLOTHS) TOP PRN (01:00)
[2017-06-10] MEDS ORDERED: POTASSIUM PHOSPHATE INJ 30 MMOL in SODIUM CHLOR 0.9% 250 ML INJ 250 ML IV PRN (01:00)
[2017-06-10] MEDS ORDERED: SODIUM PHOSPHATE INJ 30 MMOL in SODIUM CHLOR 0.9% 250 ML INJ 240 ML IV PRN (01:00)
[2017-06-10] MEDS ORDERED: ONDANSETRON HCL 4 MG/2 ML VIAL IV PUSH PRN (01:00)
[2017-06-10] MEDS ORDERED: MAGNESIUM SULFATE INJ 2 GM in SODIUM CHLORIDE 0.9% INJ 96 ML IV PRN (01:00)
[2017-06-10] MEDS ORDERED: SODIUM CHLOR 0.9% 250 ML INJ 250 ML IV ONE (01:00)
[2017-06-10] MEDS ORDERED: POTASSIUM CHLOR 40 MEQ PREMIX 100 ML IV PRN ×2 (01:00)
[2017-06-10] MEDS ORDERED: MISCELLANEOUS NURSING INFORMATION XX SCH (01:00)
[2017-06-10] MEDS ORDERED: PROTHROMBIN COMPLEX CONC INJ 5,000 UNITS in SYRINGE/BAG 1 EA IV ONE (01:00)
[2017-06-10] MEDS ORDERED: MAGNESIUM OXIDE 400 MG TAB PO PRN (01:00)
[2017-06-10] MEDS ORDERED: DEXTROSE 50% IN WATER 50 ML VIAL(D50) IV PUSH PRN (01:00)
[2017-06-10] MEDS ORDERED: POTASSIUM PHOSPHATE MONOBASIC 500 MG TAB PO PRN (01:00)
[2017-06-10] MEDS ORDERED: POTASSIUM PHOSPHATE MONOBASIC 500 MG TAB PO/TUBE PRN (01:00)
[2017-06-10 01:06] LABS: ALBUMIN 3.5 GM/DL (3.4-5.0); AST (GOT) 13 U/L (15-37); BICARBONATE 21.4 MEQ/L (21.0-32.0); BLOOD UREA NITROGEN 45 MG/DL (7-18); CHLORIDE 104 MEQ/L (98-107); CREATININE 2.16 MG/DL (0.60-1.30); GLOMERULAR FILTRATION RATE 29 ML/MIN (>89); GLUCOSE,RANDOM 202 MG/DL (74-106); SODIUM (NA) 140 MEQ/L (136-145)
[2017-06-10 01:09] LABS: ALKALINE PHOSPHATASE 141 U/L (45-117); ALT (GPT) 13 U/L (12-78); TOTAL BILIRUBIN ADULT 0.3 MG/DL (0.2-1.0); TOTAL PROTEIN 8.8 GM/DL (6.4-8.2)
--- NOTE | 2017-06-10 01:11 | HHI.HP ---
HPI Service Critical Care Medicine Primary Care Physician Unknown Admission Diagnosis coffee ground emesis aspiration syncope Diagnosis: Chief Complaint: hematemesis Travel History International Travel<30 Days: No Contact w/Intl Traveler <30 Da: No Traveled to Known Affected Are: No History of Present Illness This is an 81-year-old male with a recent history back in February 2017 of a thigh hematoma on anticoagulation requiring emergent operation. At that time the patient was stabilized and sent to nursing home facility. Per reports he was a DNR at that time. He is on Eliquis and Plavix for atrial fibrillation as well as likely stent placement in the past. He presented from nursing home facility today with coffee grounds emesis. The emergency department, the physician contacted the family who elected to rescind the patient's DNR. The patient was then emergently intubated and had massive amounts of coffee grounds emesis which was noted to go down below the cords. Patient was given IV fluids and started on a Protonix infusion. Patient has baseline dementia which is severe. On my evaluation, the patient is intubated and sedated and unable to provide any additional information. ROS is unobtainable. Review of Systems ROS Limitations: Clinical Condition, Intubated, Altered Mental Status Past Family Social History Allergies: Coded Allergies: No Known Allergies (Unverified Allergy, Unknown, 03/02/17) Past Medical History Severe dementia Alzheimer's disease Anemia Atrial fibrillation Anxiety CVA Chronic kidney disease, unknown stage GERD Seizures Psychosis NOS Pruritus Osteoporosis Apixaban use Plavix use Past Surgical History Coronary artery bypass graft Valve replacement Emergent operation for thigh hematoma 02/2017. Reported Medications Norvasc (Amlodipine Besylate) 10 Mg Tab 10 Mg PO DAILY Plavix (Clopidogrel Bisulfate) 75 Mg Tab 75 Mg PO DAILY Tylenol (Acetaminophen) 325 Mg Tab 650 Mg PO Q4H PRN Eliquis (Apixaban) 5 Mg Tab 5 Mg PO BID Verapamil (Verapamil HCl) 120 Mg Tab 120 Mg PO DAILY Tylenol (Acetaminophen) 325 Mg Tab 650 Mg PO Q4H PRN Poly-Iron 150 (Polysaccharide Iron Complex) 150 Mg Iron Cap 150 Mg PO Q12HR Omeprazole 20 Mg Tab 20 Mg PO DAILY PRN [place] (Hydrocodone-Acetaminophen) 5-325 mg Tab 1 Tab PO Q6H PRN Namenda (Memantine) 10 Mg Tab 10 Mg PO BID Milk of Magnesia Liq (Magnesium Hydroxide) 400 Mg/5 Ml Susp 30 Ml PO DAILY PRN Claritin (Loratadine) 10 Mg Cap 10 Mg PO DAILY Lexapro (Escitalopram Oxalate) 10 Mg Tab 10 Mg PO HS Keppra (Levetiracetam) 500 Mg Tab 500 Mg PO BID Depakote Sprinkles (Divalproex Sodium) 125 mg Cap 250 Mg PO BID Depakote Sprinkles (Divalproex Sodium) 125 mg Cap 125 Mg PO DAILY Vitamin D-1000 (Cholecalciferol) 1,000 Unit Tab 2,000 Units PO DAILY Active Ordered Medications See MAR Family History Unobtainable due to the clinical condition of the patient. Unlikely to be contributory to his acute illness Social History Per chart review, denied tobacco, EtOH, drugs of abuse. Physical Exam Vital Signs Vital Signs Date Time Temp Pulse Resp B/P (MAP) Pulse Ox O2 Delivery O2 Flow Rate FiO2 06/10/17 00:30 99 100 06/10/17 00:22 98.1 101 40 99/74 (82) 90 Physical Exam GENERAL: Obese male, lying in bed, intubated, sedated, very critically ill. HEENT: Normocephalic. Atraumatic. Pupils equal, round, reactive, conjugate. Mucous membranes are moist. Evidence of dried coffee-ground emesis around the mouth. NECK: Trachea is midline. There is no JVD. CHEST: Intubated. Equal chest rise. CARDIOVASCULAR: Normal rate, irregularly irregular rhythm. A. fib by telemetry. ABDOMEN: Obese, soft, nontender, nondistended. No guarding. Orogastric tube in place with coffee grounds output. MUSCULOSKELETAL: Pulses 2+. No peripheral edema. NEUROLOGICAL: RASS -5. Recently intubated sedated. Laboratory Laboratory Tests Test 06/10/17 00:20 White Blood Count 20.2 Red Blood Count 4.55 Hemoglobin 13.7 Hematocrit 41.6 Mean Corpuscular Volume 91.4 Mean Corpuscular Hemoglobin 30.1 Mean Corpuscular Hemoglobin Concent 33.0 Red Cell Distribution Width 16.7 Platelet Count 353 Mean Platelet Volume 9.0 Neutrophils (%) (Auto) 90.2 Lymphocytes (%) (Auto) 4.5 Monocytes (%) (Auto) 5.2 Eosinophils (%) (Auto) 0.0 Basophils (%) (Auto) 0.1 Neutrophils # (Auto) 18.2 Lymphocytes # (Auto) 0.9 Monocytes # (Auto) 1.1 Eosinophils # (Auto) 0.0 Basophils # (Auto) 0.0 CBC Comment DIFF FINAL Differential Comment Result Diagram: 06/10/17 0020 Imaging Last Impressions Chest X-Ray 06/10/17 0000 Signed Impressions: Service Date/Time: May 00:24 - CONCLUSION: 1. ET tube in good position. 2. Gastric tube tip just above the GE junction. 3. Patchy left lower lung infiltrates. MD Lianet Queen VTE Risk Assessment Caprini VTE Risk Assessment: Mod/High Risk (score >= 2) VTE Pharm Contraindication: Active bleeding Caprini Risk Assessment Model Point Value = 1 Point Value = 2 Point Value = 3 Point Value = 5 Age 41-60 Minor surgery BMI > 25 kg/m2 Swollen legs Varicose veins or History of unexplained or recurrent spontaneous Oral contraceptives or hormone replacement Sepsis (< 1 month) Serious lung disease, including pneumonia (< 1 month) Abnormal pulmonary function Acute myocardial infarction Congestive heart failure (< 1 month) History of inflammatory bowel disease Medical patient at bed rest Age 61-74 Arthroscopic surgery Major open surgery (> 45 min) Laparoscopic surgery (> 45 min) Malignancy Confined to bed (> 72 hours) Immobilizing plaster cast Central venous access Age >= 75 History of VTE Family history of VTE Factor V Leiden Prothrombin [id number] Lupus anticoagulant Anticardiolipin antibodies Elevated serum homocysteine Heparin-induced thrombocytopenia Other congenital or acquired thrombophilia Stroke (< 1 month) Elective arthroplasty Hip, pelvis, or leg fracture Acute spinal cord injury (< 1 month) Prophylaxis Regimen Total Risk Factor Score Risk Level Prophylaxis Regimen 0-1 Low Early ambulation 2 Moderate Order ONE of the following: *Sequential Compression Device (SCD) *Heparin 5000 units SQ BID 3-4 Higher Order ONE of the following medications: *Heparin 5000 units SQ TID *Enoxaparin/Lovenox 40 mg SQ daily (WT < 150 kg, CrCl > 30 mL/min) *Enoxaparin/Lovenox 30 mg SQ daily (WT < 150 kg, CrCl > 10-29 mL/min) *Enoxaparin/Lovenox 30 mg SQ BID (WT < 150 kg, CrCl > 30 mL/min) AND/OR *Sequential Compression Device (SCD) 5 or more Highest Order ONE of the following medications: *Heparin 5000 units SQ TID (Preferred with Epidurals) *Enoxaparin/Lovenox 40 mg SQ daily (WT < 150 kg, CrCl > 30 mL/min) *Enoxaparin/Lovenox 30 mg SQ daily (WT < 150 kg, CrCl > 10-29 mL/min) *Enoxaparin/Lovenox 30 mg SQ BID (WT < 150 kg, CrCl > 30 mL/min) AND *Sequential Compression Device (SCD) Assessment and Plan Assessment and Plan Assessment: 81-year-old male with a history of severe dementia and multiple prior complications from anticoagulation systemically who presents with active upper GI bleeding and acute hypoxic and hypercarbic respiratory failure requiring intubation mechanical ventilation. Long-term, the patient is clearly failed anticoagulation given not only a recent life-threatening bleeding complication back in 02/2017, but now life-threatening upper GI bleeding. Will give CK Centra and reverses and a coagulation at this point. I have consulted gastroenterology for endoscopy with intervention if needed. We will place the patient on a Protonix infusion. We will keep the patient intubated for airway protection and for his hypoxic respiratory failure. I also asked that palliative care be involved as the patient was DNR and the family now requests us to have full aggressive measures including life support which he is now on. The patient remains very critically ill. Plan by systems: Neurologic: Severe dementia Seizure disorder Acute metabolic encephalopathy Keppra 500 mg IV every 12 Keep patient's baseline Depakote 250 mg twice daily Frequent neuro checks Hold patient's Namenda Unclear how severe the patient's baseline dementia is Respiratory: Acute hypoxic hypercarbic respiratory failure Aspiration of gastric contents Wean FiO2 for goal SPO2 greater than 90% [place]jo suction of particulate matter. We will not perform bronchoalveolar lavage as this has been associated with worse outcomes. No weaning of mechanical ventilation until upper GI bleeding has been controlled Nebs Head of bed elevated Vent bundle Cardiovascular: Atrial fibrillation Hemorrhagic Shock Hold anticoagulation given active bleeding Telemetry 2L crystalloid. 2 units prbc. Renal: Acute kidney injury Secondary to hypovolemia and hemorrhage Maintenance IV fluids Place Chapman -- Strict I/Os FEN/GI: Acute protein calorie malnutrition-moderate Active upper GI bleeding Consult gastroenterology N.p.o. Protonix drip ICU electrolyte protocol Orogastric tube to low intermittent wall suction Trend H&H is Stat coags Heme/ID: Coagulopathy secondary to Eliquis use Anemia secondary to acute blood loss Trend serial hemoglobins No overt infectious etiology suspected at this time Received 1 dose of vancomycin and Zosyn in the emergency department Stat coags Attempt to reverse Eliquis with prothrombin complex concentrates Endocrine: Hyperglycemia of critical illness -- SSI Prophylaxis: GI Prophylaxis Protonix drip DVT Prophylaxis -- SCDs Hold pharmacologic DVT prophylaxis given acute upper GI bleeding Lines: Large-bore peripheral IVs Chapman Dispo: Admit to ICU. Very critically ill. This patient remains critically ill with one or more organ systems which are or may become a threat to life. I have spent in excess of 39 minutes discontinuously in the care and management of this patient. This time is exclusive of procedures, and includes, but is not limited to, evaluation of the patient, review of the medical record, discussions with family, consultants, nursing staff, or respiratory therapy, and documentation in the medical record. Gary Siegel MD Jun 10, 2017 01:11
[2017-06-10 02:16] LABS: BACTERIA, URINE RARE /hpf; BILIRUBIN, URINE NEG (NEG); BLOOD, URINE TRACE (NEG); GLUCOSE,URINE NEG (NEG); KETONE, URINE NEG (NEG); NITRITE,URINE NEG (NEG); URINE COLOR YELLOW (YELLW/STRAW); URINE LEUKOCYTE ESTERASE LARGE (NEG)
[2017-06-10 02:40] LABS: INTERNATIONAL NORMALIZED RATIO 1.1 RATIO; PROTHROMBIN TIME - PATIENT 11.2 SEC (9.8-11.6)
[2017-06-10] MEDS ORDERED: CHLORHEXIDINE GLUCONATE 2 % 1 PACK (2 CLOTHS) TOP SCH (04:00)
[2017-06-10] MEDS: RESP: ALBUTEROL 2.5 MG/IPRATROPIUM 0.5 MG NEB (SCH) INH ×2 (04:00→07:48)
[2017-06-10 05:13] LABS: HEMOGLOBIN 13.1 GM/DL (13.0-17.0)
[2017-06-10] MEDS ORDERED: INSULIN NovoLIN REGULAR SUPPLEMENTAL SCALE SQ SCH (06:00)
[2017-06-10] MEDS ORDERED: SODIUM BICARBONATE 8.4% INJ 50 MEQ/50 ML SYR IV PUSH ONE (07:30)
[2017-06-10] MEDS ORDERED: CHLORHEXIDINE 0.12% (ORAL KIT) 15 ML CUP MT SCH (08:00)
[2017-06-10 08:24] LABS: LACTIC ACID SEPSIS PROTOCOL 3.8 mmol/L (0.4-2.0)
[2017-06-10] MEDS ORDERED: levETIRAcetam INJ 500 MG in SODIUM CHLORIDE 0.9% INJ 100 ML IV SCH (09:00)
[2017-06-10] MEDS ORDERED: DIVALPROEX SODIUM SPRINKLES 125 MG CAP PO SCH (09:00)
--- NOTE | 2017-06-10 09:25 | RADRPT ---
EXAM DATE/TIME: 06/10/2017 08:21 [facility] COMPARISON: No previous studies available for comparison. INDICATIONS : Abdominal distention. MEDICAL HISTORY : Seizures. Dementia. SURGICAL HISTORY : None. ENCOUNTER: Initial ACUITY: 1 day PAIN SCORE: Non-responsive. LOCATION: Bilateral abdomen FINDINGS: Air-filled loops of small and large bowel are noted suggesting diffuse ileus or distal colonic obstru ction. Fecal debris is noted throughout the left colon and rectosigmoid region. Degenerative changes and scoliosis of the thoracolumbar spine are noted. No free intraperitoneal air is noted. CONCLUSION: 1. Air-filled loops of small and large bowel suggestive of diffuse ileus or distal colonic obstructio n. 2. Degenerative changes and scoliosis of the thoracolumbar spine. Rusty Shelley MD on June 10, 2017 at 9:21 Board Certified Radiologist. This report was verified electronically.
[2017-06-10] MEDS ORDERED: SODIUM CHLOR 0.9% 1000 ML INJ 1,000 ML IV SCH (10:15)
--- NOTE | 2017-06-10 10:59 | PD.CONS ---
Consult Service Palliative Care . Consult Requested By Dr. Siegel . Primary Care Physician Unknown . Reason for Consultation a. To assist with evaluation and management of symptoms including: dyspnea ; pain; confusion b. To assist medical decision maker(s) with: better understanding of current medical conditions; weighing benefits/burdens of medical treatment options; making medical treatment decisions. . HPI History of Present Illness Mr. Chakraborty is an 81-year-old [employer] with a known medical history including traumatic brain injury with cognitive changes; atrial fibrillation; stroke, chronic kidney disease; GERD; seizure disorder; coronary artery disease ; valvular heart disease; who is transferred from his long-term care facility to [facility] emergency department via EMS last night due to coffee ground emesis. Paramedics reported that upon their arrival at the nursing facility the patient was covered with coffee-ground emesis, had altered mental status, was gurgling, and appeared in respiratory distress. The patient continued to vomit coffee-ground material in the emergency department. The patient was recently hospitalized here from 03/02/2017 through 03/17/2017. He had fallen in his nursing facility, developed a hematoma on his left thigh, which caused a compartment syndrome requiring emergency fasciotomy. Initial vital signs in the emergency department showed temperature 98.1; pulse 101; respiratory rate 40; blood pressure 99/74; pulse oximetry 90 The patient arrived with a DNR order on the chart. The ER clinician apparently contacted the patient's son --Max--the healthcare surrogate and obtained permission to intubate the patient to protect his airway from excessive vomitus and aspiration. At time of intubation the ER physician noted copious amounts of coffee-ground emesis going down into the patient's airway. When an NG tube was placed suction ended up producing over 2 canisters of coffee-ground type emesis. The emergency room clinician placed the patient on intravenous Protonix and placed a Chadwick catheter. Intravenous Zosyn and vancomycin were started empirically. Critical care and gastroenterology were consulted. Initial diagnostic testing revealed the following; * CBC showed WBC 20.2; hemoglobin 13.7; platelet count 353 * Chemistry panel showed sodium 140; potassium 4.5; chloride 104; CO2 21.4; anion gap 15; BUN 45; creatinine 2.16; GFR 29; glucose 202; lactic acid 3.8; calcium 9.0 * Liver function studies showed total bilirubin 0.3; AST 13; ALT 13; alkaline phosphatase 141; total protein 8.8; albumin 3.5 * Lipase is 107 * Urinalysis showed trace occult blood; protein level of 30; large leukocyte esterase; innumerable white blood cells * Coag profile showed PT 11.2; INR 1.1 * ABGs on the ventilator at 100% FiO2 showed shortly after arrival pH 7.16; PCO2 57; PO2 180; base excess -7.6; bicarbonate 20 * Urine culture is pending * Postintubation chest x-ray showed the ET tube in good position. Patchy left lower lung infiltrates were noted. * Plain film of the abdomen showed air-filled loops of small and large bowel suggestive of diffuse ileus or distal colonic obstruction. There are mild degenerative changes and scoliosis of the thoraco-lumbar spine . Function/Cognitive Trajectory The patient's son reported that prior to this illness the patient was ambulatory without assistive device. He was eating and maintaining his weight. His cognitive deficits were substantial--he is normally disoriented to place and time and does not recognize loved ones. . Review of Systems ROS Limitations: Clinical Condition (Patient is unable to provide his own review of systems. Son only visits the patient about once a month. ) Constitutional: COMPLAINS OF: Generalized weakness, DENIES: Fever, Weight gain , Weight loss, Pain Eyes: DENIES: Eye pain Ears, nose, mouth, throat: DENIES: Hearing loss Respiratory: COMPLAINS OF: Hemoptysis, Shortness of breath Cardiovascular: COMPLAINS OF: Dyspnea on Exertion Gastrointestinal: COMPLAINS OF: Abdominal pain, Vomiting, Dyspepsia or heartburn, Vomiting blood Integumentary: COMPLAINS OF: Pruritus Neurologic: COMPLAINS OF: Seizures Psychiatric: COMPLAINS OF: Anxiety, Confusion Past Family Social History Coded Allergies: No Known Allergies (Unverified Allergy, Unknown, 03/02/17) Past Medical History Traumatic brain injury around 10-12 years ago with subsequent dementia Atrial fibrillation STroke CKD GERD Seizure disorder Psychosis Osteoporosis Apixaban use Plavix use . Past Surgical History Coronary artery bypass graft Valve replacement Left thigh fasciotomy (02/2017) for compartment syndrome secondary to hematoma . Reported Medications Prehospitalization medications at his nursing facility included the following... Norvasc (Amlodipine Besylate) 10 Mg Tab 10 Mg PO DAILY Plavix (Clopidogrel Bisulfate) 75 Mg Tab 75 Mg PO DAILY Tylenol (Acetaminophen) 325 Mg Tab 650 Mg PO Q4H PRN Eliquis (Apixaban) 5 Mg Tab 5 Mg PO BID Verapamil (Verapamil HCl) 120 Mg Tab 120 Mg PO DAILY Tylenol (Acetaminophen) 325 Mg Tab 650 Mg PO Q4H PRN Poly-Iron 150 (Polysaccharide Iron Complex) 150 Mg Iron Cap 150 Mg PO Q12HR Omeprazole 20 Mg Tab 20 Mg PO DAILY PRN [place] (Hydrocodone-Acetaminophen) 5-325 mg Tab 1 Tab PO Q6H PRN Namenda (Memantine) 10 Mg Tab 10 Mg PO BID Milk of Danielle Liq (Magnesium Hydroxide) 400 Mg/5 Ml Susp 30 Ml PO DAILY PRN Claritin (Loratadine) 10 Mg Cap 10 Mg PO DAILY Lexapro (Escitalopram Oxalate) 10 Mg Tab 10 Mg PO HS Keppra (Levetiracetam) 500 Mg Tab 500 Mg PO BID Depakote Sprinkles (Divalproex Sodium) 125 mg Cap 250 Mg PO BID Depakote Sprinkles (Divalproex Sodium) 125 mg Cap 125 Mg PO DAILY Vitamin D-1000 (Cholecalciferol) 1,000 Unit Tab 2,000 Units PO DAILY . Current Medications Medications (Trade) Dose Ordered Sig/Santiago Route Start Time Stop Time Status Last Admin Fentanyl Citrate 250 ml @ 5 mls/hr TITRATE PRN IV 06/10/17 00:45 06/10/17 01:44 Propofol 100 ml @ 3.818 mls/ hr TITRATE PRN IV 06/10/17 01:00 Potassium Chloride 100 ml @ 50 mls/hr Q2H PRN IV 06/10/17 01:00 Potassium Chloride 100 ml @ 50 mls/hr Q2H PRN IV 06/10/17 01:00 (K-Lyte Cl Eff) 50 meq UNSCH PRN PO 06/10/17 01:00 Potassium Chloride 100 ml @ 25 mls/hr UNSCH PRN IV 06/10/17 01:00 Potassium Chloride 100 ml @ 50 mls/hr Q2H PRN IV 06/10/17 01:00 Magnesium Sulfate 4 gm/Sodium Chloride 100 ml @ 50 mls/hr UNSCH PRN IV 06/10/17 01:00 (Mag-Ox) 800 mg UNSCH PRN PO 06/10/17 01:00 Magnesium Sulfate 2 gm/Sodium Chloride 100 ml @ 50 mls/hr UNSCH PRN IV 06/10/17 01:00 (K-Phos) 2,000 mg Q4H PRN PO 06/10/17 01:00 Sodium Phosphate 30 mmol/Sodium Chloride 250 ml @ 42 mls/hr UNSCH PRN IV 06/10/17 01:00 (K-Phos) 2,000 mg UNSCH PRN PO/TUBE 06/10/17 01:00 Potassium Phosphate 30 mmol/ Sodium Chloride 260 ml @ 42 mls/hr UNSCH PRN IV 06/10/17 01:00 (Peridex 0.12% Liq) 15 ml BID@08,20 MT 06/10/17 08:00 06/10/17 07:44 (D50w (Vial) Inj) 25 ml UNSCH PRN IV PUSH 06/10/17 01:00 (NovoLIN R SUPPLEMENTAL SCALE) 1 Q6HR SQ 06/10/17 06:00 (Duoneb Neb) 1 ampule Q6HR NEB INH 06/10/17 04:00 06/10/17 07:48 (Duoneb Neb) 1 ampule Q2HR NEB PRN INH 06/10/17 01:00 (Zofran Inj) 4 mg Q6H PRN IV PUSH 06/10/17 01:00 Miscellaneous Information 1 Q361D XX 06/10/17 01:00 06/10/17 01:00 (Chlorhexidine 2% Cloth) 3 pack Taper DAILY@04 TOP 06/10/17 04:00 06/06/18 03:59 06/10/17 04:00 (Chlorhexidine 2% Cloth) 3 pack UNSCH PRN TOP 06/10/17 01:00 Levetriacetam 500 mg/Sodium Chloride 105 ml @ 420 mls/hr Q12HR IV 06/10/17 09:00 06/10/17 07:42 (Depakote Sprinkles) 250 mg BID PO 06/10/17 09:00 Sodium Chloride 250 ml @ 15 mls/hr ONCE ONCE IV 06/10/17 01:00 06/10/17 17:39 06/10/17 01:00 Sodium Chloride 1,000 ml @ 125 mls/hr Q8H IV 06/10/17 10:15 06/10/17 10:47 Pantoprazole Sodium 80 mg/ Sodium Chloride 100 ml @ 10 mls/hr Q10H IV 06/10/17 11:00 . Family History Patient is unable to provide his family history due to his dementia. The patient's healthcare surrogate new very little about family medical history. The patient's father when the patient was about 11. The father was wheelchair bound at the time. The patient's mother when she was age 93. Family was told that "all of her organs were failing at the time." The patient's son knew little about medical history of siblings. . Substance Use Tobacco: Non-smoker Alcohol: Nondrinker Prescription med abuse: No history of abuse Illicits: No known use of illicits . Psychosocial History Patient is originally from [place], [place]. He has lived in [place] since 1971. The patient is a high school graduate. He served approximately 6 months in the [employer] during the [place] era. 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 Son reports that the patient was 3-4 times. All of his wives are now . The patient's last had severe dementia and the patient was the caregiver for her. The patient has 2 sons. Max lives in [place], [place]. He is the healthcare surrogate. He visits his father approximately once a month. Another son, Hugh, lives out of state and has not been in close communication. The patient has been essentially living in facilities since the time of his head injury about 10-12 years ago. . Spiritual/Cultural Factors Son reports that the patient is Jewish. Sikhism and spirituality have not been an important part of his life as an adult. Pearl Maker services were offered and declined. . Living Will: Copy in medical record Health Care Surrogate: Copy in medical record Durable Power of Stock Checker: Copy in medical record Date completed: 08/30/2002 . Health Care Surrogate(s): The patient's at the time--Anny Chakraborty--was designated as the primary surrogate, and the patient's son--Max Chakraborty--was designated as the alternate. . Documented care wishes: The patient has completed a form that includes the language of a typical [place] living will and that he would not want life prolonging measures if he were found to have a terminal condition or persistent vegetative state. In addition he has initialed and optional part indicating he would want life prolonging procedures withheld or withdrawn if he had "a debilitating disease condition in which I have no reasonable probability of recovering, I cannot communicate or interact purposefully with others." . Today's verbally stated goals: Patient is unable to verbally express his healthcare preferences or goals. There is no reasonable probability he will recover capacity to do so. . Family/friends goals: I spoke with the patient's son--Max--who is also the current legal decision maker. Max indicated he had had multiple conversations with his father and knew he felt strongly about the terms of his living will. Max misunderstood what the emergency room physician was telling him. Max tells me his father would not want to be on life support now and wants and withdrawn from life support as soon as possible. . Ethical and Legal Issues Patient is incapacitated to make his own medical decisions and there is no reasonable probability that he will recover capacity to do so. . Physical Exam Vital Signs Date Time Temp Pulse Resp B/P (MAP) Pulse Ox O2 Delivery O2 Flow Rate FiO2 06/10/17 07:48 99 80 06/10/17 07:00 94 06/10/17 06:00 92 06/10/17 04:16 99 100 06/10/17 04:00 90 06/10/17 04:00 98.0 90 20 106/69 (81) 06/10/17 02:32 06/10/17 02:06 97.6 100 23 91/59 (70) 100 06/10/17 02:00 100 100 06/10/17 01:30 100 100 06/10/17 01:02 100 06/10/17 00:30 99 100 06/10/17 00:22 98.1 101 40 99/74 (82) 90 . Exam CONSTITUTIONAL/GENERAL: This is a morbidly obese male currently intubated, ventilated, sedated, in an intensive care unit bed. He sisters and briefly opens his eyes to stimulation. No evidence of distress at this time. TUBES/LINES/DRAINS: Orotracheal tube; Chadwick catheter; soft wrist restraints; peripheral IVs; SCDs SKIN: No jaundice, rashes, or lesions. Large surgical scar from left thigh fasciotomy. Skin temperature appropriate except for feet which are cool and slightly mottled.. Not diaphoretic. HEAD: Atraumatic. Normocephalic. EYES: Pupils equal and round and reactive. Extraocular motions intact. No scleral icterus. No injection or drainage. Fundi not examined. ENT: Unable to assess hearing.. There is some dried blood around the nose and mouth. Throat with some dried blood but otherwise without visible erythema, exudates, masses, or lesions. Oropharynx is difficult to evaluate due to orotracheal intubation. NECK: Trachea midline.No palpable thyroid enlargement or nodularity but neck is very difficult to evaluate due to level of obesity CARDIOVASCULAR: Regular rate and rhythm without murmurs, gallops, or rubs-- heart sounds are distant . No JVD--but difficult to evaluate due to level of neck obesity. Peripheral pulses symmetric in the upper extremities . Not certain I palpate pulses in the feet or ankles. RESPIRATORY/CHEST: Symmetric, unlabored respirations. Clear to auscultation in the upper lung abdullahi.. Breath sounds equal bilaterally. Poor air movement in lower lung abdullahi. No wheezes, rales, or rhonchi. GASTROINTESTINAL: Abdomen distended, moderately tense, mild tenderness. Difficult to assess for organomegaly or masses given level of distention. No guarding. Bowel sounds hypoactive. GENITOURINARY: Without palpable bladder distension. Chadwick catheter in place. MUSCULOSKELETAL: Extremities without clubbing, edema. No joint tenderness or effusion noted. No calf tenderness. Both feet are cool to the touch. I am not certain I can feel pulses in the ankles or feet. Feet are slightly mottled. LYMPHATICS: No palpable cervical or supraclavicular adenopathy though cervical nodes are difficult to assess due to level of neck obesity. NEUROLOGICAL: Will open his eyes briefly to loud voice and exam. Unable to follow commands. Drifts off to sleep very quickly if not stimulated. Moves all extremities. PSYCHIATRIC: Unable to adequately assess due to level of responsiveness. . . Diagnostic Tests Laboratory Laboratory Tests Test 06/10/17 00:20 06/10/17 01:15 06/10/17 01:45 06/10/17 01:50 White Blood Count 20.2 TH/MM3 (4.0-11.0) Red Blood Count 4.55 MIL/MM3 (4.50-5.90) Hemoglobin 13.7 GM/DL (13.0-17.0) Hematocrit 41.6 % (39.0-51.0) Mean Corpuscular Volume 91.4 FL (80.0-100.0) Mean Corpuscular Hemoglobin 30.1 PG (27.0-34.0) Mean Corpuscular Hemoglobin Concent 33.0 % (32.0-36.0) Red Cell Distribution Width 16.7 % (11.6-17.2) Platelet Count 353 TH/MM3 (150-450) Mean Platelet Volume 9.0 FL (7.0-11.0) Neutrophils (%) (Auto) 90.2 % (16.0-70.0) Lymphocytes (%) (Auto) 4.5 % (9.0-44.0) Monocytes (%) (Auto) 5.2 % (0.0-8.0) Eosinophils (%) (Auto) 0.0 % (0.0-4.0) Basophils (%) (Auto) 0.1 % (0.0-2.0) Neutrophils # (Auto) 18.2 TH/MM3 (1.8-7.7) Lymphocytes # (Auto) 0.9 TH/MM3 (1.0-4.8) Monocytes # (Auto) 1.1 TH/MM3 (0-0.9) Eosinophils # (Auto) 0.0 TH/MM3 (0-0.4) Basophils # (Auto) 0.0 TH/MM3 (0-0.2) CBC Comment DIFF FINAL Differential Comment Blood Urea Nitrogen 45 MG/DL (7-18) Creatinine 2.16 MG/DL (0.60-1.30) Random Glucose 202 MG/DL (74-106) Total Protein 8.8 GM/DL (6.4-8.2) Albumin 3.5 GM/DL (3.4-5.0) Calcium Level 9.0 MG/DL (8.5-10.1) Alkaline Phosphatase 141 U/L (45-117) Aspartate Amino Transf (AST/SGOT) 13 U/L (15-37) Alanine Aminotransferase (ALT/SGPT) 13 U/L (12-78) Total Bilirubin 0.3 MG/DL (0.2-1.0) Sodium Level 140 MEQ/L (136-145) Potassium Level 4.5 MEQ/L (3.5-5.1) Chloride Level 104 MEQ/L (98-107) Carbon Dioxide Level 21.4 MEQ/L (21.0-32.0) Anion Gap 15 MEQ/L (5-15) Estimat Glomerular Filtration Rate 29 ML/MIN (>89) Lipase 107 U/L (73-393) Blood Gas Puncture Site LT BRACHIAL Blood Gas Patient Temperature 98.6 Blood Gas HCO3 20 mmol/L (22-26) Blood Gas Base Excess -7.6 mmol/L (-2-2) Blood Gas Oxygen Saturation 98 % (90-100) Arterial Blood pH 7.16 (7.380-7.420) Arterial Blood Partial Pressure CO2 57 mmHg (38-42) Arterial Blood Partial Pressure O2 180 mmHG (61-120) Arterial Blood Oxygen Content 16.6 Vol % (12.0-20.0) Arterial Blood Carboxyhemoglobin 0.5 % (0-4) Arterial Blood Methemoglobin 0.4 % (0-2) Blood Gas Hemoglobin 11.8 G/DL (12.0-16.0) Oxygen Delivery Device VENTILATOR Blood Gas Ventilator Setting 12/500/IT1.0/5PEEP Blood Gas Inspired Oxygen 100 % Urine Color YELLOW (YELLW/STRAW) Urine Turbidity HAZY (CLEAR) Urine pH 6.0 (5.0-8.5) Urine Specific [place] 1.018 (1.002-1.035) Urine Protein 30 mg/dL (NEG-TRACE) Urine Glucose (UA) NEG mg/dL (NEG) Urine Ketones NEG mg/dL (NEG) Urine Occult Blood TRACE (NEG) Urine Nitrite NEG (NEG) Urine Bilirubin NEG (NEG) Urine Urobilinogen LESS THAN 2.0 MG/DL (LESS Urine Leukocyte Esterase LARGE (NEG) Urine RBC 10 /hpf (0-3) Urine WBC /hpf (0-5) Urine Bacteria RARE /hpf (NONE) Microscopic Urinalysis Comment CATH-CULTURE IND Prothrombin Time 11.2 SEC (9.8-11.6) Prothromb Time International Ratio 1.1 RATIO Activated Partial Thromboplast Time 26.8 SEC (24.3-30.1) Test 06/10/17 03:30 06/10/17 04:50 06/10/17 06:15 06/10/17 07:53 Nasal Screen MRSA (PCR) MRSA DETECTED (NOT DETECT) Hemoglobin 13.1 GM/DL (13.0-17.0) Hematocrit 40.0 % (39.0-51.0) Blood Gas Puncture Site LT RADIAL Blood Gas Patient Temperature 98.6 Blood Gas HCO3 20 mmol/L (22-26) Blood Gas Base Excess -5.2 mmol/L (-2-2) Blood Gas Oxygen Saturation 95 % (90-100) Arterial Blood pH 7.28 (7.380-7.420) Arterial Blood Partial Pressure CO2 45 mmHg (38-42) Arterial Blood Partial Pressure O2 102 mmHg (61-120) Arterial Blood Oxygen Content 16.7 Vol % (12.0-20.0) Arterial Blood Carboxyhemoglobin 0.8 % (0-4) Arterial Blood Methemoglobin 1.3 % (0-2) Blood Gas Hemoglobin 12.4 G/DL (12.0-16.0) Oxygen Delivery Device VENTILATOR Blood Gas Ventilator Setting SEE COMMENT Blood Gas Inspired Oxygen 100 % Lactic Acid Level 3.8 mmol/L (0.4-2.0) .. Result Diagram: 06/10/17 0450 06/10/17 0020 Microbiology Microbiology Date/Time Source Procedure Growth Status 06/10/17 01:45 Urine Catheterized Urine Urine Culture Pending Received . Imaging Last Impressions Chest X-Ray 06/10/17 0000 Signed Impressions: Service Date/Time: May 00:24 - CONCLUSION: 1. ET tube in good position. 2. Gastric tube tip just above the GE junction. 3. Patchy left lower lung infiltrates. Osmar Pereira MD Abdomen X-Ray 06/10/17 0000 Signed Impressions: Service Date/Time: May 08:21 - CONCLUSION: 1. Air- filled loops of small and large bowel suggestive of diffuse ileus or distal colonic obstruction. 2. Degenerative changes and scoliosis of the thoracolumbar spine. Rusty Shelley MD . Procedures * Intubation/mechanical ventilation . Patient/Family Conference Present at Family Conference: -->Max Chakraborty (son and health care surrogate) . Family Conference Time (mins): 25 Family Conference Location: Telephone Issues Discussed: * Palliative care role, purpose, approach * Additional medical, psychosocial, and spiritual history * Patients general health, functional status, and cognitive changes in the months leading up to the current hospitalization * Family understanding of the current medical problems * Family understanding of prognosis * Patients goals of care as best understood from advance directives and/or conversations and/or values * Current medical treatment options and benefits/burdens of those options * Likely scenarios comparing ongoing aggressive care with a transition to comfort measures only * Questions answered to the best of my ability * Palliative care contact information provided . Assessment and Plan Disease Oriented Problem List: (1) GI bleed (2) Aspiration pneumonia (3) Dyspnea (4) Urinary tract infection (5) Traumatic brain injury (6) Acute encephalopathy Symptom Scale: (1) Pain 0-10 Scale: Unable to quantify Comment: Normally uses some as needed hydrocodone in the [facility]. Unclear what type of pain syndrome he has. Patient is unable to qualify or quantify his pain due to his dementia. Current sources of pain may include: Prolonged bedbound status; Chadwick catheter; orotracheal intubation; vascular access lines; soft wrist restraints. . (2) Dyspnea 0-10 Scale: Unable to quantify Comment: Dyspnea now appearing adequately controlled with mechanical ventilation. Respiratory problems most likely secondary to an aspiration pneumonia . (3) Confusion 0-10 Scale: Unable to quantify Comment: Patient has underlying confusion secondary to his traumatic brain injury from many years ago. At baseline he does not recognize loved ones and is disoriented to person and place. . Pertinent Non-Medical Issues Psychosocial: Patient is a long-term facility resident secondary to his cognitive challenges following a traumatic brain injury 10-12 years ago. His son, Max, who lives in [place], [place] is his main source of psychosocial support. There is another son, Hugh, who lives out of state and reportedly is rarely in touch. Spiritual: Patient identifies as Jewish but gnosticist and spirituality have not played an important role in his adult life. Pearl Maker services were offered and declined Legal: Patient has completed a living will and designation of healthcare surrogate. Ethical issues impacting care: Patient is incapacitated to make his own healthcare decisions and there is no reasonable probability that he will recover such capacity. . Important Contacts Max Chakraborty (son health care decision maker) -- [phone] . Prognosis Mr. Chakraborty is a long-term facility resident secondary to cognitive changes he suffered in a traumatic brain injury approximately 10-12 years ago. Other medical problems include atrial fibrillation, stroke, seizure disorder, and psychosis. He now has a GI bleed. Source is unknown but the bleeding was most likely exacerbated by his use of apixaban and Plavix. It appears he has aspirated and has respiratory failure secondary to an aspiration pneumonia. The patient had been very clear in his living will and in conversations with his son that he did not want to be resuscitated. The living will precedes his cognitive challenges. . Code Status: No Code Plan == Code Status: NO CODE (per conversation with pt's son -- Max Chakraborty -- the health care surrogate on 06/10/17 around 1030 AM == Decision making: Patient is incapacitated to make his own health care decisions and there is no reasonable probability that he will recover capacity to make such decisions. His son , Max , is the legal health care decision maker (His advance directive indicates that his would be primary, and Max would be secondary, but the is now ). == Goals of medical treatment: I spoke at length by phone with the patient's health care surrogate -- Max Chakraborty. Max indicated that his father had been quite clear on his desire NOT to be resuscitated and had multiple conversations on the topic. Max did not understand the ER doctor when he was awakened last night. Now understanding that the patient was critically ill and being maintained on a ventilator, Max wanted his father's wishes honored and have him removed from life support. == Symptoms * Pain: Patient is currently on a fentanyl drip and is not appearing painful. Sources of pain might include prolonged bedbound status; OT tube; chadwick catheter ; vascular access lines; wrist restraints. * Confusion: Patient is normally demented from his traumatic brain injury and is disoriented and does not recognize loved ones. * Dyspnea: Patient has an aspiration pneumonia. Now on vent support. == Per the patient's living will and request of the health care surrogate... * Will compassionately withdraw patient from life support (orders written and discussed with attending physician and primary nurse). * Offered finished garment inspector (declined) * Asked if any other family members wanted to visit with patient before we proceeded with withdrawal and was told "no." Asked if health care surrogate planned to visit prior to withdrawal of life support and was told "no." * Health care surrogate wants to be notified at time of . * Should patient be breathing on his own in AM 06/11/17 and appears stable for transport, health care surrogate is OK with hospice enrollment and transfer to a hospice care center bed. . Thank you for the opportunity to participate in the care of Mr. Charkaborty. . Attestation To help prompt me to consider important information that might be impacting today's encounter and assessment, information from prior notes written by myself or my colleagues may have been "brought forward" into today's note. My signature on this note, however, is an attestation that I personally performed the exam, history, and/or decision-making noted today, and, unless otherwise indicated, the interactions with patient, family, and staff as well as the review of records all occurred today. I also attest that the listed assessment and stated plan reflect my best clinical judgment today based on the combination of historical information, prior notes, and today's exam/ interactions. When time spent is documented, it refers only to time spent today by the signer, or if indicated, combined time spent today by collaborating physician/nurse practitioner. . Mayo Morales MD Jun 10, 2017 10:59
[2017-06-10] MEDS ORDERED: LORazepam 2 MG/ML VIAL IV PUSH ONE ×2 (11:15→11:30)
[2017-06-10] MEDS ORDERED: MORPHINE SULFATE 8 MG/ML INJ IV PUSH ONE ×2 (11:15→11:30)
--- NOTE | 2017-06-10 11:24 | PD.CONS ---
HPI History of Present Illness This is a 81 year old male with recent hx thigh hematoma, AF on eliquis and plavix, dementia, who presented from SNF with coffee ground emesis. pt was subsequently intubated, copious CGE and blood suctioned from his mouth. Pt is DNR and support is being withdrawn. (Nikkie Jacome) PFSH Past Medical History Severe dementia Alzheimer's disease Anemia Atrial fibrillation Anxiety CVA Chronic kidney disease, unknown stage GERD Seizures Psychosis NOS Pruritus Osteoporosis Apixaban use Plavix use Past Surgical History Coronary artery bypass graft Valve replacement Emergent operation for thigh hematoma 02/2017. (Nikkie Jacome) Coded Allergies: No Known Allergies (Unverified Allergy, Unknown, 03/02/17) Family History unk Social History unk (Nikkie Jacome) Review of Systems noncontributory (Nikkie Jacome) GI Exam Vitals I&O Vital Signs Date Time Temp Pulse Resp B/P (MAP) Pulse Ox O2 Delivery O2 Flow Rate FiO2 06/10/17 07:48 99 80 06/10/17 07:00 94 06/10/17 06:00 92 06/10/17 04:16 99 100 06/10/17 04:00 90 06/10/17 04:00 98.0 90 20 106/69 (81) 06/10/17 02:32 06/10/17 02:06 97.6 100 23 91/59 (70) 100 06/10/17 02:00 100 100 06/10/17 01:30 100 100 06/10/17 01:02 100 06/10/17 00:30 99 100 06/10/17 00:22 98.1 101 40 99/74 (82) 90 I/O 06/09/17 06/09/17 06/09/17 06/10/17 06/10/17 06/10/17 07:00 15:00 23:00 07:00 15:00 23:00 Intake Total 2800 ml 105 ml Output Total 950 ml Balance 1850 ml 105 ml Intake IV Total 2800 ml 105 ml Output Urine Total 250 ml Stool Total 0 ml Emesis 700 ml # Bowel Movements 0 Imaging Last Impressions Chest X-Ray 06/10/17 0000 Signed Impressions: Service Date/Time: May 00:24 - CONCLUSION: 1. ET tube in good position. 2. Gastric tube tip just above the GE junction. 3. Patchy left lower lung infiltrates. Osmar Pereira MD Abdomen X-Ray 06/10/17 0000 Signed Impressions: Service Date/Time: May 08:21 - CONCLUSION: 1. Air- filled loops of small and large bowel suggestive of diffuse ileus or distal colonic obstruction. 2. Degenerative changes and scoliosis of the thoracolumbar spine. Rusty Shelley MD Laboratory Test 06/10/17 00:20 06/10/17 01:15 06/10/17 01:45 06/10/17 01:50 White Blood Count 20.2 TH/MM3 Red Blood Count 4.55 MIL/MM3 Hemoglobin 13.7 GM/DL Hematocrit 41.6 % Mean Corpuscular Volume 91.4 FL Mean Corpuscular Hemoglobin 30.1 PG Mean Corpuscular Hemoglobin Concent 33.0 % Red Cell Distribution Width 16.7 % Platelet Count 353 TH/MM3 Mean Platelet Volume 9.0 FL Neutrophils (%) (Auto) 90.2 % Lymphocytes (%) (Auto) 4.5 % Monocytes (%) (Auto) 5.2 % Eosinophils (%) (Auto) 0.0 % Basophils (%) (Auto) 0.1 % Neutrophils # (Auto) 18.2 TH/MM3 Lymphocytes # (Auto) 0.9 TH/MM3 Monocytes # (Auto) 1.1 TH/MM3 Eosinophils # (Auto) 0.0 TH/MM3 Basophils # (Auto) 0.0 TH/MM3 CBC Comment DIFF FINAL Differential Comment Blood Urea Nitrogen 45 MG/DL Creatinine 2.16 MG/DL Random Glucose 202 MG/DL Total Protein 8.8 GM/DL Albumin 3.5 GM/DL Calcium Level 9.0 MG/DL Alkaline Phosphatase 141 U/L Aspartate Amino Transf (AST/SGOT) 13 U/L Alanine Aminotransferase (ALT/SGPT) 13 U/L Total Bilirubin 0.3 MG/DL Sodium Level 140 MEQ/L Potassium Level 4.5 MEQ/L Chloride Level 104 MEQ/L Carbon Dioxide Level 21.4 MEQ/L Anion Gap 15 MEQ/L Estimat Glomerular Filtration Rate 29 ML/MIN Lipase 107 U/L Blood Gas Puncture Site LT BRACHIAL Blood Gas Patient Temperature 98.6 Blood Gas HCO3 20 mmol/L Blood Gas Base Excess -7.6 mmol/L Blood Gas Oxygen Saturation 98 % Arterial Blood pH 7.16 Arterial Blood Partial Pressure CO2 57 mmHg Arterial Blood Partial Pressure O2 180 mmHG Arterial Blood Oxygen Content 16.6 Vol % Arterial Blood Carboxyhemoglobin 0.5 % Arterial Blood Methemoglobin 0.4 % Blood Gas Hemoglobin 11.8 G/DL Oxygen Delivery Device VENTILATOR Blood Gas Ventilator Setting 12/500/IT1.0/5PEEP Blood Gas Inspired Oxygen 100 % Urine Color YELLOW Urine Turbidity HAZY Urine pH 6.0 Urine Specific [place] 1.018 Urine Protein 30 mg/dL Urine Glucose (UA) NEG mg/dL Urine Ketones NEG mg/dL Urine Occult Blood TRACE Urine Nitrite NEG Urine Bilirubin NEG Urine Urobilinogen LESS THAN 2.0 MG/DL Urine Leukocyte Esterase LARGE Urine RBC 10 /hpf Urine WBC /hpf Urine Bacteria RARE /hpf Microscopic Urinalysis Comment CATH-CULTURE IND Prothrombin Time 11.2 SEC Prothromb Time International Ratio 1.1 RATIO Activated Partial Thromboplast Time 26.8 SEC Test 06/10/17 03:30 06/10/17 04:50 06/10/17 06:15 06/10/17 07:53 Nasal Screen MRSA (PCR) MRSA DETECTED Hemoglobin 13.1 GM/DL Hematocrit 40.0 % Blood Gas Puncture Site LT RADIAL Blood Gas Patient Temperature 98.6 Blood Gas HCO3 20 mmol/L Blood Gas Base Excess -5.2 mmol/L Blood Gas Oxygen Saturation 95 % Arterial Blood pH 7.28 Arterial Blood Partial Pressure CO2 45 mmHg Arterial Blood Partial Pressure O2 102 mmHg Arterial Blood Oxygen Content 16.7 Vol % Arterial Blood Carboxyhemoglobin 0.8 % Arterial Blood Methemoglobin 1.3 % Blood Gas Hemoglobin 12.4 G/DL Oxygen Delivery Device VENTILATOR Blood Gas Ventilator Setting SEE COMMENT Blood Gas Inspired Oxygen 100 % Lactic Acid Level 3.8 mmol/L Date/Time Source Procedure Growth Status 06/10/17 01:45 Urine Catheterized Urine Urine Culture Pending Received Physical Examination HEENT: normocephalic; atraumatic; no jaundice. dark blood in mouth CHEST: coarse CARDIAC: tachy, irr HR ABDOMEN: semifirm, distended, BS hypoactive EXTREMITIES: No clubbing, cyanosis, or edema. SKIN: Normal; no rash; no jaundice. 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 on plavix and eliquis on admission HH WNL - ileus vs bowel obstruction - per [facility]UB PLAN - GI will sign off. Pt going with hospice, withdrawal. D/w Dr Morales, RN pt seen by myself and Dr Monsivais and this note is on his behalf (Nikkie Jacome) Physician Comments seen, examined agree with above (Zeny Monsivais MD) Nikkie Jacome Jun 10, 2017 11:24 Zeny Monsivais MD Jun 10, 2017 15:59
[2017-06-10] MEDS ORDERED: BISACODYL 10 MG SUPP RECTAL PRN (11:45)
[2017-06-10] MEDS ORDERED: FUROSEMIDE 20 MG/2 ML VIAL IV PUSH PRN (11:45)
[2017-06-10] MEDS ORDERED: MORPHINE SULFATE 8 MG/ML INJ IV PUSH PRN ×2 (11:45)
[2017-06-10] MEDS ORDERED: ACETAMINOPHEN 650 MG SUPP RECTAL PRN (11:45)
[2017-06-10] MEDS ORDERED: LORazepam 2 MG/ML VIAL IV PUSH PRN ×3 (11:45)
--- NOTE | 2017-06-10 14:13 | EKG ---
Date Performed: 06/10/2017 Time Performed: 00:37:27 PTAGE: 81 years EKG: Baseline artifact present SINUS TACHYCARDIA NONSPECIFIC ST & T-WAVE ABNORMALITY ABNORMAL [facility] ECG Compared to prior electrocardiogram, Maykel baseline artifact precludes accurate interpretatio n although the rate has increased. NO PREVIOUS TRACING DOCTOR: Abhishek Huizar Interpretating Date/Time 06/10/2017 14:12:12
--- NOTE | 2017-06-10 15:05 | DEATH SUM ---
Summary Demographics Date Pronounced : Jun 10, 2017 Time Of : 15:01 Preliminary Cause of : Cardiac arrest Kelsy Sepulveda MD Jun 10, 2017 15:05
--- NOTE | 2017-06-10 15:08 | HHI.DS ---
Summary Note Date of : Jun 10, 2017 Time Of : 15:01 Admission Date Jun 10, 2017 at 00:51 Admitting Diagnosis coffee ground emesis aspiration syncope Diagnosis at Time of : (1) UGIB (upper gastrointestinal bleed) ICD Code: K92.2 - Gastrointestinal hemorrhage, unspecified Diagnosis: Principal (2) Acute hypoxemic respiratory failure ICD Code: J96.01 - Acute respiratory failure with hypoxia Diagnosis: Principal (3) Acute encephalopathy ICD Code: G93.40 - Encephalopathy, unspecified Diagnosis: Principal (4) Aspiration pneumonia ICD Code: J69.0 - Pneumonitis due to inhalation of food and vomit Diagnosis: Principal (5) Urinary tract infection ICD Code: N39.0 - Urinary tract infection, site not specified Diagnosis: Principal (6) Chronic Eliquis use Diagnosis: Secondary (7) Compartment syndrome of left lower extremity ICD Code: T79.A22A - Traumatic compartment syndrome of left lower extremity, initial encounter Diagnosis: Secondary (8) Dementia ICD Code: F03.90 - Unspecified dementia without behavioral disturbance Diagnosis: Secondary Procedures Endotracheal intubation in the emergency department Brief History This is an 81-year-old male with a recent history back in February 2017 of a thigh hematoma on anticoagulation requiring emergent operation. At that time the patient was stabilized and [facility]. Per reports he was a DNR at that time. He is on Eliquis and Plavix for atrial fibrillation as well as likely stent placement in the past. He presented from [facility] facility today with coffee grounds emesis. The emergency department, the physician contacted the family who elected to rescind the patient's DNR. The patient was then emergently intubated and had massive amounts of coffee grounds emesis which was noted to go down below the cords. Patient was given IV fluids and started on a Protonix infusion. Patient has baseline dementia which is severe. On my evaluation, the patient is intubated and sedated and unable to provide any additional information. ROS is unobtainable. CBC/BMP: 06/10/17 0450 06/10/17 0020 Significant Findings Laboratory Tests Test 06/10/17 00:20 06/10/17 01:15 06/10/17 01:45 06/10/17 01:50 White Blood Count 20.2 TH/MM3 (4.0-11.0) Neutrophils (%) (Auto) 90.2 % (16.0-70.0) Lymphocytes (%) (Auto) 4.5 % (9.0-44.0) Neutrophils # (Auto) 18.2 TH/MM3 (1.8-7.7) Lymphocytes # (Auto) 0.9 TH/MM3 (1.0-4.8) Monocytes # (Auto) 1.1 TH/MM3 (0-0.9) Blood Urea Nitrogen 45 MG/DL (7-18) Creatinine 2.16 MG/DL (0.60-1.30) Random Glucose 202 MG/DL (74-106) Total Protein 8.8 GM/DL (6.4-8.2) Alkaline Phosphatase 141 U/L (45-117) Aspartate Amino Transf (AST/SGOT) 13 U/L (15-37) Estimat Glomerular Filtration Rate 29 ML/MIN (>89) Blood Gas HCO3 20 mmol/L (22-26) Blood Gas Base Excess -7.6 mmol/L (-2-2) Arterial Blood pH 7.16 (7.380-7.420) Arterial Blood Partial Pressure CO2 57 mmHg (38-42) Arterial Blood Partial Pressure O2 180 mmHG (61-120) Blood Gas Hemoglobin 11.8 G/DL (12.0-16.0) Urine Turbidity HAZY (CLEAR) Urine Protein 30 mg/dL (NEG-TRACE) Urine Occult Blood TRACE (NEG) Urine Leukocyte Esterase LARGE (NEG) Urine RBC 10 /hpf (0-3) Urine Bacteria RARE /hpf (NONE) Test 06/10/17 03:30 06/10/17 04:50 06/10/17 06:15 06/10/17 07:53 Blood Gas HCO3 20 mmol/L (22-26) Blood Gas Base Excess -5.2 mmol/L (-2-2) Arterial Blood pH 7.28 (7.380-7.420) Arterial Blood Partial Pressure CO2 45 mmHg (38-42) Lactic Acid Level 3.8 mmol/L (0.4-2.0) Imaging Last Impressions Chest X-Ray 06/10/17 0000 Signed Impressions: Service Date/Time: May 00:24 - CONCLUSION: 1. ET tube in good position. 2. Gastric tube tip just above the GE junction. 3. Patchy left lower lung infiltrates. Osmar Pereira MD Hospital Course This is an 81-year-old male with a recent history back in February 2017 of a thigh hematoma on anticoagulation requiring emergent operation. At that time the patient was stabilized and [facility]. Per reports he was a DNR at that time. He is on Eliquis and Plavix for atrial fibrillation as well as likely stent placement in the past. He presented from [facility] today with coffee grounds emesis. The emergency department, the physician contacted the family who elected to rescind the patient's DNR. The patient was then emergently intubated and had massive amounts of coffee grounds emesis which was noted to go down below the cords. Patient was given IV fluids and started on a Protonix infusion. Patient has baseline dementia which is severe. On my evaluation, the patient is intubated and sedated and unable to provide any additional information. ROS is unobtainable. 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 Palliative care discussed with family extensively. Max Chakraborty (son health care decision maker ). They decided to withdraw life support and pursue comfort measures only. After premedication patient was taken out of the ventilator and he comfortably at 1501 on 06/10/2017. Even though GI was consulted; no endoscopy was performed due to the above Kelsy Sepulveda MD Jun 10, 2017 15:08
== END 2017-06-10 15:01 | disposition expired | DRG 296 ==
LOC: NEPE 00:07 → NEDA 00:51 → HIMN 01:55
PROVIDERS: ADMIT Internal Medicine Critical Care Medicine; ATTEND Internal Medicine Critical Care Medicine
PROC: 0BH17EZ Insertion of Endotracheal Airway into Trachea, Via Natural or Artificial Opening (ICD-10-PCS; principal; 2017-06-10)
PROC: 5A1935Z Respiratory Ventilation, Less than 24 Consecutive Hours (ICD-10-PCS; 2017-06-10)
PROC: 0T9B70Z Drainage of Bladder with Drainage Device, Via Natural or Artificial Opening (ICD-10-PCS; 2017-06-10)
DX: I46.9 Cardiac arrest, cause unspecified (principal); J69.0 Pneumonitis due to inhalation of food and vomit; R57.8 Other shock; G93.41 Metabolic encephalopathy; N17.9 Acute kidney failure, unspecified; K92.0 Hematemesis; J96.01 Acute respiratory failure with hypoxia; J96.02 Acute respiratory failure with hypercapnia; K92.2 Gastrointestinal hemorrhage, unspecified; D68.9 Coagulation defect, unspecified; E44.0 Moderate protein-calorie malnutrition; D62 Acute posthemorrhagic anemia; N39.0 Urinary tract infection, site not specified; E66.01 Morbid (severe) obesity due to excess calories; T17.918A Gastric contents in respiratory tract, part unspecified causing other injury, initial encounter; G30.9 Alzheimer's disease, unspecified; I48.91 Unspecified atrial fibrillation; F02.80 Dementia in other diseases classified elsewhere, unspecified severity, without behavioral disturbance, psychotic disturbance, mood disturbance, and anxiety; F41.9 Anxiety disorder, unspecified; I12.9 Hypertensive chronic kidney disease with stage 1 through stage 4 chronic kidney disease, or unspecified chronic kidney disease; N28.9 Disorder of kidney and ureter, unspecified; G89.29 Other chronic pain; G40.909 Epilepsy, unspecified, not intractable, without status epilepticus; E86.1 Hypovolemia; R73.9 Hyperglycemia, unspecified; I25.10 Atherosclerotic heart disease of native coronary artery without angina pectoris; K21.9 Gastro-esophageal reflux disease without esophagitis; M81.0 Age-related osteoporosis without current pathological fracture; Z51.5 Encounter for palliative care; Z68.37 Body mass index [BMI] 37.0-37.9, adult; Z79.01 Long term (current) use of anticoagulants; Z86.73 Personal history of transient ischemic attack (TIA), and cerebral infarction without residual deficits; Z95.2 Presence of prosthetic heart valve; Z95.1 Presence of aortocoronary bypass graft; Z79.899 Other long term (current) drug therapy; Z66 Do not resuscitate
CPT/HCPCS: 31500; 36600; 71045; 74018; 80053; 81001; 82805; 82948; 83605; 83690; 85014; 85018; 85025; 85610; 85730; 86850; 86900; 86901; 86920; 87086; 87641; 93005; 94002; 94664; 96365; 96375; C9113; C9132; J1953; J2060; J2250; J2270; J2543; J3010; J3370; J7030; J7050